=== PATIENT | female | born 1975 ===

== ENCOUNTER 2020-01-12 21:18 | Emergency (ER) | payer OTHER, SELFPAY ==
--- NOTE | 2020-01-12 | ECG_ITS ---
Test Reason : CHEST AND BACK PAIN Blood Pressure : / mmHG Vent. Rate : 088 BPM Atrial Rate : 088 BPM P-R Int : 160 ms QRS Dur : 086 ms QT Int : 368 ms P-R-T Axes : 057 025 043 degrees QTc Int : 445 ms Normal sinus rhythm Normal ECG When compared with ECG of 02-JAN-2019 09:16, No significant change was found Referred By: Generic ED Physician Electronically Signed By:ANTONIO RILEY MD
[2020-01-12 21:49] VITALS: BP 196/103; PULSE 86; RESP 16; TEMP 36.8; O2SAT 95; BMI 32.3
[2020-01-12 22:00] VITALS: BP 178/99; PULSE 75; RESP 18; O2SAT 97
--- NOTE | 2020-01-12 22:22 | XR_ITS ---
EXAMINATION: XR CHEST CLINICAL INFORMATION: Chest pain COMPARISON: 09/01/2017 and priors TECHNIQUE: AP (2 views) view of the chest was obtained. FINDINGS: No significant abnormality is noted involving the heart, lungs, mediastinum, bony thorax or soft tissues. XR/XR chest 1V IMPRESSION: Unremarkable examination.
--- NOTE | 2020-01-12 22:24 | ED_ITS ---
HPI - General Adult General Chief complaint: General Medical Stated complaint: HIGH BLOOD PRESSURE Time Seen by Provider: 01/12/20 21:59 History of Present Illness HPI narrative: Patient is a 44-year-old female presented with having chest pain that is mid chest constant for the last 4-1/2 hours. Not associated with change in position not associated with exertion. The pain is dull. Not associated with any leg swelling. No history of travel. No history of blood clots. Patient has a history of hypertension. No history of diabetes, high cholesterol, smoking, CO. No family history of CO. Positive history of anxiety. Patient denies any focal weakness. No coughing or congestion or upper respiratory symptoms. No diaphoresis. Not associated with ambulation. Related Data Allergies Allergy/AdvReac Type Severity Reaction Status Date / Time Penicillins Allergy Mild RASH Verified 01/12/20 21:49 penicillin V Allergy Unknown unknown Verified 01/12/20 21:49 Review of Systems Review of Systems: Constitutional: No Weight loss, No Fever, No Chills, No Night Sweats, No Fatigue, No Malaise ENT/Mouth: No Hearing loss, No Ear Pain, No Nasal Congestion, No Sinus Pain, No Hoarseness, No sore throat, No Rhinorrhea, No Swallowing Difficulty Eyes: No Eye Pain, No Swelling, No Redness, No Foreign Body, No Discharge, No Vision Changes Cardiovascular: Positive chest pain, no shortness of breath Respiratory: No Cough, No Sputum, No Wheezing, No Smoke Exposure, No Dyspnea Gastrointestinal: No Nausea, No Vomiting, No Diarrhea, No Constipation, No abdominal Pain, No Hematochezia, No Melena Genitourinary: no irregular bleeding, No Dysuria, No Urinary Frequency, No Hematuria, No Urinary Incontinence, No Urgency, No Flank Pain, No Urinary Flow Changes, No Hesitancy Musculoskeletal: No joint pain, No Myalgias, No Joint Swelling Skin: No Skin Lesions, No rash Neuro: No Weakness, No Numbness, No Paresthesias, No Loss of Consciousness, No Dizziness, No Headache Psych: No Anxiety/Panic, No Depression, No SI/HI/AH/VH, No Social Issues, Heme/Lymph: No Bruising, No Bleeding,No Lymphadenopathy Endocrine: No Polyuria, No Polydipsia, No Temperature Intolerance [facility] Social History Social History Advance Directives: No Advance Directives Information Provided: Yes Physical Exam Vital Signs: Vital Signs: Vital Signs Temp Pulse Resp BP Pulse Ox 01/13/20 01:06 80 18 174/96 H 98 01/13/20 00:44 78 170/99 H 01/13/20 00:00 84 180/102 H 98 01/12/20 23:01 78 18 181/108 H 97 01/12/20 22:00 75 18 178/99 H 97 01/12/20 21:49 98.3 F 86 16 196/103 H 95 Body Mass Index 32.3 Appearance: Alert. Oriented X3. No acute distress. Eyes: Pupils equal, round and reactive to light. ENT: Pharynx normal. Neck: Normal inspection. Neck supple. No lymph nodes noted. No crepitus CVS: Normal heart rate and rhythm. Pulses normal. Normal S1 and S2 Respiratory: No respiratory distress. Breath sounds normal. No Wheezing. No rales Abdomen: Soft and nontender. No rigidity. No distention. good BS x4 Skin: Skin warm and dry. Normal skin color. Normal skin turgor. Extremities: No lower extremity edema. Neurovascular intact to all extremities. No Lacerations. No Rash Neuro: Oriented X 3. No motor deficit. No sensory deficit. Moving all extermities. No slurred speech Medical Decision Making MDM Narrative Medical decision making narrative: Two sets of cardiac enzymes negative. In the setting of atypical history. Minimal risk factors. Patient unlikely to have ACS as her heart score is less than 3. Patient's D-dimer is less than 200. In the setting of atypical history patient unlikely to have PE. Patient's chest x-ray showed no pneumonia no pneumothorax. Will discharge patient home close follow-up on an outpatient basis for her chest pain. Lab Data Result diagrams: 01/12/20 22:55 01/12/20 22:55 Labs: Lab Results 01/12/20 01/12/20 01/12/20 Range/Units 22:55 22:55 22:55 WBC 9.7 (4.8-10.8) X10*3/uL RBC 4.20 (4.20-5.50) X10*6/uL Hgb 11.7 L (12.0-16.0) g/dl Hct 36.5 L (37-47) % MCV 86.9 (80-98) fL MCH 27.9 (27.0-33.0) pg MCHC 32.1 (31.0-35.0) g/dl RDW 13.7 (11.0-16.0) % Plt Count 215 (160-400) X10*3/uL MPV 11.4 (9.4-12.3) fL Immature Gran % (Auto) 0.3 (0.0-0.4) % Neut % (Auto) 67.7 (45-73) % Lymph % (Auto) 23.7 (20-40) % [place] % (Auto) 6.4 (2-11) % Eos % (Auto) 1.8 (0-4) % Baso % (Auto) 0.1 (0-2) % Lymph # (Auto) 2.3 (1.2-4.9) X10*3/uL [place] # (Auto) 0.6 (0.1-1.2) X10*3/uL Eos # (Auto) 0.2 (0.0-0.4) X10*3/uL Baso # (Auto) 0.0 (0.0-0.2) X10*3/uL Abs Immat Gran (auto) 0.03 (0.00-0.03) X10*3/uL Absolute Neuts (auto) 6.6 (2.0-8.3) X10*3/uL Absolute Nucleated RBC 0.000 (0.0-0.012) X10*3/uL Nucleated RBC % (auto) 0.0 (0.0-0.2) /100WBC D-Dimer < 200 NG/ML Hold Blue Top SEE NOTE Sodium 140 (135-145) mmol/L Potassium 3.9 (3.3-5.1) mmol/l Chloride 102 (96-108) mmol/L Carbon Dioxide 28 (22-29) mmol/L Anion Gap 14 (12-20) BUN 15 (9-16) mg/dL Creatinine 0.80 (0.5-1.4) mg/dL Estim Creat Clear Calc 99.6 Estimated GFR > 60 Random Glucose 99 (60-115) mg/dL Calcium 8.9 (8.4-10.2) mg/dL Troponin I High Sens (<3.5-17.0) ng/L Beta HCG, Quant < 2 mIU/mL 01/12/20 01/13/20 Range/Units 22:57 00:54 WBC (4.8-10.8) X10*3/uL RBC (4.20-5.50) X10*6/uL Hgb (12.0-16.0) g/dl Hct (37-47) % MCV (80-98) fL MCH (27.0-33.0) pg MCHC (31.0-35.0) g/dl RDW (11.0-16.0) % Plt Count (160-400) X10*3/uL MPV (9.4-12.3) fL Immature Gran % (Auto) (0.0-0.4) % Neut % (Auto) (45-73) % Lymph % (Auto) (20-40) % [place] % (Auto) (2-11) % Eos % (Auto) (0-4) % Baso % (Auto) (0-2) % Lymph # (Auto) (1.2-4.9) X10*3/uL [place] # (Auto) (0.1-1.2) X10*3/uL Eos # (Auto) (0.0-0.4) X10*3/uL Baso # (Auto) (0.0-0.2) X10*3/uL Abs Immat Gran (auto) (0.00-0.03) X10*3/uL Absolute Neuts (auto) (2.0-8.3) X10*3/uL Absolute Nucleated RBC (0.0-0.012) X10*3/uL Nucleated RBC % (auto) (0.0-0.2) /100WBC D-Dimer NG/ML Hold Blue Top Sodium (135-145) mmol/L Potassium (3.3-5.1) mmol/l Chloride (96-108) mmol/L Carbon Dioxide (22-29) mmol/L Anion Gap (12-20) BUN (9-16) mg/dL Creatinine (0.5-1.4) mg/dL Estim Creat Clear Calc Estimated GFR Random Glucose (60-115) mg/dL Calcium (8.4-10.2) mg/dL Troponin I High Sens 7.2 7.5 (<3.5-17.0) ng/L Beta HCG, Quant mIU/mL ECG Data Attestation: I personally reviewed and interpreted this ECG as follows: Interpretation: sinus heart rate is 90 [place] QRS QT within normal limits is no acute ST segment elevation noted. Discharge Plan Discharge Clinical Impression: Chest pain Patient Disposition: Home, Self-Care Instructions: Chest Pain (ED) Referrals: Lety Avitia MD [Primary Care Provider] - 2 days Armaan Morataya MD [Physician] - 2 days
[2020-01-12] MEDS: Aspirin 81 MG TAB.CHEW 324 MG PO (23:00)
[2020-01-12] MEDS: LORazepam 2 MG/ML VIAL 0.5 MG IVPUSH (23:00)
[2020-01-12 23:01] VITALS: BP 181/108; PULSE 78; RESP 18; O2SAT 97
[2020-01-12 23:10] LABS: Basophils Percent Auto 0.1 % (0-2); Eosinophils Absolute Auto 0.2 X10*3/uL (0.0-0.4); Eosinophils Percent Auto 1.8 % (0-4); Hematocrit 36.5 % (37-47); Hemoglobin 11.7 g/dl (12.0-16.0); Imm Gran Abs Auto 0.03 X10*3/uL (0.00-0.03); Imm Gran Pct Auto 0.3 % (0.0-0.4); Lymphocytes Absolute Auto 2.3 X10*3/uL (1.2-4.9); Lymphocytes Percent Auto 23.7 % (20-40); MANUAL DIFF FLAG NO; Mean Corpuscular HGB Conc 32.1 g/dl (31.0-35.0); Mean Corpuscular Hemoglobin 27.9 pg (27.0-33.0); Mean Corpuscular Volume 86.9 fL (80-98); Mean Platelet Volume 11.4 fL (9.4-12.3); Monocytes Absolute Auto 0.6 X10*3/uL (0.1-1.2); Monocytes Percent Auto 6.4 % (2-11); Neutrophils Absolute Auto 6.6 X10*3/uL (2.0-8.3); Neutrophils Percent Auto 67.7 % (45-73); Platelet Count 215 X10*3/uL (160-400); Red Cell Distribution Width 13.7 % (11.0-16.0); White Blood Count 9.7 X10*3/uL (4.8-10.8)
[2020-01-12 23:19] LABS: D Dimer < 200 NG/ML
[2020-01-13] VITALS: BP 180/102; PULSE 84; O2SAT 98
[2020-01-13 00:09] LABS: Anion Gap 14 (12-20); Blood Urea Nitrogen 15 mg/dL (9-16); Calcium 8.9 mg/dL (8.4-10.2); Carbon Dioxide 28 mmol/L (22-29); Chloride 102 mmol/L (96-108); Creatinine Clr Calc Pharmacy 99.6; Estimated Glomerular Filt Rate > 60; Glucose Random 99 mg/dL (60-115); Potassium 3.9 mmol/l (3.3-5.1); Sodium 140 mmol/L (135-145)
[2020-01-13 00:16] LABS: HCG Quantitative < 2 mIU/mL
[2020-01-13 00:17] LABS: Troponin-I High Sensitivity 7.2 ng/L (<3.5-17.0)
[2020-01-13 00:44] VITALS: BP 170/99; PULSE 78
[2020-01-13] MEDS: amLODIPine Besylate 5 MG TABLET PO (00:44)
[2020-01-13 01:06] VITALS: BP 174/96; PULSE 80; RESP 18; O2SAT 98
[2020-01-13 01:38] LABS: Troponin-I High Sensitivity 7.5 ng/L (<3.5-17.0)
== END 2020-01-13 02:41 | disposition home or self-care (01) ==
PROVIDERS: Emergency Provider Emergency Medicine Emergency Medical Services; PCP Internal Medicine
DX: R07.9 Chest pain, unspecified (principal)
CPT/HCPCS: 36415; 71045; 80048; 84484; 84702; 85025; 85379; 93005; 96374; 99283; 99284; J2060

== ENCOUNTER → 2020-02-13 08:35 | Outpatient (BNVA) | payer OTHER, SELFPAY | PROVIDERS: PCP Internal Medicine; Visit Provider Dietitian, Registered | DX: Z76.89 Persons encountering health services in other specified circumstances (principal) ==

== ENCOUNTER 2020-03-12 09:54 | Outpatient (REF) | payer OTHER, SELFPAY ==
--- NOTE | 2020-03-12 09:57 | EMG_ITS ---
HISTORY OF PRESENT ILLNESS: This is a 44-year-old woman with 6 plus month history of right upper extremity pain and numbness. She has a history of hypertension for which she takes lisinopril and Inderal. PHYSICAL EXAMINATION: She is alert and oriented with normal intellectual functions. Cranial nerves II through XII are normal. Muscle tone and strength are normal in all 4 extremities. Deep tendon reflexes symmetrical. No Tinel or Phalen sign. IMPRESSION: Rule out carpal tunnel syndrome. Nerve conduction EMG study: Normal electrodiagnostic study of the right upper extremity with no evidence of carpal tunnel syndrome or nerve entrapment. Normal EMG of the right C5-T1 innervated muscles. MD NANCY Loredo/TAD / [id number]
[2020-03-12 10:37] LABS: Basophils Percent Auto 0.2 % (0-2); Eosinophils Absolute Auto 0.2 X10*3/uL (0.0-0.4); Eosinophils Percent Auto 2.2 % (0-4); Hematocrit 34.8 % (37-47); Hemoglobin 11.3 g/dl (12.0-16.0); Imm Gran Abs Auto 0.02 X10*3/uL (0.00-0.03); Imm Gran Pct Auto 0.2 % (0.0-0.4); Lymphocytes Absolute Auto 1.8 X10*3/uL (1.2-4.9); Lymphocytes Percent Auto 22.4 % (20-40); MANUAL DIFF FLAG NO; Mean Corpuscular HGB Conc 32.5 g/dl (31.0-35.0); Mean Corpuscular Hemoglobin 27.9 pg (27.0-33.0); Mean Corpuscular Volume 85.9 fL (80-98); Mean Platelet Volume 11.1 fL (9.4-12.3); Monocytes Absolute Auto 0.5 X10*3/uL (0.1-1.2); Monocytes Percent Auto 5.9 % (2-11); Neutrophils Absolute Auto 5.6 X10*3/uL (2.0-8.3); Neutrophils Percent Auto 69.1 % (45-73); Platelet Count 224 X10*3/uL (160-400); Red Blood Count 4.05 X10*6/uL (4.20-5.50); White Blood Count 8.1 X10*3/uL (4.8-10.8)
[2020-03-12 11:06] LABS: Alanine Aminotransferase 11 U/L (0-31); Albumin Level 4.2 g/dL (3.5-5.0); Alkaline Phosphatase 82 U/L (39-117); Anion Gap 11 (12-20); Aspartate Amino Transferase 17 U/L (5-31); Bilirubin Total 0.5 mg/dL (0.0-1.0); Blood Urea Nitrogen 14 mg/dL (9-16); Calcium 8.8 mg/dL (8.4-10.2); Carbon Dioxide 28 mmol/L (22-29); Chloride 102 mmol/L (96-108); Cholesterol 256 mg/dL; Estimated Glomerular Filt Rate > 60; Glucose Fasting 110 mg/dL (60-99); HDL Cholesterol 52 mg/dL; Iron 53 mcg/dL (30-160); LDL Cholesterol Calculated 176 mg/dl; Percent Iron Saturation 13 % (15-50); Potassium 3.9 mmol/l (3.3-5.1); Sodium 137 mmol/L (135-145); Total Iron Binding Capacity 405 mcg/dL (228-428); Total Protein 7.4 g/dL (6.5-8.0); Triglycerides 141 mg/dL; Unsaturated Iron Binding 352 ug/dL
[2020-03-12 11:49] LABS: Folate 17.7 ng/mL (> or = 4.0); Vitamin B12 566 pg/mL (200-900)
[2020-03-13 08:33] LABS: Lyme Abs Screen <0.90 index
[2020-03-16 11:37] LABS: Vitamin D 25-OH, D2 <4 ng/mL; Vitamin D 25-OH, D3 30 ng/mL; Vitamin D 25-OH, Total 30 ng/mL (30-100)
== END 2020-03-12 09:55 | disposition home or self-care (01) ==
LOC: HO.NEURO 09:54
PROVIDERS: Visit Provider Internal Medicine
DX: G56.01 Carpal tunnel syndrome, right upper limb (principal)
CPT/HCPCS: 36415; 80053; 80061; 82306; 82607; 82746; 83540; 85025; 86618; 95886; 95910

== ENCOUNTER 2020-07-28 22:15 | Emergency (ER) | payer OTHER, SELFPAY ==
[2020-07-28 22:19] VITALS: BP 140/83; PULSE 110; RESP 18; TEMP 36.6; O2SAT 100; BMI 30.4
--- NOTE | 2020-07-28 22:50 | ED_ITS ---
HPI - Female Genitourinary General Chief complaint: Abdominal Pain Stated complaint: Lower abdominal pain Time Seen by Provider: 07/28/20 22:50 Source: patient and diplomatic interpreter Mode of arrival: ambulatory History of Present Illness HPI Narrative: 45-year-old female presents with 2 days of worsening suprapubic discomfort accompanied by urinary pain and frequency without associated nausea, vomiting, fevers, chills, diarrhea and states that her last bowel movement was this morning and normal for her. Patient describes the pain as sharp in nature and extending into the right flank. Patient denies having experienced this pain before. Her surgical history is significant for gastric sleeve. Related Data Home Medications Medication Instructions Recorded Confirmed cholecalciferol (vitamin D3) 25 25 mcg PO DAILY 01/15/20 02/12/20 mcg (1,000 unit) capsule cyanocobalamin (vitamin B-12) 500 500 mcg PO DAILY 01/15/20 02/12/20 mcg tablet iron,carbonyl 65 mg-vitamin C 125 1 tab PO DAILY 01/15/20 02/12/20 mg tablet,delayed release Previous Rx's Medication Instructions Recorded lisinopril 20 mg tablet 20 mg PO DAILY 90 Days #90 tab 01/21/20 atorvastatin 20 mg tablet 20 mg PO DAILY #30 tab 01/29/20 amlodipine 5 mg tablet 5 mg PO DAILY 90 Days #90 tab 02/12/20 propranolol 40 mg tablet 40 mg PO DAILY 90 Days #90 tab 02/12/20 cyclobenzaprine 10 mg tablet 10 mg PO TID #90 tab 05/09/20 ciprofloxacin HCl [Cipro] 500 mg PO Q12H 7 Days #14 tab 07/29/20 phenazopyridine [Pyridium] 100 mg PO TID #6 tab 07/29/20 Allergies Allergy/AdvReac Type Severity Reaction Status Date / Time Penicillins Allergy Mild RASH Verified 07/28/20 22:19 Review of Systems Review of Systems: Pertinent positives and negatives as stated in the HPI and 10 point review of systems is otherwise negative. [facility] Past Medical History Source: nursing notes reviewed Medical History Carpal tunnel syndrome of right wrist Chest pain Essential hypertension Hypovitaminosis D Iron deficiency anemia Migraines Obesity Pure hypercholesterolemia Surgical History History of D&C History of gastric surgery History of salpingoophorectomy History of tubal ligation Family History Family History Father Hypertension Mother Hypertension Diabetes Maternal Aunt Breast cancer Paternal Aunt Breast cancer Social History Social History Alcohol intake: never Smoking Status: Never smoker Use of substances other than those prescribed or required for medical reasons: No Advance Directives: No Advance Directives Information Provided: No Patient : No Physical Exam Vital Signs: Vital Signs: Last Vital Signs Temp 97.9 F 07/28/20 22:19 Pulse 110 H 07/28/20 22:19 Resp 18 07/28/20 22:19 BP 140/83 H 07/28/20 22:19 Pulse Ox 100 07/28/20 22:19 Body Mass Index 30.4 VITAL SIGNS: Reviewed. GENERAL: Well developed, well nourished, in no acute distress. HEAD: Normocephalic/atraumatic EYES: PERRLA, EOMI OROPHARYNX: no oral lesions noted, posterior pharynx clear NECK: Supple, no adenopathy LUNGS: Normal breath sounds. No adventitious sounds or accessory muscle use. SpO2<100> CARDIOVASCULAR: Regular rate and rhythm without noted murmurs ABDOMEN: Soft, tenderness over suprapubic, non-distended with bowel sounds, right-sided CVA tenderness present. NEUROLOGIC: Alert and oriented x 4. Course Course Course Narrative: 45-year-old female with history and clinical presentation initially UTI, renal colic, , ectopic, pyelonephritis and low clinical suspicion for diverticulitis/SBO. On review of all investigations urinalysis is significantly positive for leukocyte esterase, WBCs, and bacteria. Patient will receive pyridium and levofloxacin here in the emergency room and then be treated empirically for uncomplicated pyelonephritis. Patient will be provided with strict return precautions and receive remaining prescription for treating the infection. MDM - Female Genitourinary Lab Data Labs: Lab Results 07/28/20 07/28/20 Range/Units 22:47 22:47 Urine Color YELLOW Urine Appearance HAZY Urine pH 7.5 (5.0-8.0) Ur Specific [place] 1.020 (1.005-1.025) Urine Protein 2+ H (NEG-TRACE) MG/DL Urine Glucose (UA) NEG (NEG) MG/DL Urine Ketones NEG (NEG) MG/DL Urine Blood 2+ H (NEG) Urine Nitrite NEG (NEG) Ur Leukocyte Esterase 1+ H (NEG) Urine RBC 10-14 H (0) /HPF Urine WBC 50-75 H (0-4) /HPF Ur Squamous Epith Cells 1+ /LPF Ur Renal Epithelial Cell TRACE /LPF Urine Bacteria 1+ /LPF Urine Test NEGATIVE (NEGATIVE) Discharge Plan Discharge Clinical Impression: Pyelonephritis Patient Disposition: Home, Self-Care Instructions: Kidney Infection (ED) Additional Instructions: 1. Aumente la hidrataci?n de marcos l?quidos, especialmente con agua. 2. Complete todo el ciclo de antibi?ticos. El otro medicamento cambiar? el color de bautista orina. 3. Zohaib un seguimiento con bautista proveedor de atenci?n primaria en los pr?ximos 2-3 d?as para alexandra reevaluaci?n. No dude en volver al servicio de urgencias si desarrolla un empeoramiento tika de marcos s?ntomas. Prescriptions: New ciprofloxacin HCl [Cipro] 500 mg tablet 500 mg PO Q12H 7 Days Qty: 14 RF: 0 phenazopyridine [Pyridium] 100 mg tablet 100 mg PO TID Qty: 6 RF: 0 No Action lisinopril 20 mg tablet 20 mg PO DAILY 90 Days Qty: 90 RF: 3 atorvastatin 20 mg tablet 20 mg PO DAILY Qty: 30 RF: 1 cyclobenzaprine 10 mg tablet 10 mg PO TID Qty: 90 RF: 2 Vitron-C 65 mg iron- 125 mg tablet,delayed release (DR/EC) 1 tab PO DAILY RF: 0 cholecalciferol (vitamin D3) 25 mcg (1,000 unit) capsule 25 mcg PO DAILY RF: 0 cyanocobalamin (vitamin B-12) 500 mcg tablet 500 mcg PO DAILY RF: 0 amlodipine 5 mg tablet 5 mg PO DAILY 90 Days Qty: 90 RF: 3 propranolol 40 mg tablet 40 mg PO DAILY 90 Days Qty: 90 RF: 3 Referrals: Lety Aivtia MD [Primary Care Provider] - 2 days (Re-evaluation after diagnosed with uncomplicated pyelonephritis in the emergency room.) Print Language: [place] Leonean
[2020-07-28 22:56] LABS: Glucose Urine UA NEG (NEG); Leukocyte Esterase Urine 1+ (NEG); Nitrite Urine NEG (NEG); PH 7.5 (5.0-8.0); Urine Blood 2+ (NEG); Urine Ketones NEG (NEG); Urine Protein 2+ MG/DL (NEG-TRACE)
[2020-07-28 22:58] LABS: UPreg QC Valid YES; Urine Pregnancy NEGATIVE (NEGATIVE)
[2020-07-28 22:59] LABS: Appearance Urine HAZY; Color Urine YELLOW
[2020-07-28 23:10] LABS: Bacteria Urine 1+ /LPF; Renal Epithelial Cells Urine TRACE /LPF; Squamous Epithelial Cell Urine 1+ /LPF; WBC Urine 50-75 /HPF (0-4)
[2020-07-29] MEDS: levoFLOXacin 500 MG TABLET PO (00:22)
[2020-07-29] MEDS: Phenazopyridine HCL 200 MG TABLET PO (00:23)
[2020-07-29] MEDS: Acetaminophen 325 MG TABLET 975 MG PO (00:40)
[2020-07-29] MEDS: Ketorolac Tromethamine 15 MG/ML VIAL IM (00:40)
== END 2020-07-29 01:02 | disposition home or self-care (01) ==
PROVIDERS: Emergency Provider Student in an Organized Health Care Education/Training Program; PCP Internal Medicine
DX: N12 Tubulo-interstitial nephritis, not specified as acute or chronic (principal); I10 Essential (primary) hypertension; E78.00 Pure hypercholesterolemia, unspecified; Z98.84 Bariatric surgery status; Z98.51 Tubal ligation status
CPT/HCPCS: 81001; 81025; 96372; 99284; J1885

== ENCOUNTER 2020-08-20 21:37 | Emergency (ER) | payer OTHER, SELFPAY ==
[2020-08-20 21:44] VITALS: BP 142/84; PULSE 86; RESP 16; TEMP 36.9; O2SAT 100; BMI 32.1
--- NOTE | 2020-08-20 22:58 | ED.BACK ---
HPI - Back Pain/Injury General Chief Complaint: Back Pain/Injury Stated Complaint: Back pain Time Seen by Provider: 08/20/20 22:56 Source: patient Mode of arrival: ambulatory Limitations: no limitations History of Present Illness HPI Narrative: Patient is a 45-year-old female with no significant past medical history who presents with low back pain x1 week. Patient states that is getting worse, she states mostly on the right side but is also starting on her last, the pain travels down her buttocks and down the back of her leg. She describes the pain as sharp and shooting, she has not taken any medications to try to make it better. She has not used ice. She states does not hurt to touch it but when she moves certain ways, it makes it worse. Related Data Home Medications Medication Instructions Recorded Confirmed cholecalciferol (vitamin D3) 25 25 mcg PO DAILY 01/15/20 08/05/20 mcg (1,000 unit) capsule cyanocobalamin (vitamin B-12) 500 500 mcg PO DAILY 01/15/20 08/05/20 mcg tablet iron,carbonyl 65 mg-vitamin C 125 1 tab PO DAILY 01/15/20 08/05/20 mg tablet,delayed release Previous Rx's Medication Instructions Recorded lisinopril 20 mg tablet 20 mg PO DAILY 90 Days #90 tab 01/21/20 atorvastatin 20 mg tablet 20 mg PO DAILY #30 tab 01/29/20 propranolol 40 mg tablet 40 mg PO DAILY 90 Days #90 tab 02/12/20 cyclobenzaprine 10 mg tablet 10 mg PO TID #90 tab 05/09/20 amlodipine 2.5 mg tablet 2.5 mg PO DAILY 90 Days #90 tab 08/05/20 loratadine 10 mg tablet 10 mg PO DAILY PRN 90 Days #90 tab 08/05/20 prednisone 40 mg PO DAILY #8 tab 08/20/20 Allergies Allergy/AdvReac Type Severity Reaction Status Date / Time Penicillins Allergy Mild RASH Verified 08/20/20 21:48 Review of Systems Review of Systems: Yes all other systems are reviewed and are negative PMFSH Past Medical History Medical History B12 deficiency Carpal tunnel syndrome of right wrist Chest pain Essential hypertension Hypovitaminosis D Iron deficiency anemia Migraines Obesity Pure hypercholesterolemia Surgical History History of D&C History of gastric surgery History of salpingoophorectomy History of tubal ligation Family History Family History Father Hypertension Mother Hypertension Diabetes Maternal Aunt Breast cancer Paternal Aunt Breast cancer Social History Social History Alcohol intake: never Advance Directives: No Advance Directives Information Provided: Yes Physical Exam Vital Signs: Vital Signs: Last Vital Signs Temp 98.5 F 08/20/20 21:44 Pulse 86 08/20/20 21:44 Resp 16 08/20/20 21:44 BP 142/84 H 08/20/20 21:44 Pulse Ox 100 08/20/20 21:44 Body Mass Index 32.1 Const: General: cooperative, healthy appearing, comfortable and no acute distress Nutritional Appearance: obese Orientation/consciousness: patient oriented x3 Eyes: General: appearance normal, both eyes and all related structures Resp: Effort & Inspection: normal respiratory effort and able to speak in complete sentences : General: Yes no CVA tenderness Back/Spine/Pelvis: Back: no CVA tenderness Cervical Spine: No cervical muscular tenderness, No pain with cervical ROM and No Cervical spine tenderness Thoracic/Lumbar Spine: thoracic and lumbar spine normal to inspection, No paraspinal muscle tenderness, No thoracic spinal tenderness, No lumbar spinal tenderness and straight leg raise positive (right side) Neuro: General: patient oriented x3 Course Course Course Narrative: 45-year-old female no significant past medical history presents with 1 week of low back pain which radiates down both buttocks and both backs of legs. Will give prednisone as well as for additional days prescription. Reviewed risks and benefits of prednisone use with patient. Discharge Plan Discharge Clinical Impression: Sciatica Qualifiers: Laterality: right Qualified Code(s): M54.31 - Sciatica, right side Patient Disposition: Home, Self-Care Instructions: Sciatica (ED) Additional Instructions: Please also use ice and Tylenol if you need additional pain control. If the pain is intolerable or you lose control of your bladder or bowels, please return to the emergency department. Prescriptions: New prednisone 20 mg tablet 40 mg PO DAILY Qty: 8 RF: 0 No Action lisinopril 20 mg tablet 20 mg PO DAILY 90 Days Qty: 90 RF: 3 atorvastatin 20 mg tablet 20 mg PO DAILY Qty: 30 RF: 1 cyclobenzaprine 10 mg tablet 10 mg PO TID Qty: 90 RF: 2 Vitron-C 65 mg iron- 125 mg tablet,delayed release (DR/EC) 1 tab PO DAILY RF: 0 cholecalciferol (vitamin D3) 25 mcg (1,000 unit) capsule 25 mcg PO DAILY RF: 0 cyanocobalamin (vitamin B-12) 500 mcg tablet 500 mcg PO DAILY RF: 0 propranolol 40 mg tablet 40 mg PO DAILY 90 Days Qty: 90 RF: 3 amlodipine 2.5 mg tablet 2.5 mg PO DAILY 90 Days Qty: 90 RF: 0 loratadine [Allergy Relief (loratadine)] 10 mg tablet 10 mg PO DAILY PRN (Reason: allergy symptoms) 90 Days Qty: 90 RF: 1
[2020-08-20] MEDS: predniSONE 20 MG TABLET 40 MG PO (23:21)
== END 2020-08-20 23:20 | disposition home or self-care (01) ==
PROVIDERS: Emergency Provider Student in an Organized Health Care Education/Training Program; PCP Internal Medicine
DX: M54.41 Lumbago with sciatica, right side (principal); I10 Essential (primary) hypertension; E78.00 Pure hypercholesterolemia, unspecified; Z79.02 Long term (current) use of antithrombotics/antiplatelets; Z79.899 Other long term (current) drug therapy
CPT/HCPCS: 99283

== ENCOUNTER 2020-11-07 09:30 | Outpatient (REF) | payer OTHER, SELFPAY ==
[2020-11-07 10:48] LABS: MANUAL DIFF FLAG NO
[2020-11-07 10:53] LABS: Basophils Percent Auto 0.4 % (0-2); Eosinophils Absolute Auto 0.4 X10*3/uL (0.0-0.4); Eosinophils Percent Auto 4.5 % (0-4); Hematocrit 36.7 % (37-47); Hemoglobin 11.9 g/dl (12.0-16.0); Imm Gran Abs Auto 0.02 X10*3/uL (0.00-0.03); Imm Gran Pct Auto 0.3 % (0.0-0.4); Lymphocytes Absolute Auto 2.1 X10*3/uL (1.2-4.9); Lymphocytes Percent Auto 26.9 % (20-40); Mean Corpuscular HGB Conc 32.4 g/dl (31.0-35.0); Mean Corpuscular Hemoglobin 27.1 pg (27.0-33.0); Mean Corpuscular Volume 83.6 fL (80-98); Mean Platelet Volume 11.6 fL (9.4-12.3); Monocytes Absolute Auto 0.5 X10*3/uL (0.1-1.2); Neutrophils Absolute Auto 4.9 X10*3/uL (2.0-8.3); Neutrophils Percent Auto 61.9 % (45-73); Platelet Count 279 X10*3/uL (160-400); Red Blood Count 4.39 X10*6/uL (4.20-5.50); Red Cell Distribution Width 14.5 % (11.0-16.0)
[2020-11-07 11:24] LABS: Alanine Aminotransferase 13 U/L (0-31); Albumin Level 4.3 g/dL (3.5-5.0); Alkaline Phosphatase 80 U/L (39-117); Anion Gap 14 (12-20); Aspartate Amino Transferase 15 U/L (5-31); Bilirubin Total 0.6 mg/dL (0.0-1.0); Blood Urea Nitrogen 10 mg/dL (9-16); Calcium 9.8 mg/dL (8.4-10.2); Carbon Dioxide 27 mmol/L (22-29); Chloride 102 mmol/L (96-108); Cholesterol 330 mg/dL; Estimated Glomerular Filt Rate > 60; Glucose Fasting 102 mg/dL (60-99); HDL Cholesterol 48 mg/dL; LDL Cholesterol Calculated 238 mg/dl; Potassium 4.4 mmol/L (3.3-5.1); Sodium 139 mmol/L (135-145); Total Protein 7.8 g/dL (6.5-8.0); Triglycerides 222 mg/dL
[2020-11-07 12:01] LABS: Folate 14.5 ng/mL (> or = 4.0); Vitamin B12 763 pg/mL (200-900)
[2020-11-12 19:25] LABS: Vitamin D 25-OH, D2 <4 ng/mL; Vitamin D 25-OH, D3 30 ng/mL; Vitamin D 25-OH, Total 30 ng/mL (30-100)
== END 2020-11-07 09:31 | disposition home or self-care (01) ==
LOC: HO.LAB 09:30
PROVIDERS: PCP Internal Medicine; Visit Provider Internal Medicine
DX: E55.9 Vitamin D deficiency, unspecified (principal); E78.5 Hyperlipidemia, unspecified; E53.8 Deficiency of other specified B group vitamins; D64.9 Anemia, unspecified; E78.00 Pure hypercholesterolemia, unspecified
CPT/HCPCS: 36415; 80053; 80061; 82306; 82607; 82746; 85025

== ENCOUNTER 2020-11-20 09:07 | Outpatient (REF) | payer OTHER, SELFPAY ==
--- NOTE | ~2020-11-20 | XR_ITS ---
EXAMINATION: XR SHOULDER, RIGHT CLINICAL INFORMATION: Pain in the right shoulder COMPARISON: None TECHNIQUE: AP external rotation, Grashey, scapular Y, and axillary views of the right shoulder. FINDINGS: The bones and soft tissues are normal. No fracture. Glenohumeral and acromioclavicular alignment is anatomic with normal joint space. No abnormal soft tissue calcifications. XR/XR shoulder RT min 2V IMPRESSION: Normal right shoulder.
== END 2020-11-20 09:08 | disposition home or self-care (01) ==
LOC: HO.XRAY 09:07
PROVIDERS: PCP Internal Medicine; Visit Provider Internal Medicine
DX: M25.511 Pain in right shoulder (principal)
CPT/HCPCS: 73030

== ENCOUNTER → 2021-03-11 08:53 | Outpatient (BNVA) | payer OTHER, SELFPAY | PROVIDERS: PCP Internal Medicine; Referring Provider Internal Medicine; Visit Provider Physician Assistant | DX: E66.9 Obesity, unspecified (principal); Z98.84 Bariatric surgery status; Z68.33 Body mass index [BMI] 33.0-33.9, adult | CPT/HCPCS: 99212 ==

== ENCOUNTER 2021-03-23 15:47 | Outpatient (REF) | payer OTHER, SELFPAY ==
--- NOTE | ~2021-03-23 | MM_ITS ---
EXAMINATION: MM SCREENING DIGITAL BREAST TOMOSYNTHESIS, BILATERAL CLINICAL INFORMATION: Screening. Asymptomatic. The lifetime risk of breast cancer based on the Tyrer-Cuzick Model is 12%. COMPARISON: Mammography: 11/01/2019, 06/29/2018, 05/25/2017 TECHNIQUE: Digital breast tomosynthesis is performed in both the craniocaudal and mediolateral oblique views along with computer-aided detection (CAD). Synthesized 2D images are generated from the tomosynthesis. FINDINGS: There are scattered areas of fibroglandular density (ACR BI-RADS breast composition Category b). There are no significant masses, abnormal calcifications, or other abnormalities. There is fibronodular parenchymal pattern similar to prior studies. No architectural abnormality. The axilla and skin contours are unremarkable. MM/MM tomosynthesis screening BI IMPRESSION: No significant changes from prior exams. ASSESSMENT: BI-RADS 2: Benign RECOMMENDATION: Routine annual mammography screening. This patient's information was entered into a reminder system with a target due date for their next mammogram.
== END 2021-03-23 15:48 | disposition home or self-care (01) ==
LOC: HO.MAMMO 15:47
PROVIDERS: PCP Internal Medicine; Visit Provider Internal Medicine
DX: Z12.31 Encounter for screening mammogram for malignant neoplasm of breast (principal)
CPT/HCPCS: 77063; 77067

== ENCOUNTER 2021-04-21 09:20 | Outpatient (REF) | payer OTHER, SELFPAY ==
[2021-04-21 09:40] LABS: MANUAL DIFF FLAG NO
[2021-04-21 10:24] LABS: Basophils Percent Auto 0.3 % (0-2); Eosinophils Absolute Auto 0.2 X10*3/uL (0.0-0.4); Eosinophils Percent Auto 2.6 % (0-4); Hematocrit 35.6 % (37.0-47.0); Hemoglobin 11.3 g/dl (12.0-16.0); Imm Gran Abs Auto 0.05 X10*3/uL (0.00-0.03); Imm Gran Pct Auto 0.5 % (0.0-0.4); Lymphocytes Absolute Auto 1.8 X10*3/uL (1.2-4.9); Lymphocytes Percent Auto 19.8 % (20-40); Mean Corpuscular HGB Conc 31.7 g/dl (31.0-35.0); Mean Corpuscular Hemoglobin 27.2 pg (27.0-33.0); Mean Corpuscular Volume 85.8 fL (80.0-98.0); Mean Platelet Volume 12.2 fL (9.4-12.3); Monocytes Absolute Auto 0.6 X10*3/uL (0.1-1.2); Monocytes Percent Auto 6.8 % (2-11); Neutrophils Absolute Auto 6.5 x10*3/uL (2.0-8.3); Platelet Count 266 X10*3/uL (160-400); Red Blood Count 4.15 X10*6/uL (4.20-5.50); Red Cell Distribution Width 14.4 % (11.0-16.0); White Blood Count 9.2 X10*3/uL (4.8-10.8)
[2021-04-21 10:37] LABS: Estimated Average Glucose 120 mg/dL; Hemoglobin A1c % 5.8 %
[2021-04-21 10:58] LABS: Ferritin 15 ng/mL (10-250); Insulin 16 uU/mL (2-29); TSH reflex Free T4 1.81 uIU/mL (0.32-4.0); Vitamin D 25-OH Total 35.3 ng/mL (>30)
[2021-04-21 11:00] LABS: Alanine Aminotransferase 9 U/L (0-31); Albumin Level 3.9 g/dL (3.5-5.0); Alkaline Phosphatase 84 U/L (39-117); Anion Gap 10 (12-20); Aspartate Amino Transferase 12 U/L (5-31); Bilirubin Total 0.7 mg/dL (0.0-1.0); Blood Urea Nitrogen 10 mg/dL (9-16); C Reactive Protein 0.31 mg/dL (< or = 0.50); Calcium 9.2 mg/dL (8.4-10.2); Carbon Dioxide 29 mmol/L (22-29); Chloride 105 mmol/L (96-108); Cholesterol 146 mg/dL; Estimated Glomerular Filt Rate > 60; Glucose Random 97 mg/dL (60-115); HDL Cholesterol 50 mg/dL; Iron 45 mcg/dL (30-160); LDL Cholesterol Calculated 65 mg/dl; Percent Iron Saturation 11 % (15-50); Potassium 4.2 mmol/L (3.3-5.1); Sodium 140 mmol/L (135-145); Total Iron Binding Capacity 421 mcg/dL (228-428); Total Protein 7.1 g/dL (6.5-8.0); Triglycerides 155 mg/dL; Unsaturated Iron Binding 376 ug/dL
[2021-04-21 11:12] LABS: Folate 15.1 ng/mL (> or = 4.0); Vitamin B12 610 pg/mL (200-900)
[2021-04-23 16:36] LABS: Calcium (PTHI) 8.8 mg/dL (8.6-10.2); PTHI 76 pg/mL (14-64)
[2021-04-25 17:02] LABS: Zinc 60 mcg/dL (60-130)
[2021-04-26 12:56] LABS: Vitamin B1 12 nmol/L (8-30)
[2021-04-27 13:06] LABS: Vitamin A 40 mcg/dL (38-98)
== END 2021-04-21 09:21 | disposition home or self-care (01) ==
LOC: HO.LAB 09:20
PROVIDERS: PCP Internal Medicine; Visit Provider Physician Assistant
DX: E66.9 Obesity, unspecified (principal); Z98.84 Bariatric surgery status
CPT/HCPCS: 36415; 80053; 80061; 82306; 82607; 82728; 82746; 83036; 83525; 83540; 83970; 84425; 84443; 84590; 84630; 85025; 86140

== ENCOUNTER → 2021-07-01 09:52 | Outpatient (BNVA) | payer OTHER, SELFPAY | PROVIDERS: PCP Internal Medicine; Visit Provider Physician Assistant | DX: M75.41 Impingement syndrome of right shoulder (principal); I10 Essential (primary) hypertension; E78.2 Mixed hyperlipidemia; E78.00 Pure hypercholesterolemia, unspecified; E53.8 Deficiency of other specified B group vitamins; E55.9 Vitamin D deficiency, unspecified; Z88.0 Allergy status to penicillin | CPT/HCPCS: 99202 ==

== ENCOUNTER 2021-10-14 16:15 | Outpatient (REF) | payer OTHER, SELFPAY ==
[2021-10-14 17:36] LABS: Hematocrit 35.4 % (37.0-47.0); Hemoglobin 11.3 g/dl (12.0-16.0); Mean Corpuscular HGB Conc 31.9 g/dl (31.0-35.0); Mean Corpuscular Hemoglobin 27.1 pg (27.0-33.0); Mean Corpuscular Volume 84.9 fL (80.0-98.0); Mean Platelet Volume 11.4 fL (9.4-12.3); Platelet Count 228 X10*3/uL (160-400); Red Blood Count 4.17 X10*6/uL (4.20-5.50); Red Cell Distribution Width 14.3 % (11.0-16.0); White Blood Count 9.1 X10*3/uL (4.8-10.8)
[2021-10-14 18:07] LABS: Iron 50 mcg/dL (30-160); Percent Iron Saturation 13 % (15-50); Total Iron Binding Capacity 400 mcg/dL (228-428); Unsaturated Iron Binding 350 ug/dL
[2021-10-14 18:37] LABS: Folate 10.8 ng/mL (> or = 4.0); Vitamin B12 442 pg/mL (200-900)
== END 2021-10-14 16:16 | disposition home or self-care (01) ==
LOC: HO.LAB 16:15
PROVIDERS: PCP Internal Medicine; Visit Provider Physician Assistant
DX: D50.9 Iron deficiency anemia, unspecified (principal); R20.2 Paresthesia of skin; E53.8 Deficiency of other specified B group vitamins
CPT/HCPCS: 36415; 82607; 82746; 83540; 84443; 85027

== ENCOUNTER 2022-01-01 09:03 | Outpatient (REF) | payer OTHER, SELFPAY ==
--- NOTE | ~2022-01-01 | XR_ITS ---
EXAMINATION: XR LUMBOSACRAL SPINE CLINICAL INFORMATION: Paresthesia of the skin COMPARISON: None TECHNIQUE: Three views of the lumbosacral spine. FINDINGS: There is normal lumbar lordosis. The vertebral heights, alignment are normal. There is loss of L5/S1 disc height with mild spondylosis. Rest the disc heights are normal. No visible acute fracture, dislocation or subluxation seen. Extensive tierney along the left epigastric region from previous intervention. There is moderate stool in the colon. XR/XR lumbar spine 2-3V IMPRESSION: 1. Degenerative disc changes L5/S1 disc level with mild spondylosis. No visible acute fracture, dislocation or lytic process seen. 2. Moderate constipation.
[2022-01-01 09:34] LABS: Hematocrit 36.4 % (37.0-47.0); Hemoglobin 11.5 g/dl (12.0-16.0); Mean Corpuscular HGB Conc 31.6 g/dl (31.0-35.0); Mean Corpuscular Hemoglobin 26.6 pg (27.0-33.0); Mean Corpuscular Volume 84.1 fL (80.0-98.0); Mean Platelet Volume 11.2 fL (9.4-12.3); Platelet Count 238 X10*3/uL (160-400); Red Blood Count 4.33 X10*6/uL (4.20-5.50); Red Cell Distribution Width 14.5 % (11.0-16.0)
[2022-01-01 10:23] LABS: Anion Gap 16 (12-20); Blood Urea Nitrogen 13 mg/dL (9-16); Calcium 9.6 mg/dL (8.4-10.2); Carbon Dioxide 27 mmol/L (22-29); Chloride 102 mmol/L (96-108); Estimated Glomerular Filt Rate > 60; Glucose Random 110 mg/dL (60-115); Iron 57 mcg/dL (30-160); Percent Iron Saturation 14 % (15-50); Potassium 4.3 mmol/L (3.3-5.1); Sodium 141 mmol/L (135-145); Total Iron Binding Capacity 412 mcg/dL (228-428); Unsaturated Iron Binding 355 ug/dL
[2022-01-01 10:35] LABS: Ferritin 17 ng/mL (10-250)
[2022-01-01 11:04] LABS: Folate 16.9 ng/mL (> or = 4.0); Vitamin B12 440 pg/mL (200-900)
== END 2022-01-01 09:04 | disposition home or self-care (01) ==
LOC: HO.XRAY 09:03
PROVIDERS: PCP Internal Medicine; Visit Provider Physician Assistant
DX: R20.2 Paresthesia of skin (principal); E53.8 Deficiency of other specified B group vitamins; D50.9 Iron deficiency anemia, unspecified
CPT/HCPCS: 36415; 72100; 80048; 82607; 82728; 82746; 83540; 85027

== ENCOUNTER 2022-04-20 09:18 | Outpatient (REF) | payer OTHER, SELFPAY ==
--- NOTE | ~2022-04-20 | XR_ITS ---
EXAMINATION: XR CHEST CLINICAL INFORMATION: Chest pain COMPARISON: None TECHNIQUE: 2 views of the chest were obtained. FINDINGS: No significant abnormality is noted involving the heart, lungs, mediastinum, bony thorax or soft tissues. XR/XR chest 2V IMPRESSION: Unremarkable chest examination.
--- NOTE | 2022-04-20 09:37 | ECG_ITS ---
Test Reason : chest pain Blood Pressure : / mmHG Vent. Rate : 090 BPM Atrial Rate : 090 BPM P-R Int : 152 ms QRS Dur : 088 ms QT Int : 360 ms P-R-T Axes : 053 033 038 degrees QTc Int : 440 ms Normal sinus rhythm Normal ECG When compared with ECG of 12-JAN-2020 21:28, No significant change was found Referred By: Lety Lucero Electronically Signed By:Francisco Sorto
[2022-04-20 09:38] LABS: MANUAL DIFF FLAG NO
[2022-04-20 10:10] LABS: Basophils Percent Auto 0.5 % (0-2); Eosinophils Absolute Auto 0.2 X10*3/uL (0.0-0.4); Eosinophils Percent Auto 2.8 % (0-4); Hematocrit 36.1 % (37.0-47.0); Hemoglobin 11.5 g/dl (12.0-16.0); Imm Gran Abs Auto 0.03 X10*3/uL (0.00-0.03); Imm Gran Pct Auto 0.4 % (0.0-0.4); Lymphocytes Percent Auto 23.5 % (20-40); Mean Corpuscular HGB Conc 31.9 g/dl (31.0-35.0); Mean Corpuscular Hemoglobin 26.5 pg (27.0-33.0); Mean Corpuscular Volume 83.2 fL (80.0-98.0); Mean Platelet Volume 11.4 fL (9.4-12.3); Monocytes Absolute Auto 0.6 X10*3/uL (0.1-1.2); Monocytes Percent Auto 6.8 % (2-11); Neutrophils Absolute Auto 5.6 x10*3/uL (2.0-8.3); Platelet Count 235 X10*3/uL (160-400); Red Blood Count 4.34 X10*6/uL (4.20-5.50); Red Cell Distribution Width 14.5 % (11.0-16.0); White Blood Count 8.5 X10*3/uL (4.8-10.8)
[2022-04-20 10:58] LABS: Alanine Aminotransferase 15 U/L (0-31); Alkaline Phosphatase 97 U/L (39-117); Anion Gap 14 (12-20); Aspartate Amino Transferase 18 U/L (5-31); Bilirubin Total 0.8 mg/dL (0.0-1.0); Blood Urea Nitrogen 12 mg/dL (9-16); Calcium 9.1 mg/dL (8.4-10.2); Carbon Dioxide 27 mmol/L (22-29); Chloride 104 mmol/L (96-108); Cholesterol 161 mg/dL; Estimated Glomerular Filt Rate > 60; Glucose Fasting 110 mg/dL (60-99); HDL Cholesterol 45 mg/dL; Iron 54 mcg/dL (30-160); LDL Cholesterol Calculated 89 mg/dl; Percent Iron Saturation 15 % (15-50); Potassium 4.2 mmol/L (3.3-5.1); Sodium 141 mmol/L (135-145); Total Iron Binding Capacity 350 mcg/dL (228-428); Triglycerides 137 mg/dL; Unsaturated Iron Binding 296 ug/dL
[2022-04-20 11:30] LABS: Folate 15.3 ng/mL (> or = 4.0); Vitamin B12 464 pg/mL (200-900); Vitamin D 25-OH Total 26.5 ng/mL (>30)
== END 2022-04-20 09:19 | disposition home or self-care (01) ==
LOC: HO.LAB 09:18
PROVIDERS: PCP Internal Medicine; Visit Provider Internal Medicine
DX: Z00.00 Encounter for general adult medical examination without abnormal findings (principal); R07.9 Chest pain, unspecified; D64.9 Anemia, unspecified; E78.5 Hyperlipidemia, unspecified; E53.8 Deficiency of other specified B group vitamins; E55.9 Vitamin D deficiency, unspecified
CPT/HCPCS: 36415; 71046; 80053; 80061; 82306; 82607; 82746; 83540; 85025; 93005

== ENCOUNTER 2022-04-22 11:16 | Outpatient (REF) | payer OTHER, SELFPAY ==
--- NOTE | 2022-04-22 08:15 | EMG_ITS ---
Bilateral tibial and peroneal motor studies were performed. Bilateral sural, superficial peroneal, and medial and lateral plantar sensory studies were performed. Tibial H-reflexes were obtained and paraspinal muscles were tested with a needle. IMPRESSION: 1. 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 2. Underlying mild axonal sensory motor peripheral neuropathy. MD AMANDA Martinez/TAD / [id number]
== END 2022-04-22 11:17 | disposition home or self-care (01) ==
LOC: HO.NEURO 11:16
PROVIDERS: PCP Physician Assistant; Visit Provider Physician Assistant
DX: R20.2 Paresthesia of skin (principal)
CPT/HCPCS: 95886; 95913

== ENCOUNTER 2022-04-28 08:50 | Outpatient (REF) | payer OTHER, SELFPAY ==
--- NOTE | ~2022-04-28 | MM_ITS ---
EXAMINATION: MM SCREENING DIGITAL BREAST TOMOSYNTHESIS, BILATERAL CLINICAL INFORMATION: Screening. Asymptomatic. The lifetime risk of breast cancer based on the Tyrer-Cuzick Model is 14%. COMPARISON: Mammography: 03/23/2021 and studies dating back to 11/17/2015. TECHNIQUE: Digital breast tomosynthesis is performed in both the craniocaudal and mediolateral oblique views along with computer-aided detection (CAD). Synthesized 2D images are generated from the tomosynthesis. FINDINGS: There are scattered areas of fibroglandular density (ACR BI-RADS breast composition Category b). About the upper outer aspect of the right breast, approximately 3.5 cm from the nipple, there is a 6 mm circumscribed density for which further evaluation is recommended. About the superior medial aspect of the left breast, there is a 6 mm circumscribed density for further evaluation. MM/MM tomosynthesis screening BI IMPRESSION: Bilateral breast densities for further evaluation with spot compression views and possibly ultrasound. ASSESSMENT: BI-RADS 0: Incomplete - Need Additional Imaging Evaluation RECOMMENDATION: 1. Additional views of the bilateral. 2. Targeted ultrasound if warranted after review of the additional views. 3. Radiology department staff will contact the patient for additional imaging. This patient's information was entered into a reminder system with a target due date for their next mammogram.
== END 2022-04-28 08:51 | disposition home or self-care (01) ==
LOC: HO.MAMMO 08:50
PROVIDERS: PCP Internal Medicine; Visit Provider Internal Medicine
DX: Z12.31 Encounter for screening mammogram for malignant neoplasm of breast (principal)
CPT/HCPCS: 77063; 77067

== ENCOUNTER 2022-05-21 10:32 | Outpatient (REF) | payer OTHER, SELFPAY ==
--- NOTE | ~2022-05-21 | MM_ITS ---
EXAMINATION: MM DIAGNOSTIC DIGITAL BREAST TOMOSYNTHESIS, BILATERAL US TARGETED BREAST, BILATERAL CLINICAL INFORMATION: Bilateral densities on mammography. COMPARISON: Mammography: 04/28/2022 and studies dating back to 11/17/2015. TECHNIQUE: Digital breast tomosynthesis is performed. 2D images are generated from the tomosynthesis. The following views are obtained: Spot compression views of both breasts in craniocaudal and mediolateral oblique projections. Bilateral targeted breast ultrasound. FINDINGS: There are scattered areas of fibroglandular density (ACR BI-RADS breast composition category B). Spot compression views of the right breast demonstrate persistence of a 6 mm partially circumscribed density. Targeted right breast ultrasound demonstrates, at the 11:00 position, a 7 x 7 x 3 mm complex cystic lesion with some lobulation which may represent a group of smaller cysts. The lesion is wider than it is tall without internal vascularity and with increased sound transmission and no distal sound shadowing. Spot compression views of the left breast demonstrate persistence of an approximately 6 x 3 x 6 mm density with some lobular borders. On study of 04/28/2022, there is a question of some central fat and this may represent a lymph node. Targeted ultrasound of the left breast did not demonstrate any abnormal cystic or solid masses. No region of abnormal distal sound shadowing was appreciated. Recommend bilateral mammography in 6 months as well as right breast ultrasound. Results are discussed with the patient at time of visit. MM/MM tomosynthesis added view BI IMPRESSION: Persistence of bilateral breast densities with no ultrasound correlate on the left and with appearance of complex cyst on the right. Recommend 6 month follow up as described. ASSESSMENT: BI-RADS 3: Probably benign. RECOMMENDATION: Diagnostic mammography in 6 months. This patient's information was entered into a reminder system with a target due date for their next mammogram.
== END 2022-05-21 10:33 | disposition home or self-care (01) ==
LOC: HO.MAMMO 10:32
PROVIDERS: PCP Internal Medicine; Visit Provider Internal Medicine
DX: R92.2 Inconclusive mammogram (principal)
CPT/HCPCS: 76642; 77062; 77066

== ENCOUNTER 2022-06-11 15:19 | Outpatient (REF) | payer OTHER, SELFPAY ==
[2022-06-11 17:50] LABS: Hematocrit 37.2 % (37.0-47.0); Hemoglobin 11.8 g/dl (12.0-16.0); Mean Corpuscular HGB Conc 31.7 g/dl (31.0-35.0); Mean Corpuscular Volume 85.1 fL (80.0-98.0); Mean Platelet Volume 11.9 fL (9.4-12.3); Platelet Count 250 X10*3/uL (160-400); Red Blood Count 4.37 X10*6/uL (4.20-5.50); Red Cell Distribution Width 15.1 % (11.0-16.0); White Blood Count 9.2 X10*3/uL (4.8-10.8)
[2022-06-11 18:26] LABS: Iron 60 mcg/dL (30-160); Percent Iron Saturation 18 % (15-50); Total Iron Binding Capacity 339 mcg/dL (228-428); Unsaturated Iron Binding 279 ug/dL
[2022-06-11 18:41] LABS: Ferritin 28 ng/mL (10-250)
[2022-06-14 16:29] LABS: Immunoglobulin A 225 mg/dL (47-310)
[2022-06-14 23:04] LABS: Transglutaminase IgA <1.0 U/mL
== END 2022-06-11 15:20 | disposition home or self-care (01) ==
LOC: HO.LAB 15:19
PROVIDERS: PCP Internal Medicine; Visit Provider Internal Medicine
DX: K62.5 Hemorrhage of anus and rectum (principal); D50.0 Iron deficiency anemia secondary to blood loss (chronic); Z98.84 Bariatric surgery status
CPT/HCPCS: 36415; 82306; 82728; 82784; 83540; 85027; 86364; 99202

== ENCOUNTER → 2022-07-09 10:22 | Outpatient (BNVA) | payer OTHER, SELFPAY | PROVIDERS: PCP Internal Medicine; Visit Provider Physician Assistant Surgical | DX: Z98.84 Bariatric surgery status (principal) | CPT/HCPCS: 99212 ==

== ENCOUNTER 2022-08-04 08:50 | Outpatient (REF) | payer OTHER, SELFPAY ==
[2022-08-04 09:13] LABS: MANUAL DIFF FLAG NO
[2022-08-04 10:19] LABS: Basophils Percent Auto 0.4 % (0-2); Eosinophils Absolute Auto 0.2 X10*3/uL (0.0-0.4); Eosinophils Percent Auto 3.1 % (0-4); Hematocrit 36.4 % (37.0-47.0); Hemoglobin 11.7 g/dl (12.0-16.0); Imm Gran Abs Auto 0.02 X10*3/uL (0.00-0.03); Imm Gran Pct Auto 0.3 % (0.0-0.4); Lymphocytes Percent Auto 27.8 % (20-40); Mean Corpuscular HGB Conc 32.1 g/dl (31.0-35.0); Mean Corpuscular Hemoglobin 26.9 pg (27.0-33.0); Mean Corpuscular Volume 83.7 fL (80.0-98.0); Mean Platelet Volume 11.9 fL (9.4-12.3); Monocytes Absolute Auto 0.4 X10*3/uL (0.1-1.2); Monocytes Percent Auto 6.2 % (2-11); Neutrophils Absolute Auto 4.4 x10*3/uL (2.0-8.3); Neutrophils Percent Auto 62.2 % (45-73); Platelet Count 248 X10*3/uL (160-400); Red Blood Count 4.35 X10*6/uL (4.20-5.50); Red Cell Distribution Width 14.3 % (11.0-16.0); White Blood Count 7.1 X10*3/uL (4.8-10.8)
[2022-08-04 10:53] LABS: Estimated Average Glucose 117 mg/dL; Hemoglobin A1c % 5.7 %
[2022-08-04 11:13] LABS: Alanine Aminotransferase 11 U/L (0-31); Albumin Level 4.1 g/dL (3.5-5.0); Alkaline Phosphatase 106 U/L (39-117); Anion Gap 12 (12-20); Aspartate Amino Transferase 15 U/L (5-31); Bilirubin Total 1.1 mg/dL (0.0-1.0); Blood Urea Nitrogen 14 mg/dL (9-16); C Reactive Protein 0.22 mg/dL (< or = 0.50); Calcium 9.1 mg/dL (8.4-10.2); Carbon Dioxide 27 mmol/L (22-29); Chloride 105 mmol/L (96-108); Cholesterol 147 mg/dL; Estimated Glomerular Filt Rate > 60; Glucose Random 114 mg/dL (60-115); HDL Cholesterol 44 mg/dL; Iron 53 mcg/dL (30-160); LDL Cholesterol Calculated 79 mg/dl; Percent Iron Saturation 17 % (15-50); Sodium 140 mmol/L (135-145); Total Iron Binding Capacity 317 mcg/dL (228-428); Total Protein 7.4 g/dL (6.5-8.0); Triglycerides 121 mg/dL; Unsaturated Iron Binding 264 ug/dL
[2022-08-04 11:44] LABS: Ferritin 20 ng/mL (10-250); Folate 14.2 ng/mL (> or = 4.0); TSH reflex Free T4 2.88 uIU/mL (0.32-4.0); Vitamin B12 465 pg/mL (200-900); Vitamin D 25-OH Total 37.6 ng/mL (>30)
[2022-08-04 13:06] LABS: Insulin 30 uU/mL (2-29)
[2022-08-06 16:33] LABS: Calcium (PTHI) 9.2 mg/dL (8.6-10.2); PTHI 62 pg/mL (16-77)
[2022-08-10 06:38] LABS: Zinc 89 mcg/dL (60-130)
[2022-08-11 00:33] LABS: Vitamin A 47 mcg/dL (38-98)
[2022-08-15 12:54] LABS: Vitamin B1 17 nmol/L (8-30)
== END 2022-08-04 08:51 | disposition home or self-care (01) ==
LOC: HO.LAB 08:50
PROVIDERS: PCP Internal Medicine; Visit Provider Physician Assistant Surgical
DX: Z98.84 Bariatric surgery status (principal)
CPT/HCPCS: 36415; 80053; 80061; 82306; 82607; 82728; 82746; 83036; 83525; 83540; 83970; 84425; 84443; 84590; 84630; 85025; 86140

== ENCOUNTER → 2022-08-25 08:01 | Outpatient (BNVA) | payer OTHER, SELFPAY | PROVIDERS: PCP Internal Medicine; Visit Provider Psychiatry & Neurology Neurology | DX: G62.9 Polyneuropathy, unspecified (principal); G57.43 Lesion of medial popliteal nerve, bilateral lower limbs; G47.10 Hypersomnia, unspecified; M79.673 Pain in unspecified foot; R25.8 Other abnormal involuntary movements; R06.83 Snoring | CPT/HCPCS: 99202 ==

== ENCOUNTER 2022-09-03 08:52 | Outpatient (REF) | payer OTHER, SELFPAY ==
--- NOTE | ~2022-09-03 | XR_ITS ---
EXAMINATION: XR HAND, RIGHT XR HAND, LEFT CLINICAL INFORMATION: Hand pain. COMPARISON: None available. TECHNIQUE: PA, lateral, and oblique views of the right hand. PA, lateral, and oblique views of the left hand. FINDINGS: The bones and soft tissues of the hands appear unremarkable. No fracture appreciated involving either hand. Alignment appears anatomic. Joint spaces are maintained, bilaterally. No erosions or soft tissue calcifications appreciated, bilaterally. XR/XR hand RT 2V IMPRESSION: Normal plain film examinations of the hands, bilaterally.
--- NOTE | ~2022-09-03 | XR_ITS ---
EXAMINATION: XR HAND, RIGHT XR HAND, LEFT CLINICAL INFORMATION: Hand pain. COMPARISON: None available. TECHNIQUE: PA, lateral, and oblique views of the right hand. PA, lateral, and oblique views of the left hand. FINDINGS: The bones and soft tissues of the hands appear unremarkable. No fracture appreciated involving either hand. Alignment appears anatomic. Joint spaces are maintained, bilaterally. No erosions or soft tissue calcifications appreciated, bilaterally. XR/XR hand LT 2V IMPRESSION: Normal plain film examinations of the hands, bilaterally.
[2022-09-03 10:08] LABS: Erythrocyte Sedimentation Rate 28 MM/HR (0-20)
[2022-09-07 19:04] LABS: Anti Nuclear Antibody Screen POSITIVE (NEGATIVE); Anti Nuclear Antibody Titer 1:40 titer
== END 2022-09-03 08:53 | disposition home or self-care (01) ==
LOC: HO.XRAY 08:52
PROVIDERS: Absent Provider Internal Medicine; PCP Internal Medicine; Visit Provider Psychiatry & Neurology Neurology
DX: G62.9 Polyneuropathy, unspecified (principal); M79.641 Pain in right hand; M79.642 Pain in left hand
CPT/HCPCS: 36415; 73120; 85652; 86038; 86039

== ENCOUNTER 2022-10-27 11:26 | Outpatient (REF) | payer OTHER, SELFPAY ==
[2022-10-28 05:29] LABS: CT PCR NOT DETECTED (Not Detect.); NG PCR NOT DETECTED (Not Detect.)
[2022-10-28 15:20] LABS: BV Int Neg Control Negative (Negative); BV Int Pos Control Positive (Positive)
[2022-11-03 04:14] LABS: HPV mRNA E6/E7 rflx Not Detected (Not Detected)
== END 2022-10-27 11:27 | disposition home or self-care (01) ==
LOC: HO.LNP 11:26
PROVIDERS: PCP Internal Medicine; Visit Provider Advanced Practice Midwife
DX: Z01.419 Encounter for gynecological examination (general) (routine) without abnormal findings (principal); Z11.51 Encounter for screening for human papillomavirus (HPV)
CPT/HCPCS: 0353U; 87480; 87510; 87624; 87660; 88142

== ENCOUNTER 2022-10-27 11:26 | Outpatient (AMB) | payer OTHER, SELFPAY ==
--- NOTE | 2022-10-27 11:55 | A.OFFVIS_ITS ---
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 Occupational Therapy Assist Required: Yes Occupational Therapy Assist Language: Tongan Information Interpreted: non-clinical & clinical Inserting Operator: Inserting Operator Present (Shirayn) Allergies Penicillins Allergy (Mild, Verified 10/27/22 12:00) RASH Medication List - Last Reconciled 10/27/22 by Nay Belcher CNM amlodipine 2.5 mg PO DAILY 90 days aspirin (Adult Aspirin Regimen) 81 mg PO DAILY 90 days atorvastatin 80 mg PO BEDTIME 90 days cetirizine (Allergy Relief (cetirizine)) 10 mg PO DAILY PRN 90 days cholecalciferol (vitamin D3) 25 mcg PO DAILY 90 days cyanocobalamin (vitamin B-12) 500 mcg PO DAILY 90 days cyclobenzaprine 10 mg PO TID 30 days gabapentin 200 mg (2 x 100 mg) PO DAILY 30 days gabapentin 300 mg PO BEDTIME lisinopril 20 mg PO DAILY 90 days meloxicam 15 mg PO DAILY propranolol 40 mg PO DAILY 90 days Is last menstrual period known: No Post menopausal: Yes HPI 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 She used to come here years ago but it has been a few years she has not have a being any problems her last period was about a year and a half ago and she just started having hot flashes a couple of weeks ago. She sees Dr. Apple for primary care and she had a mammogram just a little while ago and she has an appointment to come back in a very short while because they told her they saw something abnormal in the want to take another look. She does not have any masses or anything. She has no worries about STDs but was open to testing while I was doing the pelvic exam in the Pap smear but declines blood work She feels like she is fairly healthy and she eats a balanced diet and gets enoug h calcium and protein and good things in her diet The only other thing she has noticed is that sometimes if she feels like she has to urinate she has to run right away to the bathroom but aside from that she is able to control her urine and she is not having any issues with incontinence She also has noticed that her sexual desire has flown away. [facility] Medical History (Updated 10/27/22 @ 12:32 by Nay Belcher CNM) B12 deficiency Carpal tunnel syndrome of right wrist Chest pain Essential hypertension Foot pain Hypersomnia Hypovitaminosis D Iron deficiency anemia Migraines Mixed hyperlipidemia Nocturnal leg movements Obesity Peripheral neuropathy Pure hypercholesterolemia Rectal bleeding Right shoulder pain Snoring Tibial neuropathy, bilateral Surgical History (Updated 10/27/22 @ 12:02 by SERENA Rodriguez) History of D&C History of salpingoophorectomy History of sleeve gastrectomy History of tubal ligation Family History Father Hypertension Mother Hypertension Diabetes Maternal Aunt Breast cancer Paternal Aunt Breast cancer Social History Housing: House Alcohol intake: never Patient Tobacco Use Status: Never used Tobacco e-Cigarette/Vaping Use: Never Used Second Hand Smoke Exposure: No service: No Current occupational status: unemployed 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 Cognitive needs: No Hearing needs: No Vision needs: No Female Reproductive History Menstrual Age of Menarche: 11 control method: other (tubal ligation) Total pregnancies: 4 Full term: 4 Number of Living Children: 4 Date of last pap smear: 06/18/14 (negative) Date of Mammogram: 05/21/22 Physical Exam Vital Signs: Last Vital Signs BP 132/86 10/27/22 11:57 BMI result Body Mass Index 34.5 Const General: healthy appearing, comfortable, no acute distress, well developed and alert Nutritional Appearance: average body habitus Orientation/consciousness: patient oriented x3 Limitations: no limitations HEENT Head: Yes normocephalic Neck Neck: Yes normal visual inspection Chest Chest palpation & inspection: normal inspection of the chest Breast/axilla inspection: normal inspection of the breasts and normal inspection of the axillae Breast/axilla palpation: normal palpation of the breasts and normal palpation of the axillae Resp Effort & Inspection: normal respiratory effort GI Inspection: Yes normal to inspection, No Abdominal wall edema and No distended Palpation (GI): Soft to palpation and nontender Other: Speculum exam within normal limits. Vagina pink and moist cervix is multiparous pink moist normal appearing mucus. Uterus is small anteverted mobile nontender adnexa nontender not enlarged and patient does have fairly good tone with Kegel and was able to sustain a muscle contraction as well. General: Yes bladder normal to palpation External Female Exam: normal external appearance and normal appearance of the urethra Speculum Exam - Vagina: normal appearance of the vagina, normal palpation and normal vaginal discharge Speculum Exam - Cervix: normal appearance of the cervix, normal palpation and nontender Bimanual exam- vagina & uterus: normal bimanual exam, normal palpation, uterine size normal, bladder normal to palpation, consistency normal, normal palpation, uterine mobility normal, uterine shape normal, No Cervical tenderness present, non-tender and no cervical motion tenderness Bimanual Exam- Adnexa, other: normal adnexae, no masses, normal and No adnexal tenderness Neuro General: patient oriented x3 Assessment & Plan Assessment & Plan (1) Encounter for annual routine gynecological examination: Code(s): Z01.419 - Encounter for gynecological examination (general) (routine) without abnormal findings (2) Cervical cancer screening: Comment: Patient states no past abnormal Paps last Pap in system 2014, Pap done 10/27/2022... Code(s): Z12.4 - Encounter for screening for malignant neoplasm of cervix (3) Breast cancer screening: Code(s): Z12.39 - Encounter for other screening for malignant neoplasm of breast Plan -----Discussed in this visit the following: healthy balanced diet, regular and consistent exercise, getting recommended health screens, doing the best she can for her particular health concerns, kegel exercises, pap smear screening and followup recommendations, mammography screening and SBE, normal changes in cycles in her life stage--- . Pap smear was done given that it has been a few years if this 1 is normal she might need another 1 in 3 years just because of the infrequency but other than that screening in this age group would be every 5 years.. She just had a mammogram done and says that they have called her for another view and so she will be getting that done soon as well Discussed laura menopausal changes and it is within the normal range of Women' experiences to experience hot flashes and also decreased libido. Unfortunately there is no magic cure for this and it is more normal than not. Discussed her need to empty her bladder when she really has to go. Recommend that she continue with that as a strategy it is never really good to hold our urine and I also checked and reminded her to try to do more Kegel exercises though she has excellent tone but so as not to lose any function. If she does ever start to have any other urinary dysfunction is for instance incontinence she should speak with Dr. Apple and see about referrals as appropriate she has good tone today so I am not referring her to PT. Coding Level of Care Code New Pt Prev Care 40-64y(06092) Diagnoses Encounter for annual routine gynecological examination Z01.419 Cervical cancer screening Z12.4 Breast cancer screening Z12.39
[2022-10-27 11:57] VITALS: BP 132/86; BMI 34.5
== END 2022-10-27 12:31 | disposition home or self-care (01) ==
LOC: HO.HWS 11:26
PROVIDERS: PCP Internal Medicine; Visit Provider Advanced Practice Midwife
DX: Z01.419 Encounter for gynecological examination (general) (routine) without abnormal findings (principal); Z12.4 Encounter for screening for malignant neoplasm of cervix; Z12.39 Encounter for other screening for malignant neoplasm of breast
CPT/HCPCS: 99386

== ENCOUNTER 2022-11-25 12:45 | Outpatient (REF) | payer OTHER, SELFPAY ==
--- NOTE | ~2022-11-25 | MM_ITS ---
EXAMINATION: MM DIAGNOSTIC DIGITAL BREAST TOMOSYNTHESIS, BILATERAL US BREAST LIMITED, RIGHT MAMMOGRAPHY: CLINICAL INFORMATION: 6 month Follow-up bilateral breast focal asymmetries. The right appears to correlate with a small cluster of cysts. The left is in the upper inner quadrant left breast, anterior one third. COMPARISON: Mammography: 05/21/2022, 04/28/2022, and dating back to 11/01/2019. TECHNIQUE: Digital breast tomosynthesis is performed in both the craniocaudal and mediolateral oblique views along with computer-aided detection (CAD). Synthesized 2D images are generated from the tomosynthesis. FINDINGS: There are scattered areas of fibroglandular density (ACR BI-RADS breast composition Category b). Right breast: The focal asymmetry in the upper slightly outer right breast, anterior one third, is stable and unchanged dating back to 2019, and correlates well with a cluster of cysts in this location, 4 cm from the nipple, measuring 6 x 3 x 6 mm. This finding is benign. No further follow-up recommended. No additional suspicious abnormalities in the right breast. Left breast: The focal asymmetry in the left breast inner slightly upper quadrant, anterior one third, is unchanged from the prior mammography, and also unchanged dating back to 2019, indicating benignity. No further follow-up recommended. No suspicious findings in the left breast ULTRASOUND: CLINICAL INFORMATION: Evaluate cluster of cysts 11:00 axis right breast, 4 cm from the nipple. COMPARISON: 05/21/2022 TECHNIQUE: Targeted sonographic evaluation right breast 11:00 axis was performed using a high frequency linear transducer. Selected archived documentation. FINDINGS: RIGHT BREAST: There is a stable and unchanged cluster of cysts in the 11:00 location, 4 cm from the nipple, measuring 6 x 3 x 6 mm. This finding correlates well with the mammographic focus of concern, and is benign. In retrospect, this was also present in 2020 mammography appearing unchanged, and establishing benignity. MM/MM tomosynthesis diagnostic BI IMPRESSION: There are no suspicious findings in either breast. There are benign focal asymmetries bilaterally as detailed above. No further follow-up recommended. Recommend the patient return to routine annual screening. OVERALL ASSESSMENT: Mammography: BI-RADS 2 - Benign Findings Ultrasound: BI-RADS 2 - Benign Findings RECOMMENDATION: 1 year F/U Results were provided to the patient at time of visit by the technologist. This patient's information was entered into a reminder system with a target due date for their next mammogram.
== END 2022-11-25 12:46 | disposition home or self-care (01) ==
LOC: HO.MAMMO 12:45
PROVIDERS: PCP Internal Medicine; Visit Provider Internal Medicine
DX: R92.2 Inconclusive mammogram (principal)
CPT/HCPCS: 76642; 77062; 77066

== ENCOUNTER → 2022-11-25 13:30 | Outpatient (BNV) | payer OTHER, SELFPAY | PROVIDERS: PCP Internal Medicine; Visit Provider Radiology Diagnostic Radiology | DX: N60.01 Solitary cyst of right breast (principal); R92.2 Inconclusive mammogram | CPT/HCPCS: 76642; 77062; 77066 ==

== ENCOUNTER 2023-01-17 09:32 | Outpatient (AMB) | payer OTHER, SELFPAY ==
--- NOTE | 2023-01-17 09:43 | MHC.OFFVISWM ---
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: Yes Coordinate Measuring Machine Operator Name: office cmi Allergies Penicillins Allergy (Mild, Verified 01/17/23 09:47) RASH Medication List - Last Reconciled 01/17/23 by SPENSER Alatorre amlodipine 2.5 mg PO DAILY 90 days aspirin (Adult Aspirin Regimen) 81 mg PO DAILY 90 days atorvastatin 80 mg PO BEDTIME 90 days cetirizine (Allergy Relief (cetirizine)) 10 mg PO DAILY PRN 90 days cholecalciferol (vitamin D3) 25 mcg PO DAILY 90 days cyanocobalamin (vitamin B-12) 500 mcg PO DAILY 90 days cyclobenzaprine 10 mg PO TID 30 days gabapentin 200 mg (2 x 100 mg) PO DAILY 30 days gabapentin 300 mg PO BEDTIME lisinopril 20 mg PO DAILY 90 days meloxicam 15 mg PO DAILY propranolol 40 mg PO DAILY 90 days HPI HPI Comments History of Present Illness Details 47-year-old female comes into the office today in follow-up for laparoscopic sleeve gastrectomy performed 08/31/2017. This is her 5 year 4 month follow-up visit. She was last seen in the office in June 2022. At that time her weight was 212.4 lb with a BMI of 34.2. Today's weight is also 212.4 lb with a BMI of 34.3. She endorses epigastric pain approximately 10-15 minutes after eating a greasy meal, pain lasting a couple of hours. She additionally reports diarrhea when this happens. She has no pain when she does not eat greasy meals. She has noticed the pain over the last 2-3 weeks. Of note, total bilirubin in July was 1. States her goal is to lose more weight, Meal plan: 4 x RTD [employer]life 30 gm 2 eggs Drinkin oz water exercise plan: none has gym membership [employer] has treadmill and bike and weights at home [facility] Medical History Tibial neuropathy, bilateral Nocturnal leg movements Hypersomnia Snoring Foot pain Peripheral neuropathy Rectal bleeding Mixed hyperlipidemia Right shoulder pain B12 deficiency Migraines Carpal tunnel syndrome of right wrist Hypovitaminosis D Pure hypercholesterolemia Iron deficiency anemia Obesity Chest pain Essential hypertension Surgical History Hx of colonoscopy History of esophagogastroduodenoscopy (EGD) History of sleeve gastrectomy History of salpingoophorectomy History of tubal ligation History of D&C Family History Father Hypertension Mother Hypertension Diabetes Maternal Aunt Breast cancer Paternal Aunt Breast cancer Social History Housing: House Alcohol intake: never Patient Tobacco Use Status: Never used Tobacco e-Cigarette/Vaping Use: Never Used Second Hand Smoke Exposure: No service: No Current occupational status: unemployed 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 Cognitive needs: No Hearing needs: No Vision needs: No Female Reproductive History Menstrual Age of Menarche: 11 Physical Exam Vital Signs: Last Vital Signs Temp 97.3 F 01/17/23 09:49 Pulse 90 01/17/23 09:49 BP 142/83 H 01/17/23 09:49 Pulse Ox 90 L 01/17/23 09:49 Oxygen Delivery Method Room Air 01/17/23 09:49 BMI result Body Mass Index 34.3 Const General: healthy appearing and no acute distress Resp Effort & Inspection: normal respiratory effort Auscultation: clear to auscultation bilaterally Cardio Rate: regular rate Rhythm: regular rhythm GI Auscultation: normal bowel sounds Extrem General: Yes normal to inspection Assessment & Plan Assessment & Plan (1) Postprandial epigastric pain: Code(s): R10.13 - Epigastric pain Plan: Her story is consistent with biliary colic, possibly secondary to cholelithiasis. We will order a limited ultrasound and lab work for today. Will refer to Dr. Jordan if positive findings. (2) Obesity: Code(s): E66.9 - Obesity, unspecified Qualifiers: Obesity type: due to excess calories Obesity classification: adult class 1 (BMI 30 - 34.9) Serious obesity comorbidity presence: without serious comorbidity Body mass index: BMI 33.0-33.9 Qualified Code(s): E66.09 - Other obesity due to excess calories; Z68.33 - Body mass index [BMI] 33.0-33.9, adult Plan: Recommend changing her meal plan to: Pure protein powder, 1 scoop in 8 oz of unsweetened almond milk over 2 hours. Two shakes per day. One meal consisting of 7 forks of protein and 7 forks of salad or vegetables. Recommend resuming exercise utilizing her treadmill and stationary bike, tracking calories with a goal of 300 per day, daily. Follow-up in the office 02/28/2023, sooner referral to Dr. Jordan if positive diagnostic imaging. Orders: Orders Complete Blood Count Auto Diff Today E66.9 - Obesity, unspecified, R10.13 - Epigastric pain Basic Metabolic Panel Today E66.9 - Obesity, unspecified, R10.13 - Epigastric pain Liver Panel Today E66.9 - Obesity, unspecified, R10.13 - Epigastric pain US abdomen limited Today E66.9 - Obesity, unspecified, R10.13 - Epigastric pain Coding Level of Care Code Est Pt Level 4 (68436) Diagnoses Postprandial epigastric pain R10.13 Class 1 obesity due to excess calories without serious comorbidity with body mass index (BMI) of 33.0 to 33.9 in adult E66.09; Z68.33 Obesity type: due to excess calories Obesity classification: adult class 1 (BMI 30 - 34.9) Serious obesity comorbidity presence: without serious comorbidity Body mass index: BMI 33.0-33.9 Time Spent (min) 40
[2023-01-17 09:49] VITALS: BP 142/83; PULSE 90; TEMP 36.3; O2SAT 90; BMI 34.3
== END 2023-01-17 10:18 | disposition home or self-care (01) ==
PROVIDERS: PCP Internal Medicine; Visit Provider Physician Assistant Surgical
DX: R10.13 Epigastric pain (principal); E66.09 Other obesity due to excess calories; Z68.33 Body mass index [BMI] 33.0-33.9, adult
CPT/HCPCS: 99214

== ENCOUNTER → 2023-01-17 09:32 | Outpatient (BNVA) | payer OTHER, SELFPAY | PROVIDERS: PCP Internal Medicine; Visit Provider Internal Medicine | DX: R10.13 Epigastric pain (principal); E66.09 Other obesity due to excess calories; Z68.34 Body mass index [BMI] 34.0-34.9, adult; Z90.3 Acquired absence of stomach [part of] | CPT/HCPCS: 99212 ==

== ENCOUNTER 2023-01-18 10:09 | Outpatient (REF) | payer OTHER, SELFPAY ==
[2023-01-18 10:29] LABS: MANUAL DIFF FLAG NO
[2023-01-18 10:46] LABS: Basophils Absolute Auto 0.1 X10*3/uL (0.0-0.2); Basophils Percent Auto 0.7 % (0-2); Eosinophils Absolute Auto 0.4 X10*3/uL (0.0-0.4); Eosinophils Percent Auto 4.9 % (0-4); Hematocrit 36.4 % (37.0-47.0); Hemoglobin 11.8 g/dl (12.0-16.0); Imm Gran Abs Auto 0.04 X10*3/uL (0.00-0.03); Imm Gran Pct Auto 0.4 % (0.0-0.4); Lymphocytes Absolute Auto 2.1 X10*3/uL (1.2-4.9); Lymphocytes Percent Auto 23.3 % (20-40); Mean Corpuscular HGB Conc 32.4 g/dl (31.0-35.0); Mean Corpuscular Volume 83.3 fL (80.0-98.0); Mean Platelet Volume 10.9 fL (9.4-12.3); Monocytes Absolute Auto 0.6 X10*3/uL (0.1-1.2); Monocytes Percent Auto 6.4 % (2-11); Neutrophils Absolute Auto 5.8 x10*3/uL (2.0-8.3); Neutrophils Percent Auto 64.3 % (45-73); Platelet Count 302 X10*3/uL (160-400); Red Blood Count 4.37 X10*6/uL (4.20-5.50); Red Cell Distribution Width 14.5 % (11.0-16.0)
[2023-01-18 11:36] LABS: Vitamin D 25-OH Total 47.8 ng/mL (>30)
[2023-01-18 11:38] LABS: Alanine Aminotransferase 17 U/L (0-31); Albumin Level 4.1 g/dL (3.5-5.0); Alkaline Phosphatase 109 U/L (39-117); Anion Gap 14 (12-20); Aspartate Amino Transferase 17 U/L (5-31); Bilirubin Direct 0.2 mg/dL (0.0-0.5); Bilirubin Total 0.7 mg/dL (0.0-1.0); Blood Urea Nitrogen 11 mg/dL (9-16); Calcium 9.4 mg/dL (8.4-10.2); Carbon Dioxide 24 mmol/L (22-29); Chloride 107 mmol/L (96-108); Cholesterol 145 mg/dL (<200); Estimated Glomerular Filt Rate > 60; Glucose Fasting 106 mg/dL (60-99); Glucose Random 105 mg/dL (60-115); HDL Cholesterol 43 mg/dL (>40); Iron 47 mcg/dL (30-160); LDL Cholesterol Calculated 75 mg/dL (<100); Percent Iron Saturation 15 % (15-50); Potassium 3.5 mmol/L (3.3-5.1); Sodium 141 mmol/L (135-145); Total Iron Binding Capacity 307 mcg/dL (228-428); Total Protein 7.9 g/dL (6.5-8.0); Triglycerides 138 mg/dL (<150); Unsaturated Iron Binding 260 ug/dL
[2023-01-18 11:52] LABS: Folate 11.8 ng/mL (> or = 4.0); Vitamin B12 1083 pg/mL (200-900)
== END 2023-01-18 10:10 | disposition home or self-care (01) ==
LOC: HO.LAB 10:09
PROVIDERS: PCP Internal Medicine; Visit Provider Physician Assistant Surgical
DX: R10.13 Epigastric pain (principal); E66.9 Obesity, unspecified; E53.8 Deficiency of other specified B group vitamins; E78.5 Hyperlipidemia, unspecified; D64.9 Anemia, unspecified; I10 Essential (primary) hypertension; E55.9 Vitamin D deficiency, unspecified
CPT/HCPCS: 36415; 80048; 80053; 80061; 80076; 82248; 82306; 82607; 82746; 83540; 85025

== ENCOUNTER 2023-01-19 08:13 | Outpatient (REF) | payer OTHER, SELFPAY ==
--- NOTE | ~2023-01-19 | US_ITS ---
EXAMINATION: US ABDOMEN LIMITED CLINICAL INFORMATION: Epigastric pain. COMPARISON: None available. TECHNIQUE: Real-time imaging of the right upper quadrant abdominal viscera. FINDINGS: PANCREAS: Normal. LIVER: Liver is enlarged measuring 20.4 cm. The liver contour is normal. Parenchymal echogenicity is normal. No focal hepatic lesion. There is no intrahepatic biliary duct dilatation seen. GALLBLADDER: Normal. The gallbladder is physiologically distended without evidence of stones, sludge, polyps, wall thickening or pericholecystic fluid. Sonographic Miller sign is negative. COMMON BILE DUCT: Normal in caliber measuring 0.6 cm in diameter. RIGHT KIDNEY: Normal. No hydronephrosis. Right extrarenal pelvis. No renal calculi or focal parenchymal lesions. The kidney measures 12.7 cm in maximum dimension. FREE FLUID: None. US/US abdomen limited IMPRESSION: Liver is enlarged measuring 20.4 cm.
== END 2023-01-19 08:14 | disposition home or self-care (01) ==
LOC: HO.US 08:13
PROVIDERS: PCP Internal Medicine; Visit Provider Physician Assistant Surgical
DX: R10.13 Epigastric pain (principal); E66.9 Obesity, unspecified
CPT/HCPCS: 76705

== ENCOUNTER 2023-01-24 09:44 | Outpatient (AMB) | payer OTHER, SELFPAY ==
[2023-01-24 09:56] VITALS: BP 128/86; BMI 34.5
--- NOTE | 2023-01-24 09:56 | MHC.PC.OV ---
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 Accompanied by: Self / Same As Patient Allergies Penicillins Allergy (Mild, Verified 01/24/23 10:02) RASH Medication List - Last Reconciled 01/24/23 by Lety Lucero MD amlodipine 2.5 mg PO DAILY 90 days aspirin (Adult Aspirin Regimen) 81 mg PO DAILY 90 days atorvastatin 80 mg PO BEDTIME 90 days cetirizine (Allergy Relief (cetirizine)) 10 mg PO DAILY PRN 90 days cholecalciferol (vitamin D3) 25 mcg PO DAILY 90 days cyanocobalamin (vitamin B-12) 500 mcg PO DAILY 90 days cyclobenzaprine 10 mg PO TID 30 days gabapentin 200 mg (2 x 100 mg) PO DAILY 30 days gabapentin 300 mg PO BEDTIME lisinopril 20 mg PO DAILY 90 days meloxicam 15 mg PO DAILY propranolol 40 mg PO DAILY 90 days Tobacco use date assessed: 04/19/22 Dental Screening Dental Screen Date: 01/24/23 Did you have a dental visit in the last 12 months?: Yes Did you have a dental problem in the last 6 months where you did not have access to dental care?: No Was dental information given to patient?: Patient has dentist HPI HPI Comments History of Present Illness Details This is a 47-year-old female with hypertension, mixed hyperlipidemia, and impaired glucose tolerance that complains of right knee pain that started few weeks ago with no previous trauma. Pain is aggravated by activity. X-ray will be order. Blood pressure has been stable with medications. Cholesterol well controlled with statins. Has elevated fasting blood glucose of 106 but denies any polyuria or polydipsia. She is obese with a BMI of 34.5 and follows with weight management. Has some mild anemia that does not require iron at the moment. [facility] Medical History Tibial neuropathy, bilateral Nocturnal leg movements Hypersomnia Snoring Foot pain Peripheral neuropathy Rectal bleeding Mixed hyperlipidemia Right shoulder pain B12 deficiency Migraines Carpal tunnel syndrome of right wrist Hypovitaminosis D Pure hypercholesterolemia Iron deficiency anemia Obesity Chest pain Essential hypertension Surgical History Hx of colonoscopy History of esophagogastroduodenoscopy (EGD) History of sleeve gastrectomy History of salpingoophorectomy History of tubal ligation History of D&C Family History Father Hypertension Mother Hypertension Diabetes Maternal Aunt Breast cancer Paternal Aunt Breast cancer Social History Housing: House Alcohol intake: never Patient Tobacco Use Status: Never used Tobacco e-Cigarette/Vaping Use: Never Used Second Hand Smoke Exposure: No service: No Current occupational status: unemployed 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 Good Camarena, Joanne Farah, Stephen Dacosta and colleagues, with an educational lala from [employer]. Review of Systems Const All systems reviewed & are unremarkable except as noted in HPI and below Eyes Reports no additional complaints, Denies change in vision and Denies other visual disturbances Card Denies chest pain at rest, Denies chest pain with activity, Denies edema, Denies irregular heart rhythm, Denies claudication, Denies dyspnea, Denies dyspnea on exertion, Denies orthopnea, Denies paroxysmal nocturnal dyspnea and Denies slow heart rate Resp Denies cough, Denies dyspnea and Denies dyspnea on exertion GI Denies abdominal pain, Denies change in bowel habits, Denies excessive flatus, Denies nausea and Denies vomiting Denies urinary incontinence, Denies urinary hesitancy and Denies urinary urgency Musc Denies abnormal gait, Denies atrophy, Denies deformity and Denies limited range of motion Skin/Breast Denies bleeding lesions, Denies changing lesions and Denies rash Neuro Denies abnormal gait, Denies behavioral changes and Denies lack of coordination Psych Denies behavioral changes Physical exam (Primary Care) Vital Signs: Last Vital Signs BP 128/86 01/24/23 09:56 BMI result Body Mass Index 34.5 Tobacco/Smoking Status: Tobacco use Status Tobacco use date assessed 04/19/22 01/24/23 10:01 Patient Tobacco Use Status Never used Tobacco 01/24/23 10:01 e-Cigarette/Vaping Use Never Used 01/24/23 10:01 Thrive Assessment: Date of Thrive Assessment Date Thrive assessed 04/19/22 01/24/23 10:01 Eyes General: appearance normal, both eyes and all related structures Eyelids: Yes eyelids normal Conjunctivae: conjunctivae normal Neck Neck: Yes normal visual inspection and Yes supple Resp Effort & Inspection: normal respiratory effort Auscultation: clear to auscultation bilaterally Cardio Jugular venous distension: no JVD Rate: regular rate Rhythm: regular rhythm Heart sounds: S1 normal heart sound present and S2 normal heart sound present Extrem General: Yes full ROM Office Procedures Flu Questionnaire Does the patient have a severe egg allergy?: No Does the patient have severe life threatening allergies?: No Does the patient have a fever or illness today?: No Has the patient ever had Guillain-[place] Syndrome?: No Has the patient ever had any past reaction to a flu shot?: No Immunizations flu vacc [id number] 6mos up(PF) 60 mcg(15 mcgx4)/0.5 mL IM syringe Performing Provider: Lety Lucero MD [facility] Administered by: SERENA Mcrae on 01/24/23 10:11 Dose Route Admin Location Dispensed Lot Number Expiration Date NDC President Ceo & Founder 0.5 mL IM Left Deltoid 0.5 mL [id number] 09/18/23 36813-854-01 [employer] VIS Given Date VIS Provided VIS Publication Date 01/24/23 Single Vaccine 20 Eligibility Eligibility Date Funding Source Not [facility] Eligible 01/24/23 Private Assessment and Plan Assessment & Plan (1) Right knee pain: Code(s): M25.561 - Pain in right knee Plan: X-ray ordered. Continue meloxicam as needed. (2) Essential hypertension: Code(s): I10 - Essential (primary) hypertension Plan: Continue lisinopril and amlodipine. Blood pressure goal is equal or less than 130/80. (3) Mixed hyperlipidemia: Code(s): E78.2 - Mixed hyperlipidemia Plan: Continue statins. Start low-cholesterol diet. (4) Impaired glucose tolerance: Code(s): R73.02 - Impaired glucose tolerance (oral) Plan: Start low-carbohydrate diet. Orders: Orders Complete Blood Count Auto Diff 3 Months D64.9 - Anemia, unspecified IRON PROFILE 3 Months D64.9 - Anemia, unspecified Vitamin D 25-OH Total 3 Months E55.9 - Vitamin D deficiency, unspecified Lipid Panel 3 Months E78.5 - Hyperlipidemia, unspecified Influenza [id number] Immunization Today Z23 - Encounter for immunization XR knee RT 2V Today M25.561 - Pain in right knee Vitamin B12 and Folate 3 Months E53.8 - Deficiency of other specified B group vitamins Comprehensive [place]. Panel Fast 3 Months G62.9 - Polyneuropathy, unspecified Medications: New flu vacc [id number] 6mos up(PF) 0.5 mL IM ONCE 0.5 mL 0RF Z23 - Encounter for immunization Coding Level of Care Code Est Pt Level 4 (40625) Diagnoses Right knee pain M25.561 Essential hypertension I10 Mixed hyperlipidemia E78.2 Impaired glucose tolerance R73.02 Time Spent (min) 22
== END 2023-01-24 10:15 | disposition home or self-care (01) ==
PROVIDERS: PCP Internal Medicine; Visit Provider Internal Medicine
DX: Z23 Encounter for immunization (principal); M25.561 Pain in right knee; I10 Essential (primary) hypertension; G43.709 Chronic migraine without aura, not intractable, without status migrainosus; E78.2 Mixed hyperlipidemia
CPT/HCPCS: 90471; 90686; 99214

== ENCOUNTER 2023-01-25 12:36 | Outpatient (REF) | payer OTHER, SELFPAY ==
--- NOTE | ~2023-01-25 | XR_ITS ---
EXAMINATION: XR KNEE, RIGHT CLINICAL INFORMATION: Pain in right knee. COMPARISON: 10/08/2015. TECHNIQUE: Two views of the right knee. FINDINGS: Moderate joint effusion. Moderate medial joint space narrowing. Small tricompartmental osteophytes. XR/XR knee RT 2V IMPRESSION: Moderate joint effusion. Progression of moderate degenerative changes.
== END 2023-01-25 12:37 | disposition home or self-care (01) ==
LOC: HO.XRAY 12:36
PROVIDERS: PCP Internal Medicine; Visit Provider Internal Medicine
DX: M25.561 Pain in right knee (principal)
CPT/HCPCS: 73560

== ENCOUNTER 2023-03-02 06:02 | Outpatient (REF) | payer OTHER, SELFPAY ==
--- NOTE | ~2023-03-02 | XR_ITS ---
EXAMINATION: XR BOTH KNEES AP STANDING XR RIGHT KNEE, ONE VIEW CLINICAL INFORMATION: Right knee pain. COMPARISON: Right knee radiographs dated 01/25/2023. TECHNIQUE: Standing AP view of both knees and sunrise view of the right knee. FINDINGS: Right knee: Moderate medial compartment joint space narrowing. Small tricompartmental marginal osteophytes. No osseous erosion. No fracture or dislocation. No concerning lytic or blastic osseous lesion. No abnormal soft tissue calcification. Left knee: No joint space narrowing or marginal osteophytes. No osseous erosion. No abnormal soft tissue calcification. XR/XR knee standing BI IMPRESSION: Right knee tricompartmental osteoarthritis, most prominent within the medial compartment and unchanged.
--- NOTE | ~2023-03-02 | XR_ITS ---
EXAMINATION: XR BOTH KNEES AP STANDING XR RIGHT KNEE, ONE VIEW CLINICAL INFORMATION: Right knee pain. COMPARISON: Right knee radiographs dated 01/25/2023. TECHNIQUE: Standing AP view of both knees and sunrise view of the right knee. FINDINGS: Right knee: Moderate medial compartment joint space narrowing. Small tricompartmental marginal osteophytes. No osseous erosion. No fracture or dislocation. No concerning lytic or blastic osseous lesion. No abnormal soft tissue calcification. Left knee: No joint space narrowing or marginal osteophytes. No osseous erosion. No abnormal soft tissue calcification. XR/XR knee RT 1V IMPRESSION: Right knee tricompartmental osteoarthritis, most prominent within the medial compartment and unchanged.
== END 2023-03-02 06:03 | disposition home or self-care (01) ==
LOC: HO.HOSX 06:02
PROVIDERS: Visit Provider Physician Assistant
DX: M17.11 Unilateral primary osteoarthritis, right knee (principal); M25.562 Pain in left knee
CPT/HCPCS: 73560; 73565; 99212

== ENCOUNTER 2023-03-02 09:00 | Outpatient (AMB) | payer OTHER, SELFPAY ==
--- NOTE | 2023-03-02 09:12 | A.OFFVIS_ITS ---
Intake Vital Signs 03/02/23 09:19 Height 5 ft 6 in Weight 214 lb BMI 34.5 Intake Visit Reasons: New Prob- right knee pain effusion Intake Note: Claudette mariscal 47 year old female presents today for an evaluation of right knee pain. Patient reports pain at the anterior aspect of knee and intermittent swelling that gets worse with walking. She states being unable to kneel or fully bend her knee. Her knee gives out causing her to fall. No other tx. Finds no relief with ibuprofen or Tylenol. Allergies Penicillins Allergy (Mild, Verified 03/02/23 09:20) RASH Medication List - Last Reconciled 03/02/23 by Christopher Mireles PA-C amlodipine 2.5 mg PO DAILY 90 days aspirin (Adult Aspirin Regimen) 81 mg PO DAILY 90 days atorvastatin 80 mg PO BEDTIME 90 days cetirizine (Allergy Relief (cetirizine)) 10 mg PO DAILY PRN 90 days cholecalciferol (vitamin D3) 25 mcg PO DAILY 90 days cyanocobalamin (vitamin B-12) 500 mcg PO DAILY 90 days cyclobenzaprine 10 mg PO TID 30 days gabapentin 200 mg (2 x 100 mg) PO DAILY 30 days gabapentin 300 mg PO BEDTIME lisinopril 20 mg PO DAILY 90 days meloxicam 15 mg PO DAILY propranolol 40 mg PO DAILY 90 days HPI New Prob- right knee pain effusion HPI Details 47-year-old female who presents to the [facility] today for evaluation of right knee pain for 3 months. She states she has pain in the anterior aspect of her right knee as well as intermittent swelling which is aggravated with ambulation and stair use. She also c/o her knee gives which causes her to fall and she is unable to kneel or fully bend her knee. She finds no relief with ibuprofen or Tylenol. She has not had any treatment in the past. [facility] Medical History Tibial neuropathy, bilateral Nocturnal leg movements Hypersomnia Snoring Foot pain Peripheral neuropathy Rectal bleeding Mixed hyperlipidemia Right shoulder pain B12 deficiency Migraines Carpal tunnel syndrome of right wrist Hypovitaminosis D Pure hypercholesterolemia Iron deficiency anemia Obesity Chest pain Essential hypertension Surgical History Hx of colonoscopy History of esophagogastroduodenoscopy (EGD) History of sleeve gastrectomy History of salpingoophorectomy History of tubal ligation History of D&C Family History Father Hypertension Mother Hypertension Diabetes Maternal Aunt Breast cancer Paternal Aunt Breast cancer Social History (Updated 03/02/23 @ 09:15 by Marianna Caldera [facility]) Housing: House Alcohol intake: never Patient Tobacco Use Status: Never used Tobacco e-Cigarette/Vaping Use: Never Used Second Hand Smoke Exposure: No service: No Current occupational status: unemployed Current occupation: right handed Cognitive needs: No Hearing needs: No Vision needs: No Female Reproductive History Menstrual Age of Menarche: 11 Review of Systems Const All systems reviewed & are unremarkable except as noted in HPI and below Physical Exam Vital Signs: BMI result Body Mass Index 34.5 Const General: cooperative and no acute distress Orientation/consciousness: patient oriented x3 Resp Effort & Inspection: normal respiratory effort and able to speak in complete sentences Cardio Peripheral pulses: Peripheral pulses 2+ throughout Neuro General: patient oriented x3 Extrem Other: Right knee: Skin intact, no erythema or joint effusion. Lateral retropatellar tenderness present. Full ROM with crepitus. Negative Dayanara?s. No ligamentous laxity. NVI. Results Reviewed Results Reviewed: Xrays were obtained in the office today and personally reviewed by me of the right knee show moderate joint space narrowing with PF spurring Assessment & Plan Assessment & Plan (1) Patellofemoral arthritis of right knee: Code(s): M17.11 - Unilateral primary osteoarthritis, right knee Plan We discussed options which include PT, NSAIDs and injections. The patient will defer on the injection today and proceed with PT and NSAIDs. She was also given a Genumed knee brace in the office today. If symptoms persist, the patient will contact me for an injection, otherwise, PRN. Orders: Orders XR knee standing BI Today M25.561 - Pain in right knee, M25.562 - Pain in left knee XR knee RT 1V Today M25.561 - Pain in right knee PT Evaluation and Treatment Today M17.11 - Unilateral primary osteoarthritis, right knee Medications: New celecoxib (Celebrex) 200 mg PO BID 60 caps 3RF 30 days Patient Instructions: Scribed for Ta-Brenda Mireles PA-C, by Giacomo Cartagena, medical services assistant, on 03/02/2023 at 9:00 AM Christopher HUTTON PA-C, have personally reviewed and agree with the information entered by the scribe. Coding Level of Care Code Est Pt Level 3 (75656) Diagnoses Patellofemoral arthritis of right knee M17.11
[2023-03-02 09:19] VITALS: BMI 34.5
== END 2023-03-02 09:45 | disposition home or self-care (01) ==
PROVIDERS: PCP Internal Medicine; Visit Provider Physician Assistant
DX: M17.11 Unilateral primary osteoarthritis, right knee (principal)
CPT/HCPCS: 99214

== ENCOUNTER 2023-05-11 11:31 | Outpatient (AMB) | payer OTHER, SELFPAY ==
--- NOTE | 2023-05-11 11:58 | AM.OFFWIN_ITS ---
Intake Vital Signs 05/11/23 11:59 Height 5 ft 6 in Weight 214 lb BMI 34.5 BP 140/86 H Blood Pressure Location Lt brachial Position Sitting Pulse 89 Pulse Source Pulse Oximeter Temp 97.9 F Temp Source Temporal Artery Scan Pulse Oximetry (%) 96 Oxygen Delivery Method Room Air Intake Visit Reasons: EP BP back pain Intake Note: pt is here today for BP started 2 weeks ago Patient Tobacco Use Status: Never used Tobacco Allergies Penicillins Allergy (Mild, Verified 05/11/23 12:09) RASH Do you need a note to return to daycare/school/sports/work: No HPI HPI Comments History of Present Illness Details 48 y/o female who presents to walk in [facility] with c/o back pain x 2 we eks ago. Denies numbness or tingling. Denies trauma or injury. Denies vaginal symptoms. Denies bowel or bladder symptoms. [facility] Medical History Tibial neuropathy, bilateral Nocturnal leg movements Hypersomnia Snoring Foot pain Peripheral neuropathy Rectal bleeding Mixed hyperlipidemia Right shoulder pain B12 deficiency Migraines Carpal tunnel syndrome of right wrist Hypovitaminosis D Pure hypercholesterolemia Iron deficiency anemia Obesity Chest pain Essential hypertension Surgical History Hx of colonoscopy History of esophagogastroduodenoscopy (EGD) History of sleeve gastrectomy History of salpingoophorectomy History of tubal ligation History of D&C Family History Father Hypertension Mother Hypertension Diabetes Maternal Aunt Breast cancer Paternal Aunt Breast cancer Social History (Updated 03/02/23 @ 09:15 by SERENA Echols) Housing: House Alcohol intake: never Patient Tobacco Use Status: Never used Tobacco e-Cigarette/Vaping Use: Never Used Second Hand Smoke Exposure: No service: No Current occupational status: unemployed Current occupation: right handed Cognitive needs: No Hearing needs: No Vision needs: No Female Reproductive History Menstrual Age of Menarche: 11 Review of Systems Const All systems reviewed & are unremarkable except as noted in HPI and below Physical Exam Vital Signs: Last Vital Signs Temp 97.9 F 05/11/23 11:59 Pulse 89 05/11/23 11:59 BP 140/86 H 05/11/23 11:59 Pulse Ox 96 05/11/23 11:59 Oxygen Delivery Method Room Air 05/11/23 11:59 BMI result Body Mass Index 34.5 Const General: comfortable and no acute distress Orientation/consciousness: patient oriented x3 General: Yes no CVA tenderness Back/Spine/Pelvis Back: no CVA tenderness Cervical Spine: cervical ROM normal Thoracic/Lumbar Spine: thoraco-lumbar ROM normal and No mass Sacrum: no erythema and no swelling Neuro General: patient oriented x3 Cranial nerves: Yes CN's II-XII intact bilaterally Gait exam (Neuro): Normal gait present Motor exam (neuro): 5/5 motor strength present throughout Psych Mental Status: mental status grossly normal Results AMB Urinalysis, Automated UA Leukoctes 15 Cordell/uL Last Edit by Иван Jc CMA on 05/11/23 12:18 UA Nitrite Negative Last Edit by Иван Jc CMA on 05/11/23 12:18 UA Urobilinogen 0.2 mg/dL Last Edit by Иван Jc CMA on 05/11/23 12 :18 UA Protein 0 mg/dL Last Edit by Иван Jc CMA on 05/11/23 12:18 UA pH 6.0 Last Edit by Иван Jc CMA on 05/11/23 12:18 UA Blood 0 Austen/uL Last Edit by Иван Jc CMA on 05/11/23 12:18 UA Specific [place] 1.015 Last Edit by Иван Jc CMA on 05/11/23 12:18 UA Ketone Negative Last Edit by Иван Jc CMA on 05/11/23 12:18 UA Bilirubin 0 mg/dL Last Edit by Иван Jc CMA on 05/11/23 12:18 UA Glucose 0 mg/dL Last Edit by Иван Jc CMA on 05/11/23 12:18 Results Reviewed Results Reviewed: Laboratory Last Values Urine pH (Auto) 6.0 05/11/23 12:17 Specific [place] (Auto) 1.015 05/11/23 12:17 Urine Protein (Auto) 0 mg/dL 05/11/23 12:17 Glucose (UA)(Auto) 0 mg/dL 05/11/23 12:17 Urine Ketones (Auto) Negative 05/11/23 12:17 Urine Blood (Auto) 0 Austen/uL 05/11/23 12:17 Urine Nitrite (Auto) Negative 05/11/23 12:17 Urine Bilirubin (Auto) 0 mg/dL 05/11/23 12:17 Urine Urobilinogen (Auto) 0.2 mg/dL 05/11/23 12:17 Leukocyte Esterase (Auto) 15 Cordell/uL 05/11/23 12:17 Assessment & Plan Assessment & Plan (1) Low back pain: Code(s): M54.50 - Low back pain, unspecified Qualifiers: Back pain laterality: midline Chronicity: acute Sciatica presence: without sciatica Qualified Code(s): M54.50 - Low back pain, unspecified Plan: - Sent Urine for UA and C/S to r/o Kidney infection - Rest and Acetaminophen for pain relief. - Heat pad/therapy Orders: Orders AMB Urinalysis Automated Today Z13.9 - Encounter for screening, unspecified UA CC w/rflx Micro + Cult Today M54.50 - Low back pain, unspecified Medications: New diclofenac sodium 1% (Voltaren Arthritis Pain) Apply a thin layer to the affected body part two times a day for pain 4 grams topical BID 100 grams 0RF M54.50 - Low back pain, unspecified acetaminophen 1,000 mg (2 x 500 mg) PO Q6H PRN 30 caps 0RF fever M54.50 - Low back pain, unspecified Coding Level of Care Code Est Pt Level 3 (05345) Diagnoses Acute midline low back pain without sciatica M54.50 Back pain laterality: midline Chronicity: acute Sciatica presence: without sciatica Time Spent (min) 15
[2023-05-11 11:59] VITALS: BP 140/86; PULSE 89; TEMP 36.6; O2SAT 96; BMI 34.5
== END 2023-05-11 14:01 | disposition home or self-care (01) ==
PROVIDERS: PCP Internal Medicine; Visit Provider Nurse Practitioner Family
DX: M54.50 Low back pain, unspecified (principal)
CPT/HCPCS: 81003; 99213

== ENCOUNTER 2023-05-11 12:21 | Outpatient (REF) | payer OTHER, SELFPAY ==
[2023-05-11 17:15] LABS: Appearance Urine Clear; Color Urine Yellow; Glucose Urine UA Negative (Negative); Leukocyte Esterase Urine Moderate (2+) (Negative); Nitrite Urine Negative (Negative); PH 6.5 (5.0-9.0); UMIC TRIGGER UACC YES; Urine Blood Negative (Negative); Urine Ketones Negative (Negative); Urine Protein Negative (Neg-Trace)
[2023-05-11 17:31] LABS: Bacteria Urine 2+ (None Seen); Hyaline Casts Urine 0-2 /LPF (0-2); RBC Urine 0-2 /HPF (0-2); UACC Culture Trigger YES
== END 2023-05-11 12:22 | disposition home or self-care (01) ==
LOC: HO.LAB 12:21
PROVIDERS: Visit Provider Nurse Practitioner Family
DX: M54.50 Low back pain, unspecified (principal)
CPT/HCPCS: 81001; 81003; 87086

== ENCOUNTER 2023-06-01 09:42 | Outpatient (AMB) | payer OTHER, SELFPAY ==
--- NOTE | 2023-06-01 09:54 | A.OFFVIS_ITS ---
Intake VS Expanded 06/01/23 10:11 BP 130/73 Blood Pressure Location Rt brachial Blood Pressure Position Sitting Pulse 81 Pulse Source Pulse Oximeter Temp 97.8 F Temperature Source Temporal Artery Scan Pulse Oximetry 99 Oxygen Delivery Method Room Air Height 5 ft 6 in Weight 214 lb 3.2 oz BMI 34.6 Body Fat % 37.2 Body Fat Mass 79.6 Fat Free Mass 134.4 Visceral Fat Rating 10.0 Body Water % 44.7 Body Water Mass 95.6 Muscle Mass/Score 127.6 Basal Metabolic Rate/Score 1,834 Intake Visit Reasons: (OV) PO LSG 08/31/2017 Linux Security Administrator Required: Yes Linux Security Administrator Name: office cmi Allergies Penicillins Allergy (Mild, Verified 06/01/23 09:56) RASH Medication List - Last Reconciled 06/01/23 by SPENSER Alatorre acetaminophen 1,000 mg (2 x 500 mg) PO Q6H PRN amlodipine 5 mg PO DAILY 30 days aspirin (Adult Aspirin Regimen) 81 mg PO DAILY 90 days atorvastatin 80 mg PO BEDTIME 90 days celecoxib (Celebrex) 200 mg PO BID 30 days cetirizine (Allergy Relief (cetirizine)) 10 mg PO DAILY PRN 90 days cholecalciferol (vitamin D3) 25 mcg PO DAILY 90 days cyanocobalamin (vitamin B-12) 500 mcg PO DAILY 90 days cyclobenzaprine 10 mg PO TID 30 days diclofenac sodium 1% (Voltaren Arthritis Pain) 4 grams topical BID doxycycline hyclate 100 mg PO BID 5 days gabapentin 200 mg (2 x 100 mg) PO DAILY 30 days gabapentin 300 mg PO BEDTIME lisinopril 20 mg PO DAILY 90 days meloxicam 15 mg PO DAILY propranolol 40 mg PO DAILY 90 days HPI HPI Comments History of Present Illness Details 47-year-old female comes into the office today in follow-up for laparoscopic sleeve gastrectomy performed 08/31/2017. This is her 5 year 9 month follow-up visit. She was last seen in the office 01/17/23. At that time her weight was 214.2 lb with a BMI of 34.3. Today's weight is also 214.2 lb with a BMI of 34.6. She states that she was away in [place] for approximately a month and did not follow the meal plan. She has returned and wishes to re-engage in weight loss. Has been using [employer] 30 gm shake 2 per day. She endorses epigastric pain approximately 10-15 minutes after eating a greasy meal, pain lasting a couple of hours. She additionally reports diarrhea when this happens. She has no pain when she does not eat greasy meals. She has noticed the pain over the last 2-3 weeks. Of note, total bilirubin in July was 1. States her goal is to lose more weight, Previous [facility] meal plan: Pure protein powder, 1 scoop in 8 oz of unsweetened almond milk over 2 hours. Two shakes per day. One meal consisting of 7 forks of protein and 7 forks of salad or vegetables. Drinkin oz water exercise plan: none has gym membership [employer] has treadmill and bike and weights at home [facility] Medical History Tibial neuropathy, bilateral Nocturnal leg movements Hypersomnia Snoring Foot pain Peripheral neuropathy Rectal bleeding Mixed hyperlipidemia Right shoulder pain B12 deficiency Migraines Carpal tunnel syndrome of right wrist Hypovitaminosis D Pure hypercholesterolemia Iron deficiency anemia Obesity Chest pain Essential hypertension Surgical History Hx of colonoscopy History of esophagogastroduodenoscopy (EGD) History of sleeve gastrectomy History of salpingoophorectomy History of tubal ligation History of D&C Family History Father Hypertension Mother Hypertension Diabetes Maternal Aunt Breast cancer Paternal Aunt Breast cancer Social History Housing: House Alcohol intake: never Patient Tobacco Use Status: Never used Tobacco e-Cigarette/Vaping Use: Never Used Second Hand Smoke Exposure: No service: No Current occupational status: unemployed Current occupation: right handed Cognitive needs: No Hearing needs: No Vision needs: No Female Reproductive History Menstrual Age of Menarche: 11 Physical Exam Const General: healthy appearing and no acute distress Resp Effort & Inspection: normal respiratory effort Auscultation: clear to auscultation bilaterally Cardio Rate: regular rate Rhythm: regular rhythm GI Auscultation: normal bowel sounds Extrem General: Yes normal to inspection Assessment & Plan Assessment & Plan (1) S/P laparoscopic sleeve gastrectomy: Comment: August 2017, Dr Melgar Code(s): Z98.84 - Bariatric surgery status Plan: Strongly encouraged her to follow the recommended meal plan. She states that she tried the pure protein and did not like it and therefore we will change the plan accordingly. Premier protein, 2 scoops in 10 oz of unsweetened almond milk from 11-1 1 scoop in 10 oz of unsweetened almond milk from 3-5 Meal at 6 with 7 forks of protein and 5 forks of vegetables Encouraged to drink 64 oz of water. Must return to the gym, has [facility] [employer] membership, goal of burning 300 calories per day utilizing treadmill, elliptical, stationary bike. Goal of 8-10 lb weight loss by next visit in 4 weeks. Coding Level of Care Code Est Pt Level 3 (64738) Diagnoses S/P laparoscopic sleeve gastrectomy Z98.84
[2023-06-01 10:11] VITALS: BP 130/73; PULSE 81; TEMP 36.6; O2SAT 99; BMI 34.6
== END 2023-06-01 10:22 | disposition home or self-care (01) ==
PROVIDERS: PCP Internal Medicine; Visit Provider Physician Assistant Surgical
DX: E66.9 Obesity, unspecified (principal); Z68.34 Body mass index [BMI] 34.0-34.9, adult; Z90.3 Acquired absence of stomach [part of]; Z98.84 Bariatric surgery status
CPT/HCPCS: 99213

== ENCOUNTER → 2023-06-01 09:42 | Outpatient (BNVA) | payer OTHER, SELFPAY | PROVIDERS: PCP Internal Medicine; Visit Provider Physician Assistant Surgical | DX: Z98.84 Bariatric surgery status (principal) | CPT/HCPCS: 99212 ==

== ENCOUNTER 2023-06-10 11:09 | Outpatient (AMB) | payer OTHER, SELFPAY ==
[2023-06-10 11:17] VITALS: BP 130/82; BMI 35.7
--- NOTE | 2023-06-10 11:17 | MHC.OFFVIS ---
Intake Vital Signs 06/10/23 11:17 Height 5 ft 6 in Weight 221 lb BMI 35.7 BP 130/82 Intake Visit Reasons: irregular menses Intake Note: has been 1 1/2 years without her period and has been 4 days with a heavy period Imaging Analyst Required: Yes Imaging Analyst Language: Italian Information Interpreted: non-clinical & clinical Wire Communications Engineer: Wire Communications Engineer Present (Shirayn) Allergies Penicillins Allergy (Mild, Verified 06/10/23 11:20) RASH Medication List - Last Reconciled 06/10/23 by Nay Belcher CNM acetaminophen 1,000 mg (2 x 500 mg) PO Q6H PRN amlodipine 5 mg PO DAILY 30 days aspirin (Adult Aspirin Regimen) 81 mg PO DAILY 90 days atorvastatin 80 mg PO BEDTIME 90 days celecoxib (Celebrex) 200 mg PO BID 30 days cetirizine (Allergy Relief (cetirizine)) 10 mg PO DAILY PRN 90 days cholecalciferol (vitamin D3) 25 mcg PO DAILY 90 days cyanocobalamin (vitamin B-12) 500 mcg PO DAILY 90 days cyclobenzaprine 10 mg PO TID 30 days diclofenac sodium 1% (Voltaren Arthritis Pain) 4 grams topical BID doxycycline hyclate 100 mg PO BID 5 days gabapentin 200 mg (2 x 100 mg) PO DAILY 30 days gabapentin 300 mg PO BEDTIME lisinopril 20 mg PO DAILY 90 days meloxicam 15 mg PO DAILY propranolol 40 mg PO DAILY 90 days Is last menstrual period known: Yes Last menstrual period: 06/06/23 Post menopausal: No HPI irregular menses HPI Details Patient is here for a problem visit she said she had not had a period for about 2 and half years and then on Tuesday she started bleeding and it is trailing off now it feels like a regular. She did have cramping with it like a regular.. She has no other health concerns on questioning about her last labs with her primary care in detail she did admit that she was told that she was prediabetic but she does not remember being told anything else about it. She is going to be seeing her primary next month but says she does not have any labs that she needs to do about that yet until the visit. She said she still gets hot flashes often on she also says she has gained about 30+ lb at least in the last couple of years.. [facility] Medical History Tibial neuropathy, bilateral Nocturnal leg movements Hypersomnia Snoring Foot pain Peripheral neuropathy Rectal bleeding Mixed hyperlipidemia Right shoulder pain B12 deficiency Migraines Carpal tunnel syndrome of right wrist Hypovitaminosis D Pure hypercholesterolemia Iron deficiency anemia Obesity Chest pain Essential hypertension Surgical History Hx of colonoscopy History of esophagogastroduodenoscopy (EGD) History of sleeve gastrectomy History of salpingoophorectomy History of tubal ligation History of D&C Family History Father Hypertension Mother Hypertension Diabetes Maternal Aunt Breast cancer Paternal Aunt Breast cancer Social History Housing: House Alcohol intake: never Patient Tobacco Use Status: Never used Tobacco e-Cigarette/Vaping Use: Never Used Second Hand Smoke Exposure: No service: No Current occupational status: unemployed Current occupation: right handed Cognitive needs: No Hearing needs: No Vision needs: No Female Reproductive History Menstrual Age of Menarche: 11 Date of last menstrual period: 06/06/23 control method: other (tubal ligation) Total pregnancies: 4 Full term: 4 Number of Living Children: 4 Date of last pap smear: 10/28/22 (negative) Physical Exam Vital Signs: Last Vital Signs BP 130/82 06/10/23 11:17 BMI result Body Mass Index 35.7 Other: Vagina pink and moist scant end of menses noted. Uterus small anteverted mobile nontender no adnexal tenderness fair tone with Kegel External Female Exam: normal external appearance Speculum Exam - Vagina: normal appearance of the vagina and normal vaginal discharge Speculum Exam - Cervix: normal appearance of the cervix Bimanual exam- vagina & uterus: normal bimanual exam, uterine size normal, consistency normal, uterine mobility normal, uterine shape normal and non-tender Bimanual Exam- Adnexa, other: normal adnexae, no masses and No adnexal tenderness Assessment & Plan Assessment & Plan (1) Abnormal uterine bleeding (AUB): Code(s): N93.9 - Abnormal uterine and vaginal bleeding, unspecified (2) Perimenopause: Code(s): N95.1 - Menopausal and female climacteric states Plan I reviewed a plan with patient cultures done today in anticipation that after some lab work and a pelvic ultrasound her next step in the evaluation will probably need an endometrial biopsy. Discussed that it is possible that the weight gain is possibly responsible for the amenorrhea but it is also possible that it is amenorrhea secondary to menopause and so either way she should have this bleeding evaluated. So next steps are lab work ultrasound and then a endometrial biopsy. Orders: Orders Thyroid Stimulating Hormone Today N93.9 - Abnormal uterine and vaginal bleeding, unspecified, N95.1 - Menopausal and female climacteric states Follicle Stimulating Hormone Today N93.9 - Abnormal uterine and vaginal bleeding, unspecified, N95.1 - Menopausal and female climacteric states CT NG by PCR Today N93.9 - Abnormal uterine and vaginal bleeding, unspecified Bacterial Vaginosis Panel Today N93.9 - Abnormal uterine and vaginal bleeding, unspecified Coding Level of Care Code Est Pt Level 3 (49403) Diagnoses Abnormal uterine bleeding (AUB) N93.9 Perimenopause N95.1
== END 2023-06-10 12:10 | disposition home or self-care (01) ==
LOC: HO.HWSM 11:09
PROVIDERS: PCP Internal Medicine; Visit Provider Advanced Practice Midwife
DX: N93.9 Abnormal uterine and vaginal bleeding, unspecified (principal); N95.1 Menopausal and female climacteric states
CPT/HCPCS: 99213

== ENCOUNTER 2023-06-10 11:09 | Outpatient (REF) | payer OTHER, SELFPAY ==
[2023-06-11 02:39] LABS: CT PCR NOT DETECTED (Not Detect.); NG PCR NOT DETECTED (Not Detect.)
[2023-06-11 11:59] LABS: BV Int Neg Control Negative (Negative); BV Int Pos Control Positive (Positive)
== END 2023-06-10 11:10 | disposition home or self-care (01) ==
LOC: HO.LNP 11:09
PROVIDERS: PCP Internal Medicine; Visit Provider Advanced Practice Midwife
DX: N93.9 Abnormal uterine and vaginal bleeding, unspecified (principal); N92.6 Irregular menstruation, unspecified; N95.1 Menopausal and female climacteric states; Z79.899 Other long term (current) drug therapy
CPT/HCPCS: 0353U; 87480; 87510; 87660; 99212

== ENCOUNTER 2023-06-23 14:49 | Outpatient (AMB) | payer OTHER, SELFPAY ==
--- NOTE | 2023-06-23 14:51 | MHC.PC.OV ---
Vital Signs 06/23/23 14:52 Height 5 ft 6 in Weight 214 lb BMI 34.5 BP 130/84 Blood Pressure Location Lt brachial Position Sitting Intake Visit Reasons: anemia F/U Intake Note: Patient here for a follow up Anemia, c/o sore throat going on a few days Binding Cutter Required: No Accompanied by: Self / Same As Patient Allergies Penicillins Allergy (Mild, Verified 06/23/23 15:13) RASH Medication List - Last Reconciled 06/23/23 by Lety Lucero MD acetaminophen 1,000 mg (2 x 500 mg) PO Q6H PRN amlodipine 5 mg PO DAILY 30 days aspirin (Adult Aspirin Regimen) 81 mg PO DAILY 90 days atorvastatin 80 mg PO BEDTIME 90 days celecoxib (Celebrex) 200 mg PO BID 30 days cetirizine (Allergy Relief (cetirizine)) 10 mg PO DAILY PRN 90 days cholecalciferol (vitamin D3) 25 mcg PO DAILY 90 days cyanocobalamin (vitamin B-12) 500 mcg PO DAILY 90 days cyclobenzaprine 10 mg PO TID 30 days diclofenac sodium 1% (Voltaren Arthritis Pain) 4 grams topical BID gabapentin 300 mg PO BEDTIME lisinopril 20 mg PO DAILY 90 days propranolol 40 mg PO DAILY 90 days Tobacco use date assessed: 06/23/23 Dental Screening Dental Screen Date: 06/23/23 Did you have a dental visit in the last 12 months?: No Did you have a dental problem in the last 6 months where you did not have access to dental care?: No Was dental information given to patient?: Patient has dentist HPI HPI Comments History of Present Illness Details This is a 48-year-old female with hypertension, mixed hyperlipidemia and low vitamin-D that comes today complaining of non quantified fever associated with nasal congestion, sore throat and tender lymphadenopathy. This started about 3 days ago. No cough. Had COVID test negative at home. Blood pressure stable. On statins for her mixed hyperlipidemia. On vitamin-D supplements for low vitamin-D. Strep test was negative today. [facility] Medical History (Updated 06/23/23 @ 16:26 by Lety Lucero MD) Tibial neuropathy, bilateral Nocturnal leg movements Hypersomnia Snoring Foot pain Peripheral neuropathy Rectal bleeding Mixed hyperlipidemia Right shoulder pain B12 deficiency Migraines Carpal tunnel syndrome of right wrist Hypovitaminosis D Pure hypercholesterolemia Iron deficiency anemia Obesity Chest pain Essential hypertension Surgical History Hx of colonoscopy History of esophagogastroduodenoscopy (EGD) History of sleeve gastrectomy History of salpingoophorectomy History of tubal ligation History of D&C Family History Father Hypertension Mother Hypertension Diabetes Maternal Aunt Breast cancer Paternal Aunt Breast cancer Social History Housing: House Alcohol intake: never Patient Tobacco Use Status: Never used Tobacco e-Cigarette/Vaping Use: Never Used Second Hand Smoke Exposure: No service: No Current occupational status: unemployed Current occupation: right handed Cognitive needs: No Hearing needs: No Vision needs: No Female Reproductive History Menstrual Age of Menarche: 11 Questionnaire PHQ-9 Over the last 2 weeks, how often have you been bothered by any of the following problems? 1. Little interest or pleasure in doing things: not at all 2. Feeling down, depressed, or hopeless: not at all 3. Trouble falling or staying asleep, or sleeping too much: not at all 4. Feeling tired or having little energy: not at all 5. Poor appetite or overeating: not at all 6. Feeling bad about yourself - or that you are a failure or have let yourself or your family down: not at all 7. Trouble concentrating on things, such as reading the newspaper or watching television: not at all 8. Moving or speaking so slowly that other people could have noticed. Or the opposite - being so fidgety or restless that you have been moving around a lot more than usual: not at all 9. Thoughts that you would be better off or of hurting yourself in some way: not at all Total score: 0 Depression Screening Interpretation: Negative Depression Screening Done: Yes 44024 - PHQ-9 Billing: Yes Source: Developed by Drs. Good Camarena, Joanne Farah, Stephen Dacosta and colleagues, with an educational lala from [employer]. Thrive Questionnaire Date Thrive assessed: 06/23/23 I am a: Patient What is your living situation today?: I have a steady place to live Within the past 12 months, did the food you bought not last and you didn't have the money to get more?: Never true Within the past 12 months, did you worry whether your food would run out before you got money to buy more?: Never true Do you have trouble paying for medicines?: No Do you have trouble getting transportation to medical appointments?: No Do you have trouble paying your heating and electricity bill?: No Do you have trouble taking care of your child, family member or friend?: No Do you have trouble with day-to-day activities such as bathing, preparing meals, shopping, managing finances, etc.?: No Are you currently unemployed and looking for a job?: No Are you interested in more education?: No Please select the resources that you would like help with: None Currently or been in a relationship where the following occur: no concerns reported THRIVE Score: 0 AUDIT C Alcohol Use Questionnaire (AUDIT-C) 1. How often do you have a drink containing alcohol?: Never Total Score: 0 SADIQ-7 AMB Questionnaire SADIQ-7 Date SADIQ - 7 assessed: 06/23/23 Feeling nervous, anxious, or on edge: 0 = Not at all Not being able to stop or control worryin = Not at all Worrying too much about different things: 0 = Not at all Trouble relaxin = Not at all Being so restless that it is hard to sit still: 0 = Not at all Becoming easily annoyed or irritable: 0 = Not at all Feeling afraid as if something awful might happen: 0 = Not at all Total SADIQ-7 score (0-4 normal; 5-9 mild; 10-14 moderate; 15-21 severe): 0 Source: Developed by Drs. Good Camarena, Joanne Farah, Stephen Dacosta and colleagues, with an educational lala from [employer]. SADIQ-7 Assessment Billing SADIQ-7 Assessment Tool: SAIDQ-7 Assessment 63191 Review of Systems Const All systems reviewed & are unremarkable except as noted in HPI and below Eyes Reports no additional complaints, Denies change in vision and Denies other visual disturbances Card Denies chest pain at rest, Denies chest pain with activity, Denies edema, Denies irregular heart rhythm, Denies claudication, Denies dyspnea, Denies dyspnea on exertion, Denies orthopnea, Denies paroxysmal nocturnal dyspnea and Denies slow heart rate Resp Denies cough, Denies dyspnea and Denies dyspnea on exertion GI Denies abdominal pain, Denies change in bowel habits, Denies excessive flatus, Denies nausea and Denies vomiting Denies urinary incontinence, Denies urinary hesitancy and Denies urinary urgency Physical exam (Primary Care) Vital Signs: Last Vital Signs BP 130/84 06/23/23 14:52 BMI result Body Mass Index 34.5 Tobacco/Smoking Status: Tobacco use Status Tobacco use date assessed 06/23/23 06/23/23 15:03 Patient Tobacco Use Status Never used Tobacco 06/23/23 15:03 e-Cigarette/Vaping Use Never Used 06/23/23 15:03 PHQ-9: PHQ-9 Score PHQ-9: Total score 0 06/23/23 15:28 Depression Screening Interpretation: Negative Thrive Assessment: Date of Thrive Assessment Date Thrive assessed 06/23/23 06/23/23 15:03 Currently or been in a relationship where the following occur: no concerns reported [facility] General nose exam: Nasal discharge present Neck Neck: Yes tender Lymphatic: lymphadenopathy (tender) Resp Effort & Inspection: normal respiratory effort Auscultation: clear to auscultation bilaterally Cardio Jugular venous distension: no JVD Rate: regular rate Rhythm: regular rhythm Heart sounds: S1 normal heart sound present and S2 normal heart sound present Extrem General: Yes full ROM Results AMB Rapid Strep AMB Rapid Strep Negative Last Edit by SERENA Mcrae on 06/23/23 15:29 Results Reviewed Results Reviewed: Laboratory Last Values Strep Scn Rapid Clinic Negative 06/23/23 15:28 Assessment and Plan Assessment & Plan (1) URI (upper respiratory infection): Code(s): J06.9 - Acute upper respiratory infection, unspecified Plan: COVID, flu and RSV ordered. Strep test negative. (2) Essential hypertension: Code(s): I10 - Essential (primary) hypertension Plan: Continue lisinopril. Blood pressure goal is equal or less than 130/80. (3) Hypovitaminosis D: Code(s): E55.9 - Vitamin D deficiency, unspecified Plan: Continue vitamin-D supplements. (4) Mixed hyperlipidemia: Code(s): E78.2 - Mixed hyperlipidemia Plan: Continue statins. Orders: Orders Complete Blood Count Auto Diff Today D64.9 - Anemia, unspecified Vitamin B12 and Folate Today E53.8 - Deficiency of other specified B group vitamins Vitamin D 25-OH Total Today E55.9 - Vitamin D deficiency, unspecified SARS-CoV2/FLU/RSV Today R09.89 - Other specified symptoms and signs involving the circulatory and respiratory systems AMB Rapid Strep Screen Today Z13.9 - Encounter for screening, unspecified XR KUB Today M54.9 - Dorsalgia, unspecified Coding Level of Care Code Est Pt Level 4 (40497) Diagnoses URI (upper respiratory infection) J06.9 Essential hypertension I10 Hypovitaminosis D E55.9 Mixed hyperlipidemia E78.2 Additional Codes SADIQ-7 Assessment Billing - SADIQ-7 Assessment Tool: SADIQ-7 Assessment 54760 ([id number]) Time Spent (min) 23
[2023-06-23 14:52] VITALS: BP 130/84; BMI 34.5
== END 2023-06-23 15:35 | disposition home or self-care (01) ==
PROVIDERS: PCP Internal Medicine; Visit Provider Internal Medicine
DX: J06.9 Acute upper respiratory infection, unspecified (principal); I10 Essential (primary) hypertension; E55.9 Vitamin D deficiency, unspecified; E78.2 Mixed hyperlipidemia
CPT/HCPCS: 87880; 99214

== ENCOUNTER 2023-06-23 15:39 | Outpatient (REF) | payer OTHER, SELFPAY ==
--- NOTE | ~2023-06-23 | XR_ITS ---
EXAMINATION: XR ABDOMEN KUB CLINICAL INDICATION: Abdominal pain. COMPARISON: None available. TECHNIQUE: 2 AP views of the abdomen and pelvis are submitted. FINDINGS: The bowel gas pattern is normal with no evidence of ileus or obstruction. There is a mild to moderate stool burden. No unusual soft tissue calcifications are noted. There are left pelvic phleboliths. There are right upper quadrant surgical clips. No acute osseous abnormality is seen. XR/XR KUB IMPRESSION: Unremarkable examination.
[2023-06-23 15:59] LABS: MANUAL DIFF FLAG NO
[2023-06-23 16:29] LABS: Basophils Percent Auto 0.4 % (0-2); Eosinophils Absolute Auto 0.4 X10*3/uL (0.0-0.4); Eosinophils Percent Auto 4.4 % (0-4); Hematocrit 37.1 % (37.0-47.0); Hemoglobin 11.8 g/dl (12.0-16.0); Imm Gran Abs Auto 0.04 X10*3/uL (0.00-0.03); Imm Gran Pct Auto 0.5 % (0.0-0.4); Lymphocytes Absolute Auto 2.2 X10*3/uL (1.2-4.9); Lymphocytes Percent Auto 26.1 % (20-40); Mean Corpuscular HGB Conc 31.8 g/dl (31.0-35.0); Mean Corpuscular Hemoglobin 27.3 pg (27.0-33.0); Mean Corpuscular Volume 85.7 fL (80.0-98.0); Mean Platelet Volume 11.1 fL (9.4-12.3); Monocytes Absolute Auto 0.9 X10*3/uL (0.1-1.2); Monocytes Percent Auto 10.6 % (2-11); Neutrophils Absolute Auto 4.8 x10*3/uL (2.0-8.3); Platelet Count 254 X10*3/uL (160-400); Red Blood Count 4.33 X10*6/uL (4.20-5.50); Red Cell Distribution Width 14.7 % (11.0-16.0); White Blood Count 8.3 X10*3/uL (4.8-10.8)
[2023-06-23 16:31] LABS: Appearance Urine Cloudy; Color Urine Yellow; Glucose Urine UA Negative (Negative); Leukocyte Esterase Urine Small (1+) (Negative); Nitrite Urine Negative (Negative); PH 6.5 (5.0-9.0); UMIC TRIGGER UACC YES; Urine Blood Negative (Negative); Urine Ketones Negative (Negative); Urine Protein 100 (2+) mg/dL (Neg-Trace)
[2023-06-23 16:36] LABS: Bacteria Urine 3+ (None Seen); RBC Urine 0-2 /HPF (0-2); UACC Culture Trigger YES
[2023-06-23 16:58] LABS: Influenza A PCR NEGATIVE (Negative); Influenza B PCR NEGATIVE (Negative); Resp Syncy Virus RNA Qual PCR NEGATIVE (Negative); SARS COV2 PCR INHOUSE NEGATIVE (Negative)
[2023-06-23 17:21] LABS: Alanine Aminotransferase 12 U/L (0-31); Albumin Level 4.2 g/dL (3.5-5.0); Alkaline Phosphatase 96 U/L (39-117); Anion Gap 13 (12-20); Aspartate Amino Transferase 15 U/L (5-31); Blood Urea Nitrogen 13 mg/dL (9-16); Calcium 9.5 mg/dL (8.4-10.2); Carbon Dioxide 29 mmol/L (22-29); Chloride 103 mmol/L (96-108); Cholesterol 143 mg/dL (<200); Estimated Glomerular Filt Rate > 60; Glucose Fasting 106 mg/dL (60-99); HDL Cholesterol 43 mg/dL (>40); Iron 25 mcg/dL (30-160); LDL Cholesterol Calculated 78 mg/dL (<100); Percent Iron Saturation 9 % (15-50); Potassium 3.8 mmol/L (3.3-5.1); Sodium 141 mmol/L (135-145); Total Iron Binding Capacity 284 mcg/dL (228-428); Total Protein 8.4 g/dL (6.5-8.0); Triglycerides 111 mg/dL (<150); Unsaturated Iron Binding 259 ug/dL
[2023-06-23 17:38] LABS: Thyroid Stimulating Hormone 3.76 uIU/mL (0.32-4.0); Vitamin D 25-OH Total 32.5 ng/mL (>30)
[2023-06-23 17:51] LABS: Folate 12.8 ng/mL (> or = 4.0); Vitamin B12 766 pg/mL (200-900)
[2023-06-24 06:15] LABS: Follicle Stimulating Hormone 36.3 mIU/mL
== END 2023-06-23 15:40 | disposition home or self-care (01) ==
LOC: HO.LAB 15:39
PROVIDERS: Advanced Practice Midwife; Nurse Practitioner Family; PCP Internal Medicine; Visit Provider Internal Medicine
DX: Z11.52 Encounter for screening for COVID-19 (principal); N93.9 Abnormal uterine and vaginal bleeding, unspecified; N95.1 Menopausal and female climacteric states; D64.9 Anemia, unspecified; E55.9 Vitamin D deficiency, unspecified; E78.5 Hyperlipidemia, unspecified; E53.8 Deficiency of other specified B group vitamins; R09.89 Other specified symptoms and signs involving the circulatory and respiratory systems; G62.9 Polyneuropathy, unspecified; M54.9 Dorsalgia, unspecified
CPT/HCPCS: 0241U; 36415; 74018; 80053; 80061; 81001; 82306; 82607; 82746; 83001; 83540; 84443; 85025; 87086

== ENCOUNTER 2023-06-29 10:25 | Outpatient (REF) | payer OTHER, SELFPAY ==
--- NOTE | ~2023-06-29 | US_ITS ---
EXAMINATION: US PELVIS CLINICAL INFORMATION: Abnormal uterine and vaginal bleeding. COMPARISON: Pelvic ultrasound 08/02/2018. TECHNIQUE: Ultrasound of the pelvis is performed using both transabdominal and transvaginal transducers along with Doppler. Transvaginal imaging is performed due to inadequate visualization transabdominally. FINDINGS: Uterus: Fibroid uterus measuring 9.6 x 5.3 x 5.5 cm. The endometrial stripe measures 7 mm. Technically difficult to compare between studies but only one fibroid is seen measuring 1.2 cm, decreased from 1.6 cm. A second fibroid seen on the prior study is not visible distinctly. Adnexa: Right ovary measures 3.0 x 2.2 x 2.2 cm, volume 7.6 mL. The left ovary measures 2.2 x 0.9 x 1.8 cm, volume 1.9 mL. A physiologic cyst is seen in the right ovary for which no imaging follow-up is recommended. Color Doppler is unremarkable. No free fluid. US/US pelvic and transvaginal IMPRESSION: Decreased size and conspicuity of uterine fibroids. The endometrial stripe measures 7 mm.
== END 2023-06-29 10:26 | disposition home or self-care (01) ==
LOC: HO.US 10:25
PROVIDERS: PCP Internal Medicine; Visit Provider Advanced Practice Midwife
DX: N93.9 Abnormal uterine and vaginal bleeding, unspecified (principal)
CPT/HCPCS: 76830; 76856

== ENCOUNTER 2023-10-31 11:35 | Outpatient (REF) | payer OTHER, SELFPAY ==
[2023-11-01 11:35] LABS: Bacterial Vaginosis PCR NEGATIVE (Negative); Candida Group PCR NOT DETECTED (Not Detect); Candida glab krusei PCR NOT DETECTED (Not Detect); Trichomonas vaginalis PCR NOT DETECTED (Not Detect)
[2023-11-01 11:44] LABS: CT PCR NOT DETECTED (Not Detect.); NG PCR NOT DETECTED (Not Detect.)
== END 2023-10-31 11:36 | disposition home or self-care (01) ==
LOC: HO.LAB 11:35
PROVIDERS: PCP Internal Medicine; Visit Provider Advanced Practice Midwife
DX: Z20.2 Contact with and (suspected) exposure to infections with a predominantly sexual mode of transmission (principal); N93.9 Abnormal uterine and vaginal bleeding, unspecified; N92.6 Irregular menstruation, unspecified; N95.1 Menopausal and female climacteric states
CPT/HCPCS: 0352U; 87491; 87591; 99396

== ENCOUNTER 2023-10-31 11:35 | Outpatient (AMB) | payer OTHER, SELFPAY ==
--- NOTE | 2023-10-31 11:40 | MHC.OFFVIS ---
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 Services: Cafeteria Assistant Present Information Interpreted: clinical only Tax Expert: Tax Expert Present Allergies Penicillins Allergy (Mild, Verified 10/31/23 11:44) RASH Medication List - Last Reconciled 10/31/23 by Nay Belcher CNM acetaminophen 1,000 mg (2 x 500 mg) PO Q6H PRN amlodipine 5 mg PO DAILY 30 days aspirin (Adult Aspirin Regimen) 81 mg PO DAILY 90 days atorvastatin 80 mg PO BEDTIME 90 days celecoxib (Celebrex) 200 mg PO BID 30 days cetirizine (Allergy Relief (cetirizine)) 10 mg PO DAILY PRN 90 days cholecalciferol (vitamin D3) 25 mcg PO DAILY 90 days cyanocobalamin (vitamin B-12) 500 mcg PO DAILY 90 days cyclobenzaprine 10 mg PO TID 30 days diclofenac sodium 1% (Voltaren Arthritis Pain) 4 grams topical BID gabapentin 300 mg PO BEDTIME lisinopril 20 mg PO DAILY 90 days nitrofurantoin macrocrystal 100 mg PO BID 7 days propranolol 40 mg PO DAILY 90 days Post menopausal: Yes (2021) HPI HPI KAITARA TARAKA annual exam: Details: 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 She was seen for postmenopausal bleeding some months ago and she had testing and follow-up ordered with the possibility of an endometrial biopsy in the future discussed but she did not come for the follow-up visit or EMB.. She said she has not had any periods since she thinks it had been a year to since her previous period to that episode of recurrence of her menses she says the a month later she got it again. The only thing she has noticed is that she has decreased sex drive but she does not get hot flashes. She has been dealing with neuropathy in her feet and also she gets tingling in her fingers and drops things and she also says she has fallen a couple of times because she feels like something kicks her knee out from underneath her. She has a follow-up appointment with her primary care doctor next week. She said she has been seen by Neurology but she does not know when the appointment is. She feels the her legs are very swollen. [facility] Medical History Tibial neuropathy, bilateral Nocturnal leg movements Hypersomnia Snoring Foot pain Peripheral neuropathy Rectal bleeding Mixed hyperlipidemia Right shoulder pain B12 deficiency Migraines Carpal tunnel syndrome of right wrist Hypovitaminosis D Pure hypercholesterolemia Iron deficiency anemia Obesity Chest pain Essential hypertension Surgical History Hx of colonoscopy History of esophagogastroduodenoscopy (EGD) History of sleeve gastrectomy History of salpingoophorectomy History of tubal ligation History of D&C Family History Father Hypertension Mother Hypertension Diabetes Maternal Aunt Breast cancer Paternal Aunt Breast cancer Social History Housing: House Alcohol intake: never Patient Tobacco Use Status: Never used Tobacco e-Cigarette/Vaping Use: Never Used Second Hand Smoke Exposure: No service: No Current occupational status: unemployed Current occupation: right handed Cognitive needs: No Hearing needs: No Vision needs: No Female Reproductive History Menstrual Age of Menarche: 11 Duration of menses: <3 days control method: permanent sterilization Total pregnancies: 4 Full term: 4 Date of last pap smear: 10/28/22 (negative) Date of Mammogram: 11/25/22 (2benign finding) Physical Exam Vital Signs: Last Vital Signs BP 122/72 10/31/23 11:43 BMI result Body Mass Index 34.7 Const Other: Patient does appear somewhat edematous all over. General: healthy appearing, comfortable, no acute distress, well developed and alert Nutritional Appearance: average body habitus Orientation/consciousness: patient oriented x3 Limitations: no limitations HEENT Head: Yes normocephalic Neck Neck: Yes normal visual inspection Chest Chest palpation & inspection: normal inspection of the chest Breast/axilla inspection: normal inspection of the breasts and normal inspection of the axillae Breast/axilla palpation: normal palpation of the breasts and normal palpation of the axillae Resp Effort & Inspection: normal respiratory effort GI Inspection: Yes normal to inspection, No Abdominal wall edema and No distended Palpation (GI): Soft to palpation and nontender Other: Her vagina is moist cervix multiparous pink long close thick mobile nontender adnexa nontender uterus nontender good tone with Kegel. Vaginal mucosa is not dry or atrophic and is inconsistent with menopausal changes at this time. General: Yes bladder normal to palpation External Female Exam: normal external appearance and normal appearance of the urethra Speculum Exam - Vagina: normal appearance of the vagina, normal palpation and normal vaginal discharge Speculum Exam - Cervix: normal appearance of the cervix, normal palpation and nontender Bimanual exam- vagina & uterus: normal bimanual exam, normal palpation, uterine size normal, bladder normal to palpation, consistency normal, normal palpation, uterine mobility normal, uterine shape normal, No Cervical tenderness present, non-tender and no cervical motion tenderness Bimanual Exam- Adnexa, other: normal adnexae, no masses, normal and No adnexal tenderness Neuro General: patient oriented x3 Results Reviewed Results Reviewed: Patient: Claudette Martini MR#: [id number] : 1975 Acct:[id number] Age/Sex: 48 / F ADM Date: 06/29/23 Loc: HO.US Attending Dr: Nya Belcher CNM Ordering Physician: Nay Belcher CNM Date of Service: 06/29/23 Procedure(s): US pelvic and transvaginal Accession Number(s): [id number] cc: Nay Belcher CNM; Lety Avitia MD~ EXAMINATION: US PELVIS CLINICAL INFORMATION: Abnormal uterine and vaginal bleeding. COMPARISON: Pelvic ultrasound 08/02/2018. TECHNIQUE: Ultrasound of the pelvis is performed using both transabdominal and transvaginal transducers along with Doppler. Transvaginal imaging is performed due to inadequate visualization transabdominally. FINDINGS: Uterus: Fibroid uterus measuring 9.6 x 5.3 x 5.5 cm. The endometrial stripe measures 7 mm. Technically difficult to compare between studies but only one fibroid is seen measuring 1.2 cm, decreased from 1.6 cm. A second fibroid seen on the prior study is not visible distinctly. Adnexa: Right ovary measures 3.0 x 2.2 x 2.2 cm, volume 7.6 mL. The left ovary measures 2.2 x 0.9 x 1.8 cm, volume 1.9 mL. A physiologic cyst is seen in the right ovary for which no imaging follow-up is recommended. Color Doppler is unremarkable. No free fluid. US/US pelvic and transvaginal IMPRESSION: Decreased size and conspicuity of uterine fibroids. The endometrial stripe measures 7 mm. Dictated By: Selvin Ervin MD Signed By: <Electronically signed by Selvin Ervin MD in OV> 07/01/23 1437 DD/ 1109 TD/TT: Textile Science Technician: GLORIA jennifer: Claudette Martini Age/Sex: 47/F Attending: Nay Belcher CNM : 1975 Submitted by: Nay Belcher CNM Copies to: Lety Avitia MD MR #: [id number] Status: DEP REF Collected: 10/27/22 Location: [facility] Received: 10/28/22 Interpretation Satisfactory for evaluation. Negative for intraepithelial lesion or malignancy. HPV mRNA E6/E7: NOT DETECTED This assay detects E6/E7 viral messenger RNA (mRNA) from 14 high-risk HPV types (16, 18, 31, 33, 35, 39, 45, 51, 52, 56, 58, 59, 66, 68) HPV testing performed by [email or web address], [place], [place]. See reference laboratory portion of the EMR for entire report. Clinical Information LMP:No menses Previous PAP test:06/18/14, WNL Material Received ThinPrep-Cervical Copies To Nay Belcher CNM [address] [place] [address] Dr. [address] [address] Lety Avitia MD [address] [place] [address] Dr. [address] [place] [address] Electronically Signed By: Bhavana Stanton 11/13/22 1618 The Pap Test is a screening procedure with the inherent possibility of both false negative and false positive results. Results should be interpreted in the context of historic and current clinical findings. Reliability of the Pap Test is enhanced by performing the test on a regular repetitive basis. Patient: Claudette Martini Age/Sex: 47/F MR#: [id number] Page 1 of 1 Patient: Claudette Martini MR#: [id number] : 1975 Acct:[id number] Age/Sex: 47 / F ADM Date: 11/25/22 Loc: HO.MAMMO Attending Dr: Lety Lucero MD Ordering Physician: Lety Avitia MD Results: 2Benign Findings Date of Service: 11/25/22 Follow Up: 1 Year From Original Mammogram Procedure(s): MM tomosynthesis diagnostic BI Accession Number(s): [id number] cc: Lety Avitia MD~ EXAMINATION: MM DIAGNOSTIC DIGITAL BREAST TOMOSYNTHESIS, BILATERAL US BREAST LIMITED, RIGHT MAMMOGRAPHY: CLINICAL INFORMATION: 6 month Follow-up bilateral breast focal asymmetries. The right appears to correlate with a small cluster of cysts. The left is in the upper inner quadrant left breast, anterior one third. COMPARISON: Mammography: 05/21/2022, 04/28/2022, and dating back to 11/01/2019. TECHNIQUE: Digital breast tomosynthesis is performed in both the craniocaudal and mediolateral oblique views along with computer-aided detection (CAD). Synthesized 2D images are generated from the tomosynthesis. FINDINGS: There are scattered areas of fibroglandular density (ACR BI-RADS breast composition Category b). Right breast: The focal asymmetry in the upper slightly outer right breast, anterior one third, is stable and unchanged dating back to 2019, and correlates well with a cluster of cysts in this location, 4 cm from the nipple, measuring 6 x 3 x 6 mm. This finding is benign. No further follow-up recommended. No additional suspicious abnormalities in the right breast. Left breast: The focal asymmetry in the left breast inner slightly upper quadrant, anterior one third, is unchanged from the prior mammography, and also unchanged dating back to 2020, indicating benignity. No further follow-up recommended. No suspicious findings in the left breast ULTRASOUND: CLINICAL INFORMATION: Evaluate cluster of cysts 11:00 axis right breast, 4 cm from the nipple. COMPARISON: 05/21/2022 TECHNIQUE: Targeted sonographic evaluation right breast 11:00 axis was performed using a high frequency linear transducer. Selected archived documentation. FINDINGS: RIGHT BREAST: There is a stable and unchanged cluster of cysts in the 11:00 location, 4 cm from the nipple, measuring 6 x 3 x 6 mm. This finding correlates well with the mammographic focus of concern, and is benign. In retrospect, this was also present in 2020 mammography appearing unchanged, and establishing benignity. MM/MM tomosynthesis diagnostic BI IMPRESSION: There are no suspicious findings in either breast. There are benign focal asymmetries bilaterally as detailed above. No further follow-up recommended. Recommend the patient return to routine annual screening. OVERALL ASSESSMENT: Mammography: BI-RADS 2 - Benign Findings Ultrasound: BI-RADS 2 - Benign Findings RECOMMENDATION: 1 year F/U Results were provided to the patient at time of visit by the technologist. This patient's information was entered into a reminder system with a target due date for their next mammogram. Dictated By: Nikita Arzola MD Signed By: <Electronically signed by Nikita Arzola MD in OV> 11/25/22 1352 DD/ 1325 TD/TT: Textile Science Technician: Assessment & Plan Assessment & Plan (1) Abnormal uterine bleeding (AUB): Code(s): N93.9 - Abnormal uterine and vaginal bleeding, unspecified Category: Medical (2) Perimenopause: Code(s): N95.1 - Menopausal and female climacteric states Category: Medical Plan -----Discussed in this visit the following: healthy balanced diet, regular and consistent exercise, getting recommended health screens, doing the best she can for her particular health concerns, kegel exercises, pap smear screening and followup recommendations, mammography screening and SBE, normal changes in cycles in her life stage--- . Discussed with patient that perhaps she is not actually through menopause after all. I am ordering an FSH and TSH for her. She can get them done when she gets any labs done for her primary care provider's well and we will have a tele visit after to review it if she is menopausal then she would need evaluation for the menses that she have some months back if she is not yet through menopause then that would explain the return of the menses She will be reviewing all of her other symptoms with her primary care provider and I recommend she bring all her concerns visit. She says she has gained weight back after her bariatric surgery. Orders: Orders Prolactin Today N93.9 - Abnormal uterine and vaginal bleeding, unspecified, N95.1 - Menopausal and female climacteric states Testosterone, Free/Total Today N92.6 - Irregular menstruation, unspecified, N93.9 - Abnormal uterine and vaginal bleeding, unspecified, N95.1 - Menopausal and female climacteric states Coding Level of Care Code Est Pt Prev Care 40-64y(06372) Diagnoses Abnormal uterine bleeding (AUB) N93.9 Perimenopause N95.1
[2023-10-31 11:43] VITALS: BP 122/72; BMI 34.7
== END 2023-10-31 12:26 | disposition home or self-care (01) ==
LOC: HO.HWSM 11:35
PROVIDERS: PCP Internal Medicine; Visit Provider Advanced Practice Midwife
DX: Z01.419 Encounter for gynecological examination (general) (routine) without abnormal findings (principal); N93.9 Abnormal uterine and vaginal bleeding, unspecified; N95.1 Menopausal and female climacteric states
CPT/HCPCS: 99396

== ENCOUNTER 2023-11-02 12:23 | Outpatient (REF) | payer OTHER, SELFPAY ==
[2023-11-02 12:37] LABS: MANUAL DIFF FLAG NO
[2023-11-02 13:38] LABS: Vitamin D 25-OH Total 41.1 ng/mL (>30)
[2023-11-02 13:41] LABS: Basophils Percent Auto 0.2 % (0-2); Eosinophils Absolute Auto 0.2 X10*3/uL (0.0-0.4); Eosinophils Percent Auto 1.8 % (0-4); Hematocrit 35.6 % (37.0-47.0); Hemoglobin 11.8 g/dl (12.0-16.0); Imm Gran Abs Auto 0.03 X10*3/uL (0.00-0.03); Imm Gran Pct Auto 0.3 % (0.0-0.4); Lymphocytes Absolute Auto 2.2 X10*3/uL (1.2-4.9); Lymphocytes Percent Auto 22.3 % (20-40); Mean Corpuscular HGB Conc 33.1 g/dl (31.0-35.0); Mean Corpuscular Hemoglobin 27.5 pg (27.0-33.0); Mean Platelet Volume 11.6 fL (9.4-12.3); Monocytes Absolute Auto 0.8 X10*3/uL (0.1-1.2); Monocytes Percent Auto 7.9 % (2-11); Neutrophils Absolute Auto 6.7 x10*3/uL (2.0-8.3); Neutrophils Percent Auto 67.5 % (45-73); Platelet Count 249 X10*3/uL (160-400); Red Blood Count 4.29 X10*6/uL (4.20-5.50); Red Cell Distribution Width 14.6 % (11.0-16.0)
[2023-11-02 13:52] LABS: Folate 11.2 ng/mL (> or = 4.0); Vitamin B12 525 pg/mL (200-900)
[2023-11-03 07:42] LABS: Prolactin 8.2 ng/mL
[2023-11-07 18:43] LABS: Testosterone, Free 2.1 pg/mL (0.1-6.4); Testosterone, Total 10 ng/dL (2-45)
== END 2023-11-02 12:24 | disposition home or self-care (01) ==
LOC: HO.LAB 12:23
PROVIDERS: PCP Internal Medicine; Visit Provider Advanced Practice Midwife
DX: N93.9 Abnormal uterine and vaginal bleeding, unspecified (principal); N95.1 Menopausal and female climacteric states; N92.6 Irregular menstruation, unspecified; E55.9 Vitamin D deficiency, unspecified; E53.8 Deficiency of other specified B group vitamins; D64.9 Anemia, unspecified
CPT/HCPCS: 36415; 82306; 82607; 82746; 84146; 84402; 84403; 85025

== ENCOUNTER 2023-11-04 15:05 | Emergency (ER) | payer OTHER, SELFPAY ==
--- NOTE | ~2023-11-04 | CT_ITS ---
EXAMINATION: CT ABDOMEN AND PELVIS WITH CONTRAST CLINICAL INFORMATION: Severe right flank pain. COMPARISON: Abdominal ultrasound dated 01/19/2023. TECHNIQUE: Multidetector volumetric images were obtained from the superior aspect of the liver through the pubic symphysis following administration 85 mL of Omnipaque 350 intravenous contrast. Sagittal and coronal reformatted images were obtained on the technologist's workstation. Oral contrast: No This CT examination was performed using dose optimization techniques as appropriate, variously including the following: *Automated exposure control *Adjustment of mA and/or kV according to patient size (this includes techniques or standardized protocols for targeted exams where dose is matched to indication/reason for exam; i.e. extremities or head) *Use of iterative reconstruction technique DLP: 679 mGy-cm FINDINGS: LUNG BASES: The visualized lung bases are unremarkable. LIVER, GALLBLADDER, AND BILIARY TREE: The liver is normal in size, shape, and attenuation. No focal hepatic lesion or biliary ductal dilatation is present. The gallbladder is unremarkable with no evidence of radiopaque gallstones, gallbladder wall thickening, or obvious pericholecystic inflammatory changes. PANCREAS: Unremarkable. SPLEEN: Unremarkable. ADRENAL GLANDS: Unremarkable. KIDNEYS AND URETERS: The kidneys are normal in size, shape, and attenuation. No hydronephrosis, hydroureter, or calculi seen. There is fat stranding adjacent to the right renal pelvis and the proximal and mid right ureter. No perinephric stranding. BLADDER: Unremarkable. GASTROINTESTINAL TRACT: There are gastric surgical clips. The small and large bowel are unremarkable. The appendix is unremarkable. ABDOMINAL WALL: There is a small fat-containing umbilical hernia. LYMPH NODES: Normal. VASCULAR: Unremarkable. PELVIC VISCERA: The uterus and adnexa are unremarkable. There is a small amount nonspecific low-attenuation fluid within the left dependent pelvis (3:72). OSSEOUS STRUCTURES: There is marked degenerative disc disease at L5-S1. No acute or aggressive osseous finding is noted. CT/CT abdomen pelvis w IV con IMPRESSION: 1. There is fat stranding adjacent to the right renal pelvis and proximal and mid right ureter, without calculus or hydronephroureter noted. The possibility of a recently passed calculus is raised. No intravenous contrast is administered to assess for a urothelial lesion. Recommend clinical correlation, including correlation with the patient's most recent urinalysis. Consider short-term follow-up CT imaging to ensure resolution. 2. No bowel obstruction, free intraperitoneal air or abscess is seen. There is no appendicitis or diverticulitis. Postoperative change is seen of the stomach, for which correlation with the patient's Past Surgical History is recommended. 3. There is a small fat-containing umbilical hernia. 4. There is a small amount of nonspecific low-attenuation free fluid within the leftward pelvis. 5. There is marked degenerative disc disease at L5-S1. Fleischner guidelines were followed.
[2023-11-04 15:09] VITALS: BP 134/77; PULSE 79; RESP 18; TEMP 36.6; O2SAT 99; BMI 34.2
--- NOTE | 2023-11-04 15:09 | ED.ABDPAIN ---
HPI - Abdominal Pain General Chief Complaint: Abdominal Pain Stated Complaint: Abd pain R side Time Seen by Provider: 11/04/23 17:23 Source: patient Mode of arrival: ambulatory Limitations: no limitations History of Present Illness ED Provider: Dean CANNON HPI narrative: This is a 48-year-old female history of obesity, B12 deficiency, migraine, iron deficiency anemia, hypertension presenting with right-sided flank pain with radiation into abdomen for the past 4 days. Denies any urinary symptoms. Denies fevers, chills, nausea, vomiting, abdominal pain, headache, vision changes, dizziness, weakness, blunt trauma. No saddle anesthesias, weakness urinary or bowel incontinence or retention. Related Data Previous Rx's ?Medication ?Instructions ?Recorded aspirin 81 mg tablet,delayed 81 mg PO DAILY 90 days #90 tabs 05/14/21 release (Adult Aspirin Regimen) cyanocobalamin (vitamin B-12) 500 500 mcg PO DAILY 90 days #90 tabs 08/24/22 mcg tablet gabapentin 300 mg capsule 300 mg PO BEDTIME #30 caps 08/25/22 propranolol 40 mg tablet 40 mg PO DAILY 90 days #90 tabs 01/24/23 celecoxib 200 mg capsule (Celebrex) 200 mg PO BID 30 days #60 caps 03/02/23 acetaminophen 500 mg capsule 1,000 mg (2 x 500 mg) PO Q6H PRN 05/11/23 fever #30 caps diclofenac sodium 1 % topical gel 4 g topical BID #100 grams 05/11/23 (Voltaren Arthritis Pain) nitrofurantoin macrocrystal 100 mg 100 mg PO BID 7 days #14 caps 07/04/23 capsule atorvastatin 80 mg tablet 80 mg PO BEDTIME 90 days #90 tabs 07/24/23 cholecalciferol (vitamin D3) 25 25 mcg PO DAILY 90 days #90 caps 07/24/23 mcg (1,000 unit) capsule cetirizine 10 mg tablet (Allergy 10 mg PO DAILY PRN allergy 08/19/23 Relief (cetirizine)) symptoms 90 days #90 tabs amlodipine 5 mg tablet 5 mg PO DAILY 30 days #30 tabs 10/10/23 cyclobenzaprine 10 mg tablet 10 mg PO TID 30 days #90 tabs 10/13/23 lisinopril 20 mg tablet 20 mg PO DAILY 90 days #90 tabs 10/17/23 levofloxacin 750 mg tablet 750 mg PO DAILY 5 days #5 tabs 11/04/23 Allergies Allergy/AdvReac Type Severity Reaction Status Date / Time Penicillins Allergy Mild RASH Verified 11/04/23 15:12 Review of Systems Review of Systems Yes all other systems are reviewed and are negative [facility] Past Medical History Attestation statement: The following information was validated with the patient. Source: old records reviewed and nursing notes reviewed Medical History Tibial neuropathy, bilateral Nocturnal leg movements Hypersomnia Snoring Foot pain Peripheral neuropathy Rectal bleeding Mixed hyperlipidemia Right shoulder pain B12 deficiency Migraines Carpal tunnel syndrome of right wrist Hypovitaminosis D Pure hypercholesterolemia Iron deficiency anemia Obesity Chest pain Essential hypertension Surgical History Hx of colonoscopy History of esophagogastroduodenoscopy (EGD) History of sleeve gastrectomy History of salpingoophorectomy History of tubal ligation History of D&C Family History Family History Father Hypertension Mother Hypertension Diabetes Maternal Aunt Breast cancer Paternal Aunt Breast cancer Social History Social History Housing: House Alcohol intake: never Patient Tobacco Use Status: Never used Tobacco e-Cigarette/Vaping Use: Never Used Second Hand Smoke Exposure: No Advance Directives: No Advance Directives Information Provided: No service: No Current occupational status: unemployed Current occupation: right handed Cognitive needs: No Hearing needs: No Vision needs: No Physical Exam ED Vital Signs: Vital Signs - 24 hr 11/04/23 15:09 11/04/23 16:51 11/04/23 18:09 Temperature 97.9 F 98.0 F 98.2 F Pulse Rate 79 79 78 Respiratory Rate 18 16 16 Blood Pressure 134/77 144/83 H 142/83 H Pulse Oximetry 99 97 99 Oxygen Delivery Method Room Air Room Air Room Air 11/04/23 19:56 Temperature 97.7 F Pulse Rate 83 Respiratory Rate 16 Blood Pressure 142/80 H Pulse Oximetry 97 Oxygen Delivery Method Room Air BMI result Body Mass Index 34.2 vss Appearance: Alert.? Oriented X3.? No acute distress.? Head: Normocephalic, atraumatic, no step-offs or deformities Eyes: Pupils equal, round and reactive to light.? CVS: Normal heart rate and rhythm.? Pulses normal.? Respiratory: No respiratory distress.? Breath sounds normal.? Abdomen: Soft and nontender.? Skin: Skin warm and dry.? Normal skin color.? Normal skin turgor.? Extremities: No lower extremity edema.? No calf ttp. 5/5 strength to bilateral upper and lower extremities Back: No midline tenderness, no C-spine tenderness, full range of motion, + ttp to right flank Neuro: Oriented X 3.? No motor deficit.? No sensory deficit. CN 2-12 intact Course Course Course Narrative: This is a Rapid Medical Exam performed in triage by Diana Elliott PA-C. Full HPI, ROS and PE to be performed by primary ED provider. 48 year-old F w/ PMHx HTN, Migraines, gastric sleeve (4yrs ago) presenting to the ED c/o R flank pain radiating to R suprapubic region w/nausea x yesterday. denies urinary sx, dysuria/hematuria. denies vomiting, hx stones PE: abdomen soft w/RUQ/RLQ ttp no rebound or guarding Plan: Labs, UA Reevaluation(s) Reevaluation #1: CT abdomen pelvis fat stranding adjacent to the right renal pelvis likely passed stone. No IV contrast administered although scan was ordered with contrast clinical correlation warranted. UA with nitrites. Patient penicillin allergy, in case this is pyelo will cover with Levaquin. She is nontoxic appearing no white count. No bowel obstruction free intraperitoneal air or abscess is seen. Umbilical hernia noted. Small amount of nonspecific low attenuating free fluid within the left pelvis there is marked degenerative disc disease. Medical Decision Making Medical Decision Making [facility] Narrative: 1730 48 Year old female presenting with right flank pain that has migrated to her right lower abdomen for the past few days worsening. Denies urinary symptoms. Reports feeling overall unwell. Physical exam discomfort with palpation of right flank. History and physical exam concerning for musculoskeletal pain versus pyelonephritis versus UTI versus cystitis versus kidney stone. I do not suspect acute abdomen. Less likely appendicitis, cholecystitis, diverticulitis, obstruction or pancreatitis. No signs of cord compression, cauda equina, epidural abscess Plan- labs, ua, ct abd pelvis Differential Diagnosis Differential Diagnoses: The differential diagnosis associated with the presentation includes History and physical exam concerning for musculoskeletal pain versus pyelonephritis versus UTI versus cystitis versus kidney stone. I do not suspect acute abdomen. Less likely appendicitis, cholecystitis, diverticulitis, obstruction or pancreatitis. No signs of cord compression, cauda equina, epidural abscess Admission/Observation Consideration of admission/observation: Escalation of care including admission/observation considered possible Lab Data MDM Lab Attestation statement: I reviewed the patient's lab results. 11/04/23 15:23 11/04/23 15:23 Labs: Lab Results 11/04/23 11/04/23 Range/Units 15:23 17:02 WBC 10.7 (4.8-10.8) X10*3/uL RBC 4.47 (4.20-5.50) X10*6/uL Hgb 12.3 (12.0-16.0) g/dl Hct 37.1 (37.0-47.0) % MCV 83.0 (80.0-98.0) fL MCH 27.5 (27.0-33.0) pg MCHC 33.2 (31.0-35.0) g/dl RDW 14.5 (11.0-16.0) % Plt Count 249 (160-400) X10*3/uL MPV 11.1 (9.4-12.3) fL Immature Gran % (Auto) 0.3 (0.0-0.4) % Neut % (Auto) 72.5 (45-73) % Lymph % (Auto) 18.8 L (20-40) % Edwards % (Auto) 6.0 (2-11) % Eos % (Auto) 2.0 (0-4) % Baso % (Auto) 0.4 (0-2) % Lymph # (Auto) 2.0 (1.2-4.9) X10*3/uL Edwards # (Auto) 0.6 (0.1-1.2) X10*3/uL Eos # (Auto) 0.2 (0.0-0.4) X10*3/uL Baso # (Auto) 0.0 (0.0-0.2) X10*3/uL Abs Immat Gran (auto) 0.03 (0.00-0.03) X10*3/uL Absolute Neuts (auto) 7.8 (2.0-8.3) x10*3/uL Absolute Nucleated RBC 0.000 (0.0-0.012) X10*3/uL Nucleated RBC % (auto) 0.0 (0.0-0.2) /100WBC Sodium 141 (135-145) mmol/L Potassium 4.3 (3.3-5.1) mmol/L Chloride 104 (96-108) mmol/L Carbon Dioxide 28 (22-29) mmol/L Anion Gap 13 (12-20) BUN 14 (9-16) mg/dL Creatinine 0.81 (0.5-1.4) mg/dL Estim Creat Clear Calc 97.0 Estimated GFR > 60 Random Glucose 112 (60-115) mg/dL Calcium 9.9 (8.4-10.2) mg/dL Magnesium 2.1 (1.6-2.6) mg/dL Total Bilirubin 0.9 (0.0-1.0) mg/dL Direct Bilirubin 0.3 (0.0-0.5) mg/dL AST 14 (5-31) U/L ALT 15 (0-31) U/L Alkaline Phosphatase 109 (39-117) U/L Total Protein 8.2 H (6.5-8.0) g/dL Albumin 4.4 (3.5-5.0) g/dL Lipase 25 (8-78) U/L Urine Color Yellow Urine Appearance Clear Urine pH 7.0 (5.0-9.0) Ur Specific [place] 1.020 (1.005-1.025) Urine Protein 100 (2+) H (Neg-Trace) mg/dL Urine Glucose (UA) Negative (Negative) mg/dL Urine Ketones Negative (Negative) mg/dL Urine Blood Negative (Negative) Urine Nitrite Positive H (Negative) Ur Leukocyte Esterase Negative (Negative) Urine RBC 0-2 (0-2) /HPF Urine WBC 0-5 (0-5) /HPF Ur Squamous Epith Cells 11-20 (0-2) /HPF Urine Bacteria 4+ (None Seen) Hyaline Casts 0-2 (0-2) /LPF Urine Test NEGATIVE (NEGATIVE) Independent Interpretation I performed an independent interpretation of an: CT Scan Radiology Impression Discussion of test interpretation with radiology: I have reviewed the radiologist's reading. Medications Administered Discontinued Medications Generic Name Dose Route Start Last Admin Trade Name Reynold PRN Reason Stop Dose Admin Iohexol 85 ml 11/04/23 18:19 11/04/23 18:19 Iohexol 350 Mg/Ml 100 Ml Infus..Btl IV 11/04/23 18:20 85 ml ONCE ONE Administration Critical Care Time Critical Care Time Critical Care Time: No Discharge Plan Discharge Clinical Impression: Acute flank pain, UTI (urinary tract infection) Patient Disposition: Still a Patient Instructions: Urinary Tract Infection in Women (ED), Flank Pain (ED) Additional Instructions: Take your medications as prescribed. If you were prescribed antibiotics today, it is important that you take your medication to their entirety, do not skip any doses, do not finish them early. Follow-up with your primary care provider this week. Return to the emergency department with new or worsening symptoms. Such as fevers, chills, chest pain, shortness of breath, nausea, vomiting, dizziness, headache, vision changes, lethargy In case of emergency call 911 CT/CT abdomen pelvis w IV con IMPRESSION: 1. There is fat stranding adjacent to the right renal pelvis and proximal and mid right ureter, without calculus or hydronephroureter noted. The possibility of a recently passed calculus is raised. No intravenous contrast is administered to assess for a urothelial lesion. Recommend clinical correlation, including correlation with the patient's most recent urinalysis. Consider short-term follow-up CT imaging to ensure resolution. 2. No bowel obstruction, free intraperitoneal air or abscess is seen. There is no appendicitis or diverticulitis. Postoperative change is seen of the stomach, for which correlation with the patient's Past Surgical History is recommended. 3. There is a small fat-containing umbilical hernia. 4. There is a small amount of nonspecific low-attenuation free fluid within the leftward pelvis. 5. There is marked degenerative disc disease at L5-S1. Fleischner guidelines were followed. Prescriptions: New levofloxacin 750 mg tablet 750 mg PO DAILY 5 Days Qty: 5 0RF No Action aspirin [Adult Aspirin Regimen] 81 mg tablet,delayed release (DR/EC) 81 mg PO DAILY 90 Days Qty: 90 3RF propranolol 40 mg tablet 40 mg PO DAILY 90 Days Qty: 90 3RF nitrofurantoin macrocrystal 100 mg capsule 100 mg PO BID 7 Days Qty: 14 0RF Rx Instructions: must administer with a meal/food cholecalciferol (vitamin D3) 25 mcg (1,000 unit) capsule 25 mcg PO DAILY 90 Days Qty: 90 1RF atorvastatin 80 mg tablet 80 mg PO BEDTIME 90 Days Qty: 90 1RF cetirizine [Allergy Relief (cetirizine)] 10 mg tablet 10 mg PO DAILY PRN (Reason: allergy symptoms) 90 Days Qty: 90 0RF amlodipine 5 mg tablet 5 mg PO DAILY 30 Days Qty: 30 2RF cyclobenzaprine 10 mg tablet 10 mg PO TID 30 Days Qty: 90 2RF lisinopril 20 mg tablet 20 mg PO DAILY 90 Days Qty: 90 3RF cyanocobalamin (vitamin B-12) 500 mcg tablet 500 mcg PO DAILY 90 Days Qty: 90 1RF acetaminophen 500 mg capsule 1,000 mg PO Q6H PRN (Reason: fever) Qty: 30 0RF diclofenac sodium [Voltaren Arthritis Pain] 1 % gel 4 g topical BID Qty: 100 0RF Rx Instructions: Apply a thin layer to the affected body part two times a day for pain gabapentin 300 mg capsule 300 mg PO BEDTIME Qty: 30 6RF celecoxib [Celebrex] 200 mg capsule 200 mg PO BID 30 Days Qty: 60 3RF Referrals: [facility] [place] [facility] [Provider Group] - 3 days Lety Avitia MD [Primary Care Provider] - 2 days Print Language: Kiswahili
[2023-11-04 15:27] LABS: MANUAL DIFF FLAG NO
[2023-11-04 15:29] LABS: Basophils Percent Auto 0.4 % (0-2); Eosinophils Absolute Auto 0.2 X10*3/uL (0.0-0.4); Hematocrit 37.1 % (37.0-47.0); Hemoglobin 12.3 g/dl (12.0-16.0); Imm Gran Abs Auto 0.03 X10*3/uL (0.00-0.03); Imm Gran Pct Auto 0.3 % (0.0-0.4); Lymphocytes Percent Auto 18.8 % (20-40); Mean Corpuscular HGB Conc 33.2 g/dl (31.0-35.0); Mean Corpuscular Hemoglobin 27.5 pg (27.0-33.0); Mean Platelet Volume 11.1 fL (9.4-12.3); Monocytes Absolute Auto 0.6 X10*3/uL (0.1-1.2); Neutrophils Absolute Auto 7.8 x10*3/uL (2.0-8.3); Neutrophils Percent Auto 72.5 % (45-73); Platelet Count 249 X10*3/uL (160-400); Red Blood Count 4.47 X10*6/uL (4.20-5.50); Red Cell Distribution Width 14.5 % (11.0-16.0); White Blood Count 10.7 X10*3/uL (4.8-10.8)
[2023-11-04 15:48] LABS: Alanine Aminotransferase 15 U/L (0-31); Albumin Level 4.4 g/dL (3.5-5.0); Alkaline Phosphatase 109 U/L (39-117); Anion Gap 13 (12-20); Aspartate Amino Transferase 14 U/L (5-31); Bilirubin Direct 0.3 mg/dL (0.0-0.5); Bilirubin Total 0.9 mg/dL (0.0-1.0); Blood Urea Nitrogen 14 mg/dL (9-16); Calcium 9.9 mg/dL (8.4-10.2); Carbon Dioxide 28 mmol/L (22-29); Chloride 104 mmol/L (96-108); Estimated Glomerular Filt Rate > 60; Glucose Random 112 mg/dL (60-115); Lipase 25 U/L (8-78); Magnesium 2.1 mg/dL (1.6-2.6); Potassium 4.3 mmol/L (3.3-5.1); Sodium 141 mmol/L (135-145); Total Protein 8.2 g/dL (6.5-8.0)
[2023-11-04 16:51] VITALS: BP 144/83; PULSE 79; RESP 16; TEMP 36.7; O2SAT 97
--- NOTE | 2023-11-04 17:03 | MHC.EDTECH ---
THIS PCT JUST ASSUMED CARE OF PATIENT ,VITALS TAKEN ,URINE SAMPLE COLLECTED AND SENT TO LAB .PLAN OF CARE CONTINUE ,
[2023-11-04 17:26] LABS: Appearance Urine Clear; Color Urine Yellow; Glucose Urine UA Negative (Negative); Leukocyte Esterase Urine Negative (Negative); Nitrite Urine Positive (Negative); UMIC TRIGGER UACC YES; Urine Blood Negative (Negative); Urine Ketones Negative (Negative); Urine Protein 100 (2+) mg/dL (Neg-Trace)
[2023-11-04 17:38] LABS: UPreg QC Valid YES; Urine Pregnancy NEGATIVE (NEGATIVE)
[2023-11-04 17:50] LABS: Bacteria Urine 4+ (None Seen); Hyaline Casts Urine 0-2 /LPF (0-2); RBC Urine 0-2 /HPF (0-2); UACC Culture Trigger YES; WBC Urine 0-5 /HPF (0-5)
[2023-11-04 18:09] VITALS: BP 142/83; PULSE 78; RESP 16; TEMP 36.8; O2SAT 99
[2023-11-04] MEDS: iohexoL 350 MG/ML 100 ML INFUS..BTL 85 ML IV (18:19)
[2023-11-04 19:56] VITALS: BP 142/80; PULSE 83; RESP 16; TEMP 36.5; O2SAT 97
[2023-11-04 22:36] VITALS: BP 153/77; PULSE 98; RESP 16; TEMP 36.7; O2SAT 96
[2023-11-04 22:40] VITALS: BP 153/77; PULSE 98; RESP 16; TEMP 36.7; O2SAT 96
== END 2023-11-04 22:40 | disposition home or self-care (01) ==
PROVIDERS: Physician Assistant; Emergency Provider Emergency Medicine; PCP Internal Medicine
DX: N39.0 Urinary tract infection, site not specified (principal); R10.9 Unspecified abdominal pain; I10 Essential (primary) hypertension; E78.00 Pure hypercholesterolemia, unspecified; Z79.82 Long term (current) use of aspirin; Z79.899 Other long term (current) drug therapy; Z79.02 Long term (current) use of antithrombotics/antiplatelets
CPT/HCPCS: 36415; 74177; 80048; 80076; 81001; 81025; 83690; 83735; 85025; 87086; 87088; 87186; 99284; Q9967

== ENCOUNTER 2023-11-09 10:58 | Outpatient (AMB) | payer OTHER, SELFPAY ==
--- NOTE | 2023-11-09 10:59 | MHC.PC.OV ---
Vital Signs 11/09/23 11:00 Height 5 ft 6 in Weight 211 lb BMI 34.1 BP 118/82 Blood Pressure Location Lt brachial Position Sitting Intake Visit Reasons: Annual Exam Intake Note: Patient here for an annual physical exam Respiratory Care Program Director Required: No Accompanied by: Self / Same As Patient Allergies Penicillins Allergy (Mild, Verified 11/09/23 11:43) RASH amlodipine Adverse Reaction (Intermediate, Verified 11/09/23 11:44) leg edema Medication List - Last Reconciled 11/09/23 by Lety Lucero MD acetaminophen 1,000 mg (2 x 500 mg) PO Q6H PRN amlodipine 5 mg PO DAILY 30 days aspirin (Adult Aspirin Regimen) 81 mg PO DAILY 90 days atorvastatin 80 mg PO BEDTIME 90 days celecoxib (Celebrex) 200 mg PO BID 30 days cetirizine (Allergy Relief (cetirizine)) 10 mg PO DAILY PRN 90 days cholecalciferol (vitamin D3) 25 mcg PO DAILY 90 days cyanocobalamin (vitamin B-12) 500 mcg PO DAILY 90 days cyclobenzaprine 10 mg PO TID 30 days diclofenac sodium 1% (Voltaren Arthritis Pain) 4 grams topical BID gabapentin 300 mg PO BEDTIME lisinopril 20 mg PO DAILY 90 days propranolol 40 mg PO DAILY 90 days Tobacco use date assessed: 06/23/23 Dental Screening Dental Screen Date: 06/23/23 HPI HPI Comments History of Present Illness Details This is a 48-year-old female that comes for physical exam. Mammogram done 2022 was normal. Pap smear done 2022 was normal. As per patient has never had colonoscopy. She complains of bilateral leg edema and I will discontinue amlodipine. I will increase lisinopril. She complains of right shoulder pain and right knee pain with limited range of motion and x-ray will be order and will be referred to Ortho. Complains of easy bruising. She is obese with a BMI of 34.1 and was advised to do diet and exercise to reach BMI goal less than 30. [facility] Medical History (Updated 11/09/23 @ 11:37 by Lety Lucero MD) Tibial neuropathy, bilateral Nocturnal leg movements Hypersomnia Snoring Foot pain Peripheral neuropathy Rectal bleeding Mixed hyperlipidemia Right shoulder pain B12 deficiency Migraines Carpal tunnel syndrome of right wrist Hypovitaminosis D Pure hypercholesterolemia Iron deficiency anemia Obesity Chest pain Essential hypertension Surgical History Hx of colonoscopy History of esophagogastroduodenoscopy (EGD) History of sleeve gastrectomy History of salpingoophorectomy History of tubal ligation History of D&C Family History Father Hypertension Mother Hypertension Diabetes Maternal Aunt Breast cancer Paternal Aunt Breast cancer Social History Housing: House Alcohol intake: never Patient Tobacco Use Status: Never used Tobacco e-Cigarette/Vaping Use: Never Used Second Hand Smoke Exposure: No service: No Current occupational status: unemployed Current occupation: right handed Cognitive needs: No Hearing needs: No Vision needs: No Female Reproductive History Menstrual Age of Menarche: 11 Questionnaire Thrive Questionnaire Date Thrive assessed: 06/23/23 SADIQ-7 AMB Questionnaire SADIQ-7 Date SADIQ - 7 assessed: 06/23/23 Source: Developed by Drs. Good Camarena, Joanne Farah, Stephen Dacosta and colleagues, with an educational lala from [employer]. Review of Systems Const All systems reviewed & are unremarkable except as noted in HPI and below Card Denies chest pain at rest, Denies chest pain with activity, Denies edema, Denies irregular heart rhythm, Denies claudication, Denies dyspnea, Denies dyspnea on exertion, Denies orthopnea, Denies paroxysmal nocturnal dyspnea and Denies slow heart rate Resp Denies cough, Denies dyspnea and Denies dyspnea on exertion GI Denies abdominal pain, Denies change in bowel habits, Denies excessive flatus, Denies nausea and Denies vomiting Denies urinary incontinence, Denies urinary hesitancy and Denies urinary urgency Physical exam (Primary Care) Vital Signs: Last Vital Signs BP 118/82 11/09/23 11:00 BMI result Body Mass Index 34.1 Tobacco/Smoking Status: Tobacco use Status Tobacco use date assessed 06/23/23 11/09/23 11:05 Patient Tobacco Use Status Never used Tobacco 11/09/23 11:05 e-Cigarette/Vaping Use Never Used 11/09/23 11:05 Thrive Assessment: Date of Thrive Assessment Date Thrive assessed 06/23/23 11/09/23 11:05 [facility] Head: Yes normal to inspection, Yes normocephalic and Yes atraumatic Ears: external ears normal Eyes General: appearance normal, both eyes and all related structures Eyelids: Yes eyelids normal Conjunctivae: conjunctivae normal Neck Neck: Yes normal visual inspection and Yes supple Resp Effort & Inspection: normal respiratory effort Auscultation: clear to auscultation bilaterally Cardio Jugular venous distension: no JVD Rate: regular rate Rhythm: regular rhythm Heart sounds: S1 normal heart sound present and S2 normal heart sound present GI Inspection: Yes normal to inspection Palpation (GI): Soft to palpation and nontender Auscultation: normal bowel sounds Skin General skin exam: no rashes or lesions noted Neuro General: no focal motor deficits Extrem General: Yes full ROM Psych Appearance: grossly normal Assessment and Plan Assessment & Plan (1) Physical exam: Code(s): Z00.00 - Encounter for general adult medical examination without abnormal findings Plan: Repeat in a year. (2) Right shoulder pain: Code(s): M25.511 - Pain in right shoulder Plan: X-ray ordered. Referred to Ortho. (3) Right knee pain: Code(s): M25.561 - Pain in right knee Plan: X-ray ordered. Referred to Ortho. (4) Paresthesia: Code(s): R20.2 - Paresthesia of skin Plan: Nerve conduction study ordered. (5) Easy bruising: Code(s): R23.3 - Spontaneous ecchymoses Plan: Labs ordered. Orders: Orders Lipid Panel Today E78.5 - Hyperlipidemia, unspecified Vitamin B12 and Folate Today E53.8 - Deficiency of other specified B group vitamins NE nerve conduction velocity Today R20.2 - Paresthesia of skin XR knee RT 2V Today M25.561 - Pain in right knee XR shoulder RT min 2V Today M25.511 - Pain in right shoulder Factor V Leiden Today R23.3 - Spontaneous ecchymoses Vitamin D 25-OH Total Today E55.9 - Vitamin D deficiency, unspecified Complete Blood Count Auto Diff Today R23.3 - Spontaneous ecchymoses Referrals Open Access Screening Colonoscopy Referral Z12.11 - Encounter for screening for malignant neoplasm of colon Orthopedics Referral M25.511 - Pain in right shoulder, M25.561 - Pain in right knee Medications: New lisinopril 30 mg PO DAILY 90 days 90 tabs 1RF Refilled aspirin (Adult Aspirin Regimen) 81 mg PO DAILY 90 days 90 tabs 3RF Discontinued lisinopril Discontinued Reason: Order 20 mg PO DAILY 90 days 90 tabs 3RF amlodipine Discontinued Reason: Patient Completed Course 5 mg PO DAILY 30 days 30 tabs 2RF Coding Level of Care Code Est Pt Level 4 (80296) Est Pt Prev Care 40-64y(73131) Diagnoses Physical exam Z00.00 Right shoulder pain M25.511 Right knee pain M25.561 Paresthesia R20.2 Easy bruising R23.3 Time Spent (min) 32
[2023-11-09 11:00] VITALS: BP 118/82; BMI 34.1
== END 2023-11-09 11:30 | disposition home or self-care (01) ==
PROVIDERS: PCP Internal Medicine; Visit Provider Internal Medicine
DX: Z00.00 Encounter for general adult medical examination without abnormal findings (principal); M25.511 Pain in right shoulder; M25.561 Pain in right knee; R20.2 Paresthesia of skin; R23.3 Spontaneous ecchymoses
CPT/HCPCS: 99214; 99396

== ENCOUNTER 2023-11-10 09:46 | Outpatient (AMB) | payer OTHER, SELFPAY ==
--- NOTE | 2023-11-10 09:46 | A.OFFVIS_ITS ---
Intake Visit Reasons: follow up labs/[phone] Allergies Penicillins Allergy (Mild, Verified 11/10/23 09:46) RASH amlodipine Adverse Reaction (Intermediate, Verified 11/10/23 09:46) leg edema Medication List - Last Reconciled 11/10/23 by Nay Belcher CNM acetaminophen 1,000 mg (2 x 500 mg) PO Q6H PRN aspirin (Adult Aspirin Regimen) 81 mg PO DAILY 90 days atorvastatin 80 mg PO BEDTIME 90 days cetirizine (Allergy Relief (cetirizine)) 10 mg PO DAILY PRN 90 days cholecalciferol (vitamin D3) 25 mcg PO DAILY 90 days cyanocobalamin (vitamin B-12) 500 mcg PO DAILY 90 days cyclobenzaprine 10 mg PO TID 30 days diclofenac sodium 1% (Voltaren Arthritis Pain) 4 grams topical BID gabapentin 300 mg PO BEDTIME lisinopril 30 mg PO DAILY 90 days propranolol 40 mg PO DAILY 90 days Is last menstrual period known: No Post menopausal: Yes HPI HPI follow up labs/[phone]: Details: This is a tele visit to review some labs that the patient had done. The patient has had somewhat complex history of long periods of no menses and then a return of menses however in the interim from the patient being seen initially for this over year ago and plan being made for investigation the patient went to [place] for several months and she also then at some point had a period after not having had a period for a long time but she does not remember any of the dates anymore. When she returned to the [facility] she got an ultrasound that had been ordered from more than half a year prior in June and then came for review at a visit 4 months later when reconstruction of the original plan and investigation of intervening events was attempted. This is all being revisited today at this visit with the patient [facility] Medical History Tibial neuropathy, bilateral Nocturnal leg movements Hypersomnia Snoring Foot pain Peripheral neuropathy Rectal bleeding Mixed hyperlipidemia Right shoulder pain B12 deficiency Migraines Carpal tunnel syndrome of right wrist Hypovitaminosis D Pure hypercholesterolemia Iron deficiency anemia Obesity Chest pain Essential hypertension Surgical History Hx of colonoscopy History of esophagogastroduodenoscopy (EGD) History of sleeve gastrectomy History of salpingoophorectomy History of tubal ligation History of D&C Family History Father Hypertension Mother Hypertension Diabetes Maternal Aunt Breast cancer Paternal Aunt Breast cancer Social History Housing: House Alcohol intake: never Patient Tobacco Use Status: Never used Tobacco e-Cigarette/Vaping Use: Never Used Second Hand Smoke Exposure: No service: No Current occupational status: unemployed Current occupation: right handed Cognitive needs: No Hearing needs: No Vision needs: No Female Reproductive History Menstrual Age of Menarche: 11 control method: permanent sterilization Total pregnancies: 4 Full term: 4 Telehealth Telehealth Telehealth Platform: Telephone Location of provider rendering services: practice address Location of patient: address on file Patient Identification confirmed using: Name, : Yes Telehealth method: voice only Patient verbally consented to treatment: Yes Patient verbally consented to billing insurance company: Yes Minutes spent on Phone/Video with Pt.: 16 (+chart review and charting) Results Reviewed Results Reviewed: RUN: 11/10/23 1006 PAGE 1 [facility] [address] [place] [phone] Client Experience Manager: Scott Walsh M.D. Specimen Inquiry Name: Claudette Martini Age/Sex: 48/F : 1975 Unit#: [id number] Attend Dr: Nay Belcher CNM Re11/02/23 Status: DEP REF Location: .LAB Disch: SPEC : [id number] NURIA: 11/02/23-1235 STATUS: COMP REQ : [id number] RECD: 11/02/23-[address]: Nay Belcher CNM COMP: 11/07/23-1842 ENTERED: 11/02/23-[address]: Lety Avitia MD ORDERED: Prol, Testost Fr & T Test Result Flag Reference Prolactin 8.2 ng/mL Reference Range Females Non- 3.0-30.0 10.0-209.0 Postmenopausal 2.0-20.0 THIS TEST WAS PERFORMED AT: [facility] [address] [place] [phone] BHARATH BEASLEY MD Testost, Tot 10 2-45 ng/dL For additional information, please refer to http://education.[employer]/faq/ EbfpuAlhbyajcxcyvWZIQMYWPG232 (This link is being provided for informational/ educational purposes only.) This test was developed and its analytical performance characteristics have been determined by [facility] [place], [place]. It has not been cleared or approved by the U.S. Food and Drug Administration. This assay has been validated pursuant to the CLIA regulations and is used for clinical purposes. Testost, Free 2.1 0.1-6.4 pg/mL This test was developed and its analytical performance characteristics have been determined by [facility] [place], [place]. It has not been cleared or approved by the U.S. Food and Drug Administration. This assay has been validated pursuant to the CLIA regulations and is used for clinical purposes. THIS TEST WAS PERFORMED AT: [facility] [employer] [place] [address] [place], [place] YANA WARD MD,PHD Patient: Claudette Martini#: [id number]: 1975Acct:[id number]/Sex: 48 / FADM Date: 06/29/23Loc: [address] Dr: Nay Belcher CNM Ordering Physician: Nay Belcher CNM Date of Service: 06/29/23 Procedure(s): US pelvic and transvaginal Accession Number(s): [id number] cc: Nay Belcher CNM; Lety Avitia MD~ EXAMINATION: US PELVIS CLINICAL INFORMATION: Abnormal uterine and vaginal bleeding. COMPARISON: Pelvic ultrasound 08/02/2018. TECHNIQUE: Ultrasound of the pelvis is performed using both transabdominal and transvaginal transducers along with Doppler. Transvaginal imaging is performed due to inadequate visualization transabdominally. FINDINGS: Uterus: Fibroid uterus measuring 9.6 x 5.3 x 5.5 cm. The endometrial stripe measures 7 mm. Technically difficult to compare between studies but only one fibroid is seen measuring 1.2 cm, decreased from 1.6 cm. A second fibroid seen on the prior study is not visible distinctly. Adnexa: Right ovary measures 3.0 x 2.2 x 2.2 cm, volume 7.6 mL. The left ovary measures 2.2 x 0.9 x 1.8 cm, volume 1.9 mL. A physiologic cyst is seen in the right ovary for which no imaging follow-up is recommended. Color Doppler is unremarkable. No free fluid. US/US pelvic and transvaginal IMPRESSION: Decreased size and conspicuity of uterine fibroids. The endometrial stripe measures 7 mm. Dictated By:Selvin Ervin MDSigned By:<Electronically signed by Selvin Ervin MD in OV>07/01/23 1437 DD/ 1109TD/TT: Environmental Lawyer: GLORIA Assessment & Plan Assessment & Plan (1) Perimenopause: Code(s): N95.1 - Menopausal and female climacteric states Category: Medical (2) Abnormal uterine bleeding (AUB): Code(s): N93.9 - Abnormal uterine and vaginal bleeding, unspecified Category: Medical Plan This is a tele visit to review some labs that the patient had done. The patient has had somewhat complex history of long periods of no menses and then a return of menses however in the interim from the patient being seen initially for this over year ago and plan being made for investigation the patient went to [place] for several months and she also then at some point had a period after not having had a period for a long time but she does not remember any of the dates anymore. When she returned to the [facility] she got an ultrasound that had been ordered from more than half a year prior in June and then came for review at a visit 4 months later when reconstruction of the original plan and investigation of intervening events was attempted. This is all being revisited today at this visit with the patient. Firstly while it was helpful to review the prolactin and testosterone levels which were within normal range they were not the orders that this provider placed but somehow did not get finalized in the system they have since been ordered when I received the results of the prolactin and testosterone. I have ordered an FSH and TSH, orders placed 11/08/2023. In the interim the patient went to the emergency room several days ago for a very sharp pain that she had down her side and the patient says she was told she had a kidney stone and so she followed up with her primary care provider yesterday so there are active orders in system as well from her primary care provider and in addition referrals for colonoscopy and orthopedics as well the patient is currently on antibiotics for her urinary tract infection diagnosed in the emergency room and she is hoping she will feel better she is feeling a little bit better but still has some pain at this time.. She has intentions to go tomorrow morning to the lab to get fasting labs for her primary care provider Dr. Marroquin and I also recommend that she get my orders done at that time as well and then next week she and I will have tele visit to review the results. The issue at hand is whether or not she in fact is menopausal and whether or not may then need to consider an endometrial biopsy which maybe in the indicated whether menopausal or not and then if she is not menopausal consideration placed to something to manage her irregular menses to prevent endometrial hyperplasia this presuming that there is no malignancy present with endometrial biopsy findings. I explained this to the patient that this is a process that we need to restart since the original plan got interrupted by her traveled to [place] last year. She says she has no intention traveling in the near future this time. We will have a tele visit after she gets the next labs done and then plan for probable endometrial biopsy after that. Coding Level of Care Code Tele Est Pt Level 3 (50624) Diagnoses Perimenopause N95.1 Abnormal uterine bleeding (AUB) N93.9 Time Spent (min) 33 Comment 7 cr/16speaking w pt/8charting and planning=33
== END 2023-11-10 10:39 | disposition home or self-care (01) ==
LOC: HO.HWSM 09:46
PROVIDERS: PCP Internal Medicine; Visit Provider Advanced Practice Midwife
DX: N95.1 Menopausal and female climacteric states (principal); N93.9 Abnormal uterine and vaginal bleeding, unspecified
CPT/HCPCS: 99213

== ENCOUNTER → 2023-11-10 09:46 | Outpatient (BNVA) | payer OTHER, SELFPAY | PROVIDERS: PCP Internal Medicine; Visit Provider Advanced Practice Midwife ==

== ENCOUNTER 2023-11-14 08:52 | Outpatient (AMB) | payer OTHER, SELFPAY ==
--- NOTE | 2023-11-14 08:53 | AM.OFFWIN_ITS ---
Intake Vital Signs 11/14/23 08:54 Height 5 ft 6 in Weight 213 lb BMI 34.4 BP 120/82 Blood Pressure Location Rt brachial Position Sitting Pulse 99 Pulse Source Pulse Oximeter Temp 98.5 F Temp Source Oral Pulse Oximetry (%) 96 Oxygen Delivery Method Room Air Intake Visit Reasons: Sore throat, sinus pain,headache Intake Note: pt c/o sore throat, sinus pain, headache. Started yesterday. Patient Tobacco Use Status: Never used Tobacco Allergies Penicillins Allergy (Mild, Verified 11/14/23 08:53) RASH amlodipine Adverse Reaction (Intermediate, Verified 11/14/23 08:53) leg edema Do you need a note to return to daycare/school/sports/work: No HPI HPI Comments History of Present Illness Details Patient is a 48-year-old female complaining of 2 days of a sore throat and headache in some pressure in her head. She denies any shortness of breath or fevers or ear pain or nausea or vomiting or diarrhea. She denies any sick contacts. She did not test for COVID at home. [facility] Medical History Tibial neuropathy, bilateral Nocturnal leg movements Hypersomnia Snoring Foot pain Peripheral neuropathy Rectal bleeding Mixed hyperlipidemia Right shoulder pain B12 deficiency Migraines Carpal tunnel syndrome of right wrist Hypovitaminosis D Pure hypercholesterolemia Iron deficiency anemia Obesity Chest pain Essential hypertension Surgical History Hx of colonoscopy History of esophagogastroduodenoscopy (EGD) History of sleeve gastrectomy History of salpingoophorectomy History of tubal ligation History of D&C Family History Father Hypertension Mother Hypertension Diabetes Maternal Aunt Breast cancer Paternal Aunt Breast cancer Social History Housing: House Alcohol intake: never Patient Tobacco Use Status: Never used Tobacco e-Cigarette/Vaping Use: Never Used Second Hand Smoke Exposure: No service: No Current occupational status: unemployed Current occupation: right handed Cognitive needs: No Hearing needs: No Vision needs: No Female Reproductive History Menstrual Age of Menarche: 11 Review of Systems Const All systems reviewed & are unremarkable except as noted in HPI and below Physical Exam Vital Signs: Last Vital Signs Temp 98.5 F 11/14/23 08:54 Pulse 99 11/14/23 08:54 BP 120/82 11/14/23 08:54 Pulse Ox 96 11/14/23 08:54 Oxygen Delivery Method Room Air 11/14/23 08:54 BMI result Body Mass Index 34.4 Const General: cooperative, healthy appearing, comfortable and no acute distress Orientation/consciousness: patient oriented x3 Limitations: no limitations HEENT Head: Yes normal to inspection Ears: hearing grossly normal bilaterally, external ears normal and TM's normal bilaterally General nose exam: Normal external nose present, Normal nares present and No nasal discharge present Face and sinus: Yes normal facial exam and Yes sinuses nontender Mouth: Normal oral and palatal mucosa present and moist mucous membranes Throat: Yes tonsils normal, Yes uvula midline and Yes posterior oropharynx abnormal (Erythema) Eyes General: appearance normal, both eyes and all related structures Neck Neck: Yes normal visual inspection Resp Effort & Inspection: normal respiratory effort, able to speak in complete sentences, no respiratory distress, not tachypneic, no tripod positioning and no use of accessory muscles Skin General skin exam: no rashes or lesions noted Neuro General: patient oriented x3 Extrem General: Yes normal to inspection and Yes no clubbing, cyanosis or edema Results AMB Rapid Strep AMB Rapid Strep Negative Last Edit by Checo Zhong CMA on 11/14/23 09:10 Assessment & Plan Assessment & Plan (1) URI (upper respiratory infection): Code(s): J06.9 - Acute upper respiratory infection, unspecified Qualifiers: URI type: unspecified URI Qualified Code(s): J06.9 - Acute upper respiratory infection, unspecified Plan: Rapid strep negative, tested patient for flu COVID and RSV. Recommended symptomatic care with Tylenol and Motrin alternating as well as any other fcwq-pia-kgoxoms medications she would find helpful. Gave red flag signs and when to go to the emergency department. Plan See above Orders: Orders AMB Rapid Strep Screen Today Z13.9 - Encounter for screening, unspecified SARS-CoV2/FLU/RSV Today J06.9 - Acute upper respiratory infection, unspecified Coding Level of Care Code Est Pt Level 3 (94074) Diagnoses Upper respiratory tract infection, unspecified type J06.9 URI type: unspecified URI
[2023-11-14 08:54] VITALS: BP 120/82; PULSE 99; TEMP 36.9; O2SAT 96; BMI 34.4
== END 2023-11-14 09:32 | disposition home or self-care (01) ==
PROVIDERS: PCP Internal Medicine; Visit Provider Physician Assistant
DX: J06.9 Acute upper respiratory infection, unspecified (principal); Z13.9 Encounter for screening, unspecified
CPT/HCPCS: 87880; 99213

== ENCOUNTER 2023-11-14 09:18 | Outpatient (REF) | payer OTHER, SELFPAY ==
--- NOTE | ~2023-11-14 | XR_ITS ---
EXAMINATION: XR SHOULDER, RIGHT CLINICAL INFORMATION: Shoulder pain COMPARISON: X-ray 11/20/2020 TECHNIQUE: AP external rotation, Grashey, scapular Y, and axillary views of the right shoulder. FINDINGS: Small ossific density seen superior to the acromion adjacent to the acromioclavicular joint. This is not seen on the prior study, could reflect an age indeterminate fracture, dystrophic changes. Glenohumeral joint space is maintained. Mild posterior glenoid spurring. XR/XR shoulder RT min 2V IMPRESSION: Small ossification superior to the acromion, could be related to an age-indeterminate fracture, degenerative changes. Clinically correlate. Electronically signed by: Ebenezer Laurent MD 11/14/2023 10:44 AM EDT
--- NOTE | ~2023-11-14 | XR_ITS ---
EXAMINATION: XR KNEE, RIGHT CLINICAL INFORMATION: Right knee pain. COMPARISON: Right knee radiographs dated 03/02/2023. TECHNIQUE: AP and lateral views of the right knee. FINDINGS: Moderate medial compartment joint space narrowing. Tiny tricompartmental marginal osteophytes. Findings are unchanged. No acute fracture or dislocation. No concerning lytic or blastic osseous lesion. Trace joint effusion. XR/XR knee RT 2V IMPRESSION: Moderate medial as well as mild patellofemoral and lateral compartment osteoarthritis, unchanged. Trace joint effusion. Electronically signed by: Jun Smith MD 11/18/2023 09:29 AM EDT
[2023-11-14 09:54] LABS: MANUAL DIFF FLAG NO
[2023-11-14 10:59] LABS: Basophils Percent Auto 0.4 % (0-2); Eosinophils Absolute Auto 0.1 X10*3/uL (0.0-0.4); Eosinophils Percent Auto 1.4 % (0-4); Hematocrit 35.5 % (37.0-47.0); Hemoglobin 11.2 g/dl (12.0-16.0); Imm Gran Abs Auto 0.03 X10*3/uL (0.00-0.03); Imm Gran Pct Auto 0.4 % (0.0-0.4); Lymphocytes Absolute Auto 2.2 X10*3/uL (1.2-4.9); Lymphocytes Percent Auto 31.4 % (20-40); Mean Corpuscular HGB Conc 31.5 g/dl (31.0-35.0); Mean Corpuscular Hemoglobin 26.7 pg (27.0-33.0); Mean Corpuscular Volume 84.7 fL (80.0-98.0); Mean Platelet Volume 11.6 fL (9.4-12.3); Monocytes Absolute Auto 0.6 X10*3/uL (0.1-1.2); Monocytes Percent Auto 8.5 % (2-11); Neutrophils Percent Auto 57.9 % (45-73); Platelet Count 235 X10*3/uL (160-400); Red Blood Count 4.19 X10*6/uL (4.20-5.50); Red Cell Distribution Width 14.7 % (11.0-16.0)
[2023-11-14 11:08] LABS: Influenza A PCR NEGATIVE (Negative); Influenza B PCR NEGATIVE (Negative); Resp Syncy Virus RNA Qual PCR NEGATIVE (Negative); SARS COV2 PCR INHOUSE NEGATIVE (Negative)
[2023-11-14 12:01] LABS: Folate 11.2 ng/mL (> or = 4.0); Vitamin B12 440 pg/mL (200-900)
[2023-11-14 12:05] LABS: Cholesterol 152 mg/dL (<200); HDL Cholesterol 38 mg/dL (>40); LDL Cholesterol Calculated 87 mg/dL (<100); Triglycerides 135 mg/dL (<150)
[2023-11-21 11:18] LABS: Factor V Leiden NEGATIVE
== END 2023-11-14 09:19 | disposition home or self-care (01) ==
LOC: HO.LAB 09:18
PROVIDERS: Absent Provider Internal Medicine; PCP Internal Medicine; Referring Provider Advanced Practice Midwife; Visit Provider Physician Assistant
DX: M25.561 Pain in right knee (principal); M25.511 Pain in right shoulder; E53.8 Deficiency of other specified B group vitamins; E55.9 Vitamin D deficiency, unspecified; R23.3 Spontaneous ecchymoses; E78.5 Hyperlipidemia, unspecified; J06.9 Acute upper respiratory infection, unspecified
CPT/HCPCS: 0241U; 36415; 73030; 73560; 80061; 81241; 82306; 82607; 82746; 85025

== ENCOUNTER 2023-11-30 09:21 | Outpatient (AMB) | payer OTHER, SELFPAY ==
--- NOTE | 2023-11-30 09:22 | A.OFFVIS_ITS ---
Intake Visit Reasons: Labs results [phone] Allergies Penicillins Allergy (Mild, Verified 11/30/23 09:22) RASH amlodipine Adverse Reaction (Intermediate, Verified 11/30/23 09:22) leg edema Medication List - Last Reconciled 11/30/23 by Nay Belcher CNM acetaminophen 1,000 mg (2 x 500 mg) PO Q6H PRN aspirin (Adult Aspirin Regimen) 81 mg PO DAILY 90 days atorvastatin 80 mg PO BEDTIME 90 days cetirizine (Allergy Relief (cetirizine)) 10 mg PO DAILY PRN 90 days cholecalciferol (vitamin D3) 25 mcg PO DAILY 90 days cyanocobalamin (vitamin B-12) 500 mcg PO DAILY 90 days cyclobenzaprine 10 mg PO TID 30 days diclofenac sodium 1% (Voltaren Arthritis Pain) 4 grams topical BID gabapentin 300 mg PO BEDTIME lisinopril 30 mg PO DAILY 90 days propranolol 40 mg PO DAILY 90 days Post menopausal: Yes HPI HPI Labs results [phone]: Details: Visit once again to review patient's FSH and TSH results that were ordered . There was a mix up in lab orders and they did not get ordered correctly the way this provider intended many months ago and when corrected orders were placed and request sent to staff to communicate to the patient that she needed these labs and to have a tele visit afterwards the patient tells me that she did go to the lab and she said that she was getting labs from the medical technologist chief and her primary but only her primary care provider's labs were done. This is once again very frustrating. The patient also says that she believes her last period was a year ago and then when she went to [place] which she exactly remember but she decided that it was 06/08/2023 when she returned she had a period twice this is in conflict with what she told me at previous visits but the patient simply does not remember when she had a period at this point and she also does not remember when she had her previous. The year before she is not experiencing any hot flashes she is experiencing other health problems with knees and other orthopedic concerns she says she believes her pre diabetes was okay although she went for labs for her primary but she does not have a visit to follow-up with her for quite a while she was experiencing swelling and she says her primary thought it was some of the medications that she had been on though the patient says she did not understand why that would be so because she had been on them a long time but she was discontinued from some of those medications and her swelling has improved so she is happy about that. I asked her to please keep track of when she bleeds and if she has any unusual pain or unusual bleeding she absolutely needs to have that evaluated. In addition at this point if she wants to do the FSH and TSH she just needs to ensure at the lab that is in fact they are drawing and if she gets those labs done she is to call us and arrange for a follow-up tele visit appointment to review these 1 week after they are done as there been so many mix up with mixed up with these labs I am leaving it to her to schedule this appointment I did tell her that if she has any unusual bleeding that can not be demonstrated to be a normal menses and she is postmenopausal she would need an endometrial biopsy she may just in fact be laura menopausal and still in the laura menopausal time. FORMERLY [facility], [facility]1983 Medical History Tibial neuropathy, bilateral Nocturnal leg movements Hypersomnia Snoring Foot pain Peripheral neuropathy Rectal bleeding Mixed hyperlipidemia Right shoulder pain B12 deficiency Migraines Carpal tunnel syndrome of right wrist Hypovitaminosis D Pure hypercholesterolemia Iron deficiency anemia Obesity Chest pain Essential hypertension Surgical History Hx of colonoscopy History of esophagogastroduodenoscopy (EGD) History of sleeve gastrectomy History of salpingoophorectomy History of tubal ligation History of D&C Family History Father Hypertension Mother Hypertension Diabetes Maternal Aunt Breast cancer Paternal Aunt Breast cancer Social History Housing: House Alcohol intake: never Patient Tobacco Use Status: Never used Tobacco e-Cigarette/Vaping Use: Never Used Second Hand Smoke Exposure: No service: No Current occupational status: unemployed Current occupation: right handed Cognitive needs: No Hearing needs: No Vision needs: No Female Reproductive History Menstrual Age of Menarche: 11 Duration of menses: 3-5 days control method: permanent sterilization Total pregnancies: 4 Full term: 4 Date of last pap smear: 10/28/22 (negative) Telehealth Telehealth Telehealth Platform: Telephone Location of provider rendering services: practice address Location of patient: address on file Patient Identification confirmed using: Name, : Yes Telehealth method: voice only Patient verbally consented to treatment: Yes Patient verbally consented to billing insurance company: Yes Patient informed of any privacy concerns related to visit: Yes Minutes spent on Phone/Video with Pt.: 18 (10 cr/18 speaking w pt /8 charting) Results Reviewed Results Reviewed: Patient: Claudette Martini MR#: [id number] : 1975 Acct:[id number] Age/Sex: 48 / F ADM Date: 06/29/23 Loc: HO.US Attending Dr: Nay Belcher CNM Ordering Physician: Nay Belcher CNM Date of Service: 06/29/23 Procedure(s): US pelvic and transvaginal Accession Number(s): [id number] cc: Nay Belcher CNM; Lety Avitia MD~ EXAMINATION: US PELVIS CLINICAL INFORMATION: Abnormal uterine and vaginal bleeding. COMPARISON: Pelvic ultrasound 08/02/2018. TECHNIQUE: Ultrasound of the pelvis is performed using both transabdominal and transvaginal transducers along with Doppler. Transvaginal imaging is performed due to inadequate visualization transabdominally. FINDINGS: Uterus: Fibroid uterus measuring 9.6 x 5.3 x 5.5 cm. The endometrial stripe measures 7 mm. Technically difficult to compare between studies but only one fibroid is seen measuring 1.2 cm, decreased from 1.6 cm. A second fibroid seen on the prior study is not visible distinctly. Adnexa: Right ovary measures 3.0 x 2.2 x 2.2 cm, volume 7.6 mL. The left ovary measures 2.2 x 0.9 x 1.8 cm, volume 1.9 mL. A physiologic cyst is seen in the right ovary for which no imaging follow-up is recommended. Color Doppler is unremarkable. No free fluid. US/US pelvic and transvaginal IMPRESSION: Decreased size and conspicuity of uterine fibroids. The endometrial stripe measures 7 mm. Dictated By: Selvin Ervin MD Signed By: <Electronically signed by Selvin Ervin MD in OV> 07/01/23 1437 Reviewed many labs in the system back to 2022 FSH and TSH have not been done. Assessment & Plan Assessment & Plan (1) Perimenopause: Comment: After many attempts to establish whether not she is menopause and obtain FSH and TSH they have not yet been done and it is unclear whether not she is in fact in menopause yet awaiting labs and tele visit which patient will arrange after she in fact gets labs. I requested that she keep very careful track of in bleeding and report any abnormal bleeding. Code(s): N95.1 - Menopausal and female climacteric states Category: Medical Plan Visit once again to review patient's FSH and TSH results that were ordered . There was a mix up in lab orders and they did not get ordered correctly the way this provider intended many months ago and when corrected orders were placed and request sent to staff to communicate to the patient that she needed these labs and to have a tele visit afterwards the patient tells me that she did go to the lab and she said that she was getting labs from the medical technologist chief and her primary but only her primary care provider's labs were done. This is once again very frustrating. The patient also says that she believes her last period was a year ago and then when she went to [place] which she exactly remember but she decided that it was 06/08/2023 when she returned she had a period twice this is in conflict with what she told me at previous visits but the patient simply does not remember when she had a period at this point and she also does not remember when she had her previous. The year before she is not experiencing any hot flashes she is experiencing other health problems with knees and other orthopedic concerns she says she believes her pre diabetes was okay although she went for labs for her primary but she does not have a visit to follow-up with her for quite a while she was experiencing swelling and she says her primary thought it was some of the medications that she had been on though the patient says she did not understand why that would be so because she had been on them a long time but she was discontinued from some of those medications and her swelling has improved so she is happy about that. I asked her to please keep track of when she bleeds and if she has any unusual pain or unusual bleeding she absolutely needs to have that evaluated. In addition at this point if she wants to do the FSH and TSH she just needs to ensure at the lab that is in fact they are drawing and if she gets those labs done she is to call us and arrange for a follow-up tele visit appointment to review these 1 week after they are done as there been so many mix up with mixed up with these labs I am leaving it to her to schedule this appointment I did tell her that if she has any unusual bleeding that can not be demonstrated to be a normal menses and she is postmenopausal she would need an endometrial biopsy she may just in fact be laura menopausal and still in the laura menopausal time. Coding Level of Care Code Tele Est Pt Level 3 (91548) Diagnoses Perimenopause N95.1 Time Spent (min) 36
== END 2023-11-30 10:35 | disposition home or self-care (01) ==
LOC: HO.HWSM 09:21
PROVIDERS: PCP Internal Medicine; Visit Provider Advanced Practice Midwife
DX: N95.1 Menopausal and female climacteric states (principal)
CPT/HCPCS: 99213

== ENCOUNTER → 2023-11-30 09:21 | Outpatient (BNVA) | payer OTHER, SELFPAY | PROVIDERS: PCP Internal Medicine; Visit Provider Advanced Practice Midwife ==

== ENCOUNTER 2023-12-13 07:57 | Outpatient (REF) | payer OTHER, SELFPAY ==
--- NOTE | 2023-12-13 08:22 | EMG_ITS ---
FINDINGS: Right median and ulnar motor and sensory studies were performed. Right radial and median and lateral antecubital brachial sensory studies were performed and paraspinal muscles were tested with a needle. IMPRESSION: [id number] right median neuropathy across carpal tunnel. MD AMANDA Martinez/TAD / [id number]
[2023-12-13 10:12] LABS: Thyroid Stimulating Hormone 1.66 uIU/mL (0.32-4.0)
[2023-12-14 18:39] LABS: Follicle Stimulating Hormone 41.9 mIU/mL
== END 2023-12-13 07:58 | disposition home or self-care (01) ==
LOC: HO.NEURO 07:57
PROVIDERS: Advanced Practice Midwife; Absent Provider Nurse Practitioner Family; PCP Internal Medicine; Visit Provider Internal Medicine
DX: R20.2 Paresthesia of skin (principal); N95.1 Menopausal and female climacteric states; N93.9 Abnormal uterine and vaginal bleeding, unspecified
CPT/HCPCS: 36415; 83001; 84443; 95886; 95910

== ENCOUNTER 2023-12-27 08:51 | Outpatient (AMB) | payer OTHER, SELFPAY ==
--- NOTE | 2023-12-27 08:55 | MHC.OFFVIS ---
Vital Signs 12/27/23 09:01 Height 5 ft 6 in Weight 213 lb BMI 34.4 Intake Visit Reasons: OV - right shoulder pain Intake Note: Claudette a 46 year old right hand dominant female who presents today with complaints of right shoulder pain. Patient reports constant pain in her shoulder as well as numbness and tingling that radiates down her arm. Limited ROM. She mentions having a recent nerve conduction study and xrays of her shoulder. Allergies Penicillins Allergy (Mild, Verified 12/27/23 09:02) RASH amlodipine Adverse Reaction (Intermediate, Verified 12/27/23 09:02) leg edema Medication List - Last Reconciled 12/27/23 by Christopher Mireles PA-C acetaminophen 1,000 mg (2 x 500 mg) PO Q6H PRN aspirin (Adult Aspirin Regimen) 81 mg PO DAILY 90 days atorvastatin 80 mg PO BEDTIME 90 days cetirizine (Allergy Relief (cetirizine)) 10 mg PO DAILY PRN 90 days cholecalciferol (vitamin D3) 25 mcg PO DAILY 90 days cyanocobalamin (vitamin B-12) 500 mcg PO DAILY 90 days cyclobenzaprine 10 mg PO TID 30 days diclofenac sodium 1% (Voltaren Arthritis Pain) 4 grams topical BID gabapentin 300 mg PO BEDTIME lisinopril 30 mg PO DAILY 90 days propranolol 40 mg PO DAILY 90 days HPI HPI OV - right shoulder pain: Details: 48-year-old female presents to the office today for right shoulder pain. She denies injury, c/o pain x2 months. She has layton with activities, carrying objects or reaching behind her back. She states she has weakness with carrying objects. She denies treatment to date. [facility] Medical History Tibial neuropathy, bilateral Nocturnal leg movements Hypersomnia Snoring Foot pain Peripheral neuropathy Rectal bleeding Mixed hyperlipidemia Right shoulder pain B12 deficiency Migraines Carpal tunnel syndrome of right wrist Hypovitaminosis D Pure hypercholesterolemia Iron deficiency anemia Obesity Chest pain Essential hypertension Surgical History Hx of colonoscopy History of esophagogastroduodenoscopy (EGD) History of sleeve gastrectomy History of salpingoophorectomy History of tubal ligation History of D&C Family History Father Hypertension Mother Hypertension Diabetes Maternal Aunt Breast cancer Paternal Aunt Breast cancer Social History Housing: House Alcohol intake: never Patient Tobacco Use Status: Never used Tobacco e-Cigarette/Vaping Use: Never Used Second Hand Smoke Exposure: No service: No Current occupational status: unemployed Current occupation: right handed Cognitive needs: No Hearing needs: No Vision needs: No Female Reproductive History Menstrual Age of Menarche: 11 Review of Systems Const All systems reviewed & are unremarkable except as noted in HPI and below Physical Exam Vital Signs: BMI result Body Mass Index 34.4 Const General: cooperative and no acute distress Orientation/consciousness: patient oriented x3 Resp Effort & Inspection: normal respiratory effort and able to speak in complete sentences Cardio Peripheral pulses: Peripheral pulses 2+ throughout Neuro General: patient oriented x3 Extrem Other: Right shoulder normal to inspection. She has tenderness over the proximal biceps tendon positive A[place]. Rotator cuff strength intact with mild discomfort.NVI. Results Reviewed Results Reviewed: Right shoulder obtained November 13 are negative for any acute or chronic abnormalities joint space well preserved Assessment & Plan Assessment & Plan (1) Rotator cuff tendonitis: Code(s): M75.80 - Other shoulder lesions, unspecified shoulder Category: Medical (2) Tendinitis of right rotator cuff: Code(s): M75.81 - Other shoulder lesions, right shoulder Category: Medical Plan We discussed options which include PT, NSAIDs and injections. She will defer on the injection today and proceed with PT and NSAIDs. If symptoms persist she will contact me for an injection, otherwise, prn. Orders: Orders PT Evaluation and Treatment Today M75.80 - Other shoulder lesions, unspecified shoulder, M75.81 - Other shoulder lesions, right shoulder Coding Level of Care Code Est Pt Level 3 (94652) Complex EM visit Add On G2211 Diagnoses Rotator cuff tendonitis M75.80 Tendinitis of right rotator cuff M75.81
[2023-12-27 09:01] VITALS: BMI 34.4
== END 2023-12-27 09:10 | disposition home or self-care (01) ==
PROVIDERS: PCP Internal Medicine; Visit Provider Physician Assistant
DX: M75.81 Other shoulder lesions, right shoulder (principal)
CPT/HCPCS: 99213

== ENCOUNTER → 2023-12-27 08:51 | Outpatient (BNVA) | payer OTHER, SELFPAY | PROVIDERS: PCP Internal Medicine; Visit Provider Physician Assistant | DX: M75.80 Other shoulder lesions, unspecified shoulder (principal); M75.81 Other shoulder lesions, right shoulder | CPT/HCPCS: 99212 ==

== ENCOUNTER 2024-01-20 11:36 | Outpatient (AMB) | payer OTHER, SELFPAY ==
--- NOTE | 2024-01-20 11:37 | MHC.OFFVIS ---
Intake Visit Reasons: TV Lab follow up Allergies Penicillins Allergy (Mild, Verified 01/20/24 11:37) RASH amlodipine Adverse Reaction (Intermediate, Verified 01/20/24 11:37) leg edema Medication List - Last Reconciled 01/20/24 by Nay Belcher CNM acetaminophen 1,000 mg (2 x 500 mg) PO Q6H PRN aspirin (Adult Aspirin Regimen) 81 mg PO DAILY 90 days atorvastatin 80 mg PO BEDTIME 90 days cetirizine (Allergy Relief (cetirizine)) 10 mg PO DAILY PRN 90 days cholecalciferol (vitamin D3) 25 mcg PO DAILY 90 days cyanocobalamin (vitamin B-12) 500 mcg PO DAILY 90 days cyclobenzaprine 10 mg PO TID 30 days diclofenac sodium 1% (Voltaren Arthritis Pain) 4 grams topical BID gabapentin 300 mg PO BEDTIME lisinopril 30 mg PO DAILY 90 days propranolol 40 mg PO DAILY 90 days Is last menstrual period known: No (At the last visit, she ended up settling on June 08 2023 as LMP.) HPI HPI TV Lab follow up: Details: This is a tele visit to discuss patient's history of laura menopausal bleeding over the last year and testing that she has done in intermittent fashion given trips outside the [facility]. Patient had missed some periods in the past ultrasounds that were ordered last year were done in June this past year lab work was done intermittently in the last 2 lab tests have now been done and are within the normal range for her thyroid and the FSH is now more clearly in the menopausal zone. Patient tells general medical practitioner that she does not remember her last menstrual period but during the last visit with some search of memory she was able to remember it as being last May in this year. please see the previous notes whole entire last calendar year. PFSH Medical History Tibial neuropathy, bilateral Nocturnal leg movements Hypersomnia Snoring Foot pain Peripheral neuropathy Rectal bleeding Mixed hyperlipidemia Right shoulder pain B12 deficiency Migraines Carpal tunnel syndrome of right wrist Hypovitaminosis D Pure hypercholesterolemia Iron deficiency anemia Obesity Chest pain Essential hypertension Surgical History Hx of colonoscopy History of esophagogastroduodenoscopy (EGD) History of sleeve gastrectomy History of salpingoophorectomy History of tubal ligation History of D&C Family History Father Hypertension Mother Hypertension Diabetes Maternal Aunt Breast cancer Paternal Aunt Breast cancer Social History Housing: House Alcohol intake: never Patient Tobacco Use Status: Never used Tobacco e-Cigarette/Vaping Use: Never Used Second Hand Smoke Exposure: No service: No Current occupational status: unemployed Current occupation: right handed Cognitive needs: No Hearing needs: No Vision needs: No Female Reproductive History Menstrual Age of Menarche: 11 control method: permanent sterilization Total pregnancies: 4 Full term: 4 Date of last pap smear: 10/28/22 (neg.) Telehealth Telehealth Telehealth Platform: Telephone Location of provider rendering services: practice address Location of patient: address on file Patient Identification confirmed using: Name, : Yes Telehealth method: voice only Patient verbally consented to treatment: Yes Patient verbally consented to billing insurance company: Yes Patient informed of any privacy concerns related to visit: Yes Minutes spent on Phone/Video with Pt.: 14 (11 cr/14 speaking w pt/8 charting) Results Reviewed Results Reviewed: Name: Abby MelvintizClaudette Age/Sex: 48/F : 1975 Unit#: [id number] Attend Dr: Lety Avitia MD Re12/13/23 Status: DEP REF Location: [facility] Disch: SPEC : [id number] NURIA: 12/13/23 STATUS: COMP REQ : [id number] RECD: 12/13/[address]: Nay Belcher CNM COMP: 12/13/23 ENTERED: 12/13/[address]: Lety Avitia MD ORDERED: TSH Test Result Flag Reference TSH 3rd Gen. 1.66 0.32-4.0 uIU/mL TSH 3rd Generation ([facility]) jennifer: Claudette Martini Age/Sex: 48/F : 1975 Unit#: [id number] Attend Dr: Lety Avitia MD Re12/13/23 Status: DEP REF Location: [facility] Disch: SPEC : [id number] NURIA: 12/13/23 STATUS: COMP REQ : [id number] RECD: 12/13/[address]: Nay Belcher CNM COMP: 12/14/23 ENTERED: 12/13/[address]: Lety Avitia MD ORDERED: FSH Test Result Flag Reference FSH 41.9 mIU/mL Reference Range Follicular Phase 2.5-10.2 Mid-cycle Peak 3.1-17.7 Luteal Phase 1.5- 9.1 Postmenopausal 23.0-116.3 THIS TEST WAS PERFORMED AT: [facility] [address] [place] [id number] jennifer: Claudette Martini Age/Sex: 48/F : 1975 Unit#: [id number] Attend Dr: Nay Belcher CNM Re11/02/23 Status: DEP REF Location: .LAB Disch: SPEC : [id number] NURIA: 11/02/23 STATUS: COMP REQ : [id number] RECD: 11/02/23-[address]: Nay Belcher CNM COMP: 11/07/23 ENTERED: 11/02/23-[address]: Lety Avitia MD ORDERED: Prol, Testost Fr & T Test Result Flag Reference Prolactin 8.2 ng/mL Reference Range Females Non- 3.0-30.0 10.0-209.0 Postmenopausal 2.0-20.0 THIS TEST WAS PERFORMED AT: [facility] [address] [place] [id number] BHARATH BEASLEY MD Testost, Tot 10 2-45 ng/dL For additional information, please refer to http://education.[employer]/faq/ QjlkuYzzklwiszwyzLFIDPMFGC591 (This link is being provided for informational/ educational purposes only.) This test was developed and its analytical performance characteristics have been determined by [facility] [place], [place]. It has not been cleared or approved by the U.S. Food and Drug Administration. This assay has been validated pursuant to the CLIA regulations and is used for clinical purposes. Testost, Free 2.1 0.1-6.4 pg/mL This test was developed and its analytical performance characteristics have been determined by [facility] [place], [place]. It has not been cleared or approved by the U.S. Food and Drug Administration. This assay has been validated pursuant to the CLIA regulations and is used for clinical purposes. THIS TEST WAS PERFORMED AT: [facility] [address] YANA WARD MD,PHD Patient: Claudette Martini MR#: [id number] : 1975 Acct:[id number] Age/Sex: 48 / F ADM Date: 06/29/23 Loc: HO.US Attending Dr: Nay Belcher CNM Ordering Physician: Nay Belcher CNM Date of Service: 06/29/23 Procedure(s): US pelvic and transvaginal Accession Number(s): [id number] cc: Nay Belcher CNM; Lety Avitia MD~ EXAMINATION: US PELVIS CLINICAL INFORMATION: Abnormal uterine and vaginal bleeding. COMPARISON: Pelvic ultrasound 08/02/2018. TECHNIQUE: Ultrasound of the pelvis is performed using both transabdominal and transvaginal transducers along with Doppler. Transvaginal imaging is performed due to inadequate visualization transabdominally. FINDINGS: Uterus: Fibroid uterus measuring 9.6 x 5.3 x 5.5 cm. The endometrial stripe measures 7 mm. Technically difficult to compare between studies but only one fibroid is seen measuring 1.2 cm, decreased from 1.6 cm. A second fibroid seen on the prior study is not visible distinctly. Adnexa: Right ovary measures 3.0 x 2.2 x 2.2 cm, volume 7.6 mL. The left ovary measures 2.2 x 0.9 x 1.8 cm, volume 1.9 mL. A physiologic cyst is seen in the right ovary for which no imaging follow-up is recommended. Color Doppler is unremarkable. No free fluid. US/US pelvic and transvaginal IMPRESSION: Decreased size and conspicuity of uterine fibroids. The endometrial stripe measures 7 mm. Dictated By: Selvin Ervin MD Signed By: <Electronically signed by Selvin Ervin MD in OV> 07/01/23 1437 DD/ 1109 TD/TT: [employer] Operator: GLORIA Assessment & Plan Assessment & Plan (1) Perimenopause: Comment: After many attempts to establish whether not she is menopause and obtain FSH and TSH they have not yet been done and it is unclear whether not she is in fact in menopause yet awaiting labs and tele visit which patient will arrange after she in fact gets labs. I requested that she keep very careful track of in bleeding and report any abnormal bleeding.; FSH 07/12 and now again both in menopausal range she has not yet through her entire year with no menses. She is most likely in menopause now but would re-evaluate if she did have anymore bleeding Code(s): N95.1 - Menopausal and female climacteric states Category: Medical Plan See HPI please see previous visits of the last year I reviewed them all with her reviewed the labs and the ultrasound and that now it appears that she probably is in menopause although we do not normally say it is all the way through menopause until 1 year with no menses and she did have a period last May though she does not remember today. Reviewed that the last 2 FSH levels were both in the menopausal range. Reviewed that if she did experience any other bleeding that it should get evaluated. She also had some recent blood work with her primary care provider and I informed her that her thyroid was within normal limits as well. She is not having any other issues or concerns today. Coding Level of Care Code Tele Est Pt Level 3 (50911) Diagnoses Perimenopause N95.1 Time Spent (min) 33
== END 2024-01-20 13:00 | disposition home or self-care (01) ==
LOC: HO.HWSM 11:36
PROVIDERS: PCP Internal Medicine; Visit Provider Advanced Practice Midwife
DX: N95.1 Menopausal and female climacteric states (principal)
CPT/HCPCS: 99213

== ENCOUNTER → 2024-01-20 11:36 | Outpatient (BNVA) | payer OTHER, SELFPAY | PROVIDERS: PCP Internal Medicine; Visit Provider Advanced Practice Midwife ==

== ENCOUNTER 2024-04-02 08:22 | Outpatient (REF) | payer OTHER, SELFPAY | END 2024-04-02 08:23 | disposition home or self-care (01) | LOC: HO.MAMMO 08:22 | PROVIDERS: PCP Internal Medicine; Visit Provider Internal Medicine | DX: Z12.31 Encounter for screening mammogram for malignant neoplasm of breast (principal); J01.10 Acute frontal sinusitis, unspecified | CPT/HCPCS: 77063; 77067; 99212 ==

== ENCOUNTER → 2024-04-02 08:30 | Outpatient (BNV) | payer OTHER, SELFPAY | PROVIDERS: PCP Internal Medicine; Visit Provider Internal Medicine | DX: Z12.31 Encounter for screening mammogram for malignant neoplasm of breast (principal) | CPT/HCPCS: 77063; 77067 ==

== ENCOUNTER 2024-04-02 10:15 | Outpatient (AMB) | payer OTHER, SELFPAY ==
--- NOTE | 2024-04-02 11:39 | MHC.OFFWIV ---
Intake Vital Signs 04/02/24 11:40 Height 5 ft 6 in Weight 211 lb BMI 34.1 BP 138/100 H Blood Pressure Location Lt brachial Position Sitting Pulse 92 Pulse Source Pulse Oximeter Temp 98.6 F Temp Source Oral Pulse Oximetry (%) 97 Oxygen Delivery Method Room Air Intake Visit Reasons: EP stomach pain, sore throat, headaches, cough Intake Note: Pt is here today for a walk in visit. Pt c/o stomach pain, sore throat headaches cough. Pt stated that it started before . Patient Tobacco Use Status: Never used Tobacco Allergies Penicillins Allergy (Mild, Verified 04/02/24 11:44) RASH amlodipine Adverse Reaction (Intermediate, Verified 04/02/24 11:44) leg edema Do you need a note to return to daycare/school/sports/work: No HPI HPI Comments History of Present Illness Details Patient is a 49yo F who presents with sinus concern She states she started with illness 3 weeks ago Started at stomach ache, nausea with diarrhea This has resolved and she denies nausea, vomiting, diarrhea. + normal bowel movements and is eating and drinking well Now +sinus congestion, sinus pressure, headaches, ST, body aches + cough which produces phlegm She has tried tylenol without relief She said + fever/chills at night Minimal SOB associated with cough + sinus pressure in face No ear pain Headache she claims is 10/10; constant PFSH Medical History Tibial neuropathy, bilateral Nocturnal leg movements Hypersomnia Snoring Foot pain Peripheral neuropathy Rectal bleeding Mixed hyperlipidemia Right shoulder pain B12 deficiency Migraines Carpal tunnel syndrome of right wrist Hypovitaminosis D Pure hypercholesterolemia Iron deficiency anemia Obesity Chest pain Essential hypertension Surgical History Hx of colonoscopy History of esophagogastroduodenoscopy (EGD) History of sleeve gastrectomy History of salpingoophorectomy History of tubal ligation History of D&C Family History Father Hypertension Mother Hypertension Diabetes Maternal Aunt Breast cancer Paternal Aunt Breast cancer Social History Housing: House Alcohol intake: never Patient Tobacco Use Status: Never used Tobacco e-Cigarette/Vaping Use: Never Used Second Hand Smoke Exposure: No service: No Current occupational status: unemployed Current occupation: right handed Cognitive needs: No Hearing needs: No Vision needs: No Female Reproductive History Menstrual Age of Menarche: 11 Review of Systems Const Denies chills, Denies fever(s) and Reports headache(s) Eyes Denies change in vision ENT Denies dizziness, Denies otalgia, Reports headache(s), Reports nasal congestion, Reports sinus pain, Reports sore throat and Denies throat swelling Card Denies chest pain and Denies syncope Resp Reports cough GI Denies abdominal pain, Denies diarrhea, Denies nausea and Denies vomiting Musc Reports myalgias Neuro Denies confusion, Denies dizziness, Denies syncope and Reports headache(s) Psych Denies confusion Aller/Immun Denies throat swelling Physical Exam Vital Signs: Last Vital Signs Temp 98.6 F 04/02/24 11:40 Pulse 92 04/02/24 11:40 BP 138/100 H 04/02/24 11:40 Pulse Ox 97 04/02/24 11:40 Oxygen Delivery Method Room Air 04/02/24 11:40 BMI result Body Mass Index 34.1 General: Non-toxic, NAD. Speaking full sentences. Skin: Warm dry throughout Eye: EOMI HENT: Airway patent. Uvula midline. No pharyngeal erythema or edema. No THERMITE WELDER. Mucosal membranes moist Bilateral canals clear. TM non-erythematous, non-bulging. No TM perforation or hemotympanum noted. + frontal sinus tenderness to palpation bilaterally Respiratory: CTA bilaterally. No wheezes, rales or rhonchi Cardiac: RRR. No murmur ABdominal: BS present. Non-tender to palpation MSK: Full ROM extremities. Neurology: Alert. CN 2-12 grossly intact. 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 Negative pronator drift. No aphasia or facial droop. Gait without abnormality Psych: Good mood and affect Const General: No confusion Orientation/consciousness: No confusion Neuro General: No confusion Assessment & Plan Assessment & Plan (1) Sinusitis: Code(s): J32.9 - Chronic sinusitis, unspecified Qualifiers: Sinusitis location: frontal Chronicity: acute Recurrence: non-recurrent Qualified Code(s): J01.10 - Acute frontal sinusitis, unspecified Plan: Patient seen and evaluated. Initially HTNsive and i rechecked BP prior to discharge and it was LUE sitting 128/78 Doxy for sinuses Lungs CTA No abdominal tenderness No neuro deficit and headache is frontal in nature Patient gave verbal understanding and had no additional questions or concerns at time of discharge All questions answered Medications: New doxycycline hyclate 100 mg PO BID 20 caps 0RF Coding Level of Care Code Est Pt Level 3 (49721) Diagnoses Acute non-recurrent frontal sinusitis J01.10 Sinusitis location: frontal Chronicity: acute Recurrence: non-recurrent
[2024-04-02 11:40] VITALS: BP 138/100; PULSE 92; TEMP 37; O2SAT 97; BMI 34.1
== END 2024-04-02 12:18 | disposition home or self-care (01) ==
PROVIDERS: PCP Internal Medicine; Visit Provider Physician Assistant
DX: J01.10 Acute frontal sinusitis, unspecified (principal)

== ENCOUNTER 2024-04-10 10:49 | Outpatient (AMB) | payer OTHER, SELFPAY ==
--- NOTE | 2024-04-10 10:53 | MHC.PC.OV ---
Vital Signs 04/10/24 10:54 Height 5 ft 6 in Weight 212 lb BMI 34.2 BP 160/120 H Blood Pressure Location Lt brachial Position Sitting Intake Visit Reasons: bp, lipids Intake Note: Patient here for a follow up BP, Lipids, c/o cough, headaches Computer Forensic Specialist Required: Yes Computer Forensic Specialist Language: Motor Boss Name: Lety Lucero MD Information Interpreted: non-clinical & clinical Accompanied by: Self / Same As Patient Allergies Penicillins Allergy (Mild, Verified 04/10/24 11:09) RASH amlodipine Adverse Reaction (Intermediate, Verified 04/10/24 11:09) leg edema Medication List - Last Reconciled 04/10/24 by Lety Lucero MD acetaminophen 1,000 mg (2 x 500 mg) PO Q6H PRN aspirin (Adult Aspirin Regimen) 81 mg PO DAILY 90 days atorvastatin 80 mg PO BEDTIME 90 days cetirizine (Allergy Relief (cetirizine)) 10 mg PO DAILY PRN 90 days cholecalciferol (vitamin D3) 25 mcg PO DAILY 90 days cyanocobalamin (vitamin B-12) 500 mcg PO DAILY 90 days cyclobenzaprine 10 mg PO TID 30 days diclofenac sodium 1% (Voltaren Arthritis Pain) 4 grams topical BID gabapentin 300 mg PO BEDTIME lisinopril 30 mg PO DAILY 90 days propranolol 40 mg PO DAILY 90 days Tobacco use date assessed: 04/10/24 Dental Screening Dental Screen Date: 04/10/24 Did you have a dental visit in the last 12 months?: No Did you have a dental problem in the last 6 months where you did not have access to dental care?: No Was dental information given to patient?: Patient has dentist HPI HPI Comments History of Present Illness Details The patient is a 49-year-old female presenting with uncontrolled hypertension. Her blood pressure was measured at 160/120 mmHg during the visit. She has a history of hypertension, and her current antihypertensive regimen includes Lisinopril, which may need to be increased from 40 mg due to persistently elevated blood pressure. The patient reports experiencing symptoms of sinusitis since before , which included persistent pain that did not entirely resolve after initial treatment with antibiotics, following a diagnosis of sinusitis at a walk-in clinic. During the same period, the patient was also diagnosed with bronchitis, for which she did not receive specific treatment at the initial clinic visit. She experienced improvement in sinusitis symptoms following the antibiotic course. She mentioned using [id number] pain relief for her symptoms associated with sinusitis. Additionally, she reported an episode of light vaginal bleeding when wiping, which has prompted consideration of further gynecological consultations. [facility] Medical History (Updated 04/10/24 @ 11:16 by Lety Lucero MD) Tibial neuropathy, bilateral Nocturnal leg movements Hypersomnia Snoring Foot pain Peripheral neuropathy Rectal bleeding Mixed hyperlipidemia Right shoulder pain B12 deficiency Migraines Carpal tunnel syndrome of right wrist Hypovitaminosis D Pure hypercholesterolemia Iron deficiency anemia Obesity Chest pain Essential hypertension Surgical History Hx of colonoscopy History of esophagogastroduodenoscopy (EGD) History of sleeve gastrectomy History of salpingoophorectomy History of tubal ligation History of D&C Family History Father Hypertension Mother Hypertension Diabetes Maternal Aunt Breast cancer Paternal Aunt Breast cancer Social History Housing: House Alcohol intake: never Patient Tobacco Use Status: Never used Tobacco e-Cigarette/Vaping Use: Never Used Second Hand Smoke Exposure: No service: No Current occupational status: unemployed Current occupation: right handed Cognitive needs: No Hearing needs: No Vision needs: No Female Reproductive History Menstrual Age of Menarche: 11 Questionnaire PHQ-9 Over the last 2 weeks, how often have you been bothered by any of the following problems? 1. Little interest or pleasure in doing things: not at all 2. Feeling down, depressed, or hopeless: not at all 3. Trouble falling or staying asleep, or sleeping too much: not at all 4. Feeling tired or having little energy: not at all 5. Poor appetite or overeating: not at all 6. Feeling bad about yourself - or that you are a failure or have let yourself or your family down: not at all 7. Trouble concentrating on things, such as reading the newspaper or watching television: not at all 8. Moving or speaking so slowly that other people could have noticed. Or the opposite - being so fidgety or restless that you have been moving around a lot more than usual: not at all 9. Thoughts that you would be better off or of hurting yourself in some way: not at all Total score: 0 Depression Screening Interpretation: Negative Depression Screening Done: Yes 46488 - PHQ-9 Billing: Yes Source: Developed by Drs. Good Camarena, Joanne Farah, Stephen Dacosta and colleagues, with an educational lala from [employer]. Thrive Questionnaire Date Thrive assessed: 04/10/24 I am a: Patient What is your living situation today?: I have a steady place to live Within the past 12 months, did the food you bought not last and you didn't have the money to get more?: Never true Within the past 12 months, did you worry whether your food would run out before you got money to buy more?: Never true Do you have trouble paying for medicines?: No Do you have trouble getting transportation to medical appointments?: No Do you have trouble paying your heating and electricity bill?: No Do you have trouble taking care of your child, family member or friend?: No Do you have trouble with day-to-day activities such as bathing, preparing meals, shopping, managing finances, etc.?: No Are you currently unemployed and looking for a job?: No Are you interested in more education?: No Please select the resources that you would like help with: None Currently or been in a relationship where the following occur: No concerns reported THRIVE Score: 0 AUDIT C Alcohol Use Questionnaire (AUDIT-C) 1. How often do you have a drink containing alcohol?: Never Total Score: 0 Score Reviewed/Action Taken: No SADIQ-7 AMB Questionnaire SADIQ-7 Date SADIQ - 7 assessed: 04/10/24 Feeling nervous, anxious, or on edge: 0 = Not at all Not being able to stop or control worryin = Not at all Worrying too much about different things: 0 = Not at all Trouble relaxin = Not at all Being so restless that it is hard to sit still: 0 = Not at all Becoming easily annoyed or irritable: 0 = Not at all Feeling afraid as if something awful might happen: 0 = Not at all Total SADIQ-7 score (0-4 normal; 5-9 mild; 10-14 moderate; 15-21 severe): 0 Source: Developed by Drs. Good Camarena, Joanne Farah, Stephen Dacosta and colleagues, with an educational lala from [employer]. SADIQ-7 Assessment Billing SADIQ-7 Assessment Tool: SADIQ-7 Assessment 25818 Review of Systems Const All systems reviewed & are unremarkable except as noted in HPI and below Card Denies chest pain at rest, Denies chest pain with activity, Denies edema, Denies irregular heart rhythm, Denies claudication, Denies dyspnea, Denies dyspnea on exertion, Denies orthopnea, Denies paroxysmal nocturnal dyspnea and Denies slow heart rate Resp Denies cough, Denies dyspnea and Denies dyspnea on exertion GI Denies abdominal pain, Denies change in bowel habits, Denies excessive flatus, Denies nausea and Denies vomiting Physical exam (Primary Care) Vital Signs: Last Vital Signs BP 160/120 H 04/10/24 10:54 BMI result Body Mass Index 34.2 Tobacco/Smoking Status: Tobacco use Status Tobacco use date assessed 04/10/24 04/10/24 10:59 Patient Tobacco Use Status Never used Tobacco 04/10/24 10:59 e-Cigarette/Vaping Use Never Used 04/10/24 10:59 PHQ-9: PHQ-9 Score PHQ-9: Total score 0 04/10/24 11:27 Depression Screening Interpretation: Negative Thrive Assessment: Date of Thrive Assessment Date Thrive assessed 04/10/24 04/10/24 10:59 Currently or been in a relationship where the following occur: No concerns reported Resp Effort & Inspection: normal respiratory effort Auscultation: clear to auscultation bilaterally Cardio Jugular venous distension: no JVD Rate: regular rate Rhythm: regular rhythm Heart sounds: S1 normal heart sound present and S2 normal heart sound present Extrem General: Yes full ROM Office Procedures Flu Questionnaire Does the patient have a severe egg allergy?: No Does the patient have severe life threatening allergies?: No Does the patient have a fever or illness today?: No Has the patient ever had Guillain-Denver Syndrome?: No Has the patient ever had any past reaction to a flu shot?: No Immunizations Fluarix Triv [id number] (PF) 45 mcg (15 mcg x 3)/0.5 mL IM syringe Performing Provider: Lety Lucero MD [facility] [facility] [place] [facility] Administered by: SERENA Mcrae on 04/10/24 11:27 Dose Route Admin Location Dispensed Lot Number Expiration Date [facility] Fishing Boat Mate 0.5 mL IM Left Deltoid 0.5 mL [id number] 09/17/24 [id number] [place] VIS Given Date VIS Provided VIS Publication Date 04/10/24 Single Vaccine 20 Eligibility Eligibility Date Funding Source Not [facility] Eligible 04/10/24 Private Coding Level of Care Code Est Pt Level 4 (57339) Complex EM visit Add On G2211 Diagnoses Upper respiratory tract infection, unspecified type J06.9 URI type: unspecified URI Essential hypertension I10 Mixed hyperlipidemia E78.2 Cough R05.9 Additional Codes SADIQ-7 Assessment Billing - SADIQ-7 Assessment Tool: SADIQ-7 Assessment 04245 ([id number]) PHQ-9 - 35082 - PHQ-9 Billing: Yes ([id number]) Time Spent (min) 22 Assessment & Plan Assessment & Plan (1) URI (upper respiratory infection): Code(s): J06.9 - Acute upper respiratory infection, unspecified Category: Medical Qualifiers: URI type: unspecified URI Qualified Code(s): J06.9 - Acute upper respiratory infection, unspecified (2) Essential hypertension: Code(s): I10 - Essential (primary) hypertension Category: Medical (3) Mixed hyperlipidemia: Code(s): E78.2 - Mixed hyperlipidemia Category: Medical (4) Cough: Code(s): R05.9 - Cough, unspecified Category: Medical Plan - Continue to monitor blood pressure closely and consider increasing Lisinopril to 40 mg following further evaluation. - Schedule follow-up appointments to reassess blood pressure and the need for additional antihypertensive medication. - Provide guidance on managing sinusitis and bronchitis symptoms, including considering potential need for repeat antibiotic therapy. - Monitor any further vaginal bleeding and advise gynecological consultation if necessary. - Advise obtaining a chest X-ray to evaluate respiratory status further, considering bronchitis history. Patient was informed and verbally consented to the use of an ambient scribe for clinic note documentation during this visit. I discussed with the patient the importance of controlling her blood pressure and possible adjustments in her antihypertensive regimen, potentially increasing Lisinopril to 40 mg if deemed necessary on follow-up evaluation. We discussed her ongoing respiratory symptoms and their management, considering her history of sinusitis and bronchitis, emphasizing the need for further diagnostic evaluations such as a chest X-ray. Additionally, I advised her to seek further gynecological evaluation should the episodes of vaginal bleeding persist. Follow-up was advised to reassess symptom progression and therapeutic efficacy of the current treatment plan. Orders: Orders Influenza [id number] Immunization Today Z23 - Encounter for immunization XR chest 2V Today R05.9 - Cough, unspecified Medications: New prednisone Take 4 tabs for 2 days, then 3 tabs for 2 days, then 2 tabs for 2 days, then 1 tab for 2 days 10 mg PO DIRECTED 20 tabs 0RF 8 days benzonatate 100 mg PO BID 10 caps 0RF 5 days lisinopril 40 mg PO DAILY 90 tabs 1RF 90 days Discontinued lisinopril Discontinued Reason: Patient Completed Course 30 mg PO DAILY 90 days 90 tabs 1RF Patient Instructions: - Take prescribed antihypertensive medications as directed. - Schedule a follow-up appointment to discuss blood pressure management. - Continue any prescribed treatments for sinusitis and bronchitis. - Monitor any occurrences of abnormal vaginal bleeding and report to a civil attorney. - Obtain chest X-ray as discussed to assess respiratory health.
[2024-04-10 10:54] VITALS: BP 160/120; BMI 34.2
--- OUTSIDE RECORDS SUMMARY | 2024-04-10 12:22 | XMS_ITS | Clinical Summary ---
Author Organization [facility] Address [address] [place] [address] Care Team Providers Care Voice Teacher Name Role Phone Unavailable Primary Care Provider Unavailabl e Immunizations Name Administration Dates Next Due Moderna Covid-19 Vaccine 12+ 05/05/2022 Social History Tobacco Use Types Packs/Day Years Used Date Smoking Tobacco: Never Assessed Comments Unknown Sex and Gender Information Value Date Recorded Sex Assigned at Female 01/18/2022 10:16 AM EDT Legal Sex Female 10:16 AM EDT Gender Identity Female 05/05/2022 10:33 AM EST Sexual Orientation Straight 05/05/2022 10 :33 AM EST Plan of Treatment Health Maintenance Due Date Last Done Comments CT Colonography 1973 Colonoscopy 1973 Colorectal Cancer Screening 1973 Depression Screening 1973 FIT DNA/Cologuard 1973 FIT 1973 FOBT 1973 HIV Screening 1973 SDOH Screening 1973 Sigmoidoscopy 1973 Alcohol/Substance Use Screening 1985 Tobacco Screening 1985 Hepatitis C Screening 1991 Pap Smear 1994 Cervical Cancer Screening 2003 HPV/Cotest 2003 Mammogram 2013 Zoster Vaccines (1 of 2) 2023 COVID-19 Vaccine ( season) 2023 05/05/2022, 07/16/2020 Influenza Vaccine (#1) 2023 9, 03/04/2017, 01/29/2016, Additional history exists DTaP/Tdap/Td Vaccines (3 - Td or Tdap) 01/28/2026 01/29/2016, 01/03/2014, 11/04/2006 RSV Patients and Patients Aged 60 years or older (1 - 1-dose 75+ series) 2048 Hepatitis B Vaccines Completed 07/09/2011, 05/17/2007, 04/17/2007 HIB Vaccines Aged Out No longer eligi ble based on patient's age to complete this topic HPV Vaccines Aged Out No longer eligi ble based on patient's age to complete this topic Hepatitis A Vaccines Aged Out No long er eligible based on patient's age to complete this topic IPV Vaccines Aged Out No longer eligi ble based on patient's age to complete this topic Meningococcal Vaccine Aged Out No benjamín zohra eligible based on patient's age to complete this topic Pneumococcal Vaccine: Pediatrics (0 to 5 Years) and At-Risk Patients (6 to 64 Years) Aged Out No longer eligible based on patient's age to complete this topic RSV under 20 months Aged Out No longe r eligible based on patient's age to complete this topic Rotavirus Vaccines Aged Out No longer eligible based on patient's age to complete this topic Insurance [facility]
== END 2024-04-10 11:29 | disposition home or self-care (01) ==
PROVIDERS: PCP Internal Medicine; Visit Provider Internal Medicine
DX: J06.9 Acute upper respiratory infection, unspecified (principal); I10 Essential (primary) hypertension; E78.2 Mixed hyperlipidemia; R05.9 Cough, unspecified; Z23 Encounter for immunization

== ENCOUNTER → 2024-04-10 11:40 | Outpatient (BNV) | payer OTHER, SELFPAY | PROVIDERS: PCP Internal Medicine; Visit Provider Radiology Diagnostic Radiology | DX: J18.1 Lobar pneumonia, unspecified organism (principal) | CPT/HCPCS: 71046 ==

== ENCOUNTER → 2024-05-03 10:35 | Outpatient (BNVA) | payer OTHER, SELFPAY | PROVIDERS: PCP Internal Medicine ==

== ENCOUNTER 2024-05-21 08:57 | Outpatient (AMB) | payer OTHER, SELFPAY ==
--- NOTE | 2024-05-21 08:58 | MHC.OFFVIS ---
Intake Visit Reasons: Urinary tract infection Intake Note: New patient presents today for initial visit for urinary tract infection Urology Medication: none Blood Thinner: none Antibiotic Allergies: Penicillins PVR: 0 Research Animal Attendant Required: Yes Research Animal Attendant Services: Research Animal Attendant Present Research Animal Attendant Name: Edmond [id number] Allergies Penicillins Allergy (Mild, Verified 05/21/24 09:41) RASH amlodipine Adverse Reaction (Intermediate, Verified 05/21/24 09:41) leg edema Medication List - Last Reconciled 05/21/24 by ZAINAB Caldera acetaminophen 1,000 mg (2 x 500 mg) PO Q6H PRN aspirin (Adult Aspirin Regimen) 81 mg PO DAILY 90 days atorvastatin 80 mg PO BEDTIME 90 days benzonatate 100 mg PO BID 5 days blood pressure test kit-large As directed cetirizine (Allergy Relief (cetirizine)) 10 mg PO DAILY PRN 90 days cholecalciferol (vitamin D3) 25 mcg PO DAILY 90 days cyanocobalamin (vitamin B-12) 500 mcg PO DAILY 90 days cyclobenzaprine 10 mg PO TID 30 days diclofenac sodium 1% (Voltaren Arthritis Pain) 4 grams topical BID gabapentin 300 mg PO BEDTIME guaifenesin ER (Mucinex) 600 mg PO BID 5 days levofloxacin 750 mg PO DAILY 7 days lisinopril 40 mg PO DAILY 90 days prednisone 10 mg PO DIRECTED 8 days propranolol 40 mg PO DAILY 90 days HPI Comments Details: Claudette is a very pleasant Croatian-speaking 49-year-old female patient of Dr.Roca Lucero. She has a past medical history of hypersomnia, peripheral neuropathy, hyperlipidemia, vitamin B12 deficiency, migraines, carpal tunnel syndrome, iron deficiency anemia, obesity, and hypertension. She presents to the office today as a new patient for follow-up of her urinary tract infection. In discussion with the patient today she reports having seeked emergency room care approximately 6 months ago as she had been experiencing flank pain at which time she was diagnosed with a urinary tract infection. She reports having completed antibiotic therapy as prescribed by ER physician and feels flank pain and irritative lower urinary tract symptoms she had been experiencing has since subsided. She does however endorse to a longstanding history of stress incontinence however feels symptoms have worsened since her urinary tract infection. She reports typically noting stress incontinence with coughing and sneezing however feels episodes have increased. In office urinalysis results reviewed with the patient today. PVR 0 mL. We discussed obtaining retroperitoneal ultrasound for further assessment evaluation. We also discussed further treatment options of mixed urinary incontinence and risks and benefits of these treatment options. She also reports noting abnormal vaginal bleeding we discussed importance of following up with training developer regarding this issue. She reports utilizing 2-3 Frida pads per day due to her mixed urinary incontinence. She otherwise denies nocturia, hematuria, dysuria, foul smelling urine, changes to urinary stream, flank pain, fever, and or chills. In review of patient's chart it appears urine cultures are as follows: 11/11 Klebsiella 05/14 lactobacillus PFSH Medical History Tibial neuropathy, bilateral Nocturnal leg movements Hypersomnia Snoring Foot pain Peripheral neuropathy Rectal bleeding Mixed hyperlipidemia Right shoulder pain B12 deficiency Migraines Carpal tunnel syndrome of right wrist Hypovitaminosis D Pure hypercholesterolemia Iron deficiency anemia Obesity Chest pain Essential hypertension Surgical History Hx of colonoscopy History of esophagogastroduodenoscopy (EGD) History of sleeve gastrectomy History of salpingoophorectomy History of tubal ligation History of D&C Family History Father Hypertension Mother Hypertension Diabetes Maternal Aunt Breast cancer Paternal Aunt Breast cancer Social History Housing: House Alcohol intake: never Patient Tobacco Use Status: Never used Tobacco e-Cigarette/Vaping Use: Never Used Second Hand Smoke Exposure: No service: No Current occupational status: unemployed Current occupation: right handed Cognitive needs: No Hearing needs: No Vision needs: No Female Reproductive History Menstrual Age of Menarche: 11 Review of Systems Const All systems reviewed & are unremarkable except as noted in HPI and below Physical Exam Const General: cooperative, healthy appearing, comfortable, no acute distress, well developed, alert and awake Nutritional Appearance: overweight Orientation/consciousness: patient oriented x3 Limitations: no limitations HEENT Head: Yes normal to inspection, Yes normocephalic and Yes atraumatic Ears: hearing grossly normal bilaterally Eyes General: appearance normal, both eyes and all related structures Neck Neck: Yes normal visual inspection and Yes trachea midline Chest Chest palpation & inspection: normal inspection of the chest Resp Effort & Inspection: normal respiratory effort and able to speak in complete sentences Cardio Rate: regular rate GI Inspection: Yes normal to inspection General: Yes no CVA tenderness Back/Spine/Pelvis Back: no CVA tenderness Skin General skin exam: no rashes or lesions noted Neuro General: patient oriented x3 Extrem General: Yes normal to inspection Psych Appearance: grossly normal and well kempt Mental Status: mental status grossly normal Speech and movement: Normal speech and movement present and Clear speech present Affect: normal affect Attitude: cooperative Thought process: Normal thought process present Thought content: Normal thought content present Insight: Fair insight present (Psych) Judgement: Fair judgement present (Psych) Results AMB Urinalysis, Automated UA Leukoctes 125 Cordell/uL Last Edit by Griselda Reynaga on 05/21/24 09:18 UA Nitrite Negative Last Edit by Griselda Reynaga on 05/21/24 09:18 UA Urobilinogen 3.5 mg/dL Last Edit by Griselda Reynaga on 05/21/24 09:18 UA Protein 0.3 mg/dL Last Edit by Griselda Reynaga on 05/21/24 09:18 UA pH 6.0 Last Edit by Griselda Reynaga on 05/21/24 09:18 UA Blood 0 Austen/uL Last Edit by Griselda Reynaga on 05/21/24 09:18 UA Specific [place] 1.020 Last Edit by Griselda Reynaga on 05/21/24 09:18 UA Ketone Negative Last Edit by Griselda Reynaga on 05/21/24 09:18 UA Bilirubin 0 mg/dL Last Edit by Griselda Reynaga on 05/21/24 09:18 UA Glucose 0 mg/dL Last Edit by Griselda Reynaga on 05/21/24 09:18 Results Reviewed Results Reviewed: Laboratory Last Values Urine pH (Auto) 6.0 05/21/24 09:12 Specific [place] (Auto) 1.020 05/21/24 09:12 Urine Protein (Auto) 0.3 mg/dL 05/21/24 09:12 Glucose (UA)(Auto) 0 mg/dL 05/21/24 09:12 Urine Ketones (Auto) Negative 05/21/24 09:12 Urine Blood (Auto) 0 Austen/uL 05/21/24 09:12 Urine Nitrite (Auto) Negative 05/21/24 09:12 Urine Bilirubin (Auto) 0 mg/dL 05/21/24 09:12 Urine Urobilinogen (Auto) 3.5 mg/dL 05/21/24 09:12 Leukocyte Esterase (Auto) 125 Cordell/uL 05/21/24 09:12 Assessment & Plan Assessment & Plan (1) Urinary incontinence, mixed: Code(s): N39.46 - Mixed incontinence Category: Medical (2) Hx of urinary tract infection: Code(s): Z87.440 - Personal history of urinary (tract) infections Category: Medical Plan In office urinalysis results reviewed with the patient today; as noted above. PVR 0 mL. Will obtain retroperitoneal ultrasound for further assessment evaluation. We discussed further treatment options of mixed urinary incontinence and risks and benefits of these treatment options; patient states she will think about this. We discussed at length potential causes of urinary tract infections. Discussed UTI prevention with D mannose supplement, vitamin-C, increasing fluid intake, behavioral therapy with timed voiding, perineal hygiene and postcoital voiding, and management of constipation with stool softeners and increased fiber intake. We discussed follow-up with training developer regarding abnormal vaginal bleeding. We discussed potential for near future in office cystoscopy and or urodynamics for further assessment evaluation. Follow-up in 1-3 months with imaging and PVR; or sooner with any issues, concerns, and or questions. Orders: Orders AMB Urinalysis Automated Today Z13.9 - Encounter for screening, unspecified US retroperitoneal comp Today N39.46 - Mixed incontinence, Z87.440 - Personal history of urinary (tract) infections Patient Instructions: The patient had an opportunity to ask questions regarding the treatment plan. All questions were answered. Physical exam, labs, and imaging were discussed and reviewed in detail. As well as risks, benefits, and discussion of treatment choices. No major barriers to understanding were identified. The patient expressed understanding and agreement with the above treatment plan. The patient was made aware they should contact our office by phone for worsening of their current condition, the appearance of new symptoms, or with any questions or concerns. Compliance is encouraged with any medications and follow up testing that is ordered. It is a privilege to be allowed the opportunity to participate in? your urological care.? Again, if you have any questions or concerns If you have any questions or concerns please do not hesitate to contact me. The office is [phone]. This note is constructed using voice recognition software. While every effort has been made to ensure accuracy bumper straightener errors may have been included. Yours sincerely, TRAVIS Caldera-JAIME Coding Level of Care Code New Pt Level 3 (19812) Diagnoses Urinary incontinence, mixed N39.46 Hx of urinary tract infection Z87.440
--- OUTSIDE RECORDS SUMMARY | 2024-05-21 09:33 | XMS_ITS | Clinical Summary ---
Author Organization [employer] Address [address] [place] [address] Care Team Providers Care Information Assoc Name Role Phone Unavailable Primary Care Provider Unavailabl e Immunizations Name Administration Dates Next Due Moderna Covid-19 Vaccine 1205/05/2022 Social History Tobacco Use Types Packs/Day Years [...] Alcohol/Substance Use Screening 1985 Tobacco Screening 1985 Family Planning (PISQ) 1988 Hepatitis C Screening 1991 Pap Smear 1994 Cervical Cancer Screening 2003 HPV/Cotest 2003 Mammogram 2013 Pneumococcal Vaccine: 50+ Years (1 of 1 - PCV) 2023 Zoster Vaccines (1 of 2) 2023 COVID-19 Vaccine (3 - season) 2023 05/05/2022, 07/16/2020 Influenza Vaccine (#1) [...] 5 Years) and At-Risk Patients (6 to 49) Years) Aged Out No longer eligible based on patient's age to complete this topic RSV under 20 months Aged Out No longe r eligible based on patient's age to complete this topic Rotavirus Vaccines Aged Out No longer eligible based on patient's age to complete this topic Insurance [facility]
== END 2024-05-21 09:35 | disposition home or self-care (01) ==
PROVIDERS: PCP Internal Medicine; Visit Provider Nurse Practitioner Family
DX: N39.46 Mixed incontinence (principal); Z87.440 Personal history of urinary (tract) infections; Z13.9 Encounter for screening, unspecified
CPT/HCPCS: 99203

== ENCOUNTER → 2024-05-21 08:57 | Outpatient (BNVA) | payer OTHER, SELFPAY | PROVIDERS: PCP Internal Medicine; Visit Provider Nurse Practitioner Family | DX: N39.46 Mixed incontinence (principal); Z87.440 Personal history of urinary (tract) infections | CPT/HCPCS: 81003; 99202 ==

== ENCOUNTER 2024-06-01 13:18 | Outpatient (REF) | payer OTHER, SELFPAY ==
--- OUTSIDE RECORDS SUMMARY | 2024-06-01 16:00 | XMS_ITS | Clinical Summary ---
Author Organization [employer] Address [address] [place] [address] Care Team Providers Care Behavior Management Specialist Name Role Phone Unavailable Primary Care Provider [...] patient's age to complete this topic Insurance [facility]
[2024-06-02 06:22] LABS: CT PCR NOT DETECTED (Not Detect.); NG PCR NOT DETECTED (Not Detect.)
[2024-06-02 08:47] LABS: Bacterial Vaginosis PCR NEGATIVE (Negative); Candida Group PCR NOT DETECTED (Not Detect); Candida glab krusei PCR NOT DETECTED (Not Detect); Trichomonas vaginalis PCR NOT DETECTED (Not Detect)
== END 2024-06-01 13:19 | disposition home or self-care (01) ==
LOC: HO.LNP 13:18
PROVIDERS: PCP Internal Medicine; Visit Provider Advanced Practice Midwife
DX: N93.9 Abnormal uterine and vaginal bleeding, unspecified (principal); N95.1 Menopausal and female climacteric states; N84.1 Polyp of cervix uteri
CPT/HCPCS: 81515; 87491; 87591; 99212; 99459

== ENCOUNTER 2024-06-01 13:18 | Outpatient (AMB) | payer OTHER, SELFPAY ==
--- NOTE | 2024-06-01 13:20 | MHC.OFFVIS ---
Vital Signs 06/01/24 13:32 Height 5 ft 6 in Weight 212 lb BMI 34.2 BP 138/76 Intake Visit Reasons: irregular menses Intake Note: Per patient last menstrual 3 years ago, some bleeding/lower right sided pelvic pain x5 days. Inventory Control Coordinator: Inventory Control Coordinator Present (Michelle) Accompanied by: Self / Same As Patient Allergies Penicillins Allergy (Mild, Verified 05/21/24 09:41) RASH amlodipine Adverse Reaction (Intermediate, Verified 05/21/24 09:41) leg edema Medication List - Last Reconciled 06/01/24 by Nay Belcher CNM acetaminophen 1,000 mg (2 x 500 mg) PO Q6H PRN aspirin (Adult Aspirin Regimen) 81 mg PO DAILY 90 days atorvastatin 80 mg PO BEDTIME 90 days benzonatate 100 mg PO BID 5 days blood pressure test kit-large As directed cetirizine (Allergy Relief (cetirizine)) 10 mg PO DAILY PRN 90 days cholecalciferol (vitamin D3) 25 mcg PO DAILY 90 days cyanocobalamin (vitamin B-12) 500 mcg PO DAILY 90 days cyclobenzaprine 10 mg PO TID 30 days diclofenac sodium 1% (Voltaren Arthritis Pain) 4 grams topical BID gabapentin 300 mg PO BEDTIME guaifenesin ER (Mucinex) 600 mg PO BID 5 days levofloxacin 750 mg PO DAILY 7 days lisinopril 40 mg PO DAILY 90 days prednisone 10 mg PO DIRECTED 8 days propranolol 40 mg PO DAILY 90 days Is last menstrual period known: Yes Post menopausal: No Patient : No HPI HPI irregular menses: Details: Because she has been bleeding for 5 days and she had some cramping she says the cramping was like when she had her period it was a little bit off to the left side of center. Previous to this she had had a very light amount of bleeding in the fall and previous to that she had had irregular menses last year she had previous evaluations with ultrasound and discussions of follow-up but there were long periods of time between the visits secondary to her traveling. In February she got very sick and was sick even through March and developed pneumonia and she was coughing all the time and she was urinating with coughing. She saw her primary care provider and she was referred to Urology. She recently saw the urologist and she was given 3 options but she is still thinking about them and is actually confused and does not fully understand what the options were also she is going to be getting an ultrasound.. She has not had any hot flashes. She also has found it uncomfortable in the last couple of weeks when she had sex. She is not troubled by any vaginal dryness or anything. [facility] Medical History Tibial neuropathy, bilateral Nocturnal leg movements Hypersomnia Snoring Foot pain Peripheral neuropathy Rectal bleeding Mixed hyperlipidemia Right shoulder pain B12 deficiency Migraines Carpal tunnel syndrome of right wrist Hypovitaminosis D Pure hypercholesterolemia Iron deficiency anemia Obesity Chest pain Essential hypertension Surgical History Hx of colonoscopy History of esophagogastroduodenoscopy (EGD) History of sleeve gastrectomy History of salpingoophorectomy History of tubal ligation History of D&C Family History Father Hypertension Mother Hypertension Diabetes Maternal Aunt Breast cancer Paternal Aunt Breast cancer Social History Housing: House Alcohol intake: never Patient Tobacco Use Status: Never used Tobacco e-Cigarette/Vaping Use: Never Used Second Hand Smoke Exposure: No service: No Current occupational status: unemployed Current occupation: right handed Cognitive needs: No Hearing needs: No Vision needs: No Female Reproductive History Menstrual Age of Menarche: 11 control method: permanent sterilization Total pregnancies: 4 Full term: 4 Date of last pap smear: 10/27/22 (negative hpv, negative pap smear ) Date of Mammogram: 04/02/24 (bi rad 2) Physical Exam Vital Signs: Last Vital Signs BP 138/76 06/01/24 13:32 BMI result Body Mass Index 34.2 Other: Vagina is pink moist with clear healthy appearing shiny scant mucus cervix multiparous pink smooth with some capillaries visible and what appears to be a polyp within the cervical os versus irregular cervical tissue. It appears to be the size of a very large Pea. Her cervix is long close thick mobile nontender uterus is midposition mobile nontender adnexa nontender patient was completely nontender throughout the entire exam she did have fairly good tone with Kegel and was able to hold it a few seconds as well. External Female Exam: normal external appearance Speculum Exam - Vagina: normal appearance of the vagina and normal vaginal discharge Speculum Exam - Cervix: normal appearance of the cervix Bimanual exam- vagina & uterus: normal bimanual exam, uterine size normal, consistency normal, uterine mobility normal, uterine shape normal and non-tender Bimanual Exam- Adnexa, other: normal adnexae, no masses and No adnexal tenderness Assessment & Plan Assessment & Plan (1) Perimenopause: Comment: After many attempts to establish whether not she is menopause and obtain FSH and TSH they have not yet been done and it is unclear whether not she is in fact in menopause yet awaiting labs and tele visit which patient will arrange after she in fact gets labs. I requested that she keep very careful track of in bleeding and report any abnormal bleeding.; FSH 07/12 and now again both in menopausal range she has not yet through her entire year with no menses. She is most likely in menopause now but would re-evaluate if she did have anymore bleeding. see 06/01/24 note-we will obtain pelvic ultrasound and we will repeat FSH. Follow-up after ultrasound Code(s): N95.1 - Menopausal and female climacteric states Category: Medical (2) Polyp at cervical os: Comment: appears to be...refer to gynecology for eval Code(s): N84.1 - Polyp of cervix uteri Category: Medical (3) Abnormal uterine bleeding (AUB): Code(s): N93.9 - Abnormal uterine and vaginal bleeding, unspecified Category: Medical Plan I discussed with the patient that given her irregular bleeding pattern which sounds like irregular periods by her description (these last 5 days felt like a period,. Bled like a period,. And are now gone.), in the fact that she had a light menses several months ago and then previous several months before that is all in keeping with laura menopausal irregular menses. Discussed that it is common to have periods stop and start like this she is not having any of the other secondary signs of menopause in that she has no vaginal dryness she has no atrophic changes whatsoever to her vagina and cervix. She is not experiencing hot flashes yet discussed that it may be a while before she is on the other side of menopause. ------for the cervical structure that appears to be a cervical polyp I am going to refer her to the bulk tank driver for assessment.. I am also going to be ordering a pelvic ultrasound just to assess the pain that she had a little bit to the left of center.. Additionally decision made after patient left to also order another FSH. Encouraged her to call the urology office and have another discussion about what the options were as she is finding it confusing and she did not understand fully what her options were. Discussed that as the appointment she had recently was just a week ago it may take a while for other things to get scheduled. I also reviewed Pillo's with her and discussed making sure that she does not have a full bladder so she does cough the consequences are less dramatic. The patient does think things are better,(in terms of the urinary incontinence) after her episode of pneumonia. Timeframe/Date Comment Pelvic ultrasound, labs- fsh refer to gynecology ( mz ) for eval of polyp after u/s f/u follow up after u/s w mo'b Patient Status Orders: Orders CT NG by PCR Today N93.9 - Abnormal uterine and vaginal bleeding, unspecified Bacterial Vaginosis Panel Today N93.9 - Abnormal uterine and vaginal bleeding, unspecified US pelvic and transvaginal Today N93.9 - Abnormal uterine and vaginal bleeding, unspecified, N95.1 - Menopausal and female climacteric states Follicle Stimulating Hormone Today N93.9 - Abnormal uterine and vaginal bleeding, unspecified, N95.1 - Menopausal and female climacteric states Coding Level of Care Code Est Pt Level 3 (11579) Diagnoses Perimenopause N95.1 Polyp at cervical os N84.1 Abnormal uterine bleeding (AUB) N93.9
[2024-06-01 13:32] VITALS: BP 138/76; BMI 34.2
--- OUTSIDE RECORDS SUMMARY | 2024-06-01 14:51 | XMS_ITS | Clinical Summary ---
Author Organization [employer] Address [address] [place] [address] Care Team Providers Care Business Services Sales Agent Name Role Phone Unavailable Primary Care Provider [...] patient's age to complete this topic Insurance [facility]
== END 2024-06-01 14:18 | disposition home or self-care (01) ==
LOC: HO.HWS 13:19
PROVIDERS: PCP Internal Medicine; Visit Provider Advanced Practice Midwife
DX: N95.1 Menopausal and female climacteric states (principal); N84.1 Polyp of cervix uteri; N93.9 Abnormal uterine and vaginal bleeding, unspecified
CPT/HCPCS: 99213

== ENCOUNTER 2024-06-12 23:33 | Emergency (ER) | payer OTHER, SELFPAY ==
--- NOTE | 2024-06-12 | ECG_ITS ---
Test Reason : HTN Blood Pressure : */* mmHG Vent. Rate : 74 BPM Atrial Rate : 74 BPM P-R Int : 152 ms QRS Dur : 86 ms QT Int : 392 ms P-R-T Axes : 40 16 14 degrees QTcB Int : 435 ms Normal sinus rhythm Cannot rule out Anterior infarct , age undetermined Abnormal ECG When compared with ECG of 20-Apr-2022 09:44, No significant change was found Referred By: Generic ED Physician Electronically Signed By: RYLEY DHZ MD
--- NOTE | ~2024-06-12 | CT_ITS ---
CLINICAL HISTORY: HTN, [place] CT head without contrast Comparison: None Findings: No intra-axial mass, midline shift, hydrocephalus, or acute hemorrhage. There is a small focal area of low attenuation in the right frontal lobe subcortical white matter which may be a small old lacunar infarct or area chronic small-vessel ischemic gliosis. Mucosal thickening of the right maxillary sinus. The orbits are unremarkable. There is no acute fracture. IMPRESSION: 1. No acute intracranial findings. This document has been electronically signed by: Flaquito Thorpe MD on 06/13/2024 01:28:43
[2024-06-12 23:37] VITALS: BP 200/112; PULSE 94; RESP 16; TEMP 36.8; O2SAT 98; BMI 34.1
[2024-06-12 23:58] LABS: MANUAL DIFF FLAG NO
[2024-06-13] LABS: Basophils Absolute Auto 0.1 X10*3/uL (0.0-0.2); Basophils Percent Auto 0.7 % (0-2); Eosinophils Absolute Auto 0.6 X10*3/uL (0.0-0.4); Eosinophils Percent Auto 6.9 % (0-4); Hematocrit 37.6 % (37.0-47.0); Hemoglobin 12.8 g/dl (12.0-16.0); Imm Gran Abs Auto 0.02 X10*3/uL (0.00-0.03); Imm Gran Pct Auto 0.2 % (0.0-0.4); Lymphocytes Absolute Auto 2.9 X10*3/uL (1.2-4.9); Lymphocytes Percent Auto 32.4 % (20-40); Mean Corpuscular Hemoglobin 27.9 pg (27.0-33.0); Mean Corpuscular Volume 82.1 fL (80.0-98.0); Mean Platelet Volume 11.3 fL (9.4-12.3); Monocytes Absolute Auto 0.7 X10*3/uL (0.1-1.2); Neutrophils Absolute Auto 4.6 x10*3/uL (2.0-8.3); Neutrophils Percent Auto 51.8 % (45-73); Platelet Count 247 X10*3/uL (160-400); Red Blood Count 4.58 X10*6/uL (4.20-5.50); Red Cell Distribution Width 14.4 % (11.0-16.0); White Blood Count 8.9 X10*3/uL (4.8-10.8)
[2024-06-13 00:14] LABS: Alanine Aminotransferase 20 U/L (0-31); Albumin Level 4.2 g/dL (3.5-5.0); Alkaline Phosphatase 97 U/L (39-117); Anion Gap 13 (12-20); Aspartate Amino Transferase 20 U/L (5-31); Bilirubin Total 0.6 mg/dL (0.0-1.0); Blood Urea Nitrogen 15 mg/dL (9-16); Calcium 9.4 mg/dL (8.4-10.2); Carbon Dioxide 25 mmol/L (22-29); Chloride 107 mmol/L (96-108); Creatinine Clr Calc Pharmacy 100.7; Estimated Glomerular Filt Rate > 60; Glucose Random 101 mg/dL (60-115); Potassium 3.7 mmol/L (3.3-5.1); Sodium 141 mmol/L (135-145); Total Protein 7.8 g/dL (6.5-8.0)
[2024-06-13 00:21] LABS: Troponin-I High Sensitivity 11.1 ng/L (<3.5-17.0)
--- NOTE | 2024-06-13 00:33 | ED.GENADULT ---
HPI - General Adult General Chief complaint: General Medical Stated complaint: high blood pressure Time Seen by Provider: 06/13/24 00:24 Source: patient Mode of arrival: ambulatory Limitations: no limitations History of Present Illness ED Provider: Dr. Niki Sapp HPI narrative: Patient comes to the emergency room complaining of high blood pressure and headache. Patient states that she is compliant with her medications, takes 40 mg of lisinopril and 40 mg of propranolol daily. Patient states that yesterday she noticed that her blood pressure was in the 170s, was not feeling the greatest but did not have any headache. Today all day since patient woke up patient has had headache. Patient did not take any medication to help her with her headache. Prior to arrival, patient states that she took half of her lisinopril and half of her propranolol prior to arrival, hoping that it would help her blood pressure. Patient complaining of mild blurred vision, no chest pain and no shortness of breath. Related Data Previous Rx's ?Medication ?Instructions ?Recorded cyanocobalamin (vitamin B-12) 500 500 mcg PO DAILY 90 days #90 tabs 08/24/22 mcg tablet gabapentin 300 mg capsule 300 mg PO BEDTIME #30 caps 08/25/22 acetaminophen 500 mg capsule 1,000 mg (2 x 500 mg) PO Q6H PRN 05/11/23 fever #30 caps diclofenac sodium 1 % topical gel 4 g topical BID #100 grams 05/11/23 (Voltaren Arthritis Pain) cetirizine 10 mg tablet (Allergy 10 mg PO DAILY PRN allergy 08/19/23 Relief (cetirizine)) symptoms 90 days #90 tabs aspirin 81 mg tablet,delayed 81 mg PO DAILY 90 days #90 tabs 11/09/23 release (Adult Aspirin Regimen) atorvastatin 80 mg tablet 80 mg PO BEDTIME 90 days #90 tabs 01/23/24 cholecalciferol (vitamin D3) 25 25 mcg PO DAILY 90 days #90 caps 01/23/24 mcg (1,000 unit) capsule propranolol 40 mg tablet 40 mg PO DAILY 90 days #90 tabs 01/23/24 cyclobenzaprine 10 mg tablet 10 mg PO TID 30 days #90 tabs 04/08/24 benzonatate 100 mg capsule 100 mg PO BID 5 days #10 caps 04/10/24 guaifenesin 600 mg tablet, 600 mg PO BID 5 days #10 tabs 04/10/24 extended release 12 hr (Mucinex) levofloxacin 750 mg tablet 750 mg PO DAILY 7 days #7 tabs 04/10/24 lisinopril 40 mg tablet 40 mg PO DAILY 90 days #90 tabs 04/10/24 prednisone 10 mg tablet 10 mg PO DIRECTED 8 days #20 04/10/24 tabs blood pressure test kit-large #1 ea 05/07/24 propranolol 40 mg tablet 40 mg PO BID #60 tabs 06/13/24 Allergies Allergy/AdvReac Type Severity Reaction Status Date / Time Penicillins Allergy Mild RASH Verified 06/12/24 23:42 amlodipine AdvReac Intermediate leg edema Verified 06/12/24 23:42 Review of Systems Review of Systems: Constitutional : No Weight loss, No Fever, No Chills, No Night Sweats, No Fatigue, No Malaise ENT/Mouth : No Hearing loss, No Ear Pain, No Nasal Congestion, No Sinus Pain, No Hoarseness, No sore throat, No Rhinorrhea, No Swallowing Difficulty Eyes: No Eye Pain, No Swelling, No Redness, No Foreign Body, No Discharge, No Vision Changes Cardiovascular : No Chest Pain, No SOB, No Dyspnea on Exertion, No Orthopnea, No Edema, No Palpitations, complaining of high blood pressure Respiratory : No Cough, No Sputum, No Wheezing, No Smoke Exposure, No Dyspnea Gastrointestinal : No Nausea, No Vomiting, No Diarrhea, No Constipation, No abdominal Pain, No Hematochezia, No Melena Genitourinary : no irregular bleeding, No Dysuria, No Urinary Frequency, No Hematuria, No Urinary Incontinence, No Urgency, No Flank Pain, No Urinary Flow Changes, No Hesitancy Musculoskeletal : No joint pain, No Myalgias, No Joint Swelling Skin : No Skin Lesions, No rash Neuro : No Weakness, No Numbness, No Paresthesias, No Loss of Consciousness, No Dizziness, complaining of Headache Psych : No Anxiety/Panic, No Depression, No SI/HI/AH/VH, No Social Issues, Heme/Lymph: No Bruising, No Bleeding,No Lymphadenopathy Endocrine : No Polyuria, No Polydipsia, No Temperature Intolerance PMFSH Past Medical History Medical History Tibial neuropathy, bilateral Nocturnal leg movements Hypersomnia Snoring Foot pain Peripheral neuropathy Rectal bleeding Mixed hyperlipidemia Right shoulder pain B12 deficiency Migraines Carpal tunnel syndrome of right wrist Hypovitaminosis D Pure hypercholesterolemia Iron deficiency anemia Obesity Chest pain Essential hypertension Surgical History Hx of colonoscopy History of esophagogastroduodenoscopy (EGD) History of sleeve gastrectomy History of salpingoophorectomy History of tubal ligation History of D&C Family History Family History Father Hypertension Mother Hypertension Diabetes Maternal Aunt Breast cancer Paternal Aunt Breast cancer Social History Social History Housing: House Alcohol intake: never Patient Tobacco Use Status: Never used Tobacco e-Cigarette/Vaping Use: Never Used Second Hand Smoke Exposure: No Advance Directives: No Do you have a plan to hurt others: No Plan service: No Current occupational status: unemployed Current occupation: right handed Cognitive needs: No Hearing needs: No Vision needs: No Physical Exam ED Vital Signs: Vital Signs - 24 hr 06/12/24 23:37 06/13/24 00:36 06/13/24 00:55 Temperature 98.3 F 98.0 F Pulse Rate 94 76 Respiratory Rate 16 18 Blood Pressure 200/112 H 183/98 H 185/94 H Pulse Oximetry 98 97 Oxygen Delivery Method Room Air Room Air 06/13/24 01:23 Temperature 97.8 F Pulse Rate 84 Respiratory Rate 16 Blood Pressure 174/93 H Pulse Oximetry 96 Oxygen Delivery Method Room Air BMI result Body Mass Index 34.1 Const Other: Appearance: Alert. Oriented X3. No acute distress. Eyes: Pupils equal, round and reactive to light. ENT: Pharynx normal. Neck: Normal inspection. Neck supple. No lymph nodes noted. No crepitus CVS: Normal heart rate and rhythm. Pulses normal. Normal S1 and S2 Respiratory: No respiratory distress. Breath sounds normal. No Wheezing. No rales Abdomen: Soft and nontender. No rigidity. No distention. Skin: Skin warm and dry. Normal skin color. Normal skin turgor. Extremities: No lower extremity edema. No Lacerations. No Rash Neuro: Oriented X 3. No motor deficit. No sensory deficit. Moving all extremities. No slurred speech. CN 2 through 12 grossly intact Psych: calm, cooperative, normal affect Course Course Course Narrative: Patient's blood pressure 200/112, heart rate 94. Patient receiving p.o. labetalol, p.o. tramadol Head CT pending Medications Administered Discontinued Medications Generic Name Dose Route Start Last Admin Trade Name Reynold PRN Reason Stop Dose Admin Labetalol HCl 100 mg 06/13/24 00:32 06/13/24 00:36 Labetalol Hcl 100 Mg Tablet PO 06/13/24 00:33 100 mg ONCE ONE Administration Protocol Tramadol HCl 50 mg 06/13/24 00:32 06/13/24 00:36 Tramadol Hcl 50 Mg Tablet PO 06/13/24 00:33 50 mg ONCE ONE Administration Medical Decision Making Medical Decision Making [facility] Narrative: My interpretation of labs: No significant abnormality in patient's hematology and chemistry, normal troponin My interpretation of EKG: Normal sinus rhythm, heart rate 74, no ST segment depression or elevation, nonspecific T-wave inversion in V3, QTC [address] does not show any acute abnormalities Blood pressure 174/93, heart rate 84. Discussed with the patient that we will increase her dose of propranolol. Patient is already at maximum dose of lisinopril. Differential Diagnosis Differential Diagnoses: The differential diagnosis associated with the presentation includes (Bleed, hypertensive urgency, chronic hypertension) Admission/Observation Consideration of admission/observation: Escalation of care including admission/observation considered (Given patient's presentation, vitals and symptoms, observation was considered) Lab Data [facility] Lab Attestation statement: I reviewed the patient's lab results. 06/12/24 23:47 06/12/24 23:47 Labs: Lab Results 06/12/24 Range/Units 23:47 WBC 8.9 (4.8-10.8) X10*3/uL RBC 4.58 (4.20-5.50) X10*6/uL Hgb 12.8 (12.0-16.0) g/dl Hct 37.6 (37.0-47.0) % MCV 82.1 (80.0-98.0) fL MCH 27.9 (27.0-33.0) pg MCHC 34.0 (31.0-35.0) g/dl RDW 14.4 (11.0-16.0) % Plt Count 247 (160-400) X10*3/uL MPV 11.3 (9.4-12.3) fL Immature Gran % (Auto) 0.2 (0.0-0.4) % Neut % (Auto) 51.8 (45-73) % Lymph % (Auto) 32.4 (20-40) % Loup % (Auto) 8.0 (2-11) % Eos % (Auto) 6.9 H (0-4) % Baso % (Auto) 0.7 (0-2) % Lymph # (Auto) 2.9 (1.2-4.9) X10*3/uL Loup # (Auto) 0.7 (0.1-1.2) X10*3/uL Eos # (Auto) 0.6 H (0.0-0.4) X10*3/uL Baso # (Auto) 0.1 (0.0-0.2) X10*3/uL Abs Immat Gran (auto) 0.02 (0.00-0.03) X10*3/uL Absolute Neuts (auto) 4.6 (2.0-8.3) x10*3/uL Absolute Nucleated RBC 0.000 (0.0-0.012) X10*3/uL Nucleated RBC % (auto) 0.0 (0.0-0.2) /100WBC Sodium 141 (135-145) mmol/L Potassium 3.7 (3.3-5.1) mmol/L Chloride 107 (96-108) mmol/L Carbon Dioxide 25 (22-29) mmol/L Anion Gap 13 (12-20) BUN 15 (9-16) mg/dL Creatinine 0.77 (0.5-1.4) mg/dL Estim Creat Clear Calc 100.7 Estimated GFR > 60 Random Glucose 101 (60-115) mg/dL Calcium 9.4 (8.4-10.2) mg/dL Total Bilirubin 0.6 (0.0-1.0) mg/dL AST 20 (5-31) U/L ALT 20 (0-31) U/L Alkaline Phosphatase 97 (39-117) U/L Troponin I High Sens 11.1 (<3.5-17.0) ng/L Total Protein 7.8 (6.5-8.0) g/dL Albumin 4.2 (3.5-5.0) g/dL Independent Interpretation I performed an independent interpretation of an: CT Scan Radiology Impression Discussion of test interpretation with radiology: I have reviewed the radiologist's reading. Radiologist Impression: No intra-axial mass, midline shift, hydrocephalus, or acute hemorrhage. There is a small focal area of low attenuation in the right frontal lobe subcortical white matter which may be a small old lacunar infarct or area chronic small-vessel ischemic gliosis. Mucosal thickening of the right maxillary sinus. The orbits are unremarkable. There is no acute fracture. IMPRESSION: 1. No acute intracranial findings. Critical Care Time Critical Care Time Critical Care Time: Yes Total Critical Care Time: 45 Attestation: I have personally provided critical care time. Time includes review of lab data, radiology results, discussion with consultants, and monitoring for potential decompensation. Intervention performed as documented. Discharge Plan Discharge Clinical Impression: Hypertensive urgency Patient Disposition: Home, Self-Care Instructions: Hypertensive Crisis (ED) Additional Instructions: We will increase your dose of propranolol to 40 mg twice a day. Please follow-up with your primary care physician tomorrow. If you have any worsening or new symptoms, please return to the emergency room or call 911 Prescriptions: New propranolol 40 mg tablet 40 mg PO BID Qty: 60 0RF No Action cetirizine [Allergy Relief (cetirizine)] 10 mg tablet 10 mg PO DAILY PRN (Reason: allergy symptoms) 90 Days Qty: 90 0RF propranolol 40 mg tablet 40 mg PO DAILY 90 Days Qty: 90 3RF atorvastatin 80 mg tablet 80 mg PO BEDTIME 90 Days Qty: 90 1RF cholecalciferol (vitamin D3) 25 mcg (1,000 unit) capsule 25 mcg PO DAILY 90 Days Qty: 90 1RF cyclobenzaprine 10 mg tablet 10 mg PO TID 30 Days Qty: 90 2RF guaifenesin [Mucinex] 600 mg tablet extended release 12hr 600 mg PO BID 5 Days Qty: 10 0RF levofloxacin 750 mg tablet 750 mg PO DAILY 7 Days Qty: 7 0RF (DME) blood pressure test kit-large Kit See Rx Instructions .Route Qty: 1 0RF Rx Instructions: As directed cyanocobalamin (vitamin B-12) 500 mcg tablet 500 mcg PO DAILY 90 Days Qty: 90 1RF acetaminophen 500 mg capsule 1,000 mg PO Q6H PRN (Reason: fever) Qty: 30 0RF diclofenac sodium [Voltaren Arthritis Pain] 1 % gel 4 g topical BID Qty: 100 0RF Rx Instructions: Apply a thin layer to the affected body part two times a day for pain aspirin [Adult Aspirin Regimen] 81 mg tablet,delayed release (DR/EC) 81 mg PO DAILY 90 Days Qty: 90 3RF gabapentin 300 mg capsule 300 mg PO BEDTIME Qty: 30 6RF lisinopril 40 mg tablet 40 mg PO DAILY 90 Days Qty: 90 1RF prednisone 10 mg tablet 10 mg PO DIRECTED 8 Days Qty: 20 0RF Rx Instructions: Take 4 tabs for 2 days, then 3 tabs for 2 days, then 2 tabs for 2 days, then 1 tab for 2 days benzonatate 100 mg capsule 100 mg PO BID 5 Days Qty: 10 0RF Print Language: Slovenian
[2024-06-13 00:36] VITALS: BP 183/98
[2024-06-13] MEDS: traMADoL HCL 50 MG TABLET PO (00:36)
[2024-06-13] MEDS: Labetalol HCL 100 MG TABLET PO (00:36)
[2024-06-13 00:55] VITALS: BP 185/94; PULSE 76; RESP 18; TEMP 36.7; O2SAT 97
[2024-06-13 01:23] VITALS: BP 174/93; PULSE 84; RESP 16; TEMP 36.6; O2SAT 96
[2024-06-13 01:53] VITALS: BP 149/84; PULSE 75; RESP 17; O2SAT 96
[2024-06-13] MEDS: Morphine Sulfate 2 MG/ML CARTRIDGE IM (01:54)
[2024-06-13 01:56] VITALS: BP 149/84; PULSE 75; RESP 17; TEMP 36.6; O2SAT 96
== END 2024-06-13 01:57 | disposition home or self-care (01) ==
PROVIDERS: Emergency Provider Emergency Medicine; PCP Internal Medicine
DX: I16.0 Hypertensive urgency (principal); R51.9 Headache, unspecified; I10 Essential (primary) hypertension; E78.5 Hyperlipidemia, unspecified; Z79.899 Other long term (current) drug therapy; Z79.82 Long term (current) use of aspirin
CPT/HCPCS: 36415; 70450; 80053; 84484; 85025; 93005; 96372; 99284; J2270

== ENCOUNTER → 2024-06-12 23:48 | Outpatient (BNV) | payer OTHER, SELFPAY | PROVIDERS: Emergency Provider Emergency Medicine; PCP Internal Medicine; Visit Provider Internal Medicine Cardiovascular Disease | DX: R94.31 Abnormal electrocardiogram [ECG] [EKG] (principal); I10 Essential (primary) hypertension | CPT/HCPCS: 93010 ==

== ENCOUNTER → 2024-06-13 00:32 | Outpatient (BNV) | payer OTHER, SELFPAY | PROVIDERS: Emergency Provider Emergency Medicine; PCP Internal Medicine; Visit Provider Radiology Diagnostic Radiology | DX: I10 Essential (primary) hypertension (principal); R51.9 Headache, unspecified | CPT/HCPCS: 70450 ==

== ENCOUNTER 2024-06-16 17:03 | Emergency (ER) | payer OTHER, SELFPAY ==
--- NOTE | ~2024-06-16 | CT_ITS ---
CLINICAL HISTORY: severe headache, hypertension CT head without contrast Comparison: CT/SR - CT HEAD/BRAIN WO IV CON - 06/13/24 00:38 EDT Findings: There is no acute intracranial hemorrhage. Ventricles are of normal size and shape. No mass effect or midline shift is present. The eswell-white matter differentiation appears normal. There are several small areas of subcortical white matter hypodensity most prominent in the frontal lobes stable from the prior CT. There is an unchanged prominent perivascular space or chronic lacunar infarct within the left external capsule. There is stable partially visualized mucosal thickening in the right maxillary sinus. Mastoids are clear. Orbits are unremarkable. No fractures are identified. IMPRESSION: 1. No acute intracranial abnormality. 2. Stable nonspecific subcortical white matter hypodensities most prominent in the frontal lobes possibly chronic small-vessel ischemic gliosis, however the distribution is atypical. Comparison with older prior imaging would be helpful. Consider MRI. CT angiography head with contrast. 3-D postprocessing Comparison: CT/SR - CT HEAD/BRAIN WO IV CON - 06/13/24 00:38 EDT Findings: The visualized distal portions of the internal carotid arteries and vertebral arteries are patent without stenosis. The basilar artery is patent without stenosis. The P1 segment of the left posterior cerebral artery is atretic with a relatively large left posterior communicating artery, a normal variant. Right posterior cerebral artery is patent without stenosis. The anterior and middle cerebral arteries are patent without stenosis. There is no aneurysm. There is no dural venous sinus thrombosis. IMPRESSION: No intracranial arterial abnormality. This document has been electronically signed by: Rambo Guan MD on 06/17/2024 01:49:05
[2024-06-16 17:08] VITALS: BP 184/94; PULSE 75; RESP 18; TEMP 36.9; O2SAT 100; BMI 33.8
--- NOTE | 2024-06-16 17:09 | ED.GENADULT ---
HPI - General Adult General Chief complaint: Abdominal Pain Stated complaint: high blood pressure Time Seen by Provider: 06/16/24 19:42 History of Present Illness ED Provider: Tremayne MONTES DE OCA narrative: The patient is a 49-year-old woman with a history of hypertension. She came to the hospital 3 days ago because she has been feeling well and she had checked her blood pressure at home and it was high. She has been feeling bad for at least a day before coming to the emergency room 3 days ago. She was feeling a sense of headache and a general sense of not feeling well. That was the reason that she checked her blood pressure at home that day. She said that was the 1st time in a long time that she had checked her blood pressure. She is normally on lisinopril and propranolol. She had a workup here 3 days ago that included a negative head CT and unremarkable labs. She was advised to start taking her propranolol 2 times a day. The patient says that today her blood pressure was still quite high and she still feels about the same as she did 3 days ago. She She also says that her headache is persistent. She says that she has a history of migraine headaches but that the headache that she presented with under previous emergency room visit and the headache she is still has is not like her usual migraine headaches. She says this is the worst headache of her life. She says this headache started abruptly when she woke up 3 days ago. She feels that the pain is associated with neck stiffness. Related Data Previous Rx's ?Medication ?Instructions ?Recorded cyanocobalamin (vitamin B-12) 500 500 mcg PO DAILY 90 days #90 tabs 08/24/22 mcg tablet gabapentin 300 mg capsule 300 mg PO BEDTIME #30 caps 08/25/22 acetaminophen 500 mg capsule 1,000 mg (2 x 500 mg) PO Q6H PRN 05/11/23 fever #30 caps diclofenac sodium 1 % topical gel 4 g topical BID #100 grams 05/11/23 (Voltaren Arthritis Pain) cetirizine 10 mg tablet (Allergy 10 mg PO DAILY PRN allergy 08/19/23 Relief (cetirizine)) symptoms 90 days #90 tabs aspirin 81 mg tablet,delayed 81 mg PO DAILY 90 days #90 tabs 11/09/23 release (Adult Aspirin Regimen) atorvastatin 80 mg tablet 80 mg PO BEDTIME 90 days #90 tabs 01/23/24 cholecalciferol (vitamin D3) 25 25 mcg PO DAILY 90 days #90 caps 01/23/24 mcg (1,000 unit) capsule propranolol 40 mg tablet 40 mg PO DAILY 90 days #90 tabs 01/23/24 cyclobenzaprine 10 mg tablet 10 mg PO TID 30 days #90 tabs 04/08/24 benzonatate 100 mg capsule 100 mg PO BID 5 days #10 caps 04/10/24 guaifenesin 600 mg tablet, 600 mg PO BID 5 days #10 tabs 04/10/24 extended release 12 hr (Mucinex) levofloxacin 750 mg tablet 750 mg PO DAILY 7 days #7 tabs 04/10/24 lisinopril 40 mg tablet 40 mg PO DAILY 90 days #90 tabs 04/10/24 prednisone 10 mg tablet 10 mg PO DIRECTED 8 days #20 04/10/24 tabs blood pressure test kit-large #1 ea 05/07/24 propranolol 40 mg tablet 40 mg PO BID #60 tabs 06/13/24 clonidine HCl 0.1 mg tablet 0.1 mg PO BID #14 tabs 06/17/24 Allergies Allergy/AdvReac Type Severity Reaction Status Date / Time Penicillins Allergy Mild RASH Verified 06/16/24 17:10 amlodipine AdvReac Intermediate leg edema Verified 06/16/24 17:10 Review of Systems Review of Systems: Yes all other systems are reviewed and are negative [facility] Past Medical History Medical History Tibial neuropathy, bilateral Nocturnal leg movements Hypersomnia Snoring Foot pain Peripheral neuropathy Rectal bleeding Mixed hyperlipidemia Right shoulder pain B12 deficiency Migraines Carpal tunnel syndrome of right wrist Hypovitaminosis D Pure hypercholesterolemia Iron deficiency anemia Obesity Chest pain Essential hypertension Surgical History Hx of colonoscopy History of esophagogastroduodenoscopy (EGD) History of sleeve gastrectomy History of salpingoophorectomy History of tubal ligation History of D&C Family History Family History Father Hypertension Mother Hypertension Diabetes Maternal Aunt Breast cancer Paternal Aunt Breast cancer Social History Social History Housing: House Alcohol intake: never Patient Tobacco Use Status: Never used Tobacco e-Cigarette/Vaping Use: Never Used Second Hand Smoke Exposure: No service: No Current occupational status: unemployed Current occupation: right handed Cognitive needs: No Hearing needs: No Vision needs: No Physical Exam ED Vital Signs: Vital Signs - 24 hr 06/16/24 17:08 06/16/24 19:45 06/16/24 22:00 Temperature 98.4 F 98.2 F 97.9 F Pulse Rate 75 62 65 Respiratory Rate 18 18 16 Blood Pressure 184/94 H 196/94 H 136/72 Pulse Oximetry 100 100 98 Oxygen Delivery Method Room Air Room Air Room Air 06/17/24 01:43 06/17/24 02:30 Temperature 97.5 F 97.5 F Pulse Rate 69 69 Respiratory Rate 16 16 Blood Pressure 144/84 H 144/84 H Pulse Oximetry 99 99 Oxygen Delivery Method Room Air Room Air BMI result Body Mass Index 33.8 Const Other: The patient is awake and alert. Her mental status seems normal. She does not appear in obvious distress or seem obviously significantly uncomfortable. HENMT Other: Face is symmetrical. Mucous membranes moist. Posterior pharynx is normal. Eyes General: appearance normal, both eyes and all related structures Periorbital: periorbital findings normal Eyelids: Yes eyelids normal Conjunctivae: conjunctivae normal Pupils: Equal, round and reactive pupils present EOM: EOMs intact bilaterally Neck Other: I felt the patient could touch her chin to her chest fairly easily but she said that she had discomfort in the back of her neck when she did so. Resp Effort & Inspection: normal respiratory effort Auscultation: clear to auscultation bilaterally Cardio Rate: regular rate Rhythm: regular rhythm Heart sounds: S1 normal heart sound present and S2 normal heart sound present GI Other: The abdomen is soft and nontender. Skin Other: Skin is dry and unremarkable Neuro Other: the patient is awake and alert with normal mental status. Cranial nerves 2-12 are grossly intact. She moves her extremities normally and appropriately. She seems neurologically intact. Cranial nerves: Yes Equal, round and reactive pupils present Extrem Other: No peripheral edema Course Course Course Narrative: Medical screening exam performed. Please refer to detailed history, exam, evaluation, and management by primary provider. Patient with history of 3 day headache. Also noting that her blood pressure has been elevated. 184/94. No focal deficits. No vision changes. Compliant with medications. Medications Administered Discontinued Medications Generic Name Dose Route Start Last Admin Trade Name Reynold DE LA FUENTE Reason Stop Dose Admin Clonidine HCl 0.1 mg 06/16/24 19:55 06/16/24 20:04 Clonidine Hcl 0.1 Mg Tablet PO 06/16/24 19:56 0.1 mg ONCE ONE Administration Protocol Diphenhydramine HCl 25 mg 06/16/24 22:05 06/16/24 22:50 Diphenhydramine Hcl 50 Mg/Ml Vial IVPUSH 06/16/24 22:06 25 mg ONCE ONE Administration Iohexol 75 ml 06/17/24 01:09 06/17/24 01:10 Iohexol 350 Mg/Ml 100 Ml Infus..Btl IV 06/17/24 01:10 75 ml ONCE ONE Administration Ketorolac Tromethamine 10 mg 06/16/24 22:05 06/16/24 22:50 Ketorolac Tromethamine 15 Mg/Ml Vial IVPUSH 06/16/24 22:06 10 mg ONCE ONE Administration Prochlorperazine Edisylate 10 mg 06/16/24 22:05 06/16/24 22:50 Prochlorperazine Edisylate 10 Mg/2 Ml Vial IVPUSH 06/16/24 22:06 10 mg ONCE ONE Administration Medical Decision Making Medical Decision Making [facility] Narrative: the patient is a 49-year-old female with a history of hypertension who has been on lisinopril and propranolol. She was here 3 days ago after developing a headache that was associated with high blood pressure values. She came to the emergency room had negative head CT and unremarkable labs and was advised to start taking her propranolol twice a day instead of simply daily. The patient returns with persistent headache and also persistently elevated blood pressure readings at home. My initial impression was that the patient probably did not have an acutely dangerous cause of her headache and that with treatment of her blood pressure her symptoms might entirely resolved. She was therefore given 0.1 mg of clonidine by mouth and her blood pressure came down to 136/72. despite the improvement in her blood pressure the patient continued to complain of a headache that she maintained was a severe headache and that was not similar to previous headaches and was the worst headache she has ever had. at that point a I ordered treatment for her headache and also a CT angiogram of the head. Her headache improved with ketorolac, prochlorperazine, and diphenhydramine. CT angiogram of her head showed no evidence of aneurysm. At that point I felt she did not require any further evaluation of the cause of her headache. She was feeling better. Her blood pressure was better. She will be discharged with a prescription for clonidine 0.1 mg to use in addition to her lisinopril and propranolol. I wrote for a 2 week supply of the clonidine. My expectation is that the patient should get into her regular doctor's office soon for more definitive long-term management of her hypertension. Lab Data 06/16/24 17:20 06/16/24 17:20 Labs: Lab Results 06/16/24 Range/Units 17:20 WBC 10.4 (4.8-10.8) X10*3/uL RBC 4.76 (4.20-5.50) X10*6/uL Hgb 13.1 (12.0-16.0) g/dl Hct 39.8 (37.0-47.0) % MCV 83.6 (80.0-98.0) fL MCH 27.5 (27.0-33.0) pg MCHC 32.9 (31.0-35.0) g/dl RDW 14.0 (11.0-16.0) % Plt Count 272 (160-400) X10*3/uL MPV 11.0 (9.4-12.3) fL Immature Gran % (Auto) 0.2 (0.0-0.4) % Neut % (Auto) 65.8 (45-73) % Lymph % (Auto) 24.4 (20-40) % [place] % (Auto) 5.1 (2-11) % Eos % (Auto) 4.1 H (0-4) % Baso % (Auto) 0.4 (0-2) % Lymph # (Auto) 2.5 (1.2-4.9) X10*3/uL [place] # (Auto) 0.5 (0.1-1.2) X10*3/uL Eos # (Auto) 0.4 (0.0-0.4) X10*3/uL Baso # (Auto) 0.0 (0.0-0.2) X10*3/uL Abs Immat Gran (auto) 0.02 (0.00-0.03) X10*3/uL Absolute Neuts (auto) 6.8 (2.0-8.3) x10*3/uL Absolute Nucleated RBC 0.000 (0.0-0.012) X10*3/uL Nucleated RBC % (auto) 0.0 (0.0-0.2) /100WBC Sodium 139 (135-145) mmol/L Potassium 4.0 (3.3-5.1) mmol/L Chloride 107 (96-108) mmol/L Carbon Dioxide 24 (22-29) mmol/L Anion Gap 12 (12-20) BUN 14 (9-16) mg/dL Creatinine 0.75 (0.5-1.4) mg/dL Estim Creat Clear Calc 103.0 Estimated GFR > 60 Random Glucose 127 H (60-115) mg/dL Calcium 9.6 (8.4-10.2) mg/dL Troponin I High Sens 11.1 (<3.5-17.0) ng/L Discharge Plan Discharge Clinical Impression: Hypertension, Headache Patient Disposition: Home, Self-Care Additional Instructions: Your testing with regard to your headache is very reassuring. Your blood tests are also reassuring. For the short run please add clonidine to your blood pressure medications. Please take this medication twice a day for the next several days. I doubt that your regular doctor will leave you on this medication. My hope is that you will be able to get a prompt follow up appointment with your regular doctor and that your regular doctor can make a more long-term adjustment to your blood pressure medications. Return to the emergency room if significantly worse. Prescriptions: New clonidine HCl 0.1 mg tablet 0.1 mg PO BID Qty: 14 0RF No Action cetirizine [Allergy Relief (cetirizine)] 10 mg tablet 10 mg PO DAILY PRN (Reason: allergy symptoms) 90 Days Qty: 90 0RF propranolol 40 mg tablet 40 mg PO DAILY 90 Days Qty: 90 3RF atorvastatin 80 mg tablet 80 mg PO BEDTIME 90 Days Qty: 90 1RF cholecalciferol (vitamin D3) 25 mcg (1,000 unit) capsule 25 mcg PO DAILY 90 Days Qty: 90 1RF cyclobenzaprine 10 mg tablet 10 mg PO TID 30 Days Qty: 90 2RF guaifenesin [Mucinex] 600 mg tablet extended release 12hr 600 mg PO BID 5 Days Qty: 10 0RF levofloxacin 750 mg tablet 750 mg PO DAILY 7 Days Qty: 7 0RF (DME) blood pressure test kit-large Kit See Rx Instructions .Route Qty: 1 0RF Rx Instructions: As directed propranolol 40 mg tablet 40 mg PO BID Qty: 60 0RF cyanocobalamin (vitamin B-12) 500 mcg tablet 500 mcg PO DAILY 90 Days Qty: 90 1RF acetaminophen 500 mg capsule 1,000 mg PO Q6H PRN (Reason: fever) Qty: 30 0RF diclofenac sodium [Voltaren Arthritis Pain] 1 % gel 4 g topical BID Qty: 100 0RF Rx Instructions: Apply a thin layer to the affected body part two times a day for pain aspirin [Adult Aspirin Regimen] 81 mg tablet,delayed release (DR/EC) 81 mg PO DAILY 90 Days Qty: 90 3RF gabapentin 300 mg capsule 300 mg PO BEDTIME Qty: 30 6RF lisinopril 40 mg tablet 40 mg PO DAILY 90 Days Qty: 90 1RF prednisone 10 mg tablet 10 mg PO DIRECTED 8 Days Qty: 20 0RF Rx Instructions: Take 4 tabs for 2 days, then 3 tabs for 2 days, then 2 tabs for 2 days, then 1 tab for 2 days benzonatate 100 mg capsule 100 mg PO BID 5 Days Qty: 10 0RF Referrals: Lety Avitia MD [Primary Care Provider] - (Hypertension, headache) Interventions: ED Discharge Assessment Last Done: 06/17/24 02:30 Discharge Date/Time: 06/17/24 02:31 Print Language: Maori
--- NOTE | 2024-06-16 17:10 | ECG_ITS ---
Test Reason : CHEST PAIN Blood Pressure : */* mmHG Vent. Rate : 68 BPM Atrial Rate : 68 BPM P-R Int : 152 ms QRS Dur : 84 ms QT Int : 412 ms P-R-T Axes : 35 18 16 degrees QTcB Int : 438 ms Normal sinus rhythm Normal ECG When compared with ECG of 12-Jun-2024 23:48, No significant change was found Referred By: Aleksandar Flores Electronically Signed By: RYLEY HDZ MD
[2024-06-16 17:24] LABS: MANUAL DIFF FLAG NO
[2024-06-16 17:25] LABS: Basophils Percent Auto 0.4 % (0-2); Eosinophils Absolute Auto 0.4 X10*3/uL (0.0-0.4); Eosinophils Percent Auto 4.1 % (0-4); Hematocrit 39.8 % (37.0-47.0); Hemoglobin 13.1 g/dl (12.0-16.0); Imm Gran Abs Auto 0.02 X10*3/uL (0.00-0.03); Imm Gran Pct Auto 0.2 % (0.0-0.4); Lymphocytes Absolute Auto 2.5 X10*3/uL (1.2-4.9); Lymphocytes Percent Auto 24.4 % (20-40); Mean Corpuscular HGB Conc 32.9 g/dl (31.0-35.0); Mean Corpuscular Hemoglobin 27.5 pg (27.0-33.0); Mean Corpuscular Volume 83.6 fL (80.0-98.0); Monocytes Absolute Auto 0.5 X10*3/uL (0.1-1.2); Monocytes Percent Auto 5.1 % (2-11); Neutrophils Absolute Auto 6.8 x10*3/uL (2.0-8.3); Neutrophils Percent Auto 65.8 % (45-73); Platelet Count 272 X10*3/uL (160-400); Red Blood Count 4.76 X10*6/uL (4.20-5.50); White Blood Count 10.4 X10*3/uL (4.8-10.8)
[2024-06-16 17:36] LABS: Anion Gap 12 (12-20); Blood Urea Nitrogen 14 mg/dL (9-16); Calcium 9.6 mg/dL (8.4-10.2); Carbon Dioxide 24 mmol/L (22-29); Chloride 107 mmol/L (96-108); Estimated Glomerular Filt Rate > 60; Glucose Random 127 mg/dL (60-115); Sodium 139 mmol/L (135-145)
[2024-06-16 17:44] LABS: Troponin-I High Sensitivity 11.1 ng/L (<3.5-17.0)
[2024-06-16 19:45] VITALS: BP 196/94; PULSE 62; RESP 18; TEMP 36.8; O2SAT 100
--- NOTE | 2024-06-16 19:56 | PC.NURSE ---
Patient alert and cooperative with care. Respirations even and non-labored. Abdomen soft, non-tender with positive bowel sounds. Dinner provided. Positive pedal pulses with no edema. Dressing clean, dry and intact to right toes and mepilex intact to left outer ankle. Pending case management eval.
[2024-06-16] MEDS: cloNIDine HCL 0.1 MG TABLET PO (20:04)
[2024-06-16 22:00] VITALS: BP 136/72; PULSE 65; RESP 16; TEMP 36.6; O2SAT 98
[2024-06-16] MEDS: diphenhydrAMINE HCL 50 MG/ML VIAL 25 MG IVPUSH (22:50)
[2024-06-16] MEDS: Prochlorperazine Edisylate 10 MG/2 ML VIAL IVPUSH (22:50)
[2024-06-16] MEDS: Ketorolac Tromethamine 15 MG/ML VIAL 10 MG IVPUSH (22:50)
--- NOTE | 2024-06-17 00:27 | PC.NURSE ---
Took over care from Jessie, pt resting in bed, no sign of distress, pt awaiting disposition
[2024-06-17] MEDS: iohexoL 350 MG/ML 100 ML INFUS..BTL 75 ML IV (01:10)
[2024-06-17 01:43] VITALS: BP 144/84; PULSE 69; RESP 16; TEMP 36.4; O2SAT 99
--- NOTE | 2024-06-17 02:29 | PC.NURSE ---
Reviewed discharge instructions with pt, pt verbalized understanding, no sign of distress.
[2024-06-17 02:30] VITALS: BP 144/84; PULSE 69; RESP 16; TEMP 36.4; O2SAT 99
== END 2024-06-17 02:31 | disposition home or self-care (01) ==
PROVIDERS: Physician Assistant; Emergency Provider Emergency Medicine; PCP Internal Medicine
DX: M43.6 Torticollis (principal); R51.9 Headache, unspecified; I10 Essential (primary) hypertension; R07.89 Other chest pain; Z79.899 Other long term (current) drug therapy
CPT/HCPCS: 36415; 70496; 80048; 84484; 85025; 93005; 96374; 96375; 99284; 99285; J0737; J1200; J1885; Q9967

== ENCOUNTER → 2024-06-16 17:10 | Outpatient (BNV) | payer OTHER, SELFPAY | PROVIDERS: Emergency Provider Emergency Medicine; PCP Internal Medicine; Visit Provider Internal Medicine Cardiovascular Disease | DX: R07.9 Chest pain, unspecified (principal) | CPT/HCPCS: 93010 ==

== ENCOUNTER → 2024-06-17 | Outpatient (BNV) | payer OTHER, SELFPAY | PROVIDERS: Emergency Provider Emergency Medicine; PCP Internal Medicine; Visit Provider Radiology Diagnostic Radiology | DX: R90.82 White matter disease, unspecified (principal) | CPT/HCPCS: 70496 ==

== ENCOUNTER 2024-06-22 14:05 | Outpatient (AMB) | payer OTHER, SELFPAY ==
[2024-06-22 14:17] VITALS: BP 148/98; PULSE 75; RESP 16; TEMP 36.3; O2SAT 98; BMI 34.0
--- NOTE | 2024-06-22 14:17 | A.OFFPC_ITS ---
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 Pt was admitted at [facility] on 06/16/24 for High Blood Pressure. She was previously seen at the [facility] few days ago and all the work-up was negative (ECG, Head CT and unremarkable Labs). She has history of hypertension and has been on lisinopril and propranolol. CT angiogram of her head showed no evidence of aneurysm. Today Pt does admit to not getting enough sleep at night - she goes to bed very late at night. She does endorse Poor diet - high Fat and High Salt diet. [facility] Medical History Tibial neuropathy, bilateral Nocturnal leg movements Hypersomnia Snoring Foot pain Peripheral neuropathy Rectal bleeding Mixed hyperlipidemia Right shoulder pain B12 deficiency Migraines Carpal tunnel syndrome of right wrist Hypovitaminosis D Pure hypercholesterolemia Iron deficiency anemia Obesity Chest pain Essential hypertension Surgical History Hx of colonoscopy History of esophagogastroduodenoscopy (EGD) History of sleeve gastrectomy History of salpingoophorectomy History of tubal ligation History of D&C Family History Father Hypertension Mother Hypertension Diabetes Maternal Aunt Breast cancer Paternal Aunt Breast cancer Social History Housing: House Alcohol intake: never Patient Tobacco Use Status: Never used Tobacco e-Cigarette/Vaping Use: Never Used Second Hand Smoke Exposure: No service: No Current occupational status: unemployed Current occupation: right handed Cognitive needs: No Hearing needs: No Vision needs: No Female Reproductive History Menstrual Age of Menarche: 11 Questionnaire Thrive Questionnaire Date Thrive assessed: 04/10/24 SADIQ-7 AMB Questionnaire SADIQ-7 Date SADIQ - 7 assessed: 04/10/24 Source: Developed by Drs. Good Camarena, Joanne Farah, Stephen Dacosta and colleagues, with an educational lala from [employer]. Review of Systems Const All systems reviewed & are unremarkable except as noted in HPI and below Physical exam (Primary Care) Vital Signs: Last Vital Signs Temp 97.3 F 06/22/24 14:17 Pulse 75 06/22/24 14:17 Resp 16 06/22/24 14:17 BP 148/98 H 06/22/24 14:17 Pulse Ox 98 06/22/24 14:17 Oxygen Delivery Method Room Air 06/22/24 14:17 BMI result Body Mass Index 34.0 Tobacco/Smoking Status: Tobacco use Status Tobacco use date assessed 04/10/24 06/22/24 14:17 Patient Tobacco Use Status Never used Tobacco 06/22/24 14:17 e-Cigarette/Vaping Use Never Used 06/22/24 14:17 Thrive Assessment: Date of Thrive Assessment Date Thrive assessed 04/10/24 06/22/24 14:17 Const General: no acute distress Nutritional Appearance: obese Orientation/consciousness: patient oriented x3 HENMT Head: Yes normocephalic Resp Effort & Inspection: normal respiratory effort Auscultation: clear to auscultation bilaterally Cardio Rhythm: regular rhythm Heart sounds: S1 normal heart sound present and S2 normal heart sound present Neuro General: patient oriented x3, gait normal and moves all extremities Psych Speech and movement: Normal speech and movement present Coding Level of Care Code Est Pt Level 4 (39811) Diagnoses Essential hypertension I10 Time Spent (min) 20 Assessment & Plan Assessment & Plan (1) Essential hypertension: Code(s): I10 - Essential (primary) hypertension Category: Medical Plan: Counselled on Lifestyle changes (weight loss, exercise, Low salt/fat diet, good sleep hygiene etc) D/C propranolol 40 mg, Clonidine and Lisinopril 40 mg. Ordered Lisinopril/HCTZ 20-25 (PATIENT TO TAKE 2 TABS DAILY). Ordered Propranolol 120 mg ER - Take at bedtime. Will Have Patient F/U with Nurse Navigator in 2 weeks. Medications: New propranolol ER 120 mg PO BEDTIME 30 caps 1RF I10 - Essential (primary) hypertension lisinopril-hydrochlorothiazide 20-25 mg 2 tabs PO DAILY 60 tabs 1RF I10 - Essential (primary) hypertension Discontinued propranolol Discontinued Reason: Patient Completed Course 40 mg PO BID 60 tabs 0RF clonidine HCl Discontinued Reason: No Longer Medically Relevant 0.1 mg PO BID 14 tabs 0RF lisinopril Discontinued Reason: Patient Completed Course 40 mg PO DAILY 90 days 90 tabs 1RF
--- OUTSIDE RECORDS SUMMARY | 2024-06-22 15:49 | XMS_ITS | Clinical Summary ---
Author Organization [employer] Address [address] [place] [address] Care Team Providers Care Rate Quoting Operator Name Role Phone Unavailable Primary Care Provider [...] patient's age to complete this topic Insurance [facility]
== END 2024-06-22 14:58 | disposition home or self-care (01) ==
LOC: HO.HMCH 14:05
PROVIDERS: PCP Internal Medicine; Visit Provider Nurse Practitioner Family
DX: I10 Essential (primary) hypertension (principal)

== ENCOUNTER 2024-06-22 15:07 | Outpatient (REF) | payer OTHER, SELFPAY ==
--- NOTE | ~2024-06-22 | US_ITS ---
CLINICAL HISTORY: N93.9 - Abnormal uterine and vaginal bleeding, unspecified US pelvis transvaginal Comparison: None Findings: Transvaginal scanning performed. Anteverted uterus is 9.0 cm length. Normal myometrium. No endometrial lesion, 4.0 mm thickness. There is a myometrial 1.9 x 1.8 x 1.5 cm leiomyoma. Right ovary 3.4 x 2.1 x 2.0 cm. Left ovary 2.6 x 1.5 x 1.9 cm. Normal color Doppler of both ovaries. No free fluid. IMPRESSION: 1. Uterine myometrial leiomyoma This document has been electronically signed by: Jonel Chou MD on 06/25/2024 09:00:14
--- OUTSIDE RECORDS SUMMARY | 2024-06-22 16:29 | XMS_ITS | Clinical Summary ---
Author Organization [facility] Address [address] [place] [address] Care Team Providers Care Gas Engine Operator Generators Name Role Phone Unavailable Primary Care Provider [...] patient's age to complete this topic Insurance [facility]
== END 2024-06-22 15:08 | disposition home or self-care (01) ==
LOC: HO.US 15:07
PROVIDERS: PCP Internal Medicine; Visit Provider Advanced Practice Midwife
DX: N93.9 Abnormal uterine and vaginal bleeding, unspecified (principal); N95.1 Menopausal and female climacteric states; I10 Essential (primary) hypertension; Z79.899 Other long term (current) drug therapy
CPT/HCPCS: 76830; 76856; 99212

== ENCOUNTER → 2024-06-22 15:08 | Outpatient (BNV) | payer OTHER, SELFPAY | PROVIDERS: PCP Internal Medicine; Visit Provider Specialist | DX: N93.9 Abnormal uterine and vaginal bleeding, unspecified (principal) | CPT/HCPCS: 76830 ==

== ENCOUNTER 2024-07-04 14:38 | Outpatient (AMB) | payer OTHER, SELFPAY ==
--- NOTE | 2024-07-04 14:39 | A.OFFVIS_ITS ---
Intake Visit Reasons: ultrasound results Allergies Penicillins Allergy (Mild, Verified 06/22/24 14:30) RASH amlodipine Adverse Reaction (Intermediate, Verified 06/22/24 14:30) leg edema HPI Comments Details: The patient is schedule telehealth visit because she was referred by Nay Augustinien can not see [place] regarding a cervical polyp. The patient has been having abnormal uterine bleeding, the following workup was done. H&H= 13.1/39.8 TSH, GC and chlamydia were negative. FSH 41.9 in the menopausal range Co testing was done in 11/10 was negative. Mammogram was done in 04/14 was BI-RADS 2. Pelvic ultrasound showed the following: Transvaginal scanning performed. Anteverted uterus is 9.0 cm length. Normal myometrium. No endometrial lesion, 4.0 mm thickness. There is a myometrial 1.9 x 1.8 x 1.5 cm leiomyoma. Right ovary 3.4 x 2.1 x 2.0 cm. Left ovary 2.6 x 1.5 x 1.9 cm. Normal color Doppler of both ovaries. No free fluid. [facility] Medical History Tibial neuropathy, bilateral Nocturnal leg movements Hypersomnia Snoring Foot pain Peripheral neuropathy Rectal bleeding Mixed hyperlipidemia Right shoulder pain B12 deficiency Migraines Carpal tunnel syndrome of right wrist Hypovitaminosis D Pure hypercholesterolemia Iron deficiency anemia Obesity Chest pain Essential hypertension Surgical History Hx of colonoscopy History of esophagogastroduodenoscopy (EGD) History of sleeve gastrectomy History of salpingoophorectomy History of tubal ligation History of D&C Family History Father Hypertension Mother Hypertension Diabetes Maternal Aunt Breast cancer Paternal Aunt Breast cancer Social History Housing: House Alcohol intake: never Patient Tobacco Use Status: Never used Tobacco e-Cigarette/Vaping Use: Never Used Second Hand Smoke Exposure: No service: No Current occupational status: unemployed Current occupation: right handed Cognitive needs: No Hearing needs: No Vision needs: No Female Reproductive History Menstrual Age of Menarche: 11 Review of Systems Const All systems reviewed & are unremarkable except as noted in HPI and below Reports as per HPI and Reports no additional complaints GI Reports no additional complaints Reports no additional complaints Telehealth Telehealth Telehealth Platform: Telephone Location of provider rendering services: practice address Location of patient: address on file Patient Identification confirmed using: Name, : Yes Telehealth method: video Patient verbally consented to treatment: Yes Patient verbally consented to billing insurance company: Yes Patient informed of any privacy concerns related to visit: Yes Minutes spent on Phone/Video with Pt.: 4 Assessment & Plan Assessment & Plan (1) Abnormal uterine bleeding (AUB): Code(s): N93.9 - Abnormal uterine and vaginal bleeding, unspecified Category: Medical Plan: Recommended the patient to schedule an appointment for EMB (2) Polyp at cervical os: Code(s): N84.1 - Polyp of cervix uteri Category: Medical Plan: Recommended to the patient to schedule an appointment for evaluation and cervical polyp and treat accordingly (3) Uterine myoma: Code(s): D25.9 - Leiomyoma of uterus, unspecified Category: Medical Plan: Discussed with the patient the findings on pelvic ultrasound & the risk of myosarcoma; in addition reviewed with the patient that malignancy and pre malignancy cannot be ruled out without hysterectomy for pathological evaluation ; furthermore, explained to the patient the limitation of pelvic ultrasound and endometrial biopsy in the setting. Discussed with the patient the typical symptoms that are caused by myomas including but not limited to pelvic pain, pressure symptoms, abnormal uterine bleeding. In addition discussed with the patient options of treatment for myomas including: Serial ultrasounds periodically to follow-up on the size of the myoma while targeting the treatment against fibroids related symptoms ( control pills, Mirena IUD, progesterone treatment, GnRH agonist/antagonist, uterine artery embolization or endometrial ablation) versus surgical treatment including hysterectomy and or myomectomy. All pros and cons, risks and benefits of all options were discussed with the patient. The patient understands that delay in surgical treatment in case of myosarcoma can affect her prognosis, after further discussion, the patient decided to think about it and get back to us next visit I spent a total of 20 minutes reviewing the chart, talking to the patient via video and documenting in the medical record. Coding Level of Care Code Tele Est Pt Level 3 (06109) Diagnoses Abnormal uterine bleeding (AUB) N93.9 Polyp at cervical os N84.1 Uterine myoma D25.9
--- OUTSIDE RECORDS SUMMARY | 2024-07-04 17:22 | XMS_ITS | Clinical Summary ---
Author Organization [facility] Address [address] [place] [address] Care Team Providers Care Signal Helper Name Role Phone Unavailable Primary Care Provider [...] patient's age to complete this topic Insurance [facility] [facility]
== END 2024-07-04 14:55 | disposition home or self-care (01) ==
LOC: HO.HWS 14:38
PROVIDERS: PCP Internal Medicine; Visit Provider Obstetrics & Gynecology
DX: N93.9 Abnormal uterine and vaginal bleeding, unspecified (principal); N84.1 Polyp of cervix uteri; D25.9 Leiomyoma of uterus, unspecified
CPT/HCPCS: 99213

== ENCOUNTER → 2024-07-04 14:38 | Outpatient (BNVA) | payer OTHER, SELFPAY | PROVIDERS: PCP Internal Medicine; Visit Provider Obstetrics & Gynecology ==

== ENCOUNTER 2024-07-24 08:16 | Outpatient (AMB) | payer OTHER, SELFPAY ==
--- NOTE | 2024-07-24 08:17 | MHC.OFFVIS ---
Vital Signs 07/24/24 08:24 Height 5 ft 6 in Weight 210 lb BMI 33.9 BP 124/70 Intake Visit Reasons: pre op Plc Controls Engineer Required: Yes Plc Controls Engineer Language: Email Production Consultant Services: Plc Controls Engineer Present (in person) Plc Controls Engineer Name: Radha LYONS Information Interpreted: non-clinical & clinical Grassland Conservationist: Grassland Conservationist Present Allergies Penicillins Allergy (Mild, Verified 06/22/24 14:30) RASH amlodipine Adverse Reaction (Intermediate, Verified 06/22/24 14:30) leg edema Is last menstrual period known: Yes Last menstrual period: 01/17/20 Post menopausal: No Patient : No Do you need a note to return to daycare/school/sports/work: Yes (for surgery on tuesday) HPI Comments Details: Presenting for pelvic exam/evaluation of cervical lesion/polyp. [facility] Medical History Tibial neuropathy, bilateral Nocturnal leg movements Hypersomnia Snoring Foot pain Peripheral neuropathy Rectal bleeding Mixed hyperlipidemia Right shoulder pain B12 deficiency Migraines Carpal tunnel syndrome of right wrist Hypovitaminosis D Pure hypercholesterolemia Iron deficiency anemia Obesity Chest pain Essential hypertension Surgical History Hx of colonoscopy History of esophagogastroduodenoscopy (EGD) History of sleeve gastrectomy History of salpingoophorectomy History of tubal ligation History of D&C Family History Father Hypertension Mother Hypertension Diabetes Maternal Aunt Breast cancer Paternal Aunt Breast cancer Social History Housing: House Alcohol intake: never Patient Tobacco Use Status: Never used Tobacco e-Cigarette/Vaping Use: Never Used Second Hand Smoke Exposure: No service: No Current occupational status: unemployed Current occupation: right handed Cognitive needs: No Hearing needs: No Vision needs: No Female Reproductive History Menstrual Age of Menarche: 11 Date of last menstrual period: 01/17/20 Total pregnancies: 2 Full term: 2 Review of Systems Const All systems reviewed & are unremarkable except as noted in HPI and below Card Reports as per HPI and Reports no additional complaints Resp Reports as per HPI and Reports no additional complaints GI Reports as per HPI and Reports no additional complaints Reports as per HPI Physical Exam Const General: cooperative, healthy appearing and comfortable Chest Chest palpation & inspection: normal inspection of the chest and normal palpation of entire chest wall Breast/axilla inspection: normal inspection of the breasts and normal inspection of the axillae Breast/axilla palpation: normal palpation of the breasts, normal palpation of the axillae and no axillary lymphadenopathy Resp Effort & Inspection: normal respiratory effort Auscultation: clear to auscultation bilaterally Percussion: percussion normal Cardio Palpation: normal PMI Rate: regular rate Rhythm: regular rhythm Heart sounds: no murmurs and no rubs Peripheral pulses: Peripheral pulses 2+ throughout GI Inspection: Yes normal to inspection Palpation (GI): Soft to palpation, nontender, no guarding, not rigid and No hepatosplenomegaly present Percussion: Yes normal to percussion Auscultation: normal bowel sounds Rectal Exam - Female: deferred General: Yes no CVA tenderness External Female Exam: normal external appearance and normal appearance of the urethra Speculum Exam - Vagina: normal appearance of the vagina, normal palpation, no lesions and no masses Speculum Exam - Cervix: abnormal appearance of the cervix (Cervical lesion/polyp posterior cervical lip), normal palpation, no lesions, no masses and nontender Bimanual exam- vagina & uterus: normal bimanual exam, normal palpation, uterine size normal, normal palpation, uterine shape normal, No Cervical tenderness present and non-tender Bimanual Exam- Adnexa, other: normal adnexae Back/Spine/Pelvis Back: no CVA tenderness Assessment & Plan Assessment & Plan (1) Lesion of cervix: Comment: Posterior cervical lip possible polyp Code(s): N88.9 - Noninflammatory disorder of cervix uteri, unspecified Category: Medical Plan: Discussed with the patient the finding on pelvic exam showing cervical lesion/possible polyp in the posterior cervical lip, recommended hysteroscopy D&C possible polypectomy/myomectomy with excision of cervical lesion (2) Abnormal uterine bleeding (AUB): Code(s): N93.9 - Abnormal uterine and vaginal bleeding, unspecified Category: Medical Plan: Recommended hysteroscopy D&C possible polypectomy/myomectomy Discussed with the patient the procedure , all benefits and risks including but not limited to inability to complete the procedure , insufficient endometrial tissue for a complete evaluation of the endometrial cavity , bleeding, infection, possible need for blood transfusion with all its risk ( HIV,syphilis, Hepatitis, anaphylaxis shock, others..), injury to bladder, rectum, possible need for laparoscopy/laparotomy or hysterectomy. The patient verbalized understanding and signed the consent. Instructions given the patient to stay NPO after midnight the day prior to the procedure and to take only the specific medication (s) discussed the morning of the surgical procedure and to schedule a 2 week postoperative appointment Coding Level of Care Code Est Pt Level 3 (79386) Diagnoses Lesion of cervix N88.9 Abnormal uterine bleeding (AUB) N93.9
[2024-07-24 08:24] VITALS: BP 124/70; BMI 33.9
== END 2024-07-24 08:57 | disposition home or self-care (01) ==
LOC: HO.HWS 08:16
PROVIDERS: PCP Internal Medicine; Visit Provider Obstetrics & Gynecology
DX: N88.9 Noninflammatory disorder of cervix uteri, unspecified (principal); N93.9 Abnormal uterine and vaginal bleeding, unspecified
CPT/HCPCS: 99213

== ENCOUNTER → 2024-07-24 08:16 | Outpatient (BNVA) | payer OTHER, SELFPAY | PROVIDERS: PCP Internal Medicine; Visit Provider Obstetrics & Gynecology | DX: Z01.818 Encounter for other preprocedural examination (principal); N88.9 Noninflammatory disorder of cervix uteri, unspecified; N93.9 Abnormal uterine and vaginal bleeding, unspecified | CPT/HCPCS: 99212 ==

== ENCOUNTER 2024-07-27 10:01 | Day surgery (SDC) | payer OTHER, SELFPAY ==
[2024-07-26 13:14] VITALS: BMI 33.9
[2024-07-27 10:16] VITALS: BP 126/81; PULSE 77; RESP 20; TEMP 36.1; O2SAT 97
--- NOTE | 2024-07-27 10:19 | HO.ANESPROP2 ---
Documented by User: Lawanda Rios NP 07/25/24 13:02 HPI - Anesthesia Eval Consult details Narrative: 49yo F for D&C Hysteroscopy,possible myomectomy,possible polypectomy,and excision of Cervical Lesion PMFSH Active Problems Active Problems: All Active Problems Lesion of cervix (Acute) Uterine myoma (Acute) Polyp at cervical os (Acute) Hx of urinary tract infection (Acute) Urinary incontinence, mixed (Acute) Cough (Acute) Sinusitis (Acute) Tendinitis of right rotator cuff (Acute) Rotator cuff tendonitis (Acute) Blurry vision (Acute) Easy bruising (Acute) Right shoulder pain (Acute) Right knee pain (Acute) Paresthesia (Acute) URI (upper respiratory infection) (Acute) Costovertebral angle tenderness (Acute) Perimenopause (Acute) Abnormal uterine bleeding (AUB) (Acute) Patellofemoral arthritis of right knee (Acute) Knee effusion (Acute) Impaired glucose tolerance (Acute) Right knee pain (Acute) Postprandial epigastric pain (Acute) Breast cancer screening (Acute) Cervical cancer screening (Acute) Hearing loss (Acute) Tibial neuropathy, bilateral (Acute) Nocturnal leg movements (Acute) Hypersomnia (Acute) Snoring (Acute) Foot pain (Acute) Right hand pain (Acute) Left hand pain (Acute) Greater trochanteric bursitis of left hip (Acute) Encounter for annual routine gynecological examination (Acute) Peripheral neuropathy (Acute) Screen for colon cancer (Acute) Skin lesion (Acute) Physical exam (Acute) Swelling of both lower extremities (Acute) Leg paresthesia (Acute) Rectal bleeding (Acute) Impingement syndrome of right shoulder (Acute) S/P laparoscopic sleeve gastrectomy (Acute) Mixed hyperlipidemia (Acute) Right shoulder pain (Acute) B12 deficiency (Acute) Migraines (Acute) Carpal tunnel syndrome of right wrist (Acute) Hypovitaminosis D (Acute) Iron deficiency anemia (Acute) Obesity (Acute) Chest pain (Acute) Essential hypertension (Acute) Past Medical History Medical History Tibial neuropathy, bilateral Nocturnal leg movements Hypersomnia Snoring Foot pain Peripheral neuropathy Rectal bleeding Mixed hyperlipidemia Right shoulder pain B12 deficiency Migraines Carpal tunnel syndrome of right wrist Hypovitaminosis D Pure hypercholesterolemia Iron deficiency anemia Obesity Chest pain Essential hypertension Family History Family History Father Hypertension Mother Hypertension Diabetes Maternal Aunt Breast cancer Paternal Aunt Breast cancer Surgical History Surgical History Hx of colonoscopy History of esophagogastroduodenoscopy (EGD) History of sleeve gastrectomy History of salpingoophorectomy History of tubal ligation History of D&C Social History Social History Housing: House Alcohol intake: never Patient Tobacco Use Status: Never used Tobacco e-Cigarette/Vaping Use: Never Used Second Hand Smoke Exposure: No Have you been hit, kicked, punched, or otherwise hurt by someone within the past year? If so, by whom?: No Are you DNR?: No Advance Directives: No Advance Directives Information Provided: Yes service: No Current occupational status: unemployed Current occupation: right handed Cognitive needs: No Hearing needs: No Vision needs: No Meds Allergies Allergy/AdvReac Type Severity Reaction Status Date / Time Penicillins Allergy Mild RASH Verified 06/22/24 14:30 amlodipine AdvReac Intermediate leg edema Verified 06/22/24 14:30 Assessment and Plan Assessment Anesthesia Assessment: Chart Reviewed Documented by User: Seble Bobo DO 07/27/24 10:22 [facility] Past Medical History Medical History Tibial neuropathy, bilateral Nocturnal leg movements Hypersomnia Snoring Foot pain Peripheral neuropathy Rectal bleeding Mixed hyperlipidemia Right shoulder pain B12 deficiency Migraines Carpal tunnel syndrome of right wrist Hypovitaminosis D Pure hypercholesterolemia Iron deficiency anemia Obesity Chest pain Essential hypertension Family History Family History Father Hypertension Mother Hypertension Diabetes Maternal Aunt Breast cancer Paternal Aunt Breast cancer Family history of problems with anesthesia: No Surgical History Surgical History Hx of colonoscopy History of esophagogastroduodenoscopy (EGD) History of sleeve gastrectomy History of salpingoophorectomy History of tubal ligation History of D&C History of Problems with Anesthesia: No Social History Social History Housing: House Alcohol intake: never Patient Tobacco Use Status: Never used Tobacco e-Cigarette/Vaping Use: Never Used Second Hand Smoke Exposure: No Have you been hit, kicked, punched, or otherwise hurt by someone within the past year? If so, by whom?: No Are you DNR?: No Advance Directives: No Advance Directives Information Provided: Yes service: No Current occupational status: unemployed Current occupation: right handed Cognitive needs: No Hearing needs: No Vision needs: No Meds Allergies Allergy/AdvReac Type Severity Reaction Status Date / Time Penicillins Allergy Mild RASH Verified 06/22/24 14:30 amlodipine AdvReac Intermediate leg edema Verified 06/22/24 14:30 Exam Exam Date and Time: 07/27/24 1016 Height,Weight and Vital Signs: Height 5 ft 6 in Weight 95.254 kg Vital Signs Temperature 96.9 F 07/27/24 10:16 Pulse Rate 77 07/27/24 10:16 Respiratory Rate 20 07/27/24 10:16 Blood Pressure 126/81 07/27/24 10:16 Pulse Oximetry 97 07/27/24 10:16 Oxygen Delivery Method Room Air 07/27/24 10:16 Temperature 96.9 F 07/27/24 10:16 Pulse Rate 77 07/27/24 10:16 Respiratory Rate 20 07/27/24 10:16 Blood Pressure 126/81 07/27/24 10:16 Pulse Oximetry 97 07/27/24 10:16 Oxygen Delivery Method Room Air 07/27/24 10:16 Airway Mallampati Class: II TM Dist: >3cm Neck ROM: Full Loose/Missing/Broken Teeth: No (patient denies any loose or broken teeth) Heart: S1S2 Lungs: CTAB Assessment and Plan Assessment Anesthesia Assessment: Anesthesia Plan Discussed and Chart Reviewed Final Anesthetic Review Family History of Problems with Anesthesia: No History of Problems with Anesthesia: No NPO: Yes ASA Class: II Final Preanesthetic Review: No Changes in Pt Med Stat, Meds/Allgs Chart Reviewed, Consent Obtained/Reviewed and Anes Risks/Benef Reviewed Patient Risk: Low Procedure Risk: Low Anesthetic Plan Anesthetic Plan: GA and Agree w/ Assess. and Plan Disposition: Standard PACU
[2024-07-27 10:25] LABS: UPreg QC Valid YES; Urine Pregnancy NEGATIVE (NEGATIVE)
[2024-07-27] MEDS: Lactated Ringers 1,000 ML 100 ML IVCONT (10:27)
--- NOTE | 2024-07-27 10:59 | MHC.SHP ---
Pre-Procedural Eval Section A - 24 Hr Update-Section A only Date of Service: 07/27/24 The patient is an INPATIENT: No Changes since office visit: No Cold of Flu in the past 2 weeks, No New Medical Problems, No Changes in Medication and No Patient answered all questions The patient has been examined within 24 hours of the surgical procedure. The History & Physical has been completed within 30 days and I have reviewed it.: Yes Section B - Complete if H&P > 30 days Chief Complaint: Noninflammatory disorder of cervix uteri, unspecif Allergies: Allergies Allergy/AdvReac Type Severity Reaction Status Date / Time Penicillins Allergy Mild RASH Verified 06/22/24 14:30 amlodipine AdvReac Intermediate leg edema Verified 06/22/24 14:30 Plan Diagnosis/Plan: Unchanged I have reviewed the history and physical and performed a pertinent physical examination on my patient. No changes have occurred unless specified. Time Spent With Patient Time: Total time managing care of this patient today ____ minutes.
--- NOTE | 2024-07-27 11:45 | P.BOP_ITS ---
Brief Operative Note Date of Service: 07/27/24 Pre-op diagnosis: Abnormal uterine bleeding Posterior Cervical lesion Post-op diagnosis: same (Normal endometrial cavity, posterior cervical lesion) Procedure: Hysteroscopy D&C, excision of posterior cervical Surgeon: Jaime Leal MD Anesthesia: GLMA Was an Financial Services Officer used for this Procedure?: No Estimated blood loss (mL): 0 Pathology: other (Endometrial Scrapping. Posterior cervical lesion) Condition: stable Disposition: PACU
--- NOTE | 2024-07-27 11:46 | P.OP_ITS ---
Operative Note Operative Note Date of Service: 07/27/24 Narrative: Preop Diagnosis: Abnormal uterine bleeding, posterior cervical lesion Operation: Diagnostic Hysteroscopy, Dilataion & Curettage and excision of posterior cervical lesion Post Op Diagnosis: Normal endometrial and endocervical cavity, no evidence of pathology, posterior cervical lesion QBL: Minimal Anesthesia: GLMA Surgeon: Jaime Leal MD Tire Bladder Maker: None Complication: None Pathology: Endometrial Scrapings, posterior cervical lesion Procedure: The patient was put in the dorsal lithotomy position, scrubbed, and draped in the usual manner. A sterile speculum was inserted in the patient's vagina. The anterior lip of the cervix was grasped with a single tooth tenaculum. The cervix was dilated up to 5 mm, then the scope was inserted in the patient's uterus. Inspection revealed normal endocervical & endometrial cavity with no evidence of pathology. The scope was taken out of the uterine cavity , then sharp curetting was carried on with no complications. Attention was then turned to the posterior cervical lesion which was grasped with a an Allis clamp and using cautery it was excised, hemostasis was assured using co to repeat At the end of the procedure, all instruments were taken out of the patient uterine and vaginal cavity. The single tooth tenaculum was removed and homeostasis was assured using pressure. The patient tolerated the procedure well and was transferred to the PACU in a stable condition.
[2024-07-27 11:50] VITALS: BP 117/65; PULSE 75; RESP 16; TEMP 36.1; O2SAT 98
[2024-07-27 11:55] VITALS: BP 115/67; PULSE 81; RESP 16; O2SAT 95
[2024-07-27 12:00] VITALS: BP 119/69; PULSE 69; RESP 17; O2SAT 96
[2024-07-27 12:05] VITALS: BP 124/79; PULSE 69; RESP 17; O2SAT 98
[2024-07-27] MEDS: Acetaminophen 325 MG TABLET 650 MG PO (12:05)
[2024-07-27 12:20] VITALS: BP 125/83; PULSE 67; RESP 16; TEMP 36.3; O2SAT 98
== END 2024-07-27 12:55 | disposition home or self-care (01) ==
PROVIDERS: PCP Internal Medicine; Visit Provider Obstetrics & Gynecology
PROC: 0UDB8ZZ Extraction of Endometrium, Via Natural or Artificial Opening Endoscopic (ICD-10-PCS; CPT 58558; principal; 2024-07-27 13:00)
DX: N88.9 Noninflammatory disorder of cervix uteri, unspecified (principal); N93.9 Abnormal uterine and vaginal bleeding, unspecified; N84.1 Polyp of cervix uteri; I10 Essential (primary) hypertension; G62.9 Polyneuropathy, unspecified; E78.2 Mixed hyperlipidemia; D50.9 Iron deficiency anemia, unspecified; E55.9 Vitamin D deficiency, unspecified; E53.8 Deficiency of other specified B group vitamins; Z88.8 Allergy status to other drugs, medicaments and biological substances; Z88.0 Allergy status to penicillin; Z98.84 Bariatric surgery status; Z98.890 Other specified postprocedural states
CPT/HCPCS: 58558; 57500; 81025; 88305; J1100; J1885; J2003; J2371; J2405; J2704; J2795; J3010

== ENCOUNTER → 2024-07-27 10:01 | Outpatient (BNV) | payer OTHER, SELFPAY | PROVIDERS: PCP Internal Medicine; Visit Provider Obstetrics & Gynecology | DX: N93.9 Abnormal uterine and vaginal bleeding, unspecified (principal); N84.1 Polyp of cervix uteri | CPT/HCPCS: 57500; 58558 ==

== ENCOUNTER 2024-08-14 10:38 | Outpatient (AMB) | payer OTHER, SELFPAY ==
--- NOTE | 2024-08-14 10:39 | A.OFFVIS_ITS ---
Intake Visit Reasons: post op Industrial Robotics Mechanic Required: Yes Industrial Robotics Mechanic Language: Inner Tube Cutter Services: Industrial Robotics Mechanic Present (in person) Industrial Robotics Mechanic Name: SERENA Huitron Information Interpreted: non-clinical & clinical Brake Lining Driller: Brake Lining Driller Present (SERENA Huitron) Accompanied by: Self / Same As Patient Allergies Penicillins Allergy (Mild, Verified 08/14/24 10:42) RASH amlodipine Adverse Reaction (Intermediate, Verified 08/14/24 10:42) leg edema HPI Comments Details: The patient is presenting post hysteroscopy D&C /posterior cervical lesion excision no complaints minimal vaginal bleeding no feverishness chills or abdominal pain. The pathology showed the following: A. Cervical lesion, posterior, excision: Benign squamous and endocervical glandular mucosa with abundant mucus, suggesting a benign endocervical cyst (Nabothian cyst). B. Endometrium, curettage: Benign inactive endometrium and benign squamous and endocervical glandular mucosa; no atypia or carcinoma (see comment). Comment: (B): Some fragments may be derived from benign polyps. The following workup was done.: H&H= 13.1/39.8 TSH, GC and chlamydia were negative. FSH 41.9 in the menopausal range Co testing was done in 11/10 was negative. Mammogram was done in 04/14 was BI-RADS 2. Pelvic ultrasound showed the following: Transvaginal scanning performed. Anteverted uterus is 9.0 cm length. Normal myometrium. No endometrial lesion, 4.0 mm thickness. There is a myometrial 1.9 x 1.8 x 1.5 cm leiomyoma. Right ovary 3.4 x 2.1 x 2.0 cm. Left ovary 2.6 x 1.5 x 1.9 cm. Normal color Doppler of both ovaries. No free fluid. [facility] Medical History Tibial neuropathy, bilateral Nocturnal leg movements Hypersomnia Snoring Foot pain Peripheral neuropathy Rectal bleeding Mixed hyperlipidemia Right shoulder pain B12 deficiency Migraines Carpal tunnel syndrome of right wrist Hypovitaminosis D Pure hypercholesterolemia Iron deficiency anemia Obesity Chest pain Essential hypertension Surgical History Hx of colonoscopy History of esophagogastroduodenoscopy (EGD) History of sleeve gastrectomy History of salpingoophorectomy History of tubal ligation History of D&C Family History Father Hypertension Mother Hypertension Diabetes Maternal Aunt Breast cancer Paternal Aunt Breast cancer Social History Housing: House Alcohol intake: never Patient Tobacco Use Status: Never used Tobacco e-Cigarette/Vaping Use: Never Used Second Hand Smoke Exposure: No service: No Current occupational status: unemployed Current occupation: right handed Cognitive needs: No Hearing needs: No Vision needs: No Female Reproductive History Menstrual Age of Menarche: 11 Review of Systems Const All systems reviewed & are unremarkable except as noted in HPI and below Reports as per HPI and Reports no additional complaints GI Reports no additional complaints Reports no additional complaints Assessment & Plan Assessment & Plan (1) Uterine myoma: Code(s): D25.9 - Leiomyoma of uterus, unspecified Category: Medical Plan: Discussed with the patient the findings on pelvic ultrasound & the risk of myosarcoma; in addition reviewed with the patient that malignancy and pre malignancy cannot be ruled out without hysterectomy for pathological evaluation ; furthermore, explained to the patient the limitation of pelvic ultrasound and endometrial biopsy in the setting. Discussed with the patient the options of treatment including expectant management versus hysterectomy; the pros and cons, risks benefits of each approach were discussed with the patient including the fact that in cases of myosarcoma, surgical treatment can lead to early diagnosis and positively affects the prognosis; after further discussion, the patient decided to proceed with expectant management. Will repeat pelvic ultrasound periodically. Instructions given to patient to call in case any of the following occurs: pressure symptoms, abnormal uterine bleeding, pelvic pain; and to schedule a six-months pelvic ultrasound (order placed) and a follow-up appointment . All questions answered, the patient verbalized understanding and agreed with the plan . (2) Lesion of cervix: Code(s): N88.9 - Noninflammatory disorder of cervix uteri, unspecified Category: Medical Plan: Discussed with the patient the finding on pathology, the patient was reassured (3) Abnormal uterine bleeding (AUB): Code(s): N93.9 - Abnormal uterine and vaginal bleeding, unspecified Category: Medical Plan: Discussed with the patient the results of the work up done and options of treatment including Lysteda, BCP's, Mirena IUD, endometrial ablation and hysterectomy. All pros, cons, risks and benefits if each option was discussed with the patient and the patient decided to think about it and get back to us. All questions answered the patient verbalized understanding. Orders: Orders US pelvic and transvaginal 6 Months N93.9 - Abnormal uterine and vaginal bleeding, unspecified Coding Level of Care Code Est Pt Level 3 (26891) Diagnoses Uterine myoma D25.9 Lesion of cervix N88.9 Abnormal uterine bleeding (AUB) N93.9
--- OUTSIDE RECORDS SUMMARY | 2024-08-14 11:23 | XMS_ITS | Clinical Summary ---
Author Organization [employer] Address [address] [place] [address] Care Team Providers Care Seed Laboratory Technician Name Role Phone Unavailable Primary Care Provider Unavailabl e Immunizations Immunization Administration Dates Next Due Moderna Covid-19 Vaccine [...] Screening 1973 SDOH Screening 1973 Sigmoidoscopy 1973 Disability Screening 1973 Alcohol/Substance Use Screening 1985 Tobacco Screening [...] patient's age to complete this topic Meningococcal B Vaccine Aged Out No l onger eligible based on patient's age to complete this topic Meningococcal Vaccine Aged Out No benjamín zohra eligible based on patient's age to complete this topic RSV under 20 months Aged Out No longe r eligible based on patient's age to complete this topic Rotavirus Vaccines Aged Out No longer eligible based on patient's age to complete this topic Insurance [facility]
== END 2024-08-14 10:55 | disposition home or self-care (01) ==
LOC: HO.HWS 10:38
PROVIDERS: PCP Internal Medicine; Visit Provider Obstetrics & Gynecology
DX: D25.9 Leiomyoma of uterus, unspecified (principal); N88.9 Noninflammatory disorder of cervix uteri, unspecified; N93.9 Abnormal uterine and vaginal bleeding, unspecified
CPT/HCPCS: 99213

== ENCOUNTER → 2024-08-14 10:38 | Outpatient (BNVA) | payer OTHER, SELFPAY | PROVIDERS: PCP Internal Medicine; Visit Provider Obstetrics & Gynecology | DX: D25.9 Leiomyoma of uterus, unspecified (principal); N88.9 Noninflammatory disorder of cervix uteri, unspecified; N93.9 Abnormal uterine and vaginal bleeding, unspecified | CPT/HCPCS: 99212 ==

== ENCOUNTER 2024-08-27 10:52 | Outpatient (AMB) | payer OTHER, SELFPAY ==
--- NOTE | 2024-08-27 10:55 | MHC.OFFVISWM ---
VS Expanded 08/27/24 11:01 BP 136/79 Blood Pressure Location Rt brachial Blood Pressure Position Sitting Pulse 77 Pulse Source Pulse Oximeter Temp 97.2 F Temperature Source Temporal Artery Scan Pulse Oximetry 100 Oxygen Delivery Method Room Air Height 5 ft 6 in Weight 208 lb 3.2 oz BMI 33.6 Body Fat % 38.2 Body Fat Mass 79.6 Fat Free Mass 128.6 Visceral Fat Rating 10.0 Body Water % 44.0 Body Water Mass 91.4 Muscle Mass/Score 122.2 Basal Metabolic Rate/Score 1,757 Intake Visit Reasons: (OV) PO LSG 08/31/2017 Health Care Marketing Specialist Required: Yes Health Care Marketing Specialist Name: hospital cmi Allergies Penicillins Allergy (Mild, Verified 08/27/24 10:57) RASH amlodipine Adverse Reaction (Intermediate, Verified 08/27/24 10:57) leg edema Medication List - Last Reconciled 08/27/24 by SPENSER Alatorre acetaminophen 1,000 mg (2 x 500 mg) PO Q6H PRN atorvastatin 80 mg PO BEDTIME 90 days blood pressure test kit-large As directed cetirizine (Allergy Relief (cetirizine)) 10 mg PO DAILY PRN 90 days cholecalciferol (vitamin D3) 25 mcg PO DAILY 90 days cyanocobalamin (vitamin B-12) 500 mcg PO DAILY 90 days cyclobenzaprine 10 mg PO TID 30 days diclofenac sodium 1% (Voltaren Arthritis Pain) 4 grams topical BID gabapentin 300 mg PO BEDTIME lisinopril-hydrochlorothiazide 20-25 mg 2 tabs PO DAILY propranolol ER 120 mg PO BEDTIME HPI Comments Details: 49-year-old female comes into the office today in follow-up for laparoscopic sleeve gastrectomy performed 08/31/2017. This is her 7 year follow-up visit. She was last seen in the office 06/01/2023. Her weight at that time was 214.2 lb with a BMI of 34.6. Weight today is 208.2 with a BMI of 33.6. Over the last 15 months, she has been seen by orthopedics for rotator cuff tendinitis, collections associate for abnormal uterine bleeding and found to have a leiomyoma which is being monitored conservatively. She was additionally seen in the emergency room for hypertensive urgency and blood pressure medications were adjusted. States her goal is to lose more weight. She does not give a reason for no visits in over a year. Not following a meal plan but not eating rice, she has decreased her salt intake and stopped drinking soda. Continues to drink juice wakes at 8 am bed at 11 pm previous meal plan Premier protein, 2 scoops in 10 oz of unsweetened almond milk from 11-1 1 scoop in 10 oz of unsweetened almond milk from 3-5 Meal at 6 with 7 forks of protein and 5 forks of vegetables Drinkin oz water exercise plan: none has gym membership [employer] has treadmill and bike and weights at home Any post op complications: None HERNÁN: resolved DM: never HTN: Continues Hyperlipidemia: improved GERD:?0-5 scale ??0 = no symptoms ??1 = symptoms noticeable but not bothersome 2 =symptoms bothersome but not daily ? 3 = symptoms bothersome and daily 4 = symptoms affect daily activities 5 = symptoms are incapacitating, unable to do daily activities ? How bad is the heartburn: 2 ? Heartburn while lying down: 2 ? Heartburn when standing up: 0 ? Heartburn after meals: 2 ? Does heartburn change your diet: 2 ? Does heartburn wake you up from sleep: 0 ? Do you have difficulty swallowin ? Do you have pain with swallowin ? If you take medicine for your reflux, does this affect your daily life: 2 - improved with following diet Satisfaction with present condition - satisfied or not satisfied: not satisfied [facility] Medical History Tibial neuropathy, bilateral Nocturnal leg movements Hypersomnia Snoring Foot pain Peripheral neuropathy Rectal bleeding Mixed hyperlipidemia Right shoulder pain B12 deficiency Migraines Carpal tunnel syndrome of right wrist Hypovitaminosis D Pure hypercholesterolemia Iron deficiency anemia Obesity Chest pain Essential hypertension Surgical History Hx of colonoscopy History of esophagogastroduodenoscopy (EGD) History of sleeve gastrectomy History of salpingoophorectomy History of tubal ligation History of D&C Family History Father Hypertension Mother Hypertension Diabetes Maternal Aunt Breast cancer Paternal Aunt Breast cancer Social History Housing: House Alcohol intake: never Patient Tobacco Use Status: Never used Tobacco e-Cigarette/Vaping Use: Never Used Second Hand Smoke Exposure: No service: No Current occupational status: unemployed Current occupation: right handed Cognitive needs: No Hearing needs: No Vision needs: No Female Reproductive History Menstrual Age of Menarche: 11 Physical Exam Const General: cooperative and no acute distress Orientation/consciousness: patient oriented x3 Resp Effort & Inspection: normal respiratory effort Auscultation: clear to auscultation bilaterally Cardio Rate: regular rate Rhythm: regular rhythm GI Inspection: Yes normal to inspection and Yes incision (well healed) Palpation (GI): Soft to palpation and no masses Neuro General: patient oriented x3 Assessment & Plan Assessment & Plan (1) S/P laparoscopic sleeve gastrectomy: Comment: August 2017, Dr Melgar Code(s): Z98.84 - Bariatric surgery status Category: Surgical Plan: Check yearly follow-up labs Patient given documentation for discount to the [facility] so that she may return to exercise using stationary bike or walking in the pool. Goal of burning 300 calories per day Change meal plan to utilize Premier protein powder and pure protein bar 9-1 am shake with 1 scoop in 8 oz of unsweetened almond [id number] pure protein bar 4 pm meal with 7 forks of protein and 7 forks of vegetables 7-9 pm another shake with 1 scoop in 8 oz of unsweetened almond milk. Orders: Orders Insulin Today D50.0 - Iron deficiency anemia secondary to blood loss (chronic), E55.9 - Vitamin D deficiency, unspecified, E78.2 - Mixed hyperlipidemia, I10 - Essential (primary) hypertension, Z98.84 - Bariatric surgery status Complete Blood Count Auto Diff Today D50.0 - Iron deficiency anemia secondary to blood loss (chronic), E55.9 - Vitamin D deficiency, unspecified, E78.2 - Mixed hyperlipidemia, I10 - Essential (primary) hypertension, Z98.84 - Bariatric surgery status Hemoglobin A1c Today D50.0 - Iron deficiency anemia secondary to blood loss (chronic), E55.9 - Vitamin D deficiency, unspecified, E78.2 - Mixed hyperlipidemia, I10 - Essential (primary) hypertension, Z98.84 - Bariatric surgery status Lipid Panel Today D50.0 - Iron deficiency anemia secondary to blood loss (chronic), E55.9 - Vitamin D deficiency, unspecified, E78.2 - Mixed hyperlipidemia, I10 - Essential (primary) hypertension, Z98.84 - Bariatric surgery status IRON PROFILE Today D50.0 - Iron deficiency anemia secondary to blood loss (chronic), E55.9 - Vitamin D deficiency, unspecified, E78.2 - Mixed hyperlipidemia, I10 - Essential (primary) hypertension, Z98.84 - Bariatric surgery status Comprehensive Met. Panel Today D50.0 - Iron deficiency anemia secondary to blood loss (chronic), E55.9 - Vitamin D deficiency, unspecified, E78.2 - Mixed hyperlipidemia, I10 - Essential (primary) hypertension, Z98.84 - Bariatric surgery status Vitamin B12 and Folate Today D50.0 - Iron deficiency anemia secondary to blood loss (chronic), E55.9 - Vitamin D deficiency, unspecified, E78.2 - Mixed hyperlipidemia, I10 - Essential (primary) hypertension, Z98.84 - Bariatric surgery status Zinc Today D50.0 - Iron deficiency anemia secondary to blood loss (chronic), E55.9 - Vitamin D deficiency, unspecified, E78.2 - Mixed hyperlipidemia, I10 - Essential (primary) hypertension, Z98.84 - Bariatric surgery status C Reactive Protein Today D50.0 - Iron deficiency anemia secondary to blood loss (chronic), E55.9 - Vitamin D deficiency, unspecified, E78.2 - Mixed hyperlipidemia, I10 - Essential (primary) hypertension, Z98.84 - Bariatric surgery status Vitamin B1 Today D50.0 - Iron deficiency anemia secondary to blood loss (chronic), E55.9 - Vitamin D deficiency, unspecified, E78.2 - Mixed hyperlipidemia, I10 - Essential (primary) hypertension, Z98.84 - Bariatric surgery status Vitamin A Today D50.0 - Iron deficiency anemia secondary to blood loss (chronic), E55.9 - Vitamin D deficiency, unspecified, E78.2 - Mixed hyperlipidemia, I10 - Essential (primary) hypertension, Z98.84 - Bariatric surgery status TSH reflex Free T4 Today D50.0 - Iron deficiency anemia secondary to blood loss (chronic), E55.9 - Vitamin D deficiency, unspecified, E78.2 - Mixed hyperlipidemia, I10 - Essential (primary) hypertension, Z98.84 - Bariatric surgery status Ferritin Today D50.0 - Iron deficiency anemia secondary to blood loss (chronic), E55.9 - Vitamin D deficiency, unspecified, E78.2 - Mixed hyperlipidemia, I10 - Essential (primary) hypertension, Z98.84 - Bariatric surgery status Vitamin D 25-OH Total Today D50.0 - Iron deficiency anemia secondary to blood loss (chronic), E55.9 - Vitamin D deficiency, unspecified, E78.2 - Mixed hyperlipidemia, I10 - Essential (primary) hypertension, Z98.84 - Bariatric surgery status
--- NOTE | 2024-08-27 10:55 | MHC.OFFVISWM ---
VS Expanded 08/27/24 11:01 BP 136/79 Blood Pressure Location Rt brachial Blood Pressure Position Sitting Pulse 77 Pulse Source Pulse Oximeter Temp 97.2 F Temperature Source Temporal Artery Scan Pulse Oximetry 100 Oxygen Delivery Method Room Air Height 5 ft 6 in Weight 208 lb 3.2 oz BMI 33.6 Body Fat % 38.2 Body Fat Mass 79.6 Fat Free Mass 128.6 Visceral Fat Rating 10.0 Body Water % 44.0 Body Water Mass 91.4 Muscle Mass/Score 122.2 Basal Metabolic Rate/Score 1,757 Intake Visit Reasons: (OV) PO LSG 08/31/2017 Allergies Penicillins Allergy (Mild, Verified 08/27/24 10:57) RASH amlodipine Adverse Reaction (Intermediate, Verified 08/27/24 10:57) leg edema PFSH Medical History Tibial neuropathy, bilateral Nocturnal leg movements Hypersomnia Snoring Foot pain Peripheral neuropathy Rectal bleeding Mixed hyperlipidemia Right shoulder pain B12 deficiency Migraines Carpal tunnel syndrome of right wrist Hypovitaminosis D Pure hypercholesterolemia Iron deficiency anemia Obesity Chest pain Essential hypertension Surgical History Hx of colonoscopy History of esophagogastroduodenoscopy (EGD) History of sleeve gastrectomy History of salpingoophorectomy History of tubal ligation History of D&C Family History Father Hypertension Mother Hypertension Diabetes Maternal Aunt Breast cancer Paternal Aunt Breast cancer Social History Housing: House Alcohol intake: never Patient Tobacco Use Status: Never used Tobacco e-Cigarette/Vaping Use: Never Used Second Hand Smoke Exposure: No service: No Current occupational status: unemployed Current occupation: right handed Cognitive needs: No Hearing needs: No Vision needs: No Female Reproductive History Menstrual Age of Menarche: 11
[2024-08-27 11:01] VITALS: BP 136/79; PULSE 77; TEMP 36.2; O2SAT 100; BMI 33.6
--- OUTSIDE RECORDS SUMMARY | 2024-08-27 12:21 | XMS_ITS | Clinical Summary ---
Author Organization [employer] Address [address] [address] [place] [address] Care Team Providers Care Medical Driver Name Role Phone Unavailable Primary Care Provider [...] - season) 2023 05/05/2022, 07/16/2020 Influenza Vaccine (Season Ended) 2024 01/03/2019, 03/04/2017, 01/29/2016, Additional history exists DTaP/Tdap/Td Vaccines [...] patient's age to complete this topic Insurance [facility]
== END 2024-08-27 11:26 | disposition home or self-care (01) ==
LOC: HO.HBS 10:53
PROVIDERS: PCP Internal Medicine; Visit Provider Physician Assistant Surgical
DX: E66.9 Obesity, unspecified (principal); Z68.33 Body mass index [BMI] 33.0-33.9, adult; Z90.3 Acquired absence of stomach [part of]; Z98.84 Bariatric surgery status
CPT/HCPCS: 99214; G2211

== ENCOUNTER → 2024-08-27 10:52 | Outpatient (BNVA) | payer OTHER, SELFPAY | PROVIDERS: PCP Internal Medicine; Visit Provider Physician Assistant Surgical | DX: Z98.84 Bariatric surgery status (principal) | CPT/HCPCS: 99212 ==

== ENCOUNTER 2024-09-04 10:23 | Outpatient (REF) | payer OTHER, SELFPAY ==
[2024-09-04 10:39] LABS: MANUAL DIFF FLAG NO
[2024-09-04 10:43] LABS: Basophils Percent Auto 0.6 % (0-2); Eosinophils Absolute Auto 0.2 X10*3/uL (0.0-0.4); Eosinophils Percent Auto 2.8 % (0-4); Hematocrit 36.4 % (37.0-47.0); Hemoglobin 12.1 g/dl (12.0-16.0); Imm Gran Abs Auto 0.03 X10*3/uL (0.00-0.03); Imm Gran Pct Auto 0.4 % (0.0-0.4); Lymphocytes Absolute Auto 1.8 X10*3/uL (1.2-4.9); Lymphocytes Percent Auto 27.4 % (20-40); Mean Corpuscular HGB Conc 33.2 g/dl (31.0-35.0); Mean Corpuscular Hemoglobin 28.5 pg (27.0-33.0); Mean Corpuscular Volume 85.8 fL (80.0-98.0); Mean Platelet Volume 11.4 fL (9.4-12.3); Monocytes Absolute Auto 0.5 X10*3/uL (0.1-1.2); Monocytes Percent Auto 6.7 % (2-11); Neutrophils Absolute Auto 4.1 x10*3/uL (2.0-8.3); Neutrophils Percent Auto 62.1 % (45-73); Platelet Count 225 X10*3/uL (160-400); Red Blood Count 4.24 X10*6/uL (4.20-5.50); Red Cell Distribution Width 14.7 % (11.0-16.0); White Blood Count 6.7 X10*3/uL (4.8-10.8)
[2024-09-04 10:52] LABS: Estimated Average Glucose 128 mg/dL; Hemoglobin A1c % 6.1 % (<6.0)
[2024-09-04 11:37] LABS: Anion Gap 13 (12-20); Blood Urea Nitrogen 13 mg/dL (9-16); Calcium 9.6 mg/dL (8.4-10.2); Carbon Dioxide 27 mmol/L (22-29); Chloride 106 mmol/L (96-108); Estimated Glomerular Filt Rate > 60; Glucose Random 116 mg/dL (60-115); Iron 59 mcg/dL (30-160); Potassium 3.6 mmol/L (3.3-5.1); Sodium 142 mmol/L (135-145); Total Iron Binding Capacity 325 mcg/dL (228-428); Unsaturated Iron Binding 266 ug/dL
[2024-09-04 11:38] LABS: Alanine Aminotransferase 19 U/L (0-31); Albumin Level 4.4 g/dL (3.5-5.0); Alkaline Phosphatase 85 U/L (39-117); Aspartate Amino Transferase 22 U/L (5-31); C Reactive Protein 0.17 mg/dL (< or = 0.50); Cholesterol 199 mg/dL (<200); HDL Cholesterol 41 mg/dL (>40); LDL Cholesterol Calculated 113 mg/dL (<100); Percent Iron Saturation 18 % (15-50); Total Protein 7.7 g/dL (6.5-8.0); Triglycerides 227 mg/dL (<150)
[2024-09-04 11:54] LABS: Ferritin 61 ng/mL (10-250); Folate 12.5 ng/mL (> or = 4.0); TSH reflex Free T4 1.52 uIU/mL (0.32-4.0); Vitamin B12 410 pg/mL (200-900); Vitamin D 25-OH Total 34.6 ng/mL (>30)
--- OUTSIDE RECORDS SUMMARY | 2024-09-04 11:54 | XMS_ITS | Clinical Summary ---
Author Organization [employer] Address [address] [facility] [address] [place] [address] Care Team Providers Care Aws Consultant Name Role Phone Unavailable Primary Care Provider [...] patient's age to complete this topic Insurance [facility]
[2024-09-04 12:00] LABS: Insulin 24 uU/mL (2-29)
[2024-09-06 20:15] LABS: Zinc 68 mcg/dL (60-130)
[2024-09-07 19:53] LABS: Vitamin A 61 mcg/dL (38-98)
[2024-09-08 08:13] LABS: Vitamin B1 14 nmol/L (8-30)
== END 2024-09-04 10:24 | disposition home or self-care (01) ==
LOC: HO.LAB 10:23
PROVIDERS: PCP Internal Medicine; Visit Provider Physician Assistant Surgical
DX: Z98.84 Bariatric surgery status (principal); E78.2 Mixed hyperlipidemia; D50.0 Iron deficiency anemia secondary to blood loss (chronic); E55.9 Vitamin D deficiency, unspecified; I10 Essential (primary) hypertension
CPT/HCPCS: 36415; 80053; 80061; 82306; 82607; 82728; 82746; 83036; 83525; 83540; 84425; 84443; 84590; 84630; 85025; 86140

== ENCOUNTER 2024-09-05 09:40 | Outpatient (AMB) | payer OTHER, SELFPAY ==
--- NOTE | 2024-09-05 09:55 | MHC.PC.OV ---
Vital Signs 09/05/24 09:56 Height 5 ft 6 in Weight 208 lb BMI 33.6 BP 130/80 Blood Pressure Location Lt brachial Position Sitting Intake Visit Reasons: bp Intake Note: Patient here for a follow up BP Fire Information Officer Required: No Accompanied by: Self / Same As Patient Allergies Penicillins Allergy (Mild, Verified 09/05/24 10:21) RASH amlodipine Adverse Reaction (Intermediate, Verified 09/05/24 10:21) leg edema Medication List - Last Reconciled 09/05/24 by Lety Lucero MD acetaminophen 1,000 mg (2 x 500 mg) PO Q6H PRN atorvastatin 80 mg PO BEDTIME 90 days blood pressure test kit-large As directed cetirizine (Allergy Relief (cetirizine)) 10 mg PO DAILY PRN 90 days cholecalciferol (vitamin D3) 25 mcg PO DAILY 90 days cyanocobalamin (vitamin B-12) 500 mcg PO DAILY 90 days cyclobenzaprine 10 mg PO TID 30 days diclofenac sodium 1% (Voltaren Arthritis Pain) 4 grams topical BID gabapentin 300 mg PO BEDTIME lisinopril-hydrochlorothiazide 20-25 mg 2 tabs PO DAILY propranolol ER 120 mg PO BEDTIME Tobacco use date assessed: 04/10/24 Dental Screening Dental Screen Date: 04/10/24 HPI HPI Comments History of Present Illness Details This is a 49 year old female with hypertension, mixed hyperlipidemia and impaired glucose tolerance that comes today complaining of allergic rhinitis and antihistamine will be sent. BP stable. Glucose and lipids will be monitored. She complaints of right knee pain and left wrist pain that started few weeks ago with no previous trauma. Will order XR. She also complaints of bilateral pain in lateral thigh with numbness most likely due to meralgia paresthetica secondary to her obesity. I recommend to not use belts on waist. [facility] Medical History Tibial neuropathy, bilateral Nocturnal leg movements Hypersomnia Snoring Foot pain Peripheral neuropathy Rectal bleeding Mixed hyperlipidemia Right shoulder pain B12 deficiency Migraines Carpal tunnel syndrome of right wrist Hypovitaminosis D Pure hypercholesterolemia Iron deficiency anemia Obesity Chest pain Essential hypertension Surgical History Hx of colonoscopy History of esophagogastroduodenoscopy (EGD) History of sleeve gastrectomy History of salpingoophorectomy History of tubal ligation History of D&C Family History Father Hypertension Mother Hypertension Diabetes Maternal Aunt Breast cancer Paternal Aunt Breast cancer Social History Housing: House Alcohol intake: never Patient Tobacco Use Status: Never used Tobacco e-Cigarette/Vaping Use: Never Used Second Hand Smoke Exposure: No service: No Current occupational status: unemployed Current occupation: right handed Cognitive needs: No Hearing needs: No Vision needs: No Female Reproductive History Menstrual Age of Menarche: 11 Questionnaire PHQ-9 Over the last 2 weeks, how often have you been bothered by any of the following problems? 1. Little interest or pleasure in doing things: not at all 2. Feeling down, depressed, or hopeless: not at all 3. Trouble falling or staying asleep, or sleeping too much: nearly every day 4. Feeling tired or having little energy: not at all 5. Poor appetite or overeating: not at all 6. Feeling bad about yourself - or that you are a failure or have let yourself or your family down: not at all 7. Trouble concentrating on things, such as reading the newspaper or watching television: not at all 8. Moving or speaking so slowly that other people could have noticed. Or the opposite - being so fidgety or restless that you have been moving around a lot more than usual: several days 9. Thoughts that you would be better off or of hurting yourself in some way: not at all Total score: 4 Depression Screening Interpretation: Positive Depression Screening Follow-up: Existing condition and Follow-up Visit Requested Depression Screening Done: Yes 78903 - PHQ-9 Billing: Yes Source: Developed by Drs. Good Camarena, Joanne Farah, Stephen Dacosta and colleagues, with an educational lala from [employer]. Thrive Questionnaire Date Thrive assessed: 09/05/24 I am a: Patient What is your living situation today?: I have a steady place to live Within the past 12 months, did the food you bought not last and you didn't have the money to get more?: Sometimes True Within the past 12 months, did you worry whether your food would run out before you got money to buy more?: Never true Do you have trouble paying for medicines?: No Do you have trouble getting transportation to medical appointments?: No Do you have trouble paying your heating and electricity bill?: No Do you have trouble taking care of your child, family member or friend?: No Do you have trouble with day-to-day activities such as bathing, preparing meals, shopping, managing finances, etc.?: I choose not to answer this question Are you currently unemployed and looking for a job?: Yes Are you interested in more education?: I choose not to answer this question Please select the resources that you would like help with: None Currently or been in a relationship where the following occur: No concerns reported THRIVE Score: 1 AUDIT C Alcohol Use Questionnaire (AUDIT-C) 1. How often do you have a drink containing alcohol?: Never Total Score: 0 SADIQ-7 AMB Questionnaire SADIQ-7 Date SADIQ - 7 assessed: 09/05/24 Feeling nervous, anxious, or on edge: 0 = Not at all Not being able to stop or control worryin = Not at all Worrying too much about different things: 0 = Not at all Trouble relaxin = Not at all Being so restless that it is hard to sit still: 0 = Not at all Becoming easily annoyed or irritable: 1 = Several days Feeling afraid as if something awful might happen: 0 = Not at all Total SADIQ-7 score (0-4 normal; 5-9 mild; 10-14 moderate; 15-21 severe): 1 Source: Developed by Drs. Good Camarena, Joanne Farah, Stephen Dacosta and colleagues, with an educational lala from [employer]. SADIQ-7 Assessment Billing SADIQ-7 Assessment Tool: SADIQ-7 Assessment 05748 Review of Systems Const All systems reviewed & are unremarkable except as noted in HPI and below Card Denies chest pain at rest, Denies chest pain with activity, Denies edema, Denies irregular heart rhythm, Denies claudication, Denies orthopnea, Denies paroxysmal nocturnal dyspnea and Denies slow heart rate Musc Denies atrophy, Denies deformity and Denies limited range of motion Skin/Breast Denies bleeding lesions, Denies changing lesions and Denies rash Physical exam (Primary Care) Vital Signs: Last Vital Signs BP 130/80 09/05/24 09:56 BMI result Body Mass Index 33.6 Tobacco/Smoking Status: Tobacco use Status Tobacco use date assessed 04/10/24 09/05/24 10:02 Patient Tobacco Use Status Never used Tobacco 09/05/24 10:02 e-Cigarette/Vaping Use Never Used 09/05/24 10:02 PHQ-9: PHQ-9 Score PHQ-9: Total score 4 09/05/24 10:24 Depression Screening Interpretation: Positive Depression Screening Follow-up: Existing condition and Follow-up Visit Requested Thrive Assessment: Date of Thrive Assessment Date Thrive assessed 09/05/24 09/05/24 10:02 Currently or been in a relationship where the following occur: No concerns reported Resp Effort & Inspection: normal respiratory effort Auscultation: clear to auscultation bilaterally Cardio Jugular venous distension: no JVD Rate: regular rate Rhythm: regular rhythm Heart sounds: S1 normal heart sound present and S2 normal heart sound present Extrem General: Yes full ROM Coding Level of Care Code Est Pt Level 4 (08127) Complex EM visit Add On G2211 Diagnoses Essential hypertension I10 Mixed hyperlipidemia E78.2 Impaired glucose tolerance R73.02 Right knee pain M25.561 Left wrist pain M25.532 Seasonal allergic rhinitis due to pollen J30.1 Meralgia paresthetica G57.10 Additional Codes SADIQ-7 Assessment Billing - SADIQ-7 Assessment Tool: SADIQ-7 Assessment 29079 ([id number]) PHQ-9 - 95492 - PHQ-9 Billing: Yes ([id number]) Time Spent (min) 23 Assessment & Plan Assessment & Plan (1) Essential hypertension: Code(s): I10 - Essential (primary) hypertension Category: Medical (2) Mixed hyperlipidemia: Code(s): E78.2 - Mixed hyperlipidemia Category: Medical (3) Impaired glucose tolerance: Code(s): R73.02 - Impaired glucose tolerance (oral) Category: Medical (4) Right knee pain: Code(s): M25.561 - Pain in right knee Category: Medical (5) Left wrist pain: Code(s): M25.532 - Pain in left wrist Category: Medical (6) Seasonal allergic rhinitis due to pollen: Code(s): J30.1 - Allergic rhinitis due to pollen Category: Medical (7) Meralgia paresthetica: Code(s): G57.10 - Meralgia paresthetica, unspecified lower limb Category: Medical Plan Continue current meds. Do not use belt on waist. Try gabapentin at bedtime. XR for left wrist and right knee ordered. Orders: Orders XR knee RT 2V Today M25.561 - Pain in right knee XR wrist LT 2V Today M25.532 - Pain in left wrist Referrals Orthopedics Referral M25.561 - Pain in right knee Medications: Refilled cyclobenzaprine 10 mg PO TID 90 tabs 2RF 30 days cetirizine (Allergy Relief (cetirizine)) 10 mg PO DAILY PRN 90 tabs 0RF allergy symptoms 90 days gabapentin 300 mg PO BEDTIME 30 caps 6RF
[2024-09-05 09:56] VITALS: BP 130/80; BMI 33.6
--- OUTSIDE RECORDS SUMMARY | 2024-09-05 10:40 | XMS_ITS | Clinical Summary ---
Author Organization [employer] Address [address] [facility] [address] [place] [address] Care Team Providers Care Underwater Hunter Name Role Phone Unavailable Primary Care Provider [...] patient's age to complete this topic Insurance * Guarantor: Claudette Mora Account Type Relation to Patient Date of Phone Billing Address Personal/Family Self [address] [place] [id number] [facility] * Guarantor: Claudette Mora Account Type Relation to Patient Date of Phone Billing Address Personal/Family Self [address] [place] [id number]
== END 2024-09-05 10:34 | disposition home or self-care (01) ==
LOC: HO.HMCH 09:42
PROVIDERS: PCP Internal Medicine; Visit Provider Internal Medicine
DX: I10 Essential (primary) hypertension (principal); E78.2 Mixed hyperlipidemia; R73.02 Impaired glucose tolerance (oral); M25.561 Pain in right knee; M25.532 Pain in left wrist; J30.1 Allergic rhinitis due to pollen; G57.10 Meralgia paresthetica, unspecified lower limb

== ENCOUNTER 2024-09-05 13:22 | Outpatient (REF) | payer OTHER, SELFPAY ==
--- NOTE | ~2024-09-05 | XR_ITS ---
EXAMINATION: XR KNEE, RIGHT CLINICAL INFORMATION: M25.561 - Pain in right knee COMPARISON: 11/14/2023. TECHNIQUE: Two views of the right knee. FINDINGS: No fracture, dislocation, or suspicious bone lesion. Normal bone mineralization. Normal alignment. Moderate medial compartment, and mild lateral and patellofemoral compartment osteoarthrosis. There is evidence of an old MCL injury. No significant joint effusion. Soft tissues appear normal. XR/XR knee RT 2V IMPRESSION: 1. No acute bony abnormalities. 2. Tricompartmental osteoarthrosis, moderate in the medial compartment. Electronically signed by: Nikita Arzola MD 09/05/2024 02:21 PM EDT
--- NOTE | ~2024-09-05 | US_ITS ---
EXAMINATION: US RETROPERITONEAL COMPLETE (RENAL) CLINICAL INFORMATION: Mixed incontinence. COMPARISON: None available. TECHNIQUE: Real-time imaging of the kidneys and bladder. FINDINGS: RIGHT KIDNEY: 12.1 x 3.8 x 4.7 cm (SAG x AP x TRV). The kidney is normal in size, contour, and echogenicity. Renal cortical thickness is normal. No calculi or focal parenchymal lesions. No hydronephrosis. LEFT KIDNEY: 12.4 x 4.5 x 5.0 cm (SAG x AP x TRV). The kidney is normal in size, contour, and echogenicity. Renal cortical thickness is normal. No calculi or suspicious focal parenchymal lesions. No hydronephrosis. Lower pole exophytic simple cyst measuring 0.7 cm. BLADDER: Well distended and normal. Bilateral ureteral jets are demonstrated. Prevoid bladder volume is 253 mL. Postvoid bladder volume is 22.5 mL. US/US retroperitoneal comp IMPRESSION: Essentially normal retroperitoneal ultrasound. Electronically signed by: Nikita Arzola MD 09/05/2024 03:49 PM EDT
--- NOTE | ~2024-09-05 | XR_ITS ---
EXAMINATION: XR WRIST, LEFT CLINICAL INFORMATION: M25.532 - Pain in left wrist COMPARISON: None available. TECHNIQUE: PA, lateral, oblique, and scaphoid views of the left wrist. FINDINGS: No fracture or dislocation. No bone lesion. Alignment is anatomic with normal joint spaces. Subtle chondrocalcinosis present. No erosions. Soft tissues appear normal. XR/XR wrist LT 2V IMPRESSION: 1. Subtle wrist chondrocalcinosis. 2. Otherwise normal exam. Electronically signed by: Nikita Arzola MD 09/05/2024 02:26 PM EDT
== END 2024-09-05 13:23 | disposition home or self-care (01) ==
LOC: HO.US 13:22
PROVIDERS: Absent Provider Internal Medicine; PCP Internal Medicine; Visit Provider Nurse Practitioner Family
DX: M25.561 Pain in right knee (principal); M25.532 Pain in left wrist; N39.46 Mixed incontinence; Z87.440 Personal history of urinary (tract) infections; I10 Essential (primary) hypertension; E78.2 Mixed hyperlipidemia; R73.02 Impaired glucose tolerance (oral); J30.1 Allergic rhinitis due to pollen; G57.10 Meralgia paresthetica, unspecified lower limb
CPT/HCPCS: 73100; 73560; 76770; 96127; 99212

== ENCOUNTER → 2024-09-05 13:31 | Outpatient (BNV) | payer OTHER, SELFPAY | PROVIDERS: Absent Provider Internal Medicine; PCP Internal Medicine; Visit Provider Radiology Diagnostic Radiology | DX: N39.46 Mixed incontinence (principal); M17.11 Unilateral primary osteoarthritis, right knee; M25.532 Pain in left wrist | CPT/HCPCS: 73100; 73560; 76770 ==

== ENCOUNTER 2024-09-20 10:42 | Outpatient (AMB) | payer OTHER, SELFPAY ==
--- NOTE | 2024-09-20 10:50 | A.OFFVIS_ITS ---
Intake Visit Reasons: 3m/US(set) Intake Note: Patient presents today for follow up visit for urinary tract infection and ultrasound results Urology Medication: none Blood Thinner: none Antibiotic Allergies: Penicillins PVR: 0ml's Training Program Manager Required: Yes Training Program Manager Services: Training Program Manager Present Training Program Manager Name: Edmond Maloney Accompanied by: Self / Same As Patient Allergies Penicillins Allergy (Mild, Verified 09/20/24 11:03) RASH amlodipine Adverse Reaction (Intermediate, Verified 09/20/24 11:03) leg edema Medication List - Last Reconciled 09/20/24 by TRAVIS Caldera-JAIME acetaminophen 1,000 mg (2 x 500 mg) PO Q6H PRN atorvastatin 80 mg PO BEDTIME 90 days blood pressure test kit-large As directed cetirizine (Allergy Relief (cetirizine)) 10 mg PO DAILY PRN 90 days cholecalciferol (vitamin D3) 25 mcg PO DAILY 90 days cyanocobalamin (vitamin B-12) 500 mcg PO DAILY 90 days cyclobenzaprine 10 mg PO TID 30 days diclofenac sodium 1% (Voltaren Arthritis Pain) 4 grams topical BID gabapentin 300 mg PO BEDTIME lisinopril-hydrochlorothiazide 20-25 mg 2 tabs PO DAILY propranolol ER 120 mg PO BEDTIME HPI Comments Details: Claudette is a very pleasant Hungarian-speaking 49-year-old female patient of Dr.Roca Lucero. She has a past medical history of hypersomnia, peripheral neuropathy, hyperlipidemia, vitamin B12 deficiency, migraines, carpal tunnel syndrome, iron deficiency anemia, obesity, and hypertension. She presents to the office today for follow-up. Of note, patient was seen approximately 3 months ago as a new patient for recurrent urinary tract infections as well as mixed urinary incontinence she has been experiencing at which time a retroperitoneal ultrasound was ordered for further assessment evaluation. These results were reviewed and communicated with the patient today. 09/12 bilateral kidneys no calculi, lesions, and or hydronephrosis. Left lower pole simple cysts measuring 0.7 cm. Essentially normal retroperitoneal ultrasound. We did discussed potential causes of recurrent urinary tract infections as well as mixed urinary incontinence. We discussed further treatment options and risks and benefits of these treatment options. In office urinalysis results reviewed with the patient today. PVR 0 mL. She does have a previous history of 4 vaginal deliveries. She reports utilizing 2-3 Frida pads per day. She denies nocturia, hematuria, dysuria, foul smelling urine, changes to urinary stream, flank pain, fever, and or chills. In review of patient's chart it appears urine cultures are as follows: 11/11 Klebsiella 05/14 lactobacillus All questions were answered. She otherwise offers no other issues or concerns at this time. [facility] Medical History Tibial neuropathy, bilateral Nocturnal leg movements Hypersomnia Snoring Foot pain Peripheral neuropathy Rectal bleeding Mixed hyperlipidemia Right shoulder pain B12 deficiency Migraines Carpal tunnel syndrome of right wrist Hypovitaminosis D Pure hypercholesterolemia Iron deficiency anemia Obesity Chest pain Essential hypertension Surgical History Hx of colonoscopy History of esophagogastroduodenoscopy (EGD) History of sleeve gastrectomy History of salpingoophorectomy History of tubal ligation History of D&C Family History Father Hypertension Mother Hypertension Diabetes Maternal Aunt Breast cancer Paternal Aunt Breast cancer Social History Housing: House Alcohol intake: never Patient Tobacco Use Status: Never used Tobacco e-Cigarette/Vaping Use: Never Used Second Hand Smoke Exposure: No service: No Current occupational status: unemployed Current occupation: right handed Cognitive needs: No Hearing needs: No Vision needs: No Female Reproductive History Menstrual Age of Menarche: 11 Review of Systems Const All systems reviewed & are unremarkable except as noted in HPI and below Physical Exam Const General: cooperative, healthy appearing, comfortable, no acute distress, well developed, alert and awake Nutritional Appearance: overweight Orientation/consciousness: patient oriented x3 Limitations: no limitations HEENT Head: Yes normal to inspection, Yes normocephalic and Yes atraumatic Ears: hearing grossly normal bilaterally Eyes General: appearance normal, both eyes and all related structures Neck Neck: Yes normal visual inspection and Yes trachea midline Chest Chest palpation & inspection: normal inspection of the chest Resp Effort & Inspection: normal respiratory effort and able to speak in complete sentences Cardio Rate: regular rate GI Inspection: Yes normal to inspection General: Yes no CVA tenderness Back/Spine/Pelvis Back: no CVA tenderness Skin General skin exam: no rashes or lesions noted Neuro General: patient oriented x3 Extrem General: Yes normal to inspection Psych Appearance: grossly normal and well kempt Mental Status: mental status grossly normal Speech and movement: Normal speech and movement present and Clear speech present Affect: normal affect Attitude: cooperative Thought process: Normal thought process present Thought content: Normal thought content present Insight: Fair insight present (Psych) Judgement: Fair judgement present (Psych) Office Procedures Post Void Residual Post Residual Void Post Void Residual (PVR): 0 11640-Uewr Void Residual by ultrasound Results AMB Urinalysis, Automated UA Leukoctes 0 Cordell/uL Last Edit by Wen Akers [facility] on 09/20/24 11:10 UA Nitrite Last Edit by Wen Akers [facility] on 09/20/24 11:10 UA Urobilinogen 0.2 mg/dL Last Edit by Wen Akers [facility] on 09/20/24 11:1 0 UA Protein 0 mg/dL Last Edit by Wen Akers [facility] on 09/20/24 11:10 UA pH 6.0 Last Edit by Wen Akers [facility] on 09/20/24 11:10 UA Blood 0 Austen/uL Last Edit by Wen Akers [facility] on 09/20/[address] 1.010 Last Edit by Wen Akers [facility] on 09/20/24 11: 10 UA Ketone Last Edit by Wen Akers [facility] on 09/20/24 11:10 UA Bilirubin 0 mg/dL Last Edit by Wen Akers [facility] on 09/20/24 11:10 UA Glucose 0 mg/dL Last Edit by Wen Akers [facility] on 09/20/24 11:10 Results Reviewed Results Reviewed: Date of Service: 09/05/24 Procedure(s): US retroperitoneal comp FINDINGS: RIGHT KIDNEY: 12.1 x 3.8 x 4.7 cm (SAG x AP x TRV). The kidney is normal in size, contour, and echogenicity. Renal cortical thickness is normal. No calculi or focal parenchymal lesions. No hydronephrosis. LEFT KIDNEY: 12.4 x 4.5 x 5.0 cm (SAG x AP x TRV). The kidney is normal in size, contour, and echogenicity. Renal cortical thickness is normal. No calculi or suspicious focal parenchymal lesions. No hydronephrosis. Lower pole exophytic simple cyst measuring 0.7 cm. BLADDER: Well distended and normal. Bilateral ureteral jets are demonstrated. Prevoid bladder volume is 253 mL. Postvoid bladder volume is 22.5 mL. IMPRESSION: Essentially normal retroperitoneal ultrasound. Assessment & Plan Assessment & Plan (1) Urinary incontinence, mixed: Code(s): N39.46 - Mixed incontinence Category: Medical (2) Hx of urinary tract infection: Code(s): Z87.440 - Personal history of urinary (tract) infections Category: Medical Plan In office urinalysis results reviewed with the patient today; as noted above. PVR 0 mL. Recent retroperitoneal ultrasound results reviewed with the patient today; as noted above We discussed further treatment options of mixed urinary incontinence and risks and benefits of these treatment options; patient states she will think about this. We discussed at length potential causes of urinary tract infections. Discussed UTI prevention with D mannose supplement, vitamin-C, increasing fluid intake, behavioral therapy with timed voiding, perineal hygiene and postcoital voiding, and management of constipation with stool softeners and increased fiber intake. Start oxybutynin as discussed and prescribed. We discussed potential for near future in office cystoscopy and or urodynamics for further assessment evaluation if symptoms persist and/or worsen Follow-up in 1-3 months with PVR; or sooner with any issues, concerns, and or questions. Orders: Orders AMB Urinalysis Automated Today Z13.9 - Encounter for screening, unspecified AMB Post Void Residual by ultrasound Today N39.46 - Mixed incontinence Medications: New oxybutynin chloride ER 10 mg PO DAILY 30 tabs 3RF 30 days N32.81 - Overactive bladder Patient Instructions: The patient had an opportunity to ask questions regarding the treatment plan. All questions were answered. Physical exam, labs, and imaging were discussed and reviewed in detail. As well as risks, benefits, and discussion of treatment choices. No major barriers to understanding were identified. The patient expressed understanding and agreement with the above treatment plan. The patient was made aware they should contact our office by phone for worsening of their current condition, the appearance of new symptoms, or with any questions or concerns. Compliance is encouraged with any medications and follow up testing that is ordered. It is a privilege to be allowed the opportunity to participate in? your urological care.? Again, if you have any questions or conc erns If you have any questions or concerns please do not hesitate to contact me. The office is [phone]. This note is constructed using voice recognition software. While every effort has been made to ensure accuracy editor farm journal errors may have been included. Yours sincerely, ZAINAB Caldera Coding Level of Care Code New Pt Level 4 (02427) Diagnoses Urinary incontinence, mixed N39.46 Hx of urinary tract infection Z87.440 CPT Codes Post Residual Void - PVR CPT Code: 45994-Cdzq Void Residual by ultrasound ([id number])
--- OUTSIDE RECORDS SUMMARY | 2024-09-20 11:32 | XMS_ITS | Clinical Summary ---
Author Organization [employer] Address [address] [facility] [address] [place] [address] Care Team Providers Care Flow Trader Name Role Phone Unavailable Primary Care Provider [...] patient's age to complete this topic Insurance [facility]
== END 2024-09-20 11:16 | disposition home or self-care (01) ==
LOC: HO.HUSH 10:43
PROVIDERS: PCP Internal Medicine; Visit Provider Nurse Practitioner Family
DX: N39.46 Mixed incontinence (principal); Z87.440 Personal history of urinary (tract) infections; Z13.9 Encounter for screening, unspecified
CPT/HCPCS: 99214

== ENCOUNTER → 2024-09-20 10:42 | Outpatient (BNVA) | payer OTHER, SELFPAY | PROVIDERS: PCP Internal Medicine; Visit Provider Nurse Practitioner Family | DX: N39.46 Mixed incontinence (principal); Z87.440 Personal history of urinary (tract) infections; N32.81 Overactive bladder | CPT/HCPCS: 51798; 81003; 99212 ==

== ENCOUNTER 2024-10-31 09:40 | Outpatient (REF) | payer OTHER, SELFPAY ==
--- NOTE | ~2024-10-31 | XR_ITS ---
CLINICAL HISTORY: M25.569 - Pain in unspecified knee --- Additional Notes or Special Instructions: [facility] schwab sunrise AP x-ray of both knees standing. [place] x-ray of the right knee. Comparison: None provided Findings: No acute fractures or dislocations. Mild degenerative changes of the Right patellofemoral compartment. Moderate medial compartment joint space narrowing on the right. Mild medial compartment joint space narrowing on the left. Mild lateral compartment joint space narrowing on the right. No radiopaque foreign body. Tricompartmental osteoarthritis on the right. IMPRESSION: 1. Calcification adjacent to the right medial femoral condyle which may be seen with a Mikaela-Stieda lesion. 2. Tricompartmental osteoarthritis on the right. This document has been electronically signed by: Urban Souza DO on 11/01/2024 10:13:31
--- OUTSIDE RECORDS SUMMARY | 2024-11-01 10:20 | XMS_ITS | Clinical Summary ---
Author Organization [employer] Address [address] [place] [address] Care Team Providers Care Headrig Sawyer Name Role Phone Unavailable Primary Care Provider [...] patient's age to complete this topic Insurance [facility]
== END 2024-10-31 09:41 | disposition home or self-care (01) ==
LOC: HO.HOSX 09:40
PROVIDERS: Visit Provider Physician Assistant
DX: M17.11 Unilateral primary osteoarthritis, right knee (principal); M25.561 Pain in right knee; Z79.899 Other long term (current) drug therapy
CPT/HCPCS: 73560; 99212

== ENCOUNTER 2024-10-31 11:28 | Outpatient (AMB) | payer OTHER, SELFPAY ==
--- NOTE | 2024-10-31 11:40 | A.OFFVIS_ITS ---
Vital Signs 10/31/24 11:41 Height 5 ft 6 in Weight 208 lb BMI 33.6 Intake Visit Reasons: OV- Pain in right knee- follow up Intake Note: Claudette is a 49 year old female who presents today for a follow up of right knee pain. At her last visit for knee pain a knee brace was given and she was referred to physical therapy, follow up as needed. Today patient reports that she did attend therapy, stating she was not contacted and she did not contact their office. She uses knee bracing as needed. States her pain is the same since her last visit. She is not interested in injections. Allergies Penicillins Allergy (Mild, Verified 10/31/24 11:41) RASH amlodipine Adverse Reaction (Intermediate, Verified 10/31/24 11:41) leg edema Medication List - Last Reconciled 10/31/24 by Christopher Mireles PA-C acetaminophen 1,000 mg (2 x 500 mg) PO Q6H PRN atorvastatin 80 mg PO BEDTIME 90 days blood pressure test kit-large As directed cetirizine (Allergy Relief (cetirizine)) 10 mg PO DAILY PRN 90 days cholecalciferol (vitamin D3) 25 mcg PO DAILY 90 days cyanocobalamin (vitamin B-12) 500 mcg PO DAILY 90 days cyclobenzaprine 10 mg PO TID 30 days diclofenac sodium 1% (Voltaren Arthritis Pain) 4 grams topical BID gabapentin 300 mg PO BEDTIME lisinopril-hydrochlorothiazide 20-25 mg 2 tabs PO DAILY oxybutynin chloride ER 10 mg PO DAILY 30 days propranolol ER 120 mg PO BEDTIME HPI HPI OV- Pain in right knee- follow up: Details: 49 yo female presents to the office today for ongoing right knee pain. She saw me 2 years ago, she was referred to PT but did not attend. She was also given a knee brace with some relief. She states currently she has pain with activities and stairs. She feels her knee gives out. The pain is located along the front of the knee. [facility] Medical History Tibial neuropathy, bilateral Nocturnal leg movements Hypersomnia Snoring Foot pain Peripheral neuropathy Rectal bleeding Mixed hyperlipidemia Right shoulder pain B12 deficiency Migraines Carpal tunnel syndrome of right wrist Hypovitaminosis D Pure hypercholesterolemia Iron deficiency anemia Obesity Chest pain Essential hypertension Surgical History (Reviewed 10/31/24 @ 11:44 by Marianna Caldera [facility], [facility]) Hx of colonoscopy History of esophagogastroduodenoscopy (EGD) History of sleeve gastrectomy History of salpingoophorectomy History of tubal ligation History of D&C Family History Father Hypertension Mother Hypertension Diabetes Maternal Aunt Breast cancer Paternal Aunt Breast cancer Social History Housing: House Alcohol intake: never Patient Tobacco Use Status: Never used Tobacco e-Cigarette/Vaping Use: Never Used Second Hand Smoke Exposure: No service: No Current occupational status: unemployed Current occupation: right handed Cognitive needs: No Hearing needs: No Vision needs: No Female Reproductive History Menstrual Age of Menarche: 11 Review of Systems Const All systems reviewed & are unremarkable except as noted in HPI and below Physical Exam Vital Signs: BMI result Body Mass Index 33.6 Const General: cooperative and no acute distress Orientation/consciousness: patient oriented x3 Resp Effort & Inspection: normal respiratory effort and able to speak in complete sentences Cardio Peripheral pulses: Peripheral pulses 2+ throughout Neuro General: patient oriented x3 Extrem Other: Right knee: Skin intact, no erythema or joint effusion. Lateral retropatellar tenderness present. Full ROM with crepitus. Negative Dayanara?s. No ligamentous laxity. NVI. Assessment & Plan Assessment & Plan (1) Patellofemoral arthritis of right knee: Code(s): M17.11 - Unilateral primary osteoarthritis, right knee Category: Medical Plan: I stressed the importance of working physical to help with strength conditioning exercises to offset load through patella. A new order was placed today for ph ysical therapy and she can contact them to make appointment. I also sent a prescription for Celebrex to pharmacy which she will take twice a day for 2 weeks to with the acute flare-ups. If symptoms persist or worsen and she would like to discuss steroid injection she can contact our office otherwise follow up as needed. Orders: Orders XR knee RT 2V Today M25.569 - Pain in unspecified knee Medications: New celecoxib (Celebrex) 200 mg PO BID 60 caps 3RF 30 days Coding Level of Care Code Est Pt Level 3 (77034) Complex EM visit Add On G2211 Diagnoses Patellofemoral arthritis of right knee M17.11
[2024-10-31 11:41] VITALS: BMI 33.6
--- OUTSIDE RECORDS SUMMARY | 2024-10-31 12:29 | XMS_ITS | Clinical Summary ---
Author Organization [employer] Address [address] [place] [address] Care Team Providers Care Cloth Finishing Range Operator Name Role Phone Unavailable Primary Care [...] season) 2023 05/05/2022, 07/16/2020 Influenza Vaccine (#1) 2024 9, 03/04/2017, 01/29/2016, Additional history exists DTaP/Tdap/Td [...] patient's age to complete this topic Insurance [facility]
== END 2024-10-31 13:32 | disposition home or self-care (01) ==
LOC: HO.HOS 11:29
PROVIDERS: PCP Internal Medicine; Visit Provider Physician Assistant
DX: M17.11 Unilateral primary osteoarthritis, right knee (principal)
CPT/HCPCS: 99213

== ENCOUNTER → 2024-10-31 11:35 | Outpatient (BNV) | payer OTHER, SELFPAY | PROVIDERS: Visit Provider Family Medicine | DX: M17.11 Unilateral primary osteoarthritis, right knee (principal) | CPT/HCPCS: 73560 ==

== ENCOUNTER 2024-12-03 09:48 | Outpatient (AMB) | payer OTHER, SELFPAY ==
--- NOTE | 2024-12-03 10:02 | MHC.OFFVIS ---
Intake Visit Reasons: 2m/PVR Intake Note: patient presents today for: 2mo/PVR urology medications: oxybutynin, vit b12 blood thinners: none today's PVR: 21mls Instructional Designer Required: No Accompanied by: Self / Same As Patient Allergies Penicillins Allergy (Mild, Verified 12/03/24 10:36) RASH amlodipine Adverse Reaction (Intermediate, Verified 12/03/24 10:36) leg edema Medication List - Last Reconciled 12/03/24 by TRAVIS Caldera-JAIME acetaminophen 1,000 mg (2 x 500 mg) PO Q6H PRN atorvastatin 80 mg PO BEDTIME 90 days blood pressure test kit-large As directed celecoxib (Celebrex) 200 mg PO BID 30 days cetirizine (Allergy Relief (cetirizine)) 10 mg PO DAILY PRN 90 days cholecalciferol (vitamin D3) 25 mcg PO DAILY 90 days cyanocobalamin (vitamin B-12) 500 mcg PO DAILY 90 days cyclobenzaprine 10 mg PO TID 30 days diclofenac sodium 1% (Voltaren Arthritis Pain) 4 grams topical BID gabapentin 300 mg PO BEDTIME lisinopril-hydrochlorothiazide 20-25 mg 2 tabs PO DAILY oxybutynin chloride ER 10 mg PO DAILY 30 days propranolol ER 120 mg PO BEDTIME HPI Comments Details: Claudette is a very pleasant Mauritanian-speaking 49-year-old female patient of Dr.Roca Lucero. She has a past medical history of hypersomnia, peripheral neuropathy, hyperlipidemia, vitamin B12 deficiency, migraines, carpal tunnel syndrome, iron deficiency anemia, obesity, and hypertension. She presents to the office today for follow-up of her lower urinary tract symptoms. In discussion with the patient today she reports to be doing and feeling well. She reports no improvement in mixed urinary incontinence with oxybutynin that was prescribed during last office visit. Previous workup has included a retroperitoneal ultrasound 09/12 noting bilateral kidneys no calculi, lesions, and or hydronephrosis. Left lower pole simple cysts measuring 0.7 cm. Essentially normal retroperitoneal ultrasound. We did discussed potential causes of lower urinary tract symptoms as well as mixed urinary incontinence. We discussed further treatment options and risks and benefits of these treatment options. In office urinalysis results reviewed with the patient today. PVR 21 mL. She does have a previous history of 4 vaginal deliveries. She continues utilizing 2-3 Frida pads per day. She denies nocturia, hematuria, dysuria, foul smelling urine, changes to urinary stream, flank pain, fever, and or chills. In review of patient's chart it appears urine cultures are as follows: 11/11 Klebsiella 05/14 lactobacillus All questions were answered. She otherwise offers no other issues or concerns at this time. [facility] Medical History Tibial neuropathy, bilateral Nocturnal leg movements Hypersomnia Snoring Foot pain Peripheral neuropathy Rectal bleeding Mixed hyperlipidemia Right shoulder pain B12 deficiency Migraines Carpal tunnel syndrome of right wrist Hypovitaminosis D Pure hypercholesterolemia Iron deficiency anemia Obesity Chest pain Essential hypertension Surgical History Hx of colonoscopy History of esophagogastroduodenoscopy (EGD) History of sleeve gastrectomy History of salpingoophorectomy History of tubal ligation History of D&C Family History Father Hypertension Mother Hypertension Diabetes Maternal Aunt Breast cancer Paternal Aunt Breast cancer Social History Housing: House Alcohol intake: never Patient Tobacco Use Status: Never used Tobacco e-Cigarette/Vaping Use: Never Used Second Hand Smoke Exposure: No service: No Current occupational status: unemployed Current occupation: right handed Cognitive needs: No Hearing needs: No Vision needs: No Female Reproductive History Menstrual Age of Menarche: 11 Review of Systems Const All systems reviewed & are unremarkable except as noted in HPI and below Physical Exam Const General: cooperative, healthy appearing, comfortable, no acute distress, well developed, alert and awake Nutritional Appearance: overweight Orientation/consciousness: patient oriented x3 Limitations: language barrier HEENT Head: Yes normal to inspection, Yes normocephalic and Yes atraumatic Ears: hearing grossly normal bilaterally Eyes General: appearance normal, both eyes and all related structures Neck Neck: Yes normal visual inspection and Yes trachea midline Chest Chest palpation & inspection: normal inspection of the chest Resp Effort & Inspection: normal respiratory effort and able to speak in complete sentences Cardio Rate: regular rate GI Inspection: Yes normal to inspection General: Yes no CVA tenderness Back/Spine/Pelvis Back: no CVA tenderness Skin General skin exam: no rashes or lesions noted Neuro General: patient oriented x3 Extrem General: Yes normal to inspection Psych Appearance: grossly normal and well kempt Mental Status: mental status grossly normal Speech and movement: Normal speech and movement present and Clear speech present Affect: normal affect Attitude: cooperative Thought process: Normal thought process present Thought content: Normal thought content present Insight: Fair insight present (Psych) Judgement: Fair judgement present (Psych) Assessment & Plan Assessment & Plan (1) Urinary incontinence, mixed: Code(s): N39.46 - Mixed incontinence Category: Medical (2) Hx of urinary tract infection: Code(s): Z87.440 - Personal history of urinary (tract) infections Category: Medical Plan In office urinalysis results reviewed with the patient today; as noted above. PVR 21 mL. We discussed further treatment options of mixed urinary incontinence and risks and benefits of these treatment options; patient states she will think about this. We discussed at length potential causes of urinary tract infections. Discussed UTI prevention with D mannose supplement, vitamin-C, increasing fluid intake, behavioral therapy with timed voiding, perineal hygiene and postcoital voiding, and management of constipation with stool softeners and increased fiber intake. Stop oxybutynin Start Myrbetriq as discussed and prescribed. We discussed potential for near future in office cystoscopy and or urodynamics for further assessment evaluation if symptoms persist and/or worsen Information provided regarding cystoscopy as well as in office urodynamics study For questions were answered Follow-up in 1-3 months with PVR; or sooner with any issues, concerns, and or questions. Medications: New mirabegron ER (Myrbetriq) 25 mg PO DAILY 30 tabs 3RF 30 days N30.10 - Interstitial cystitis (chronic) without hematuria, N32.81 - Overactive bladder, R35.1 - Nocturia, R39.15 - Urgency of urination Discontinued oxybutynin chloride ER Discontinued Reason: Doctor's Order 10 mg PO DAILY 30 days 30 tabs 3RF N32.81 - Overactive bladder Patient Instructions: The patient had an opportunity to ask questions regarding the treatment plan. All questions were answered. Physical exam, labs, and imaging were discussed and reviewed in detail. As well as risks, benefits, and discussion of treatment choices. No major barriers to understanding were identified. The patient expressed understanding and agreement with the above treatment plan. The patient was made aware they should contact our office by phone for worsening of their current condition, the appearance of new symptoms, or with any questions or concerns. Compliance is encouraged with any medications and follow up testing that is ordered. It is a privilege to be allowed the opportunity to participate in? your urological care.? Again, if you have any questions or concerns If you have any questions or concerns please do not hesitate to contact me. The office is [phone]. This note is constructed using voice recognition software. While every effort has been made to ensure accuracy ship mate errors may have been included. Yours sincerely, ZAINAB Caldera Coding Level of Care Code Est Pt Level 4 (73391) Diagnoses Urinary incontinence, mixed N39.46 Hx of urinary tract infection Z87.440
--- OUTSIDE RECORDS SUMMARY | 2024-12-03 12:06 | XMS_ITS | Clinical Summary ---
Author Organization [employer] Address [address] [place] [address] Care Team Providers Care Airline Manager Name Role Phone Unavailable Primary Care Provider [...] 2) 2023 COVID-19 Vaccine (3 - season) 2024 05/05/2022, 07/16/2020 Influenza Vaccine (#1) 2024 9, [...] patient's age to complete this topic Insurance [facility]
== END 2024-12-03 10:38 | disposition home or self-care (01) ==
LOC: HO.HUSH 09:49
PROVIDERS: PCP Internal Medicine; Visit Provider Nurse Practitioner Family
DX: N39.46 Mixed incontinence (principal); Z87.440 Personal history of urinary (tract) infections; Z13.9 Encounter for screening, unspecified
CPT/HCPCS: 99214

== ENCOUNTER → 2024-12-03 09:48 | Outpatient (BNVA) | payer OTHER, SELFPAY | PROVIDERS: PCP Internal Medicine; Visit Provider Nurse Practitioner Family | DX: N39.46 Mixed incontinence (principal); Z87.440 Personal history of urinary (tract) infections; N30.10 Interstitial cystitis (chronic) without hematuria; R35.1 Nocturia | CPT/HCPCS: 51798; 81003; 99212 ==

== ENCOUNTER 2024-12-18 09:07 | Outpatient (AMB) | payer OTHER, SELFPAY ==
--- NOTE | 2024-12-18 09:15 | MHC.PC.OV ---
Vital Signs 12/18/24 09:16 Height 5 ft 6 in Weight 203 lb 2 oz BMI 32.8 BP 90/60 Blood Pressure Location Lt brachial Position Sitting Pulse 66 Pulse Source Pulse Oximeter Temp 97.1 F Temp Source Temporal Artery Scan Pulse Oximetry (%) 95 Oxygen Delivery Method Room Air Intake Visit Reasons: annual exam Intake Note: Patient is here today for a physical. Mri Supervisor Required: No Safety Equipment Testing Specialist: Not Required per policy Accompanied by: Self / Same As Patient Allergies Penicillins Allergy (Mild, Verified 12/18/24 09:56) RASH amlodipine Adverse Reaction (Intermediate, Verified 12/18/24 09:56) leg edema Medication List - Last Reconciled 12/18/24 by Lety Lucero MD acetaminophen 1,000 mg (2 x 500 mg) PO Q6H PRN atorvastatin 80 mg PO BEDTIME 90 days blood pressure test kit-large As directed celecoxib (Celebrex) 200 mg PO BID 30 days cetirizine (Allergy Relief (cetirizine)) 10 mg PO DAILY PRN 90 days cholecalciferol (vitamin D3) 25 mcg PO DAILY 90 days cyanocobalamin (vitamin B-12) 500 mcg PO DAILY 90 days cyclobenzaprine 10 mg PO TID 30 days diclofenac sodium 1% (Voltaren Arthritis Pain) 4 grams topical BID gabapentin 300 mg PO BEDTIME lisinopril-hydrochlorothiazide 20-25 mg 2 tabs PO DAILY mirabegron ER (Myrbetriq) 25 mg PO DAILY 30 days propranolol ER 120 mg PO BEDTIME Tobacco use date assessed: 12/18/24 Dental Screening Dental Screen Date: 04/10/24 Did you have a dental visit in the last 12 months?: No Did you have a dental problem in the last 6 months where you did not have access to dental care?: No Was dental information given to patient?: No HPI HPI Comments History of Present Illness Details The patient is a 49-year-old female presenting for an annual physical examination and management of chronic conditions. The patient has a history of hypertension and diabetes, which are managed with lisinopril and atorvastatin, respectively. Her parents are alive, with her father having hypertension and her mother having diabetes. She experiences urinary incontinence, for which she takes Myrbetriq. Additionally, she suffers from migraines and tachycardia, managed with propranolol. The patient reports left arm pain and neck pain, which have been persistent and affect her ability to perform daily activities. The pain also disrupts her sleep, as she can only sleep on her right side due to discomfort. She has undergone a gastric sleeve surgery and a D&C procedure in 2016. She does not smoke or consume alcohol. Recent laboratory tests from August indicate normal renal function and a hemoglobin A1c of 6.1%. Triglycerides were noted to be slightly elevated, but thyroid function was normal. [facility] Medical History (Updated 12/18/24 @ 10:12 by Lety Lucero MD) Tibial neuropathy, bilateral Nocturnal leg movements Hypersomnia Snoring Foot pain Peripheral neuropathy Rectal bleeding Mixed hyperlipidemia Right shoulder pain B12 deficiency Migraines Carpal tunnel syndrome of right wrist Hypovitaminosis D Pure hypercholesterolemia Iron deficiency anemia Obesity Chest pain Essential hypertension Surgical History (Updated 12/18/24 @ 10:13 by Lety Lucero MD) History of sleeve gastrectomy History of salpingoophorectomy History of tubal ligation History of D&C Family History Father Hypertension Mother Hypertension Diabetes Maternal Aunt Breast cancer Paternal Aunt Breast cancer Social History Housing: House Alcohol intake: never Patient Tobacco Use Status: Never used Tobacco e-Cigarette/Vaping Use: Never Used Second Hand Smoke Exposure: No service: No Current occupational status: unemployed Current occupation: right handed Cognitive needs: No Hearing needs: No Vision needs: No Female Reproductive History Menstrual Age of Menarche: 11 Questionnaire Thrive Questionnaire Date Thrive assessed: 08/29/24 I am a: Patient What is your living situation today?: I have a steady place to live Within the past 12 months, did the food you bought not last and you didn't have the money to get more?: Sometimes True Within the past 12 months, did you worry whether your food would run out before you got money to buy more?: Never true Do you have trouble paying for medicines?: No Do you have trouble getting transportation to medical appointments?: No Do you have trouble paying your heating and electricity bill?: No Do you have trouble taking care of your child, family member or friend?: No Do you have trouble with day-to-day activities such as bathing, preparing meals, shopping, managing finances, etc.?: I choose not to answer this question Are you currently unemployed and looking for a job?: Yes Are you interested in more education?: I choose not to answer this question Please select the resources that you would like help with: None Currently or been in a relationship where the following occur: No concerns reported THRIVE Score: 1 SADIQ-7 AMB Questionnaire SADIQ-7 Date SADIQ - 7 assessed: 09/05/24 Source: Developed by Drs. Good Camarena, Joanne Farah, Stephen Dacosta and colleagues, with an educational lala from [employer]. Review of Systems Const All systems reviewed & are unremarkable except as noted in HPI and below Card Denies chest pain at rest, Denies chest pain with activity, Denies edema, Denies irregular heart rhythm, Denies claudication, Denies dyspnea, Denies dyspnea on exertion, Denies orthopnea, Denies paroxysmal nocturnal dyspnea and Denies slow heart rate Resp Denies cough, Denies dyspnea and Denies dyspnea on exertion Physical exam (Primary Care) Vital Signs: Last Vital Signs Temp 97.1 F 12/18/24 09:16 Pulse 66 12/18/24 09:16 BP 90/60 12/18/24 09:16 Pulse Ox 95 12/18/24 09:16 Oxygen Delivery Method Room Air 12/18/24 09:16 BMI result Body Mass Index 32.8 Tobacco/Smoking Status: Tobacco use Status Tobacco use date assessed 12/18/24 12/18/24 09:18 Patient Tobacco Use Status Never used Tobacco 12/18/24 09:18 e-Cigarette/Vaping Use Never Used 12/18/24 09:18 Thrive Assessment: Date of Thrive Assessment Date Thrive assessed 08/29/24 12/18/24 09:18 Currently or been in a relationship where the following occur: No concerns reported HENMT Head: Yes normal to inspection, Yes normocephalic and Yes atraumatic Ears: external ears normal Eyes General: appearance normal, both eyes and all related structures Eyelids: Yes eyelids normal Conjunctivae: conjunctivae normal Neck Neck: Yes normal visual inspection and Yes supple Resp Effort & Inspection: normal respiratory effort Auscultation: clear to auscultation bilaterally Cardio Jugular venous distension: no JVD Rate: regular rate Rhythm: regular rhythm Heart sounds: S1 normal heart sound present and S2 normal heart sound present GI Inspection: Yes normal to inspection Palpation (GI): Soft to palpation and nontender Auscultation: normal bowel sounds Skin General skin exam: no rashes or lesions noted Neuro General: no focal motor deficits Extrem General: Yes full ROM Psych Appearance: grossly normal Coding Level of Care Code Est Pt Level 4 (26003) Est Pt Prev Care 40-64y(94783) Diagnoses Physical exam Z00.00 Neck pain M54.2 Thoracic spine pain M54.6 Pain of right scapula M89.8X1 Pain of left scapula M89.8X1 Left shoulder pain M25.512 Left arm pain M79.602 Time Spent (min) 34 Assessment & Plan Assessment & Plan (1) Physical exam: Code(s): Z00.00 - Encounter for general adult medical examination without abnormal findings Category: Medical (2) Neck pain: Code(s): M54.2 - Cervicalgia Category: Medical (3) Thoracic spine pain: Code(s): M54.6 - Pain in thoracic spine Category: Medical (4) Pain of right scapula: Code(s): M89.8X1 - Other specified disorders of bone, shoulder Category: Medical (5) Pain of left scapula: Code(s): M89.8X1 - Other specified disorders of bone, shoulder Category: Medical (6) Left shoulder pain: Code(s): M25.512 - Pain in left shoulder Category: Medical (7) Left arm pain: Code(s): M79.602 - Pain in left arm Category: Medical Plan Plan Patient was informed and verbally consented to the use of an ambient scribe for clinic note documentation during this visit. 1. Hypertension The patient's hypertension is managed with lisinopril and atorvastatin. 3. Urinary Incontinence Urinary incontinence is managed with Myrbetriq. 4. Migraine Migraines are managed with propranolol. 5. Tachycardia Tachycardia is managed with propranolol. 6. Left Arm Pain The patient reports persistent left arm pain affecting daily activities. 7. Neck Pain The patient reports neck pain that disrupts sleep. 8. Preventative Care Preventative care includes tetanus vaccination, mammogram, and colon cancer screening with Cologuard. Orders: Orders XR thoracic spine 2V Today M54.6 - Pain in thoracic spine XR cervical spine 2V Today M54.2 - Cervicalgia XR shoulder LT min 2V Today M25.512 - Pain in left shoulder XR scapula LT Today M89.8X1 - Other specified disorders of bone, shoulder XR scapula RT Today M89.8X1 - Other specified disorders of bone, shoulder XR humerus LT Today M79.602 - Pain in left arm Referrals Rheumatology Referral M25.50 - Pain in unspecified joint Cologuard Test Z12.11 - Encounter for screening for malignant neoplasm of colon, Z12.12 - Encounter for screening for malignant neoplasm of rectum
[2024-12-18 09:16] VITALS: BP 90/60; PULSE 66; TEMP 36.2; O2SAT 95; BMI 32.8
--- OUTSIDE RECORDS SUMMARY | 2024-12-18 09:52 | XMS_ITS | Clinical Summary ---
Author Organization [employer] Address [address] [facility] [address] [place] [address] Care Team Providers Care News Technical Director Name Role Phone Unavailable Primary Care Provider [...] patient's age to complete this topic Insurance [facility]
== END 2024-12-18 10:11 | disposition home or self-care (01) ==
LOC: HO.HMCH 09:08
PROVIDERS: PCP Internal Medicine; Visit Provider Internal Medicine
DX: Z00.00 Encounter for general adult medical examination without abnormal findings (principal); M54.2 Cervicalgia; M54.6 Pain in thoracic spine; M89.8X1 Other specified disorders of bone, shoulder; M25.512 Pain in left shoulder; M79.602 Pain in left arm

== ENCOUNTER → 2024-12-18 09:07 | Outpatient (BNVA) | payer OTHER, SELFPAY | PROVIDERS: PCP Internal Medicine; Visit Provider Internal Medicine | DX: Z00.00 Encounter for general adult medical examination without abnormal findings (principal); I10 Essential (primary) hypertension; E11.9 Type 2 diabetes mellitus without complications; R32 Unspecified urinary incontinence; M79.602 Pain in left arm; M54.2 Cervicalgia; M54.6 Pain in thoracic spine; M89.8X1 Other specified disorders of bone, shoulder; M25.512 Pain in left shoulder; Z98.84 Bariatric surgery status; Z79.899 Other long term (current) drug therapy | CPT/HCPCS: 99212; 99396 ==

== ENCOUNTER 2024-12-25 10:58 | Outpatient (REF) | payer OTHER, SELFPAY ==
--- NOTE | ~2024-12-25 | XR_ITS ---
EXAMINATION: XR THORACIC SPINE CLINICAL INFORMATION: M54.6 - Pain in thoracic spine COMPARISON: None available. TECHNIQUE: 3 views of the thoracic spine were obtained. FINDINGS: Small anterior osteophytes are noted throughout the thoracic spine. There is minimal disc space narrowing. No vertebral body wedging is seen. There is subtle convex left curvature of the thoracic spine. Surgical staple line is seen projecting over the left upper quadrant of the abdomen. XR/XR thoracic spine 3V IMPRESSION: Mild degenerative disc disease. Electronically signed by: Adalid Gil MD 12/25/2024 11:52 AM EDT
--- NOTE | ~2024-12-25 | XR_ITS ---
EXAMINATION: XR SHOULDER, LEFT CLINICAL INFORMATION: M25.512 - Pain in left shoulder COMPARISON: None available. TECHNIQUE: AP external rotation, Grashey, scapular Y, and axillary views of the left shoulder. FINDINGS: Greater tuberosity is mildly prominent with a bilobed undulating contour. No fracture line is clearly evident. There is no dislocation or AC joint separation. Minimal osteophyte formation is noted involving inferior glenoid and medial humeral head. XR/XR shoulder LT min 2V IMPRESSION: Mild degenerative changes. Electronically signed by: Adalid Gil MD 12/25/2024 11:48 AM EDT
--- NOTE | ~2024-12-25 | XR_ITS ---
EXAMINATION: XR CERVICAL SPINE CLINICAL INFORMATION: M54.2 - Cervicalgia COMPARISON: None available. TECHNIQUE: 3 views of the cervical spine were obtained. FINDINGS: C5-6 shows mild disc space narrowing with endplate osteophytes. No fracture is apparent. There is no prevertebral soft tissue edema. XR/XR cervical spine 3V IMPRESSION: C5-6: Degenerative disc disease. Electronically signed by: Adalid Gil MD 12/25/2024 11:53 AM EDT
--- NOTE | ~2024-12-25 | XR_ITS ---
EXAMINATION: XR SCAPULA, LEFT CLINICAL INFORMATION: M89.8X1 - Other specified disorders of bone, shoulder COMPARISON: None available. TECHNIQUE: AP and scapular Y views of the left scapula. FINDINGS: There is an enthesophyte projecting down from the lateral clavicle likely relates the coracoclavicular ligament. There is enthesophyte at the inferior margin of scapula. No acute abnormality is identified. XR/XR scapula LT IMPRESSION: Mild degenerative change, no acute abnormality. Electronically signed by: Adalid Gil MD 12/25/2024 11:49 AM EDT
--- NOTE | ~2024-12-25 | XR_ITS ---
EXAMINATION: XR HUMERUS, LEFT CLINICAL INFORMATION: M79.602 - Pain in left arm COMPARISON: None available. TECHNIQUE: AP and lateral views of the left humerus. FINDINGS: The greater tuberosity appears mildly prominent slightly elevated but not clearly fractured. No other abnormalities seen in the humerus. XR/XR humerus LT IMPRESSION: Mildly prominent exophytic projection of the greater tuberosity without a clear fracture line. Correlate for focal tenderness. Electronically signed by: Adalid Gil MD 12/25/2024 11:46 AM EDT
--- NOTE | ~2024-12-25 | XR_ITS ---
EXAMINATION: XR SCAPULA, RIGHT CLINICAL INFORMATION: M89.8X1 - Other specified disorders of bone, shoulder COMPARISON: None available. TECHNIQUE: AP and scapular Y views of the right scapula. FINDINGS: No acute fracture is identified. There is enthesophyte at the inferior tip of scapula. There is small chronic bony exostosis dorsal to the scapular spine. XR/XR scapula RT IMPRESSION: No acute abnormality. Electronically signed by: Adalid Gil MD 12/25/2024 11:51 AM EDT
--- OUTSIDE RECORDS SUMMARY | 2024-12-25 13:34 | XMS_ITS | Clinical Summary ---
Author Organization [employer] Address [address] [facility] [address] [place] [address] Care Team Providers Care Equipment Cleaner Name Role Phone Unavailable Primary Care Provider [...] patient's age to complete this topic Insurance [facility]
== END 2024-12-25 10:59 | disposition home or self-care (01) ==
LOC: HO.XRAY 10:58
PROVIDERS: PCP Internal Medicine; Visit Provider Internal Medicine
DX: M54.2 Cervicalgia (principal); M54.6 Pain in thoracic spine; M89.8X1 Other specified disorders of bone, shoulder; M25.512 Pain in left shoulder; M79.602 Pain in left arm
CPT/HCPCS: 72040; 72072; 73010; 73030; 73060

== ENCOUNTER → 2024-12-25 11:03 | Outpatient (BNV) | payer OTHER, SELFPAY | PROVIDERS: PCP Internal Medicine; Visit Provider Radiology Diagnostic Radiology | DX: M50.322 Other cervical disc degeneration at C5-C6 level (principal); M47.814 Spondylosis without myelopathy or radiculopathy, thoracic region; M19.012 Primary osteoarthritis, left shoulder; M25.712 Osteophyte, left shoulder; M25.711 Osteophyte, right shoulder; M79.602 Pain in left arm | CPT/HCPCS: 72040; 72072; 73010; 73030; 73060 ==

== ENCOUNTER 2025-02-15 10:42 | Outpatient (REF) | payer OTHER, SELFPAY ==
--- NOTE | ~2025-02-15 | US_ITS ---
CLINICAL HISTORY: N93.9 - Abnormal uterine and vaginal bleeding, unspecified US pelvis transabdominal and transvaginal with doppler interrogation Comparison: 06/22/2024 Findings: Transabdominal scanning performed for overall anatomy. Transvaginal scanning performed for additional detail. Anteverted uterus 7.9 cm in length. Normal echotexture. A posterior intramural fibroid measuring 2.2 x 1.5 x 1.5 cm is present (previously 1.9 cm). Normal endometrium, 4 mm thickness. Right ovary normal, 3.3 cm. Normal color flow. Incidental note is made of a small simple cyst or dominant follicle measured at 17 x 17 x 13 mm). Left ovary normal, 3.3 cm. Normal color flow No free fluid Impression: 1. Similar uterine fibroid as described above. This document has been electronically signed by: Erickson Michel MD on 02/15/2025 15:41:53
--- OUTSIDE RECORDS SUMMARY | 2025-02-15 10:45 | XMS_ITS | Clinical Summary ---
Author Organization [employer] Address [address] [facility] [address] [place] [address] Care Team Providers Care Information Clerk Brokerage Name Role Phone Unavailable Primary Care Provider [...] patient's age to complete this topic Insurance [facility]
== END 2025-02-15 10:43 | disposition home or self-care (01) ==
LOC: HO.US 10:42
PROVIDERS: PCP Internal Medicine; Visit Provider Obstetrics & Gynecology
DX: N93.9 Abnormal uterine and vaginal bleeding, unspecified (principal)
CPT/HCPCS: 76830; 76856

== ENCOUNTER → 2025-02-15 10:57 | Outpatient (BNV) | payer OTHER, SELFPAY | PROVIDERS: PCP Internal Medicine; Visit Provider Radiology Diagnostic Radiology | DX: D25.9 Leiomyoma of uterus, unspecified (principal); N93.9 Abnormal uterine and vaginal bleeding, unspecified | CPT/HCPCS: 76830; 76856 ==

== ENCOUNTER 2025-03-13 08:49 | Outpatient (AMB) | payer OTHER, SELFPAY ==
--- NOTE | 2025-03-13 08:49 | A.OFFVIS_ITS ---
Intake Visit Reasons: uls results Allergies Penicillins Allergy (Mild, Verified 03/13/25 08:49) RASH amlodipine Adverse Reaction (Intermediate, Verified 03/13/25 08:49) leg edema HPI Comments Details: The patient scheduled a telehealth visit for follow-up ultrasound regarding uterine myoma seen on previous pelvic ultrasound. The patient is doing well with no complaints no abnormal uterine bleeding, pelvic pressure or pain. Pelvic ultrasound done recently showed the following: Anteverted uterus 7.9 cm in length. Normal echotexture. A posterior intramural fibroid measuring 2.2 x 1.5 x 1.5 cm is present (previously 1.9 cm). Normal endometrium, 4 mm thickness. Right ovary normal, 3.3 cm. Normal color flow. Incidental note is made of a small simple cyst or dominant follicle measured at 17 x 17 x 13 mm). Left ovary normal, 3.3 cm. Normal color flow No free fluid Impression: 1. Similar uterine fibroid as described above. [facility] Medical History Tibial neuropathy, bilateral Nocturnal leg movements Hypersomnia Snoring Foot pain Peripheral neuropathy Rectal bleeding Mixed hyperlipidemia Right shoulder pain B12 deficiency Migraines Carpal tunnel syndrome of right wrist Hypovitaminosis D Pure hypercholesterolemia Iron deficiency anemia Obesity Chest pain Essential hypertension Surgical History History of sleeve gastrectomy History of salpingoophorectomy History of tubal ligation History of D&C Family History Father Hypertension Mother Hypertension Diabetes Maternal Aunt Breast cancer Paternal Aunt Breast cancer Social History Housing: House Alcohol intake: never Patient Tobacco Use Status: Never used Tobacco e-Cigarette/Vaping Use: Never Used Second Hand Smoke Exposure: No service: No Current occupational status: unemployed Current occupation: right handed Cognitive needs: No Hearing needs: No Vision needs: No Female Reproductive History Menstrual Age of Menarche: 11 Review of Systems Const All systems reviewed & are unremarkable except as noted in HPI and below Reports as per HPI and Reports no additional complaints GI Reports no additional complaints Reports no additional complaints Telehealth Telehealth Telehealth Platform: [facility] Location of provider rendering services: practice address Location of patient: address on file Patient Identification confirmed using: Name, : Yes Telehealth method: video Patient verbally consented to treatment: Yes Patient verbally consented to billing insurance company: Yes Patient informed of any privacy concerns related to visit: Yes Minutes spent on Phone/Video with Pt.: 3 Assessment & Plan Assessment & Plan (1) Uterine myoma: Code(s): D25.9 - Leiomyoma of uterus, unspecified Category: Medical Plan: Discussed with the patient the findings on pelvic ultrasound & the risk of myosarcoma; in addition reviewed with the patient that malignancy and pre malignancy cannot be ruled out without hysterectomy for pathological evaluation ; furthermore, explained to the patient the limitation of pelvic ultrasound and endometrial biopsy in the setting. Discussed with the patient the options of treatment including expectant management versus hysterectomy; the pros and cons, risks benefits of each approach were discussed with the patient including the fact that in cases of myosarcoma, surgical treatment can lead to early diagnosis and positively affects the prognosis; after further discussion, the patient decided to proceed with expectant management. Will repeat pelvic ultrasound periodically. Instructions given to patient to call in case any of the following occurs: pressure symptoms, abnormal uterine bleeding, pelvic pain; and to schedule a 12 months pelvic ultrasound (order placed) and a follow-up appointment . All questions answered, the patient verbalized understanding and agreed with the plan . I spent a total of 20 minutes reviewing the chart, talking to the patient via video and documenting in the medical record. Orders: Orders US pelvic and transvaginal 12 Months D25.9 - Leiomyoma of uterus, unspecified Coding Level of Care Code Tele Est Pt Level 3 (03403) Diagnoses Uterine myoma D25.9
--- OUTSIDE RECORDS SUMMARY | 2025-03-13 08:51 | XMS_ITS | Clinical Summary ---
Author Organization [employer] Address [address] [facility] [address] [place] [address] Care Team Providers Care Biological Sciences Instructor Name Role Phone Unavailable Primary Care Provider [...] age to complete this topic Insurance [facility]
== END 2025-03-13 09:12 | disposition home or self-care (01) ==
LOC: HO.HWS 08:49
PROVIDERS: PCP Internal Medicine; Visit Provider Obstetrics & Gynecology
DX: D25.9 Leiomyoma of uterus, unspecified (principal)
CPT/HCPCS: 99213